=== PATIENT | male | born 1965 | race Caucasian/White ===

== ENCOUNTER 2020-04-27 16:42 | Emergency (ER) | payer OTHER, SELFPAY ==
[2020-04-27 16:58] VITALS: BP 124/76; PULSE 86; RESP 18; TEMP 36.2; O2SAT 94; BMI 22.9
--- NOTE | 2020-04-27 21:42 | ED.GENADULT ---
HPI - General Adult General Chief complaint: General Medical Stated complaint: Withdrawls Time Seen by Provider: 04/27/20 21:19 Source: patient Mode of arrival: ambulatory History of Present Illness HPI narrative: This is a 54-year-old male with history of multiple detox programs, the last of which he states was at [facility] and is now presenting stating that he is withdrawing from his use of heroin which he last used yesterday. Otherwise, patient denies shortness of breath, chest pain/palpitations, nausea, vomiting, urinary pain/burning/frequency. Patient states that he was set up for a Suboxone program after the [facility], but he was ?unable to make it due to transportation issues?. He denies alcohol use. Related Data Allergies Allergy/AdvReac Type Severity Reaction Status Date / Time codeine [CODEINE] Allergy Unknown NAUSEA Unverified 04/27/20 16:58 morphine [MORPHINE] Allergy Unknown RASH Verified 04/27/20 16:58 Review of Systems Review of Systems: Pertinent positives and negatives as stated in HPI and 10 point review systems is otherwise negative. [facility] Past Medical History Source: nursing notes reviewed Social History Social History Advance Directives: No Advance Directives Information Provided: No Physical Exam Vital Signs: Vital Signs: Last Vital Signs Temp 97.9 F 04/28/20 01:28 Pulse 68 04/28/20 01:28 Resp 18 04/28/20 01:28 BP 126/62 04/28/20 01:28 Pulse Ox 98 04/28/20 01:28 Body Mass Index 22.9 VITAL SIGNS: Reviewed. GENERAL: Well developed, well nourished, in no acute distress. HEAD: Normocephalic/atraumatic, EYES: PERRLA, EOMI NOSE: Nares patent bilateral OROPHARYNX: no oral lesions noted, posterior pharynx clear NECK: Supple, no adenopathy LUNGS: Normal breath sounds. No adventitious sounds or accessory muscle use. SpO2<97> CARDIOVASCULAR: Regular rate and rhythm without noted murmurs, no JVD or lower extremity edema. ABDOMEN: Soft, non-tender, non-distended with bowel sounds. SKIN: Inspection of the skin reveals no rashes NEUROLOGIC: Alert and oriented x 4. Strength and sensation to light touch were grossly intact x 4, no tremors. Course Course Course Narrative: This is a 54-year-old male with history and clinical presentation consistent with likely needing a warm place to sleep, but will do medical screen and no evidence of acute withdrawal at this time. Will ask the acetone recovery worker in the morning to see the patient. COW- 2 Review of all investigations without acute findings and the CARE team spoke with the patient and provided him with a list of outpatient resources for detox and patient endorse that he has some place to stay and understands that he will be discharged at 6:00 a.m. in the morning. Medical Decision Making Lab Data Result diagrams: 04/27/20 22:11 04/27/20 22:11 Labs: Lab Results 04/27/20 04/27/20 04/27/20 Range/Units 22:11 22:11 22:11 WBC 6.1 (4.8-10.8) X10*3/uL RBC 3.99 L (4.60-5.80) X10*6/uL Hgb 11.9 L (14.0-18.0) g/dl Hct 35.4 L (42-52) % MCV 88.7 (80-98) fL MCH 29.8 (27.0-33.0) pg MCHC 33.6 (31.0-36.0) g/dl RDW 13.6 (11.0-16.0) % Plt Count 154 L (160-400) X10*3/uL MPV 8.9 L (9.4-12.4) fL Immature Gran % (Auto) 0.3 (0.0-0.4) % Neut % (Auto) 47.6 (45-73) % Lymph % (Auto) 33.4 (20-40) % Darke % (Auto) 16.4 H (2-11) % Eos % (Auto) 2.0 (0-4) % Baso % (Auto) 0.3 (0-2) % Lymph # (Auto) 2.0 (1.2-4.9) X10*3/uL Darke # (Auto) 1.0 (0.1-1.2) X10*3/uL Eos # (Auto) 0.1 (0.0-0.4) X10*3/uL Baso # (Auto) 0.0 (0.0-0.2) X10*3/uL Abs Immat Gran (auto) 0.02 (0.00-0.03) X10*3/uL Absolute Neuts (auto) 2.9 (2.0-8.3) X10*3/uL Absolute Nucleated RBC 0.000 (0.0-0.012) X10*3/uL Nucleated RBC % (auto) 0.0 (0.0-0.2) /100WBC Sodium 138 (135-145) mmol/L Potassium 4.8 (3.3-5.1) mmol/L Chloride 103 (96-108) mmol/L Carbon Dioxide 29 (22-29) mmol/L Anion Gap 11 L (12-20) BUN 36 H (9-16) mg/dL Creatinine 1.23 (0.5-1.4) mg/dL Estim Creat Clear Calc 68.8 Estimated GFR > 60 Random Glucose 66 (60-115) mg/dL Calcium 8.4 (8.4-10.2) mg/dL Urine Color Urine Appearance Urine pH (5.0-8.0) Ur Specific [place] (1.005-1.025) Urine Protein (NEG-TRACE) MG/DL Urine Glucose (UA) (NEG) MG/DL Urine Ketones (NEG) MG/DL Urine Blood (NEG) Urine Nitrite (NEG) Ur Leukocyte Esterase (NEG) Urine Opiates Screen (Not Detect) Ur Barbiturates Screen (Not Detect) Ur Phencyclidine Scrn (Not Detect) Ur Amphetamines Screen (Not Detect) U Benzodiazepines Scrn (Not Detect) Urine Cocaine Screen (Not Detect) U Marijuana (THC) Screen (Not Detect) Ethyl Alcohol < 10 mg/dL 04/28/20 04/28/20 Range/Units 00:32 00:32 WBC (4.8-10.8) X10*3/uL RBC (4.60-5.80) X10*6/uL Hgb (14.0-18.0) g/dl Hct (42-52) % MCV (80-98) fL MCH (27.0-33.0) pg MCHC (31.0-36.0) g/dl RDW (11.0-16.0) % Plt Count (160-400) X10*3/uL MPV (9.4-12.4) fL Immature Gran % (Auto) (0.0-0.4) % Neut % (Auto) (45-73) % Lymph % (Auto) (20-40) % Darke % (Auto) (2-11) % Eos % (Auto) (0-4) % Baso % (Auto) (0-2) % Lymph # (Auto) (1.2-4.9) X10*3/uL Darke # (Auto) (0.1-1.2) X10*3/uL Eos # (Auto) (0.0-0.4) X10*3/uL Baso # (Auto) (0.0-0.2) X10*3/uL Abs Immat Gran (auto) (0.00-0.03) X10*3/uL Absolute Neuts (auto) (2.0-8.3) X10*3/uL Absolute Nucleated RBC (0.0-0.012) X10*3/uL Nucleated RBC % (auto) (0.0-0.2) /100WBC Sodium (135-145) mmol/L Potassium (3.3-5.1) mmol/L Chloride (96-108) mmol/L Carbon Dioxide (22-29) mmol/L Anion Gap (12-20) BUN (9-16) mg/dL Creatinine (0.5-1.4) mg/dL Estim Creat Clear Calc Estimated GFR Random Glucose (60-115) mg/dL Calcium (8.4-10.2) mg/dL Urine Color YELLOW Urine Appearance CLEAR Urine pH 5.5 (5.0-8.0) Ur Specific [place] 1.025 (1.005-1.025) Urine Protein NEG (NEG-TRACE) MG/DL Urine Glucose (UA) NEG (NEG) MG/DL Urine Ketones NEG (NEG) MG/DL Urine Blood NEG (NEG) Urine Nitrite NEG (NEG) Ur Leukocyte Esterase NEG (NEG) Urine Opiates Screen POSITIVE H (Not Detect) Ur Barbiturates Screen Not Detected (Not Detect) Ur Phencyclidine Scrn Not Detected (Not Detect) Ur Amphetamines Screen Not Detected (Not Detect) U Benzodiazepines Scrn Not Detected (Not Detect) Urine Cocaine Screen POSITIVE H (Not Detect) U Marijuana (THC) Screen Not Detected (Not Detect) Ethyl Alcohol mg/dL Discharge Plan Discharge Clinical Impression: Substance abuse Patient Disposition: Home, Self-Care Instructions: Polysubstance Abuse (ED) Additional Instructions: 1. You have been provided with a list of resources for detox as an outpatient. 2. Please do not hesitate to come back to the emergency department should you have any acute onset of chest pain, shortness of breath, fevers or chills that are not relieved by Tylenol or ibuprofen. Referrals: Cecilia Schmidt MD [Primary Care Provider] - 2 days (Re-evaluation for polysubstance abuse)
[2020-04-27 22:16] LABS: MANUAL DIFF FLAG NO
[2020-04-27 22:23] LABS: Basophils Percent Auto 0.3 % (0-2); Eosinophils Absolute Auto 0.1 X10*3/uL (0.0-0.4); Hematocrit 35.4 % (42-52); Hemoglobin 11.9 g/dl (14.0-18.0); Imm Gran Abs Auto 0.02 X10*3/uL (0.00-0.03); Imm Gran Pct Auto 0.3 % (0.0-0.4); Lymphocytes Percent Auto 33.4 % (20-40); Mean Corpuscular HGB Conc 33.6 g/dl (31.0-36.0); Mean Corpuscular Hemoglobin 29.8 pg (27.0-33.0); Mean Corpuscular Volume 88.7 fL (80-98); Mean Platelet Volume 8.9 fL (9.4-12.4); Monocytes Percent Auto 16.4 % (2-11); Neutrophils Absolute Auto 2.9 X10*3/uL (2.0-8.3); Neutrophils Percent Auto 47.6 % (45-73); Platelet Count 154 X10*3/uL (160-400); Red Blood Count 3.99 X10*6/uL (4.60-5.80); Red Cell Distribution Width 13.6 % (11.0-16.0); White Blood Count 6.1 X10*3/uL (4.8-10.8)
[2020-04-27 22:41] VITALS: BP 119/77; PULSE 60; RESP 18; TEMP 36.6; O2SAT 97
[2020-04-27 22:46] LABS: Ethanol < 10 mg/dL
[2020-04-27 22:47] LABS: Anion Gap 11 (12-20); Blood Urea Nitrogen 36 mg/dL (9-16); Calcium 8.4 mg/dL (8.4-10.2); Carbon Dioxide 29 mmol/L (22-29); Chloride 103 mmol/L (96-108); Creatinine Clr Calc Pharmacy 68.8; Estimated Glomerular Filt Rate > 60; Glucose Random 66 mg/dL (60-115); Potassium 4.8 mmol/L (3.3-5.1); Sodium 138 mmol/L (135-145)
[2020-04-28 00:53] LABS: Glucose Urine UA NEG (NEG); Leukocyte Esterase Urine NEG (NEG); Nitrite Urine NEG (NEG); PH 5.5 (5.0-8.0); Specific Gravity - Urine 1.025 (1.005-1.025); Urine Blood NEG (NEG); Urine Ketones NEG (NEG); Urine Protein NEG (NEG-TRACE)
[2020-04-28 00:54] LABS: Color Urine YELLOW
[2020-04-28 00:55] LABS: Appearance Urine CLEAR
[2020-04-28 01:13] LABS: Amphetamine Screen Urine Not Detected (Not Detect); Barbiturates, Urine Not Detected (Not Detect); Benzodiazepines Screen Urine Not Detected (Not Detect); Cannabinoid Screen Urine Not Detected (Not Detect); Cocaine Screen Urine POSITIVE (Not Detect); Opiate Screen Urine POSITIVE (Not Detect); Phencyclidine Screen Urine Not Detected (Not Detect)
[2020-04-28 01:28] VITALS: BP 126/62; PULSE 68; RESP 18; TEMP 36.6; O2SAT 98
[2020-04-28 01:31] VITALS: PULSE 65
--- NOTE | 2020-04-28 02:45 | MHC.CARE ---
CARE Team meets with pt in order to discuss ATS referral. Pt is vague about his current desire to be referred to detox. He states that he came to the ED in order for support in detoxing on his own and to receive comfort measures. He states that he is having stomach pain, nausea and stomach pain and feels like ants are crawling on him. Dr. Barr informed of these reported sx and pt's request for medication. CARE Team offers LYFT back to his motel, but LYFT unavailable. CARE Team provides list of ATS facilities and education about [facility]. CARE Team available to meet with pt in the morning if he is still in the ED.
--- NOTE | 2020-04-28 04:27 | PC.NURSE ---
Pt asleep on stretcher on in NAD, breathing with ease on RA. Pt appears comfortable, RR even and unlabored with equal chest rise and fall bilaterally. No sweat noted on patient.
[2020-04-28 06:07] VITALS: BP 142/77; PULSE 80; RESP 16; O2SAT 98
== END 2020-04-28 06:15 | disposition home or self-care (01) ==
PROVIDERS: Emergency Provider Student in an Organized Health Care Education/Training Program; PCP Internal Medicine
DX: F11.13 Opioid abuse with withdrawal (principal); Z71.51 Drug abuse counseling and surveillance of drug abuser
CPT/HCPCS: 36415; 80048; 80307; 80320; 81003; 85025; 99284

== ENCOUNTER 2022-11-11 08:30 | Outpatient (REF) | payer OTHER, SELFPAY ==
--- NOTE | ~2022-11-11 | XR_ITS ---
EXAMINATION: XR KNEE, RIGHT CLINICAL INFORMATION: Pain. COMPARISON: None available. TECHNIQUE: AP, lateral and sunrise views of the right knee are submitted. FINDINGS: There is bony demineralization. The lateral, medial and patellofemoral joint space compartments are well-maintained. No fracture, dislocation or joint effusion is seen. There is a small enthesophyte arising from the upper pole of the patella. No foreign body is seen. XR/XR knee RT 3V IMPRESSION: Normal right knee.
== END 2022-11-11 08:31 | disposition home or self-care (01) ==
LOC: HO.HOSX 08:30
PROVIDERS: Visit Provider Orthopaedic Surgery
DX: M25.561 Pain in right knee (principal)
CPT/HCPCS: 73562; 99202

== ENCOUNTER 2022-11-11 10:39 | Outpatient (AMB) | payer OTHER, SELFPAY ==
--- NOTE | 2022-11-11 10:41 | A.OFFVIS_ITS ---
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 He describes his pain as achy in nature. He denies any locking or giving way. He does not take any medicines for his discomfort. The patient states that he has had cortisone shots given into other parts of his body in the past. He has not had an injection into either of his knees. Allergies codeine [CODEINE] Allergy (Unknown, Unverified 04/27/20 16:58) NAUSEA morphine [MORPHINE] Allergy (Unknown, Verified 04/27/20 16:58) RASH Medication List - Last Reconciled 11/11/22 by Benson Vincent MD albuterol sulfate 90 mcg/actuation (Ventolin HFA) 2 puffs inhalation QID PRN amlodipine 5 mg PO DAILY fluticasone propionate 110 mcg/actuation (Flovent HFA) 2 puffs inhalation BID hydroxyzine HCl 25 mg PO BID PRN ibuprofen 600 mg PO Q6H methadone 90 mg PO Q6H sertraline mg PO trazodone 150 mg PO BEDTIME PFSH Surgical History (Updated 11/11/22 @ 10:54 by Karly Alston CMA) H/O elbow surgery (~2000) H/O neck surgery (~1998) History of ankle surgery (~2003) Social History (Updated 11/11/22 @ 10:55 by Karly Alston CMA) Patient Tobacco Use Status: Current everyday Tobacco user Cigarette Packs Per Day: 10 Current occupational status: disabled Physical Exam Vital Signs: BMI result Body Mass Index 38.7 Const Other: Well-nourished well-developed very friendly male awake alert and oriented x3 in no acute distress Extrem Other: Bilateral lower extremity examination shows good capillary refill, no skin lesions noted, normal sensation light touch Right knee examination shows a minimal effusion, mild crepitus with range of motion, negative Angel's test, no instability Results Reviewed Results Reviewed: X-rays of the patient's right knee taken today show mild diffuse joint space narrowing, no acute bony Assessment & Plan Assessment & Plan (1) Right knee pain: Code(s): M25.561 - Pain in right knee Plan Mr. Younger presents with intermittent right knee discomfort due to early degenerative joint disease. I had a lengthy discussion with the patient regarding the treatment options. At this point his symptoms are tolerable to him. He wishes to hold off on a cortisone injection. He will follow up with me on an as-needed basis should his symptoms worsen in any way. The patient also reports bilateral lower extremity intermittent swelling. I do not believe that the diffuse swelling is related to his early knee arthritis. His diffuse swelling is most likely due to a systemic problem such as cardiovascular disease. I did recommend that he contact your office for a follow-up appointment. 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 Feel free to call me at any time should questions regarding his orthopedic management arise. Thank you very much for asking me to see this very friendly gentleman. Orders: Orders XR knee RT 3V Today M25.561 - Pain in right knee Coding Level of Care Code New Pt Level 2 (39307) Diagnoses Right knee pain M25.561
[2022-11-11 10:51] VITALS: BMI 38.7
== END 2022-11-11 11:04 | disposition home or self-care (01) ==
PROVIDERS: PCP Internal Medicine; Visit Provider Orthopaedic Surgery
DX: M25.561 Pain in right knee (principal)
CPT/HCPCS: 99202

== ENCOUNTER 2022-11-11 11:16 | Outpatient (REF) | payer OTHER, SELFPAY ==
[2022-11-11 13:09] LABS: MANUAL DIFF FLAG NO
[2022-11-11 13:11] LABS: Basophils Percent Auto 0.3 % (0-2); Eosinophils Absolute Auto 0.2 X10*3/uL (0.0-0.4); Hematocrit 34.5 % (42.0-52.0); Hemoglobin 11.2 g/dl (14.0-18.0); Imm Gran Abs Auto 0.04 X10*3/uL (0.00-0.03); Imm Gran Pct Auto 0.5 % (0.0-0.4); Lymphocytes Absolute Auto 1.3 X10*3/uL (1.2-4.9); Lymphocytes Percent Auto 16.8 % (20-40); Mean Corpuscular HGB Conc 32.5 g/dl (31.0-36.0); Mean Corpuscular Hemoglobin 28.4 pg (27.0-33.0); Mean Corpuscular Volume 87.6 fL (80.0-98.0); Monocytes Absolute Auto 0.8 X10*3/uL (0.1-1.2); Monocytes Percent Auto 10.1 % (2-11); Neutrophils Absolute Auto 5.6 x10*3/uL (2.0-8.3); Neutrophils Percent Auto 70.3 % (45-73); Platelet Count 241 X10*3/uL (160-400); Red Blood Count 3.94 X10*6/uL (4.60-5.80)
[2022-11-11 13:41] LABS: Alanine Aminotransferase 13 U/L (0-40); Albumin Level 3.8 g/dL (3.5-5.0); Alkaline Phosphatase 88 U/L (39-117); Anion Gap 13 (12-20); Aspartate Amino Transferase 16 U/L (5-37); Bilirubin Total 0.2 mg/dL (0.0-1.0); Blood Urea Nitrogen 25 mg/dL (9-16); Carbon Dioxide 28 mmol/L (22-29); Chloride 100 mmol/L (96-108); Cholesterol 190 mg/dL; Estimated Glomerular Filt Rate 43; Glucose Random 101 mg/dL (60-115); HDL Cholesterol 57 mg/dL; LDL Cholesterol Calculated 111 mg/dl; Potassium 4.7 mmol/L (3.3-5.1); Sodium 136 mmol/L (135-145); Total Protein 8.3 g/dL (6.5-8.0); Triglycerides 110 mg/dL
[2022-11-11 13:53] LABS: Prostate Specific Antigen Scr < 0.10 ng/mL (<0.05-4.0)
== END 2022-11-11 11:17 | disposition home or self-care (01) ==
LOC: HO.10HDL 11:16
PROVIDERS: Visit Provider Internal Medicine
DX: Z12.5 Encounter for screening for malignant neoplasm of prostate (principal); D89.0 Polyclonal hypergammaglobulinemia; F32.9 Major depressive disorder, single episode, unspecified; I12.9 Hypertensive chronic kidney disease with stage 1 through stage 4 chronic kidney disease, or unspecified chronic kidney disease; N18.9 Chronic kidney disease, unspecified; Z72.0 Tobacco use
CPT/HCPCS: 36415; 80053; 80061; 84153; 84443; 85025

== ENCOUNTER 2022-12-17 12:05 | Outpatient (REF) | payer OTHER, SELFPAY ==
[2022-12-17 13:16] LABS: MANUAL DIFF FLAG NO
[2022-12-17 13:24] LABS: Basophils Percent Auto 0.4 % (0-2); Eosinophils Absolute Auto 0.3 X10*3/uL (0.0-0.4); Eosinophils Percent Auto 3.3 % (0-4); Hematocrit 34.8 % (42.0-52.0); Hemoglobin 11.5 g/dl (14.0-18.0); Imm Gran Abs Auto 0.09 X10*3/uL (0.00-0.03); Imm Gran Pct Auto 1.1 % (0.0-0.4); Lymphocytes Absolute Auto 1.4 X10*3/uL (1.2-4.9); Lymphocytes Percent Auto 16.9 % (20-40); Mean Corpuscular Hemoglobin 28.5 pg (27.0-33.0); Mean Corpuscular Volume 86.4 fL (80.0-98.0); Mean Platelet Volume 8.8 fL (9.4-12.4); Monocytes Absolute Auto 0.9 X10*3/uL (0.1-1.2); Monocytes Percent Auto 10.3 % (2-11); Neutrophils Absolute Auto 5.6 x10*3/uL (2.0-8.3); Platelet Count 223 X10*3/uL (160-400); Red Blood Count 4.03 X10*6/uL (4.60-5.80); Red Cell Distribution Width 14.9 % (11.0-16.0); White Blood Count 8.3 X10*3/uL (4.8-10.8)
== END 2022-12-17 12:06 | disposition home or self-care (01) ==
LOC: HO.10HDL 12:05
PROVIDERS: Visit Provider Internal Medicine
DX: Z00.01 Encounter for general adult medical examination with abnormal findings (principal); I12.9 Hypertensive chronic kidney disease with stage 1 through stage 4 chronic kidney disease, or unspecified chronic kidney disease; N18.9 Chronic kidney disease, unspecified; D63.1 Anemia in chronic kidney disease; F32.4 Major depressive disorder, single episode, in partial remission; Z72.0 Tobacco use
CPT/HCPCS: 36415; 80053; 82728; 85025

== ENCOUNTER 2023-10-30 14:43 | Emergency (ER) | payer OTHER, SELFPAY ==
[2023-10-30 14:58] VITALS: BP 138/67; PULSE 79; O2SAT 94
[2023-10-30 15:00] VITALS: BP 109/58; PULSE 77; RESP 20; TEMP 36.2; O2SAT 92; BMI 38.7
--- NOTE | 2023-10-30 15:16 | ED_ITS ---
HPI - Skin/Abscess/Foreign Bdy General Stated complaint: R ANKLE WOUND Time Seen by Provider: 10/30/23 15:16 Source: patient Mode of arrival: ambulatory Limitations: no limitations History of Present Illness HPI narrative: Patient is a 58-year-old with past medical history of hypertension, asthma, depression, anxiety, substance use disorder presenting to emergency department for evaluation of a right ankle wound, chronic in nature follows with [facility] wound clinic. States he last saw them 2 days ago. Not currently on any antibiotics. He states that he noticed bleeding from the dressing suddenly, does not recall hitting it or striking it into anything that would have prompted the bleeding. He denies any pain. Related Data Home Medications ?Medication ?Instructions ?Recorded ?Confirmed albuterol sulfate 90 mcg/actuation 2 puff inhalation QID PRN asthma 11/11/22 11/11/22 aerosol inhaler (Ventolin HFA) amlodipine 5 mg tablet 5 mg PO DAILY 11/11/22 11/11/22 fluticasone propionate 110 2 puff inhalation BID 11/11/22 11/11/22 mcg/actuation HFA aerosol inhaler (Flovent HFA) hydroxyzine HCl 25 mg tablet 25 mg PO BID PRN 11/11/22 11/11/22 ibuprofen 600 mg tablet 600 mg PO Q6H 11/11/22 11/11/22 methadone 5 mg/5 mL oral solution 90 mg PO Q6H 11/11/22 11/11/22 sertraline 100 mg tablet mg PO 11/11/22 11/11/22 trazodone 150 mg tablet 150 mg PO BEDTIME 11/11/22 11/11/22 Allergies Allergy/AdvReac Type Severity Reaction Status Date / Time codeine [CODEINE] Allergy Unknown NAUSEA Verified 10/30/23 15:38 morphine [MORPHINE] Allergy Unknown RASH Verified 10/30/23 15:38 Review of Systems Review of Systems: Yes all other systems are reviewed and are negative PMFSH Past Medical History Attestation statement: The following information was validated with the patient. Source: old records reviewed Surgical History H/O elbow surgery (~2000) History of ankle surgery (~2003) H/O neck surgery (~1998) Social History Social History (Updated 11/11/22 @ 10:55 by Karly Alston [facility]) Patient Tobacco Use Status: Current everyday Tobacco user Cigarette Packs Per Day: 10 Current occupational status: disabled Physical Exam Vital Signs: Appearance: Alert.?Oriented to person, place and time. No acute distress.?Normal affect. Eyes: Pupils equal, round and reactive to light.?EOMi ENT: Pharynx normal.?? Neck: Normal inspection.? Neck supple.?? CVS: Heart sounds normal. Normal heart rate and rhythm.? Pulses normal.?? Respiratory: No respiratory distress.? Lung sounds clear to auscultation bilaterally?? Abdomen: Soft and non-tender. Normoactive bowel sounds..?? Skin: Skin warm and dry.? Normal skin color.? Chronic wound to the right posterior medial ankle. Surrounding tissue is pink with some maceration, significant amount of barrier cream is intact. Wound bed with pink/yellow granular tissue, few areas of redness corresponding with previous bleeding though no active bleeding. Extremities: No lower extremity edema.? No calf tenderness upon palpation Neuro: Moves all extremities spontaneously. Sensation intact bilaterally. Ambulates with normal steady gait. Medical Decision Making Medical Decision Making MDM Narrative: Patient is a 58-year-old with past medical history of hypertension, asthma, depression, anxiety, substance use disorder presenting to emergency department for evaluation of a right ankle wound. Nursing staff contacted did wound clinic, calcium alginate is to be applied to the wound bed with barrier cream to surrounding area and with nonabsorbable dressing. There are a few areas within the bed that appear to have been previously bleeding, currently without active bleeding. Does not appear to be cellulitic or with acute infection. At this time feel that he is stable for discharge home. Differential Diagnosis Differential Diagnoses: The differential diagnosis associated with the presentation includes (See narrative above) Independent Historian Clinical information obtained from an independent historian. History obtained from or confirmed by: EMS External Record Review External record reviewed: Outpatient record Prescription Management I considered prescription management with: Antibiotic (Does not appear with acute infection would defer antibiotics) Discharge Plan Discharge Clinical Impression: Open wound of right ankle Patient Disposition: Home, Self-Care Additional Instructions: Continue your dressings as instructed by wound clinic and outpatient follow-up. Return to the emergency department with any new or worsening symptoms or concerns Prescriptions: No Action amlodipine 5 mg tablet 5 mg PO DAILY sertraline 100 mg tablet PO fluticasone propionate [Flovent HFA] 110 mcg/actuation HFA aerosol inhaler 2 puff inhalation BID albuterol sulfate [Ventolin HFA] 90 mcg/actuation HFA aerosol inhaler 2 puff inhalation QID PRN (Reason: asthma) trazodone 150 mg tablet 150 mg PO BEDTIME hydroxyzine HCl 25 mg tablet 25 mg PO BID PRN ibuprofen 600 mg tablet 600 mg PO Q6H methadone 5 mg/5 mL solution 90 mg PO Q6H Referrals: ED Physician,Generic [Physician] - Print Language: Japanese
[2023-10-30 17:39] VITALS: BP 124/70; PULSE 69; RESP 18; TEMP 36.8; O2SAT 93
== END 2023-10-30 17:55 | disposition home or self-care (01) ==
PROVIDERS: Emergency Provider Student in an Organized Health Care Education/Training Program; PCP Internal Medicine
DX: S91.001D Unspecified open wound, right ankle, subsequent encounter (principal); X58.XXXD Exposure to other specified factors, subsequent encounter; I10 Essential (primary) hypertension; J45.909 Unspecified asthma, uncomplicated; F17.210 Nicotine dependence, cigarettes, uncomplicated; Z79.899 Other long term (current) drug therapy
CPT/HCPCS: 99283

== ENCOUNTER 2024-01-06 11:29 | Outpatient (REF) | payer OTHER, SELFPAY ==
[2024-01-06 13:17] LABS: MANUAL DIFF FLAG NO
[2024-01-06 13:55] LABS: Basophils Percent Auto 0.4 % (0-2); Eosinophils Absolute Auto 0.4 X10*3/uL (0.0-0.4); Eosinophils Percent Auto 5.6 % (0-4); Hematocrit 29.3 % (42.0-52.0); Hemoglobin 9.4 g/dl (14.0-18.0); Imm Gran Abs Auto 0.07 X10*3/uL (0.00-0.03); Imm Gran Pct Auto 0.9 % (0.0-0.4); Mean Corpuscular HGB Conc 32.1 g/dl (31.0-36.0); Mean Corpuscular Hemoglobin 27.4 pg (27.0-33.0); Mean Corpuscular Volume 85.4 fL (80.0-98.0); Mean Platelet Volume 8.6 fL (9.4-12.4); Monocytes Absolute Auto 0.8 X10*3/uL (0.1-1.2); Monocytes Percent Auto 10.1 % (2-11); Neutrophils Absolute Auto 5.4 x10*3/uL (2.0-8.3); Platelet Count 255 X10*3/uL (160-400); Red Blood Count 3.43 X10*6/uL (4.60-5.80); Red Cell Distribution Width 16.2 % (11.0-16.0); White Blood Count 7.7 X10*3/uL (4.8-10.8)
[2024-01-06 14:16] LABS: Alanine Aminotransferase 9 U/L (0-40); Albumin Level 3.6 g/dL (3.5-5.0); Alkaline Phosphatase 94 U/L (39-117); Anion Gap 12 (12-20); Aspartate Amino Transferase 12 U/L (5-37); Bilirubin Total 0.2 mg/dL (0.0-1.0); Blood Urea Nitrogen 26 mg/dL (9-16); Calcium 8.8 mg/dL (8.4-10.2); Carbon Dioxide 24 mmol/L (22-29); Chloride 107 mmol/L (96-108); Cholesterol 161 mg/dL (<200); Estimated Glomerular Filt Rate 47; Glucose Random 110 mg/dL (60-115); HDL Cholesterol 43 mg/dL (>40); LDL Cholesterol Calculated 90 mg/dL (<100); Potassium 4.3 mmol/L (3.3-5.1); Sodium 139 mmol/L (135-145); Total Protein 8.3 g/dL (6.5-8.0); Triglycerides 140 mg/dL (<150)
[2024-01-06 14:25] LABS: Prostate Specific Antigen Scr < 0.10 ng/mL (<0.05-4.0)
[2024-01-06 14:31] LABS: Thyroid Stimulating Hormone 3.87 uIU/mL (0.32-4.0)
== END 2024-01-06 11:30 | disposition home or self-care (01) ==
LOC: HO.10HDL 11:29
PROVIDERS: Visit Provider Internal Medicine
DX: D64.89 Other specified anemias (principal); I12.9 Hypertensive chronic kidney disease with stage 1 through stage 4 chronic kidney disease, or unspecified chronic kidney disease; L97.919 Non-pressure chronic ulcer of unspecified part of right lower leg with unspecified severity; N40.0 Benign prostatic hyperplasia without lower urinary tract symptoms
CPT/HCPCS: 36415; 80053; 80061; 84153; 84443; 85025

== ENCOUNTER 2024-03-21 15:37 | Inpatient (IN) | payer OTHER, SELFPAY ==
--- NOTE | ~2024-03-21 | XR_ITS ---
EXAMINATION: XR FOOT, RIGHT CLINICAL INFORMATION: Heel wound. osteomyelitits? COMPARISON: 08/12/2023 TECHNIQUE: AP, lateral, and oblique views of the right foot. FINDINGS: Soft tissue defect posterior to the calcaneus with cortical erosion of the posterior superior tuberosity compatible with osteomyelitis. There are more chronic appearing changes in the mid aspect of the posterior tuberosity, likely a remote, healed fracture. XR/XR foot RT 2V IMPRESSION: Soft tissue defect posterior to the calcaneus with cortical erosion of the posterior superior tuberosity compatible with osteomyelitis. Electronically signed by: Ignacio Fairchild MD 03/21/2024 07:10 PM [facility]
--- NOTE | ~2024-03-21 | US_ITS ---
EXAMINATION: Noninvasive assessment of the bilateral lower extremities with ARTERIAL DUPLEX and ANKLE BRACHIAL INDICES (ABIs). CLINICAL INFORMATION: Peripheral vascular disease, nonhealing ulcer TECHNIQUE: Duplex Doppler techniques with waveform analysis and measurement of velocities in the bilateral common femoral, profunda femoris, superficial femoral, popliteal and tibial arteries were performed. Additionally, ankle pulse volume recordings, ankle pressure measurements and ankle brachial indices were obtained of the lower extremity arterial system bilaterally. The study was performed only at rest. COMPARISON: None FINDINGS: DIRECT DUPLEX DOPPLER FINDINGS: RIGHT LEG: Common femoral artery: 134 cm/s, phasicity: Triphasic Profunda femoris artery: 81.6 cm/s, phasicity: Biphasic Superficial femoral artery (proximal): 87.3 cm/s, phasicity: Biphasic Superficial femoral artery (mid): 100.4 cm/s, phasicity: Triphasic Superficial femoral artery (distal): 125 cm/s, phasicity: Biphasic Popliteal artery: 79.6 cm/s, phasicity: Triphasic Posterior tibial artery: 74 cm/s, phasicity: Biphasic Peroneal artery: Not visualized Anterior tibial artery: 54.0 cm/s, phasicity: Monophasic Dorsalis pedis artery: 90.1 cm/s, phasicity:Biphasic LEFT LEG: Common femoral artery: 186 cm/s, phasicity: Triphasic Profunda femoris artery: 81 cm/s, phasicity: Biphasic Superficial femoral artery (proximal): 107 cm/s, phasicity: Triphasic Superficial femoral artery (mid): 96.2 cm/s, phasicity: Triphasic Superficial femoral artery (distal): 92.4 cm/s, phasicity: Triphasic Popliteal artery: 114 cm/s, phasicity: Triphasic Posterior tibial artery: 70.7 cm/s, phasicity: Triphasic Peroneal artery: Not visualized Anterior tibial artery: Not visualized Dorsalis pedis artery: 116 cm/s, phasicity: Triphasic ANKLE-BRACHIAL INDEX: Right: 1.06 Left: 1.17 ANKLE PRESSURES: Right: PT 132, DP 122 Left: PT 148, DP 120 ANKLE PVR WAVEFORMS: Right: Normal Left: Normal US/US arterial duplex BI w/ SIA IMPRESSION: RIGHT LEG: Normal ankle brachial index. Patent arterial flow throughout the right lower extremity. No significant stenosis or occlusion. LEFT LEG: Normal ankle brachial index. Patent arterial flow throughout the left lower extremity. No significant stenosis or occlusion. Electronically signed by: Michael Duran MD 03/22/2024 03:36 PM EST
--- NOTE | ~2024-03-21 | XR_ITS ---
EXAMINATION: XR CHEST CLINICAL INFORMATION: hypoxia COMPARISON: None available. TECHNIQUE: Frontal view of the chest was obtained. FINDINGS: Mild diffuse interstitial prominence, nonspecific. Difference diagnosis includes, but is not limited to, pulmonary edema. No focal infiltrate, effusion, or pneumothorax is appreciated. The cardiac silhouette is suboptimally evaluated. The mediastinum, diaphragm, and soft tissues appear unremarkable. Partially imaged lower cervical anterior fixation plate and screws. XR/XR chest 1V IMPRESSION: Findings as above. Electronically signed by: Jorge Mauro MD 03/23/2024 08:49 AM [facility]
[2024-03-21 16:15] VITALS: BP 159/54; PULSE 91; RESP 18; TEMP 36.8; O2SAT 97; BMI 37.6
--- NOTE | 2024-03-21 16:24 | ED.GENADULT ---
HPI - General Adult General Chief complaint: Extremity Problem Stated complaint: R foot infection Time Seen by Provider: 03/21/24 20:28 Source: patient, RN notes reviewed and old records reviewed Mode of arrival: ambulatory Limitations: no limitations History of Present Illness ED Provider: Carole PEREZ narrative: 58-year-old male with past medical history significant for hypertension, smoker, chronic kidney disease presents for evaluation of a wound to his right heel. He reports the wound has been there for about 10 months. He has been following with Wound Care. He recently finished a 10 day course of doxycycline He reports a remote injury about 25 years ago. About 10 months ago he bumped the area and had a small wound that has been slowly getting worse. He denies any known history of diabetes pain Denies any fevers. He has 10/10 pain to the area He reports foul-smelling drainage for several months Related Data Home Medications ?Medication ?Instructions ?Recorded ?Confirmed albuterol sulfate 90 mcg/actuation 2 puff inhalation QID PRN asthma 11/11/22 03/21/24 aerosol inhaler (Ventolin HFA) amlodipine 5 mg tablet 5 mg PO DAILY 11/11/22 03/21/24 hydroxyzine HCl 25 mg tablet 25 mg PO BID PRN Anxiety 11/11/22 03/21/24 methadone 5 mg/5 mL oral solution 80 mg PO DAILY 11/11/22 03/22/24 sertraline 100 mg tablet 150 mg PO DAILY 11/11/22 03/21/24 ibuprofen 400 mg tablet 400 mg PO TID 03/21/24 03/21/24 losartan 50 mg-hydrochlorothiazide 1 tab PO DAILY 03/21/24 03/21/24 12.5 mg tablet nicotine 21 mg/24 hr daily 1 patch topical DAILY 03/21/24 03/21/24 transdermal patch Allergies Allergy/AdvReac Type Severity Reaction Status Date / Time codeine [CODEINE] Allergy Unknown NAUSEA Verified 03/21/24 16:19 morphine [MORPHINE] Allergy Unknown RASH Verified 03/21/24 16:19 Review of Systems Constitutional: Constitutional: Denies body ache(s), Denies chills, Denies fever(s) and Denies frequent falls Eyes: Eyes: Denies blurry vision ENT: Denies sore throat Cardiovascular: Cardiovascular: Denies chest pain Respiratory: Respiratory: Denies cough Gastrointestinal: Gastrointestinal: Denies vomiting Integumentary/Breasts: Skin/Breast: Reports non-healing lesions, Reports erythema, Reports sores and Reports wounds Neurologic: Denies frequent falls PMFSH Past Medical History Medical History (Updated 03/22/24 @ 08:48 by Boo Sheets MD) Smoker History of substance use disorder Depression HTN (hypertension) Surgical History H/O elbow surgery (~2000) History of ankle surgery (~2003) H/O neck surgery (~1998) Social History Social History (Updated 11/11/22 @ 10:55 by Karly Alston CMA) Housing: Apartment Do you presently have visiting nurse or other home services: Yes (once a week check up) Patient Tobacco Use Status: Current everyday Tobacco user Tobacco use type: Cigarette Cigarette Packs Per Day: 10 Cigarettes Per Day: 10 Smoked in Last 30 Days: Yes Patient Interested in Nicotine Replacement: Yes Use of substances other than those prescribed or required for medical reasons: No Advance Directives: No Advance Directives Information Provided: No Do you have a plan to hurt others: No Plan Recently lost weight without trying: Unsure Nutrition Risks: No Nutritional Risk Current occupational status: disabled Physical Exam ED Vital Signs: Vital Signs - 24 hr 03/21/24 16:15 03/21/24 19:56 03/21/24 20:53 Temperature 98.3 F 98.3 F Pulse Rate 91 82 Respiratory Rate 18 17 17 Blood Pressure 159/54 H 100/46 L Pulse Oximetry 97 93 Oxygen Delivery Method Room Air Room Air BMI result Body Mass Index 37.6 Const General: healthy appearing, comfortable, no acute distress, alert and awake Nutritional Appearance: well nourished Orientation/consciousness: patient oriented x3 HENMT Head: Yes normocephalic and Yes atraumatic Eyes Eyelids: Yes eyelids normal Conjunctivae: conjunctivae normal Sclerae: sclerae normal Corneas: corneas normal Pupils: Equal, round and reactive pupils present EOM: EOMs intact bilaterally Neck Neck: Yes full ROM Resp Effort & Inspection: normal respiratory effort, able to speak in complete sentences and not labored Skin General skin exam: elasticity normal Neuro General: patient oriented x3 Cranial nerves: Yes Equal, round and reactive pupils present and Yes Bilaterally intact EOM present Cognition (Neuro): normal cognition Extrem Other: Patient has significant erythema with soft tissue defect to the right calcaneus. There is a significant amount of purulent drainage. There is burrowing of the wound Course Course Course Narrative: RME: 58-year-old male presents to ED for right foot wound nonhealing. Patient is sent from Wound Clinic. Labs x-ray ordered. Medications Administered Generic Name Dose Route Start Last Admin Trade Name Freq PRN Reason Stop Dose Admin Amlodipine Besylate 5 mg 03/22/24 09:00 03/22/24 09:00 Amlodipine Besylate 5 Mg Tablet PO 5 mg DAILY VANESSA Administration Protocol Ceftriaxone Sodium 2 gm 03/21/24 21:30 03/21/24 21:36 Ceftriaxone Sodium 2 Gm Vial IVPUSH 2 gm Q24H VANESSA Administration Enoxaparin Sodium 40 mg 03/21/24 21:15 03/21/24 21:29 Enoxaparin Sodium 40 Mg/0.4 Ml Syringe SUBCUT 40 mg Q24H VANESSA Administration Hydrochlorothiazide 12.5 mg 03/22/24 09:00 03/22/24 10:08 Hydrochlorothiazide 12.5 Mg Tablet PO 12.5 mg DAILY VANESSA Administration Vancomycin HCl 750 mg/ Sodium 265 mls @ 265 mls/hr 03/22/24 10:00 03/22/24 11:20 Chloride IV Infused Q12H VANESSA Infusion Lactated Ringer's 1,000 mls @ 100 mls/hr 03/21/24 22:45 03/22/24 08:17 Lr IVCONT 100 mls/hr .Q10H VANESSA Administration Losartan Potassium 50 mg 03/22/24 09:00 03/22/24 10:08 Losartan Potassium 50 Mg Tablet PO 50 mg DAILY VANESSA Administration Morphine Sulfate 2 mg 03/21/24 21:06 03/22/24 08:16 Morphine Sulfate 4 Mg/Ml Cartridge IVPUSH 2 mg Q4H PRN Administration Pain, Severe (Pain Scale 7-10) Protocol Nicotine 21 mg 03/22/24 09:00 03/22/24 09:01 Nicotine 21 Mg Patch.Td24 TRANSDERMA 21 mg DAILY VANESSA Administration Sertraline HCl 150 mg 03/22/24 09:00 03/22/24 10:08 Sertraline Hcl 50 Mg Tablet PO 150 mg DAILY VANESSA Administration Sodium Chloride 3 ml 03/22/24 00:00 03/22/24 08:17 0.9 % Sodium Chloride Flush 3 Ml Syringe IVFLUSH Not Given QSHIFT VANESSA Discontinued Medications Generic Name Dose Route Start Last Admin Trade Name Junaid PRN Reason Stop Dose Admin Hydromorphone HCl 1 mg 03/21/24 20:42 03/21/24 20:53 Hydromorphone Hcl 1 Mg/Ml Syringe IVPUSH 03/21/24 20:43 1 mg ONCE ONE Administration Protocol Sodium Chloride 1,000 mls @ 999 mls/hr 03/21/24 20:45 03/21/24 22:43 Ns IV 03/21/24 21:45 Infused .Q1H1M VANESSA Infusion Vancomycin HCl 2,000 mg in 500 mls @ 250 mls/hr 03/21/24 20:38 03/22/24 00:25 Vancomycin/Ns IV 03/21/24 22:37 Infused ONCE ONE Infusion Piperacillin Sod/Tazobactam 50 mls @ 100 mls/hr 03/21/24 20:38 03/21/24 21:39 Sod 3.375 gm/ Sodium Chloride IV 03/21/24 21:07 Infused ONCE ONE Infusion Ondansetron HCl 4 mg 03/21/24 20:42 03/21/24 20:53 Ondansetron Hcl 4 Mg/2 Ml Vial IVPUSH 03/21/24 20:43 4 mg ONCE ONE Administration Medical Decision Making Medical Decision Making [facility] Narrative: 58-year-old male presents for evaluation of a wound to his left heel. He has a chronic wound for the last 10 months, he appears to have a fairly advanced infection, x-ray confirms osteomyelitis. He has elevated inflammatory markers, he is not septic, no leukocytosis, he was not febrile. He has been on outpatient antibiotics without any improvement. Will discuss with the hospitalist for admission. I ordered vancomycin and Zosyn Differential Diagnosis Differential Diagnoses: The differential diagnosis associated with the presentation includes Osteomyelitis Cellulitis Sepsis Bacteremia Nonhealing wound Admission/Observation Consideration of admission/observation: Escalation of care including admission/observation considered Patient will require admission for IV antibiotics and possible amputation consultation Lab Data [facility] Lab Attestation statement: I reviewed the patient's lab results. No leukocytosis. The patient has in anemia which she reports is chronic, denies any active bleeding. Normal platelet count. No significant electrolyte abnormalities. The patient has chronic kidney disease, his BUN of 21 incontinent of 1.35 is slightly improved from his baseline 03/22/24 05:38 03/22/24 05:38 Labs: Lab Results 03/21/24 03/21/24 Range/Units 18:46 19:53 WBC 7.4 (4.8-10.8) X10*3/uL RBC 3.42 L (4.60-5.80) X10*6/uL Hgb 9.0 L (14.0-18.0) g/dl Hct 27.8 L (42.0-52.0) % MCV 81.3 (80.0-98.0) fL MCH 26.3 L (27.0-33.0) pg MCHC 32.4 (31.0-36.0) g/dl RDW 16.5 H (11.0-16.0) % Plt Count 201 (160-400) X10*3/uL MPV 8.3 L (9.4-12.4) fL Immature Gran % (Auto) 0.4 (0.0-0.4) % Neut % (Auto) 68.5 (45-73) % Lymph % (Auto) 17.5 L (20-40) % [place] % (Auto) 10.9 (2-11) % Eos % (Auto) 2.4 (0-4) % Baso % (Auto) 0.3 (0-2) % Lymph # (Auto) 1.3 (1.2-4.9) X10*3/uL [place] # (Auto) 0.8 (0.1-1.2) X10*3/uL Eos # (Auto) 0.2 (0.0-0.4) X10*3/uL Baso # (Auto) 0.0 (0.0-0.2) X10*3/uL Abs Immat Gran (auto) 0.03 (0.00-0.03) X10*3/uL Absolute Neuts (auto) 5.1 (2.0-8.3) x10*3/uL Absolute Nucleated RBC 0.000 (0.0-0.012) X10*3/uL Nucleated RBC % (auto) 0.0 (0.0-0.2) /100WBC ESR 92 H (0-15) MM/HR Sodium 138 (135-145) mmol/L Potassium 3.9 (3.3-5.1) mmol/L Chloride 106 (96-108) mmol/L Carbon Dioxide 24 (22-29) mmol/L Anion Gap 12 (12-20) BUN 21 H (9-16) mg/dL Creatinine 1.35 (0.5-1.4) mg/dL Estim Creat Clear Calc 75.1 Estimated GFR 54 Random Glucose 93 (60-115) mg/dL Lactic Acid 1.4 (0.5-2.0) mmol/L Calcium 9.0 (8.4-10.2) mg/dL Total Bilirubin 0.2 (0.0-1.0) mg/dL AST 22 (5-37) U/L ALT 12 (0-40) U/L Alkaline Phosphatase 96 (39-117) U/L C-Reactive Protein 4.30 H (< or = 0.50) mg/dL Total Protein 8.8 H (6.5-8.0) g/dL Albumin 3.3 L (3.5-5.0) g/dL Discharge Plan Discharge Clinical Impression: Acute osteomyelitis of right calcaneus Patient Disposition: Admitted As Inpatient Interventions: Admission Worksheet (ED) Last Done: 03/22/24 08:49 Discharge Date/Time: 03/22/24 09:44
[2024-03-21 18:52] LABS: MANUAL DIFF FLAG NO
[2024-03-21 18:53] LABS: Basophils Percent Auto 0.3 % (0-2); Eosinophils Absolute Auto 0.2 X10*3/uL (0.0-0.4); Eosinophils Percent Auto 2.4 % (0-4); Hematocrit 27.8 % (42.0-52.0); Imm Gran Abs Auto 0.03 X10*3/uL (0.00-0.03); Imm Gran Pct Auto 0.4 % (0.0-0.4); Lymphocytes Absolute Auto 1.3 X10*3/uL (1.2-4.9); Lymphocytes Percent Auto 17.5 % (20-40); Mean Corpuscular HGB Conc 32.4 g/dl (31.0-36.0); Mean Corpuscular Hemoglobin 26.3 pg (27.0-33.0); Mean Corpuscular Volume 81.3 fL (80.0-98.0); Mean Platelet Volume 8.3 fL (9.4-12.4); Monocytes Absolute Auto 0.8 X10*3/uL (0.1-1.2); Monocytes Percent Auto 10.9 % (2-11); Neutrophils Absolute Auto 5.1 x10*3/uL (2.0-8.3); Neutrophils Percent Auto 68.5 % (45-73); Platelet Count 201 X10*3/uL (160-400); Red Blood Count 3.42 X10*6/uL (4.60-5.80); Red Cell Distribution Width 16.5 % (11.0-16.0); White Blood Count 7.4 X10*3/uL (4.8-10.8)
[2024-03-21 19:08] LABS: Alanine Aminotransferase 12 U/L (0-40); Albumin Level 3.3 g/dL (3.5-5.0); Alkaline Phosphatase 96 U/L (39-117); Anion Gap 12 (12-20); Aspartate Amino Transferase 22 U/L (5-37); Bilirubin Total 0.2 mg/dL (0.0-1.0); Blood Urea Nitrogen 21 mg/dL (9-16); Carbon Dioxide 24 mmol/L (22-29); Chloride 106 mmol/L (96-108); Creatinine Clr Calc Pharmacy 75.1; Estimated Glomerular Filt Rate 54; Glucose Random 93 mg/dL (60-115); Potassium 3.9 mmol/L (3.3-5.1); Sodium 138 mmol/L (135-145); Total Protein 8.8 g/dL (6.5-8.0)
[2024-03-21 19:41] LABS: Erythrocyte Sedimentation Rate 92 MM/HR (0-15)
[2024-03-21 19:56] VITALS: BP 100/46; PULSE 82; RESP 17; TEMP 36.8; O2SAT 93
--- NOTE | 2024-03-21 20:01 | PC.NURSE ---
pt ambulatory from waiting room, a&ox4, respirations even and unlabored. pt reporting x3 months of right foot infection, pt reports he has been following with wound clinic but reports his wound has not improved. pt reports today the pain has increased today and it has been hard to walk. pt noted to have wound wrapped by wound clinic, yellow drainage noted on bandage at this time, pt foot noted to have foul odor. 22G placed in right hand.
[2024-03-21 20:14] LABS: Lactic Acid 1.4 mmol/L (0.5-2.0)
--- NOTE | 2024-03-21 20:35 | PC.NURSE ---
pt wound unwrapped at this time, large wound noted with yellow drainage. wound assessed by William TURNER, wound re wrapped with dry clean guaze.
[2024-03-21 20:53] VITALS: RESP 17
[2024-03-21] MEDS: 0.9 % Sodium Chloride 1,000 ML 999 ML IV (20:53)
[2024-03-21] MEDS: ondansetron HCL 4 MG/2 ML VIAL IVPUSH (20:53)
[2024-03-21] MEDS: HYDROmorphone HCl 1 MG/ML SYRINGE IVPUSH (20:53)
[2024-03-21] MEDS: Piperacillin Sodium/Tazobactam 3.375 GM in 0.9 % Sodium Chloride 50 ML IV (20:54)
--- NOTE | 2024-03-21 20:55 | PM.IMHP ---
History of Present Illness Date of Service: 03/21/24 Chief Complaint: Right heel wound and M A 58-year-old male with a history of hypertension, depression, chronic kidney disease (CKD), and past substance use (clean for years) presents with a progressively expanding right heel wound. The wound initially began as a scab months ago and has been managed at the wound clinic at [facility]. A bone biopsy on 02/24/24 grew Group B Streptococcus and MSSA, for which he was prescribed oral doxycycline.During follow-up at the wound clinic today, there was concern for deep infection, prompting referral to the ED for further evaluation. The patient reports significant pain in the area. X-ray findings reveal a soft tissue defect posterior to the calcaneus with cortical erosion of the posterior superior tuberosity, consistent with osteomyelitis . Labs show an elevated ESR of 92, normal WBC, and normal lactic acid. He is ordered for Vanco and Zosyn Review of Systems Review of Systems: Gen: no fever Resp: no sob, no cough CV: no chest, no STOLL, no leg edema GI: No n/v, no abd pain Neuro: No confusion MSK: pain in the right heel Yes all other systems are reviewed and are negative [facility] Medical History (Updated 03/21/24 @ 20:56 by Elvis Mauro MD) History of substance use disorder Depression HTN (hypertension) Surgical History H/O elbow surgery (~2000) History of ankle surgery (~2003) H/O neck surgery (~1998) Social History (Updated 11/11/22 @ 10:55 by Karly Alston CMA) Patient Tobacco Use Status: Current everyday Tobacco user Cigarette Packs Per Day: 10 Smoked in Last 30 Days: No Use of substances other than those prescribed or required for medical reasons: No Advance Directives: No Advance Directives Information Provided: No Do you have a plan to hurt others: No Plan Nutrition Risks: No Nutritional Risk Current occupational status: disabled Meds Allergies Allergy/AdvReac Type Severity Reaction Status Date / Time codeine [CODEINE] Allergy Unknown NAUSEA Verified 03/21/24 16:19 morphine [MORPHINE] Allergy Unknown RASH Verified 03/21/24 16:19 Active Medications: Current Medications Sodium Chloride (Ns) 1,000 mls @ 999 mls/hr IV .Q1H1M VANESSA Stop: 03/21/24 21:45 Last Admin: 03/21/24 20:53 Dose: 999 mls/hr Vancomycin HCl (Vancomycin/Ns) 2,000 mg in 500 mls @ 250 mls/hr IV ONCE ONE Stop: 03/21/24 22:37 Piperacillin Sod/Tazobactam (Sod 3.375 gm/ Sodium Chloride) 50 mls @ 100 mls/hr IV ONCE ONE Stop: 03/21/24 21:07 Last Admin: 03/21/24 20:54 Dose: 100 mls/hr Home Medications ?Medication ?Instructions ?Recorded ?Confirmed ?Last Taken ?Type albuterol sulfate 90 mcg/actuation 2 puff inhalation QID PRN asthma 11/11/22 03/21/24 03/21/24 History aerosol inhaler (Ventolin HFA) amlodipine 5 mg tablet 5 mg PO DAILY 11/11/22 03/21/24 03/21/24 History hydroxyzine HCl 25 mg tablet 25 mg PO BID PRN Anxiety 11/11/22 03/21/24 03/21/24 History methadone 5 mg/5 mL oral solution 90 mg PO Q6H 11/11/22 11/11/22 Unknown History sertraline 100 mg tablet 150 mg PO DAILY 11/11/22 03/21/24 03/21/24 History ibuprofen 400 mg tablet 400 mg PO TID 03/21/24 03/21/24 03/21/24 History losartan 50 mg-hydrochlorothiazide 1 tab PO DAILY 03/21/24 03/21/24 03/21/24 History 12.5 mg tablet nicotine 21 mg/24 hr daily 1 patch topical DAILY 03/21/24 03/21/24 03/21/24 History transdermal patch Physical Exam Vital Signs and Narrative: Vital Signs: Last Vital Signs Temp 98.3 F 03/21/24 19:56 Pulse 82 03/21/24 19:56 Resp 17 03/21/24 20:53 BP 100/46 L 03/21/24 19:56 Pulse Ox 93 03/21/24 19:56 O2 Del Method Room Air 03/21/24 19:56 BMI result Body Mass Index 37.6 Const: Other: General: AO X 3, no acute distress Resp: CTA bilateral CVS: S1,S2,RRR GI: +BS, NT, no distention Skin: right heel wound with necrotic tissues, bone is easily reached Neuro: motor grossly intact Psych: appropriate affect Results Labs 03/21/24 18:46 03/21/24 18:46 Labs: Laboratory Results - last 24 hr 03/21/24 03/21/24 18:46 19:53 MCV 81.3 MCH 26.3 L MCHC 32.4 RDW 16.5 H Plt Count 201 MPV 8.3 L Immature Gran % (Auto) 0.4 Neut % (Auto) 68.5 Lymph % (Auto) 17.5 L [place] % (Auto) 10.9 Eos % (Auto) 2.4 Baso % (Auto) 0.3 Lymph # (Auto) 1.3 [place] # (Auto) 0.8 Eos # (Auto) 0.2 Baso # (Auto) 0.0 Abs Immat Gran (auto) 0.03 Absolute Neuts (auto) 5.1 Absolute Nucleated RBC 0.000 Nucleated RBC % (auto) 0.0 ESR 92 H Anion Gap 12 Estim Creat Clear Calc 75.1 Estimated GFR 54 Random Glucose 93 Lactic Acid 1.4 Calcium 9.0 Total Bilirubin 0.2 AST 22 ALT 12 Alkaline Phosphatase 96 C-Reactive Protein 4.30 H Total Protein 8.8 H Albumin 3.3 L Imaging Radiologist's Impressions: Impressions Foot X-Ray 03/21/24 16:45 IMPRESSION: Soft tissue defect posterior to the calcaneus with cortical erosion of the posterior superior tuberosity compatible with osteomyelitis. Electronically signed by: Ignacio Fairchild MD 03/21/2024 07:10 PM [facility] Assessment and Plan (1) Acute osteomyelitis of right calcaneus: Status: Acute Plan 58-year-old male with HTN, CKD, depression, here with right heel infected ulcer and osteomyelitis (OM) d/t MSSA and Group B strep that has failed oral antibiotics Right heel ulcer and OM, bone biopsy in January was positive for MSSA and GBS Give Vanco and Ceftriaxone Cultures pending. Surgery consult for debridement. ID consult for antibiotics selection Morphine, oxycodone for pain HTN Resume Norvasc. CKD 3A Stable. Depression--stable, no SI continue Sertraline, trazodone. Opioid dependence Methadone once verified. Anemia of chronic disease H/H stable. Monitor. DVT prophylaxis lovenox Admission for at least 2 midnights for management of OM with IV Abx Quality Stroke Does the patient have a stroke diagnosis?: No VTE Prior VTE?: No VTE Risk Level:: Medical - moderate - high VTE Device Contraindication: Treatment Not Indicated VTE Drug Contraindication: N/A - Med Ordered
[2024-03-21] MEDS: Enoxaparin Sodium 40 MG/0.4 ML SYRINGE SUBCUT (21:29)
[2024-03-21] MEDS: vancomycin/NS 2,000 MG/500 ML PLAST..BAG 250 MG IV (21:29)
--- NOTE | 2024-03-21 21:32 | PHA.MEDREC ---
Addendum entered by Lee Clifton RPh 03/21/24 22:15: Reviewed by [facility]. Original Note: Pharmacy Consult ? Medication Reconciliation Pharmacy has completed the medication reconciliation. Spoke to patient to confirm med list. Patient states he is no longer taking Doxycycline Walker 100 mg BID, Furosemide 20 mg. Patient states he get Methadone 80 mg Daily from [facility] in [place], last dose was today.
[2024-03-21] MEDS: cefTRIAXone sodium 2 GM VIAL IVPUSH (21:36)
--- NOTE | 2024-03-21 21:43 | PHA.PROG ---
Admission Date/Time: March 21, 2024 21:07 Indication: BONE AND JOINT INFECTION Weight in k.9 kg Adjusted body weight in Kg: [place] body weight in Kg: Obesity Dosing Indication % IBW: Serum Creatinine - Last 168 Hours 03/21/24 18:46 Creatinine 1.35 Estimated CrCl and GFR - Last 168 Hours 03/21/24 18:46 Estim Creat Clear Calc 75.1 Estimated GFR 54 Vancomycin Loading Dose: 2000 MG Current Vancomycin Dosing Regimen: 750 MG Q12H Vancomycin Monitoring using AUC goal of 400 - 600 range with trough as surrogate marker: MIU=703 TROUGH=16.9 Date and Time for next Vancomycin Level to be drawn: 03/23/24 @0800 Pharmacist Comments on Vancomycin Plan: Vancomycin dosing will take advantage of [employer] as a clinical decision support tool that uses Bayesian modeling to calculate individual patient's pharmacokinetic parameters and forecast the patient's drug concentration time course with the target goal AUC 24 range of 400 - 600 mg/L/hr.
[2024-03-21 22:15] VITALS: BP 91/41; PULSE 81; RESP 13; TEMP 36.4; O2SAT 93
--- NOTE | 2024-03-21 22:16 | PC.NURSE ---
pt noted to be hypotensive and 76-82% on room air, pt placed on 4L nasal cannula, sating 92-93% . aware at this time
--- NOTE | 2024-03-21 22:38 | PC.NURSE ---
provider at bedside, pt placed into room and placed on monitor. pt continuing to de sat to 88% on room air, pt on 2L nasal cannula 89-96%. no new orders at this time. pt not in any signs of distress at this time. pt normal sinus on tele 75-77bpm.
[2024-03-21 22:39] VITALS: BP 108/41; PULSE 75; RESP 20; O2SAT 95
[2024-03-21] MEDS: Lactated Ringers 1,000 ML 100 ML IVCONT (22:50)
--- NOTE | 2024-03-22 00:53 | PC.NURSE ---
This RN assumed pt care @ 0045 Pt a&ox4, no signs of distress. Plan of care ongoing.
[2024-03-22 05:47] LABS: Hematocrit 26.2 % (42.0-52.0); Hemoglobin 8.3 g/dl (14.0-18.0); Mean Corpuscular HGB Conc 31.7 g/dl (31.0-36.0); Mean Corpuscular Hemoglobin 26.3 pg (27.0-33.0); Mean Corpuscular Volume 82.9 fL (80.0-98.0); Mean Platelet Volume 8.4 fL (9.4-12.4); Platelet Count 176 X10*3/uL (160-400); Red Blood Count 3.16 X10*6/uL (4.60-5.80); Red Cell Distribution Width 16.2 % (11.0-16.0); White Blood Count 6.6 X10*3/uL (4.8-10.8)
[2024-03-22 06:05] VITALS: BP 124/59; PULSE 75; RESP 18; TEMP 36.4; O2SAT 95
[2024-03-22 06:12] LABS: Anion Gap 12 (12-20); Blood Urea Nitrogen 19 mg/dL (9-16); Calcium 8.2 mg/dL (8.4-10.2); Carbon Dioxide 23 mmol/L (22-29); Chloride 107 mmol/L (96-108); Creatinine Clr Calc Pharmacy 76.9; Estimated Glomerular Filt Rate 55; Glucose Random 83 mg/dL (60-115); Potassium 4.5 mmol/L (3.3-5.1); Sodium 137 mmol/L (135-145)
[2024-03-22] MEDS: Morphine Sulfate 4 MG/ML CARTRIDGE 2 MG IVPUSH ×2 (08:16→19:37)
[2024-03-22] MEDS: Lactated Ringers 1,000 ML 100 ML IVCONT ×2 (08:17→19:38)
--- NOTE | 2024-03-22 08:23 | PC.NURSE ---
Patients ROBERTA sent to [facility] to get methadone dose. Called and left message with Charge nurse awaiting call back.
--- NOTE | 2024-03-22 08:45 | P.CONGS_ITS ---
History of Present Illness Consult details Consult date: 03/22/24 Narrative: 58-year-old male with history of chronic kidney disease, peripheral vascular disease, depression, substance abuse, heavy smoker, sent to the ER yesterday I had the Wound Clinic because of an open wound on the right posterior heel. He says that he has had this for about a year now. He thinks that this started after he had hit this area and had an open wound then. He says that he had been following the Wound Clinic for this but says that he missed an appointment last week. He said he had fallen last week as well and hit this area on a heavy surface. He had a follow up yesterday in the Wound Clinic. He was sent to the ER because of concerns of an ongoing infection. He had a bone biopsy in the area last 02/24/2024 and this group B Streptococcus and MSSA. He says that these area of the bone biopsy has been painful and has not healed He admits to being an active smoker. He says he had undergone stenting with [facility] about 2 months ago. He denies any fever or chills. Review of Systems 2 Constitutional: Constitutional: Denies chills Cardiovascular: Cardiovascular: Denies chest pain, Denies dyspnea and Denies dyspnea on exertion Respiratory: Respiratory: Denies cough, Denies dyspnea and Denies dyspnea on exertion Gastrointestinal: Gastrointestinal: Denies hematochezia and Denies change in bowel habits Genitourinary: Genitourinary: Denies hematuria and Denies difficulty urinating Musculoskeletal: Musculoskeletal: Denies back pain and Denies limited range of motion Neurologic: Denies focal weakness and Denies convulsions Psychiatric: Psychiatric: Denies depression and Denies mood swings PMF Past Medical History Medical History Smoker History of substance use disorder Depression HTN (hypertension) Surgical History Surgical History H/O elbow surgery (~2000) History of ankle surgery (~2003) H/O neck surgery (~1998) Social History Social History Housing: Apartment Do you presently have visiting nurse or other home services: Yes (once a week check up) Patient Tobacco Use Status: Current everyday Tobacco user Tobacco use type: Cigarette Cigarette Packs Per Day: 10 Cigarettes Per Day: 10 service: No Current occupational status: disabled Meds Allergies Allergy/AdvReac Type Severity Reaction Status Date / Time codeine [CODEINE] Allergy Unknown NAUSEA Verified 03/21/24 16:19 Active Medications: Current Medications Acetaminophen (Acetaminophen 325 Mg Tablet) 650 mg PO Q6H PRN PRN Reason: Pain, Mild 1-3,fever,headache Albuterol Sulfate (Albuterol Sulfate 90 Mcg 8 Gm Inhaler) 2 puff INHALE QID PRN PRN Reason: asthma Amlodipine Besylate (Amlodipine Besylate 5 Mg Tablet) 5 mg PO DAILY [facility]; Protocol Calcium Carbonate (Calcium Carbonate 750 Mg Tab.Chew) 750 mg PO Q4H PRN PRN Reason: Heartburn Ceftriaxone Sodium (Ceftriaxone Sodium 2 Gm Vial) 2 gm IVPUSH Q24H [facility] Last Admin: 03/21/24 21:36 Dose: 2 gm Enoxaparin Sodium (Enoxaparin Sodium 40 Mg/0.4 Ml Syringe) 40 mg SUBCUT Q24H [facility] Last Admin: 03/21/24 21:29 Dose: 40 mg Hydrochlorothiazide (Hydrochlorothiazide 12.5 Mg Tablet) 12.5 mg PO DAILY [facility] Hydroxyzine HCl (Hydroxyzine Hcl 25 Mg Tablet) 25 mg PO BID PRN PRN Reason: Anxiety Vancomycin HCl 750 mg/ Sodium (Chloride) 265 mls @ 265 mls/hr IV Q12H [facility] Lactated Ringer's (Lr) 1,000 mls @ 100 mls/hr IVCONT .Q10H [facility] Last Admin: 03/22/24 08:17 Dose: 100 mls/hr Losartan Potassium (Losartan Potassium 50 Mg Tablet) 50 mg PO DAILY [facility] Magnesium Hydroxide (Milk Of Magnesia 30 Ml Oral.Susp) 30 ml PO DAILY PRN PRN Reason: Constipation Melatonin (Melatonin 3 Mg Tablet) 6 mg PO BEDTIME PRN PRN Reason: Insomnia Morphine Sulfate (Morphine Sulfate 4 Mg/Ml Cartridge) 2 mg IVPUSH Q4H PRN; Protocol PRN Reason: Pain, Severe (Pain Scale 7-10) Last Admin: 03/22/24 08:16 Dose: 2 mg Nicotine (Nicotine 21 Mg Patch.Td24) 21 mg TRANSDERMA DAILY [facility] Ondansetron HCl (Ondansetron Hcl 4 Mg/2 Ml Vial) 4 mg IVPUSH Q8H PRN PRN Reason: Nausea and Vomiting Oxycodone HCl (Oxycodone Hcl Immed Release 5 Mg Tablet) 5 mg PO Q6H PRN PRN Reason: Pain, Moderate(Pain Scale 4-6) Pharmacy Consult (Consult Rx Vancomycin Dosing) 1 each MISCELLANE DAILY PRN PRN Reason: Consult order Polyethylene Glycol (Polyethylene Glycol 3350 17 Gm Powd.Pack) 17 gm PO DAILY PRN PRN Reason: Constipation Sertraline HCl (Sertraline Hcl 50 Mg Tablet) 150 mg PO DAILY [facility] Sodium Chloride (0.9 % Sodium Chloride Flush 3 Ml Syringe) 3 ml IVFLUSH QSHIFT [facility] Last Admin: 03/22/24 08:17 Dose: Not Given Home Medications ?Medication ?Instructions ?Recorded ?Confirmed ?Last Taken ?Type albuterol sulfate 90 mcg/actuation 2 puff inhalation QID PRN asthma 11/11/22 03/21/24 03/21/24 History aerosol inhaler (Ventolin HFA) amlodipine 5 mg tablet 5 mg PO DAILY 11/11/22 03/21/24 03/21/24 History hydroxyzine HCl 25 mg tablet 25 mg PO BID PRN Anxiety 11/11/22 03/21/24 03/21/24 History methadone 5 mg/5 mL oral solution 80 mg PO DAILY 11/11/22 03/22/24 03/21/24 History sertraline 100 mg tablet 150 mg PO DAILY 11/11/22 03/21/24 03/21/24 History ibuprofen 400 mg tablet 400 mg PO TID 03/21/24 03/21/24 03/21/24 History losartan 50 mg-hydrochlorothiazide 1 tab PO DAILY 03/21/24 03/21/24 03/21/24 History 12.5 mg tablet nicotine 21 mg/24 hr daily 1 patch topical DAILY 03/21/24 03/21/24 03/21/24 History transdermal patch Physical Exam 2 Vital Signs: Vital Signs: Last Vital Signs Temp 97.6 F 03/22/24 06:05 Pulse 75 03/22/24 06:05 Resp 18 03/22/24 06:05 BP 124/59 L 03/22/24 06:05 Pulse Ox 95 03/22/24 06:05 O2 Del Method Nasal Cannula 03/22/24 06:05 O2 Flow Rate 2 03/22/24 06:05 BMI result Body Mass Index 37.6 Const: General: comfortable and no acute distress O rientation/consciousness: patient oriented x3 Neck: Neck: Yes no lymphadenopathy Resp: Auscultation: clear to auscultation bilaterally Cardio: Rhythm: regular rhythm GI: Palpation (GI): Soft to palpation, nontender and no guarding Neuro: General: patient oriented x3 Extrem: Other: Chronic trophic changes on both lower legs On the posterior of the right foot is note of an open ulcerating wound, about 7.5 cm in widest dimension, with 1 area that seems to be tunneling into the posterior calcaneus, fibrinous exudates noted, hypergranulation tissue noted Results Labs 03/24/24 05:55 03/24/24 05:55 Labs: Abnormal lab results 03/21/24 03/22/24 Range/Units 18:46 05:38 RBC 3.42 L 3.16 L (4.60-5.80) X10*6/uL Hgb 9.0 L 8.3 L (14.0-18.0) g/dl Hct 27.8 L 26.2 L (42.0-52.0) % MCH 26.3 L 26.3 L (27.0-33.0) pg RDW 16.5 H 16.2 H (11.0-16.0) % MPV 8.3 L 8.4 L (9.4-12.4) fL Lymph % (Auto) 17.5 L (20-40) % ESR 92 H (0-15) MM/HR BUN 21 H 19 H (9-16) mg/dL Calcium 8.2 L D (8.4-10.2) mg/dL C-Reactive Protein 4.30 H (< or = 0.50) mg/dL Total Protein 8.8 H (6.5-8.0) g/dL Albumin 3.3 L (3.5-5.0) g/dL Short CBC 03/21/24 03/22/24 Range/Units 18:46 05:38 WBC 7.4 6.6 (4.8-10.8) X10*3/uL Hgb 9.0 L 8.3 L (14.0-18.0) g/dl Hct 27.8 L 26.2 L (42.0-52.0) % Plt Count 201 176 (160-400) X10*3/uL BMP 03/21/24 03/22/24 18:46 05:38 Sodium 138 137 Potassium 3.9 4.5 Chloride 106 107 Carbon Dioxide 24 23 BUN 21 H 19 H Creatinine 1.35 1.32 Calcium 9.0 8.2 L D Liver Function 03/21/24 Range/Units 18:46 Total Bilirubin 0.2 (0.0-1.0) mg/dL AST 22 (5-37) U/L ALT 12 (0-40) U/L Alkaline Phosphatase 96 (39-117) U/L Albumin 3.3 L (3.5-5.0) g/dL All other labs normal. Laboratory Results WBC 6.6 X10*3/uL (4.8-10.8) 03/22/24 05:38 RBC 3.16 X10*6/uL (4.60-5.80) L 03/22/24 05:38 Hgb 8.3 g/dl (14.0-18.0) L 03/22/24 05:38 Hct 26.2 % (42.0-52.0) L 03/22/24 05:38 MCV 82.9 fL (80.0-98.0) 03/22/24 05:38 MCH 26.3 pg (27.0-33.0) L 03/22/24 05:38 MCHC 31.7 g/dl (31.0-36.0) 03/22/24 05:38 RDW 16.2 % (11.0-16.0) H 03/22/24 05:38 Plt Count 176 X10*3/uL (160-400) 03/22/24 05:38 MPV 8.4 fL (9.4-12.4) L 03/22/24 05:38 Immature Gran % (Auto) 0.4 % (0.0-0.4) 03/21/24 18:46 Neut % (Auto) 68.5 % (45-73) 03/21/24 18:46 Lymph % (Auto) 17.5 % (20-40) L 03/21/24 18:46 [place] % (Auto) 10.9 % (2-11) 03/21/24 18:46 Eos % (Auto) 2.4 % (0-4) 03/21/24 18:46 Baso % (Auto) 0.3 % (0-2) 03/21/24 18:46 Lymph # (Auto) 1.3 X10*3/uL (1.2-4.9) 03/21/24 18:46 [place] # (Auto) 0.8 X10*3/uL (0.1-1.2) 03/21/24 18:46 Eos # (Auto) 0.2 X10*3/uL (0.0-0.4) 03/21/24 18:46 Baso # (Auto) 0.0 X10*3/uL (0.0-0.2) 03/21/24 18:46 Abs Immat Gran (auto) 0.03 X10*3/uL (0.00-0.03) 03/21/24 18:46 Absolute Neuts (auto) 5.1 x10*3/uL (2.0-8.3) 03/21/24 18:46 Absolute Nucleated RBC 0.000 X10*3/uL (0.0-0.012) 03/22/24 05:38 Nucleated RBC % (auto) 0.0 /100WBC (0.0-0.2) 03/22/24 05:38 ESR 92 MM/HR (0-15) H 03/21/24 18:46 Sodium 137 mmol/L (135-145) 03/22/24 05:38 Potassium 4.5 mmol/L (3.3-5.1) 03/22/24 05:38 Chloride 107 mmol/L (96-108) 03/22/24 05:38 Carbon Dioxide 23 mmol/L (22-29) 03/22/24 05:38 Anion Gap 12 (12-20) 03/22/24 05:38 BUN 19 mg/dL (9-16) H 03/22/24 05:38 Creatinine 1.32 mg/dL (0.5-1.4) 03/22/24 05:38 Estim Creat Clear Calc 76.9 03/22/24 05:38 Estimated GFR 55 03/22/24 05:38 Random Glucose 83 mg/dL (60-115) 03/22/24 05:38 Lactic Acid 1.4 mmol/L (0.5-2.0) 03/21/24 19:53 Calcium 8.2 mg/dL (8.4-10.2) L D 03/22/24 05:38 Total Bilirubin 0.2 mg/dL (0.0-1.0) 03/21/24 18:46 AST 22 U/L (5-37) 03/21/24 18:46 ALT 12 U/L (0-40) 03/21/24 18:46 Alkaline Phosphatase 96 U/L (39-117) 03/21/24 18:46 C-Reactive Protein 4.30 mg/dL (< or = 0.50) H 03/21/24 18:46 Total Protein 8.8 g/dL (6.5-8.0) H 03/21/24 18:46 Albumin 3.3 g/dL (3.5-5.0) L 03/21/24 18:46 Impressions Foot X-Ray 03/21/24 16:45 IMPRESSION: Soft tissue defect posterior to the calcaneus with cortical erosion of the posterior superior tuberosity compatible with osteomyelitis. Electronically signed by: Ignacio Fairchild MD 03/21/2024 07:10 PM [facility] Assessment and Plan (1) Acute osteomyelitis of right calcaneus: Status: Acute He has an open ulcerating wound on the posterior as described above. There was note of a lot of hypergranulation tissue, fibrinous exudates. I bluntly debrided this with moist gauze. I applied wet-to-dry dressings. There was note of tunneling into the posterior calcaneus which is the likely tract of the bone biopsy. His imaging study does show cortical erosion on this area as well and this is probably scheduling representative of the biopsy site although osteomyelitis may be concurrent. He will need good wound care for now. We will continue with antibiotic treatment but I did explain to him that with non improvement or worsening, he may require BKA He will need re-evaluation by vascular surgery down the line as well. He looks well overall He has a low hemoglobin but this is likely from chronic disease. Procedures Date of Service Date of Service: 03/24/24
[2024-03-22 09:00] VITALS: BP 124/59
[2024-03-22] MEDS: amLODIPine Besylate 5 MG TABLET PO (09:00)
[2024-03-22] MEDS: Nicotine 21 MG PATCH.TD24 TRANSDERMA (09:01)
[2024-03-22 09:13] LABS: Estimated Average Glucose 128 mg/dL; Hemoglobin A1C 92.6236 umol/L; Hemoglobin A1c % 6.1 % (<6.0)
--- NOTE | 2024-03-22 09:36 | PC.NURSE ---
Just faxed Methadone dose verification form to Pharmacy.
[2024-03-22 10:05] VITALS: BP 122/66; PULSE 68; RESP 16; TEMP 36.5; O2SAT 91
[2024-03-22] MEDS: Losartan Potassium 50 MG TABLET PO (10:08)
[2024-03-22] MEDS: Sertraline HCL 50 MG TABLET 150 MG PO (10:08)
[2024-03-22] MEDS: hydroCHLOROthiazide 12.5 MG TABLET PO (10:08)
[2024-03-22] MEDS: vancomycin HCL 750 MG in 0.9 % Sodium Chloride 250 ML 265 MG IV (10:09)
--- NOTE | 2024-03-22 10:18 | HO.PM.IMPN ---
Subjective Subjective Date of Service: 03/22/24 Interval History: painful R heel, no fever/chills Review of Systems Review of Systems: Yes all other systems are reviewed and are negative Physical Exam Vital Signs: Vital Signs: Last Vital Signs Temp 97.7 F 03/22/24 10:05 Pulse 68 03/22/24 10:05 Resp 16 03/22/24 10:05 BP 122/66 03/22/24 10:05 Pulse Ox 91 L 03/22/24 10:05 O2 Del Method Nasal Cannula 03/22/24 10:05 O2 Flow Rate 2.0 03/22/24 10:05 BMI result Body Mass Index 37.6 Gen: in no acute distress HEENT: sclera anicteric, moist mucus membranes Neck: supple Lungs: clear to auscultation bilaterally Heart: regular rate and rhythm, no murmurs Abd: soft, non-tender, non-distended Ext: no edema Skin: warm/well-perfused, large 8cm R heel wound Neuro: alert and oriented x3, no focal findings Psych: appropriate affect Objective Data Active Medications Acetaminophen (Acetaminophen 325 Mg Tablet) 650 mg PO Q6H PRN PRN Reason: Pain, Mild 1-3,fever,headache Albuterol Sulfate (Albuterol Sulfate 90 Mcg 8 Gm Inhaler) 2 puff INHALE QID PRN PRN Reason: asthma Amlodipine Besylate (Amlodipine Besylate 5 Mg Tablet) 5 mg PO DAILY [facility]; Protocol Last Admin: 03/22/24 09:00 Dose: 5 mg Documented By: JORGE L Calcium Carbonate (Calcium Carbonate 750 Mg Tab.Chew) 750 mg PO Q4H PRN PRN Reason: Heartburn Ceftriaxone Sodium (Ceftriaxone Sodium 2 Gm Vial) 2 gm IVPUSH Q24H [facility] Last Admin: 03/21/24 21:36 Dose: 2 gm Documented By: JUS Enoxaparin Sodium (Enoxaparin Sodium 40 Mg/0.4 Ml Syringe) 40 mg SUBCUT Q24H [facility] Last Admin: 03/21/24 21:29 Dose: 40 mg Documented By: JUS Hydrochlorothiazide (Hydrochlorothiazide 12.5 Mg Tablet) 12.5 mg PO DAILY [facility] Last Admin: 03/22/24 10:08 Dose: 12.5 mg Documented By: KERRI Hydroxyzine HCl (Hydroxyzine Hcl 25 Mg Tablet) 25 mg PO BID PRN PRN Reason: Anxiety Vancomycin HCl 750 mg/ Sodium (Chloride) 265 mls @ 265 mls/hr IV Q12H [facility] Last Admin: 03/22/24 10:09 Dose: 265 mls/hr Documented By: KERRI Lactated Ringer's (Lr) 1,000 mls @ 100 mls/hr IVCONT .Q10H [facility] Last Admin: 03/22/24 08:17 Dose: 100 mls/hr Documented By: JORGE L Losartan Potassium (Losartan Potassium 50 Mg Tablet) 50 mg PO DAILY [facility] Last Admin: 03/22/24 10:08 Dose: 50 mg Documented By: KERRI Magnesium Hydroxide (Milk Of Magnesia 30 Ml Oral.Susp) 30 ml PO DAILY PRN PRN Reason: Constipation Melatonin (Melatonin 3 Mg Tablet) 6 mg PO BEDTIME PRN PRN Reason: Insomnia Morphine Sulfate (Morphine Sulfate 4 Mg/Ml Cartridge) 2 mg IVPUSH Q4H [facility]; Protocol PRN Reason: Pain, Severe (Pain Scale 7-10) Last Admin: 03/22/24 08:16 Dose: 2 mg Documented By: JORGE L Nicotine (Nicotine 21 Mg Patch.Td24) 21 mg TRANSDERMA DAILY [facility] Last Admin: 03/22/24 09:01 Dose: 21 mg Documented By: JORGE L Ondansetron HCl (Ondansetron Hcl 4 Mg/2 Ml Vial) 4 mg IVPUSH Q8H PRN PRN Reason: Nausea and Vomiting Oxycodone HCl (Oxycodone Hcl Immed Release 5 Mg Tablet) 5 mg PO Q6H PRN PRN Reason: Pain, Moderate(Pain Scale 4-6) Pharmacy Consult (Consult Rx Vancomycin Dosing) 1 each MISCELLANE DAILY PRN PRN Reason: Consult order Polyethylene Glycol (Polyethylene Glycol 3350 17 Gm Powd.Pack) 17 gm PO DAILY PRN PRN Reason: Constipation Sertraline HCl (Sertraline Hcl 50 Mg Tablet) 150 mg PO DAILY [facility] Last Admin: 03/22/24 10:08 Dose: 150 mg Documented By: KERRI Sodium Chloride (0.9 % Sodium Chloride Flush 3 Ml Syringe) 3 ml IVFLUSH QSHIFT [facility] Last Admin: 03/22/24 08:17 Dose: Not Given Documented By: JORGE L Non-Admin Reason: IV Running Labs 03/22/24 05:38 03/22/24 05:38 Labs: Laboratory Results - last 24 hr 03/21/24 03/21/24 03/22/24 18:46 19:53 05:38 MCV 81.3 82.9 MCH 26.3 L 26.3 L MCHC 32.4 31.7 RDW 16.5 H 16.2 H Plt Count 201 176 MPV 8.3 L 8.4 L Immature Gran % (Auto) 0.4 Neut % (Auto) 68.5 Lymph % (Auto) 17.5 L [place] % (Auto) 10.9 Eos % (Auto) 2.4 Baso % (Auto) 0.3 Lymph # (Auto) 1.3 [place] # (Auto) 0.8 Eos # (Auto) 0.2 Baso # (Auto) 0.0 Abs Immat Gran (auto) 0.03 Absolute Neuts (auto) 5.1 Absolute Nucleated RBC 0.000 0.000 Nucleated RBC % (auto) 0.0 0.0 ESR 92 H Anion Gap 12 12 Estim Creat Clear Calc 75.1 76.9 Estimated GFR 54 55 Random Glucose 93 83 Estimat Average Glucose 128 Hemoglobin A1c % 6.1 H Lactic Acid 1.4 Calcium 9.0 8.2 L D Total Bilirubin 0.2 AST 22 ALT 12 Alkaline Phosphatase 96 C-Reactive Protein 4.30 H Total Protein 8.8 H Albumin 3.3 L Assessment and Plan (1) Acute osteomyelitis of right calcaneus: Status: Acute Plan d2 for 58yo M with HTN, depression, CKD, OUD, PVD presenting with expanding R heel wound, followed by [facility]; bone biopsy 02/24/24 grew MSSA + GBS. Wound progressed despite PO doxycycline and was sent in by Wound Clinic for concern of deep space infection. Found to have osteomyelitis acute osteomyelitis - Gen Surg consulted, blunty debrided wound with moist gauze; applied wet-to-dry dressings - ID consult pending, continue vancomycin + ceftriaxone for now - arterial dopplers then Vasc Surg consultation HCTZ - continue losartan, HCTZ, amlodipine CKD2-3 - SCr stable prediabetes - diet/exercise anemia of chronic disease - H+H stable mood disorder - continue sertraline, hydroxyzine OUD - verify methadone dose; clean for 4yr tobacco abuse - NRT VTE ppx - enoxaparin dispo - eventual home with [facility] for home infusion services Total time managing care of this patient today: 45 minutes. Quality Stroke Does the patient have a stroke diagnosis?: No VTE Prior VTE?: No VTE Risk Level:: Medical - moderate - high VTE Device Contraindication: Treatment Not Indicated VTE Drug Contraindication: N/A - Med Ordered
--- NOTE | 2024-03-22 11:22 | HE.PHANOTE ---
Re MEthadone Received verification from nursing and verified 80mg Daily. Patient was given 13 take home bottles on 03/14/24.
[2024-03-22] MEDS: oxyCODONE HCl Immed Release 5 MG TABLET PO ×2 (11:58→22:14)
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
--- NOTE | 2024-03-22 13:36 | PM.EVENT ---
Event Note Date of Service: 03/22/24 Time Spent With Patient Time: Total time managing care of this patient today ____ minutes.
[2024-03-22] MEDS: Meropenem 1 GM VIAL IVPUSH ×2 (15:06→22:15)
[2024-03-22 15:08] VITALS: BP 130/53; PULSE 72; RESP 16; TEMP 36.6; O2SAT 90
[2024-03-22 19:09] VITALS: BP 111/58; PULSE 68; RESP 16; TEMP 35.9; O2SAT 90
[2024-03-22] MEDS: Enoxaparin Sodium 40 MG/0.4 ML SYRINGE SUBCUT (19:37)
[2024-03-23 03:31] VITALS: BP 114/56; PULSE 73; RESP 18; TEMP 36.3; O2SAT 94
[2024-03-23] MEDS: Morphine Sulfate 4 MG/ML CARTRIDGE 2 MG IVPUSH ×4 (03:50→19:51)
[2024-03-23] MEDS: oxyCODONE HCl Immed Release 5 MG TABLET PO (05:41)
[2024-03-23] MEDS: Lactated Ringers 1,000 ML 100 ML IVCONT (05:41)
[2024-03-23] MEDS: Meropenem 1 GM VIAL IVPUSH ×3 (05:41→22:31)
[2024-03-23 06:43] LABS: Hematocrit 23.8 % (42.0-52.0); Hemoglobin 7.6 g/dl (14.0-18.0); Mean Corpuscular HGB Conc 31.9 g/dl (31.0-36.0); Mean Corpuscular Hemoglobin 26.2 pg (27.0-33.0); Mean Corpuscular Volume 82.1 fL (80.0-98.0); Mean Platelet Volume 8.7 fL (9.4-12.4); Platelet Count 183 X10*3/uL (160-400); Red Cell Distribution Width 16.1 % (11.0-16.0); White Blood Count 6.5 X10*3/uL (4.8-10.8)
[2024-03-23 07:01] LABS: Anion Gap 14 (12-20); Blood Urea Nitrogen 15 mg/dL (9-16); Calcium 7.9 mg/dL (8.4-10.2); Carbon Dioxide 20 mmol/L (22-29); Chloride 104 mmol/L (96-108); Creatinine Clr Calc Pharmacy 99.5; Estimated Glomerular Filt Rate > 60; Glucose Random 86 mg/dL (60-115); Potassium 4.4 mmol/L (3.3-5.1); Sodium 134 mmol/L (135-145)
[2024-03-23 07:50] LABS: Immature Retic Fraction 13.4 % (2.3-13.4); Retic HGB Equivalent 28.4 pg (30.0-35.0); Reticulocyte Percent 1.2 % (0.5-1.8); Reticulocytes Absolute 0.036 X10*6/uL (0.026-0.095)
[2024-03-23 07:51] LABS: Iron 31 mcg/dL (45-160); Lactate Dehydrogenase 181 U/L (118-273); Percent Iron Saturation 13 % (15-50); Total Iron Binding Capacity 236 mcg/dL (228-428); Unsaturated Iron Binding 205 ug/dL
[2024-03-23 08:00] VITALS: BP 157/69; PULSE 94; RESP 18; TEMP 36.5; O2SAT 95
--- NOTE | 2024-03-23 08:08 | PC.NURSE ---
Morphine listed as allergy. Patient denies any adverse or allergic reactions to this medication. Requesting medication to be removed from allergy list. Has been utilizing for pain management without issue or events. Dr. Patricia Johnson notified.
[2024-03-23 08:11] LABS: Ferritin 26 ng/mL (20-250)
[2024-03-23] MEDS: hydroCHLOROthiazide 12.5 MG TABLET PO (08:45)
[2024-03-23] MEDS: Sertraline HCL 50 MG TABLET 150 MG PO (08:45)
[2024-03-23] MEDS: Losartan Potassium 50 MG TABLET PO (08:45)
[2024-03-23] MEDS: Nicotine 21 MG PATCH.TD24 TRANSDERMA (08:46)
[2024-03-23] MEDS: amLODIPine Besylate 5 MG TABLET PO (08:46)
[2024-03-23 09:28] VITALS: BP 132/72
[2024-03-23] MEDS: Furosemide 20 MG/2 ML VIAL IVPUSH (09:28)
--- NOTE | 2024-03-23 09:57 | P.PNIM_ITS ---
Subjective Subjective Date of Service: 03/23/24 Interval History: heel pain improving no fever became a little short of breath overnight and hypoxic; placed on oxygen; mild cough Review of Systems Review of Systems: Yes all other systems are reviewed and are negative Physical Exam 2 Vital Signs: Vital Signs: Last Vital Signs Temp 97.7 F 03/23/24 08:00 Pulse 94 03/23/24 08:00 Resp 18 03/23/24 08:00 BP 132/72 03/23/24 09:28 Pulse Ox 95 03/23/24 08:00 O2 Del Method Nasal Cannula 03/23/24 08:00 O2 Flow Rate 2.0 03/23/24 08:00 BMI result Body Mass Index 37.6 Gen: in no acute distress HEENT: sclera anicteric, moist mucus membranes Neck: supple Lungs: a few inspiratory crackles Heart: regular rate and rhythm, no murmurs Abd: soft, non-tender, non-distended Ext: no edema Skin: warm/well-perfused, large 8cm R heel wound with tunneling to bone but no overt purulence Neuro: alert and oriented x3, no focal findings Psych: appropriate affect Objective Data Active Medications Acetaminophen (Acetaminophen 325 Mg Tablet) 650 mg PO Q6H PRN PRN Reason: Pain, Mild 1-3,fever,headache Albuterol Sulfate (Albuterol Sulfate 90 Mcg 8 Gm Inhaler) 2 puff INHALE QID PRN PRN Reason: asthma Amlodipine Besylate (Amlodipine Besylate 5 Mg Tablet) 5 mg PO DAILY [facility]; Protocol Last Admin: 03/23/24 08:46 Dose: 5 mg Documented By: JACQUES Calcium Carbonate (Calcium Carbonate 750 Mg Tab.Chew) 750 mg PO Q4H PRN PRN Reason: Heartburn Enoxaparin Sodium (Enoxaparin Sodium 40 Mg/0.4 Ml Syringe) 40 mg SUBCUT Q24H [facility] Last Admin: 03/22/24 19:37 Dose: 40 mg Documented By: THEO Hydrochlorothiazide (Hydrochlorothiazide 12.5 Mg Tablet) 12.5 mg PO DAILY [facility] Last Admin: 03/23/24 08:45 Dose: 12.5 mg Documented By: JACQUES Hydroxyzine HCl (Hydroxyzine Hcl 25 Mg Tablet) 25 mg PO BID PRN PRN Reason: Anxiety Losartan Potassium (Losartan Potassium 50 Mg Tablet) 50 mg PO DAILY [facility] Last Admin: 03/23/24 08:45 Dose: 50 mg Documented By: JACQUES Magnesium Hydroxide (Milk Of Magnesia 30 Ml Oral.Susp) 30 ml PO DAILY PRN PRN Reason: Constipation Melatonin (Melatonin 3 Mg Tablet) 6 mg PO BEDTIME PRN PRN Reason: Insomnia Meropenem (Meropenem 1 Gm Vial) 1 gm IVPUSH Q8H [facility] Last Admin: 03/23/24 05:41 Dose: 1 gm Documented By: THEO Methadone HCl (Methadone Hcl 20 Mg/2 Ml Oral.Conc) 80 mg PO DAILY@0800 [facility] Morphine Sulfate (Morphine Sulfate 4 Mg/Ml Cartridge) 2 mg IVPUSH Q4H PRN; Protocol PRN Reason: Pain, Severe (Pain Scale 7-10) Last Admin: 03/23/24 08:47 Dose: 2 mg Documented By: JACQUES Nicotine (Nicotine 21 Mg Patch.Td24) 21 mg TRANSDERMA DAILY [facility] Last Admin: 03/23/24 08:46 Dose: 21 mg Documented By: JACQUES Ondansetron HCl (Ondansetron Hcl 4 Mg/2 Ml Vial) 4 mg IVPUSH Q8H PRN PRN Reason: Nausea and Vomiting Oxycodone HCl (Oxycodone Hcl Immed Release 5 Mg Tablet) 5 mg PO Q6H PRN PRN Reason: Pain, Moderate(Pain Scale 4-6) Last Admin: 03/23/24 05:41 Dose: 5 mg Documented By: THEO Polyethylene Glycol (Polyethylene Glycol 3350 17 Gm Powd.Pack) 17 gm PO DAILY PRN PRN Reason: Constipation Sertraline HCl (Sertraline Hcl 50 Mg Tablet) 150 mg PO DAILY [facility] Last Admin: 03/23/24 08:45 Dose: 150 mg Documented By: JACQUES Sodium Chloride (0.9 % Sodium Chloride Flush 3 Ml Syringe) 3 ml IVFLUSH QSHIFT [facility] Last Admin: 03/23/24 08:46 Dose: Not Given Documented By: JACQUES Non-Admin Reason: IV Running Labs 03/23/24 06:26 03/23/24 06:26 Labs: Laboratory Results - last 24 hr 03/23/24 03/23/24 03/23/24 06:26 06:26 06:26 MCV 82.1 MCH 26.2 L MCHC 31.9 RDW 16.1 H Plt Count 183 MPV 8.7 L Absolute Nucleated RBC 0.000 Nucleated RBC % (auto) 0.0 Absolute Retic 0.036 Cancelled Percent Retic 1.2 Cancelled Immature Retic Fraction 13.4 Retic Hgb Equivalent Anion Gap Estim Creat Clear Calc Estimated GFR Random Glucose Calcium Iron TIBC % Saturation Unsat Iron Binding Ferritin Lactate Dehydrogenase 03/23/24 03/23/24 06:26 06:26 MCV MCH MCHC RDW Plt Count MPV Absolute Nucleated RBC Nucleated RBC % (auto) Absolute Retic Percent Retic Immature Retic Fraction Cancelled Retic Hgb Equivalent 28.4 L Cancelled Anion Gap 14 Estim Creat Clear Calc 99.5 Estimated GFR > 60 Random Glucose 86 Calcium 7.9 L Iron 31 L TIBC 236 % Saturation 13 L Unsat Iron Binding 205 Ferritin 26 Lactate Dehydrogenase 181 Impressions Arterial/Peripheral Duplex 03/22/24 14:00 IMPRESSION: RIGHT LEG: Normal ankle brachial index. Patent arterial flow throughout the right lower extremity. No significant stenosis or occlusion. LEFT LEG: Normal ankle brachial index. Patent arterial flow throughout the left lower extremity. No significant stenosis or occlusion. Electronically signed by: Michael Duran MD 03/22/2024 03:36 PM EST RP Chest X-Ray 03/23/24 07:55 IMPRESSION: Findings as above. Electronically signed by: Jorge Mauro MD 03/23/2024 08:49 AM EST RP Microbiology Microbiology Results: Microbiology 03/21/24 20:09 Blood Culture - Preliminary Blood - Venous No growth after 24 hours. 03/21/24 19:53 Blood Culture - Preliminary Blood - Venous No growth after 24 hours. Assessment and Plan (1) Acute osteomyelitis of right calcaneus: Status: Acute Plan d3 for 58yo M with HTN, depression, CKD, OUD, PVD presenting with expanding R heel wound, followed by [facility]; bone biopsy 02/24/24 grew MSSA + GBS. Wound progressed despite PO doxycycline and was sent in by Wound Clinic for concern of deep space infection. Found to have osteomyelitis of the calcaneus. acute osteomyelitis - Gen Surg consulted, blunty debrided wound with moist gauze; applied wet-to-dry dressings; continue; will need outpt Wound Clinic f/u - ID consulted, changed from vancomycin + ceftriaxone to meropenem 03/22 with plan for 6 wk IV ertapenem as outpt; will order PICC for tomorrow as long as BCx clear - arterial dopplers normal acute hypoxic resp failure due to fluid overload - suspect CHF [mild pulm edema on CXR]; will d/c IV fluids and give IV furosemide 20 mg x1 dose; check TTE in AM; wean O2 as tolerated normocytic anemia - iron deficiency; replete Fe once bacterial infection under better control; check FOBT; T+S and transfuse if Hb tomorrow is =<7 HCTZ - continue losartan, HCTZ, amlodipine CKD2-3 - SCr stable prediabetes - diet/exercise mood disorder - continue sertraline, hydroxyzine OUD - verified methadone dose; clean for 4yr tobacco abuse - NRT VTE ppx - enoxaparin dispo - eventual home with [facility] for home infusion services Total time managing care of this patient today: 45 minutes. Quality Stroke Does the patient have a stroke diagnosis?: No VTE Prior VTE?: No VTE Risk Level:: Medical - moderate - high VTE Device Contraindication: Treatment Not Indicated VTE Drug Contraindication: N/A - Med Ordered
[2024-03-23] MEDS: methADONE HCl 20 MG/2 ML ORAL.CONC 80 MG PO (10:07)
--- NOTE | 2024-03-23 10:18 | MHC.CM.PN ---
CM MET WITH PT AT BEDSIDE. PT LIVES ALONE, USES [facility] FOR MOBILITY AND ATTENDS [facility] . PT DECLINES TO COMPLETE A HCP AT THIS TIME. PCP DR. LOPEZ DP: HOME WITH NEW [facility] IS THE GOAL. REFERRAL SENT TO [facility] AND [facility]. PT WILL NEED IV TEACH BEFORE DC. PT HAS OWN RIDE HOME. CM WILL CONTINUE TO FOLLOW FOR ANY CHANGE TO DC PLAN/NEEDS.
[2024-03-23 10:50] LABS: Influenza A PCR NEGATIVE (Negative); Influenza B PCR NEGATIVE (Negative); Resp Syncy Virus RNA Qual PCR NEGATIVE (Negative); SARS COV2 PCR INHOUSE NEGATIVE (Negative)
[2024-03-23 12:08] LABS: OBS Int Ctl Valid YES; OBS1 NEGATIVE (NEGATIVE)
[2024-03-23 15:15] VITALS: BP 133/71; PULSE 89; RESP 15; TEMP 36.9; O2SAT 91
[2024-03-23 19:04] VITALS: BP 135/69; PULSE 82; RESP 16; TEMP 36.8; O2SAT 93
[2024-03-23] MEDS: 0.9 % Sodium Chloride Flush 3 ML SYRINGE IVFLUSH (19:50)
[2024-03-23] MEDS: Enoxaparin Sodium 40 MG/0.4 ML SYRINGE SUBCUT (22:36)
[2024-03-24] MEDS: Morphine Sulfate 4 MG/ML CARTRIDGE 2 MG IVPUSH ×2 (00:59→16:08)
[2024-03-24 03:05] VITALS: BP 137/65; PULSE 80; RESP 18; TEMP 36.8; O2SAT 93
--- NOTE | 2024-03-24 05:58 | PC.NURSE ---
pt high fall risk d/t R heel wound. Pt refused bed/chair alaram. Pt educated on the importance of the high fall risk policy but still refused interventions. Will continue to monitor pt and educate pt to call for assistance when OOB.
[2024-03-24] MEDS: Meropenem 1 GM VIAL IVPUSH ×3 (06:12→21:40)
[2024-03-24 06:16] LABS: Hematocrit 27.8 % (42.0-52.0); Mean Corpuscular HGB Conc 32.4 g/dl (31.0-36.0); Mean Corpuscular Hemoglobin 26.3 pg (27.0-33.0); Mean Corpuscular Volume 81.3 fL (80.0-98.0); Mean Platelet Volume 8.5 fL (9.4-12.4); Platelet Count 205 X10*3/uL (160-400); Red Blood Count 3.42 X10*6/uL (4.60-5.80); White Blood Count 7.3 X10*3/uL (4.8-10.8)
[2024-03-24 06:41] LABS: Anion Gap 13 (12-20); Blood Urea Nitrogen 16 mg/dL (9-16); Calcium 8.6 mg/dL (8.4-10.2); Carbon Dioxide 25 mmol/L (22-29); Chloride 101 mmol/L (96-108); Creatinine Clr Calc Pharmacy 79.9; Estimated Glomerular Filt Rate 58; Glucose Random 100 mg/dL (60-115); Magnesium 2.1 mg/dL (1.6-2.6); Potassium 4.1 mmol/L (3.3-5.1); Sodium 135 mmol/L (135-145)
[2024-03-24 07:09] LABS: Folate 3.8 ng/mL (> or = 4.0); Vitamin B12 255 pg/mL (200-900)
[2024-03-24 07:29] VITALS: BP 129/76; PULSE 72; RESP 12; TEMP 36.5; O2SAT 93
[2024-03-24] MEDS: amLODIPine Besylate 5 MG TABLET PO (07:45)
[2024-03-24] MEDS: Nicotine 21 MG PATCH.TD24 TRANSDERMA (07:45)
[2024-03-24] MEDS: Losartan Potassium 50 MG TABLET PO (07:45)
[2024-03-24] MEDS: hydroCHLOROthiazide 12.5 MG TABLET PO (07:45)
[2024-03-24] MEDS: Sertraline HCL 50 MG TABLET 150 MG PO (07:45)
[2024-03-24] MEDS: methADONE HCl 20 MG/2 ML ORAL.CONC 80 MG PO (07:46)
[2024-03-24] MEDS: 0.9 % Sodium Chloride Flush 3 ML SYRINGE IVFLUSH ×2 (07:46→13:10)
--- NOTE | 2024-03-24 08:10 | PM.PNGS ---
Subjective Subjective Date of Service: 03/29/24 Interval history: Has a occasional pain on the right foot No other complaints Says he did have a bad cough yesterday with some shortness of breath Physical Exam Vital Signs: Vital Signs: Last Vital Signs Temp 97.7 F 03/24/24 07:29 Pulse 72 03/24/24 07:29 Resp 12 03/24/24 07:29 BP 129/76 03/24/24 07:29 Pulse Ox 93 03/24/24 07:29 O2 Del Method Nasal Cannula 03/24/24 07:29 O2 Flow Rate 2 03/24/24 07:29 BMI result Body Mass Index 37.6 Const: General: comfortable and no acute distress Resp: Effort & Inspection: normal respiratory effort Cardio: Rate: regular rate GI: Palpation (GI): Soft to palpation Extrem: Other: Right posterior heel with open ulcerating wound, now much telephone cleaner, hypergranulation noted throughout the wound, tunneling towards the calcaneus Objective Data Active Medications Acetaminophen (Acetaminophen 325 Mg Tablet) 650 mg PO Q6H PRN PRN Reason: Pain, Mild 1-3,fever,headache Albuterol Sulfate (Albuterol Sulfate 90 Mcg 8 Gm Inhaler) 2 puff INHALE QID PRN PRN Reason: asthma Amlodipine Besylate (Amlodipine Besylate 5 Mg Tablet) 5 mg PO DAILY [facility]; Protocol Last Admin: 03/24/24 07:45 Dose: 5 mg Documented By: NAM Calcium Carbonate (Calcium Carbonate 750 Mg Tab.Chew) 750 mg PO Q4H PRN PRN Reason: Heartburn Enoxaparin Sodium (Enoxaparin Sodium 40 Mg/0.4 Ml Syringe) 40 mg SUBCUT Q24H [facility] Last Admin: 03/23/24 22:36 Dose: 40 mg Documented By: IRMA Hydrochlorothiazide (Hydrochlorothiazide 12.5 Mg Tablet) 12.5 mg PO DAILY [facility] Last Admin: 03/24/24 07:45 Dose: 12.5 mg Documented By: NAM Hydroxyzine HCl (Hydroxyzine Hcl 25 Mg Tablet) 25 mg PO BID PRN PRN Reason: Anxiety Losartan Potassium (Losartan Potassium 50 Mg Tablet) 50 mg PO DAILY [facility] Last Admin: 03/24/24 07:45 Dose: 50 mg Documented By: NAM Magnesium Hydroxide (Milk Of Magnesia 30 Ml Oral.Susp) 30 ml PO DAILY PRN PRN Reason: Constipation Melatonin (Melatonin 3 Mg Tablet) 6 mg PO BEDTIME PRN PRN Reason: Insomnia Meropenem (Meropenem 1 Gm Vial) 1 gm IVPUSH Q8H [facility] Last Admin: 03/24/24 06:12 Dose: 1 gm Documented By: IRMA Methadone HCl (Methadone Hcl 20 Mg/2 Ml Oral.Conc) 80 mg PO DAILY@0800 [facility] Last Admin: 03/24/24 07:46 Dose: 80 mg Documented By: NAM Co-signed By: JENNIFER Morphine Sulfate (Morphine Sulfate 4 Mg/Ml Cartridge) 2 mg IVPUSH Q4H PRN; Protocol PRN Reason: Pain, Severe (Pain Scale 7-10) Last Admin: 03/24/24 00:59 Dose: 2 mg Documented By: IRMA Nicotine (Nicotine 21 Mg Patch.Td24) 21 mg TRANSDERMA DAILY [facility] Last Admin: 03/24/24 07:45 Dose: 21 mg Documented By: NAM Ondansetron HCl (Ondansetron Hcl 4 Mg/2 Ml Vial) 4 mg IVPUSH Q8H PRN PRN Reason: Nausea and Vomiting Oxycodone HCl (Oxycodone Hcl Immed Release 5 Mg Tablet) 5 mg PO Q6H PRN PRN Reason: Pain, Moderate(Pain Scale 4-6) Last Admin: 03/23/24 05:41 Dose: 5 mg Documented By: THEO Polyethylene Glycol (Polyethylene Glycol 3350 17 Gm Powd.Pack) 17 gm PO DAILY PRN PRN Reason: Constipation Sertraline HCl (Sertraline Hcl 50 Mg Tablet) 150 mg PO DAILY [facility] Last Admin: 03/24/24 07:45 Dose: 150 mg Documented By: NAM Sodium Chloride (0.9 % Sodium Chloride Flush 3 Ml Syringe) 3 ml IVFLUSH QSHIFT [facility] Last Admin: 03/24/24 07:46 Dose: 3 ml Documented By: NAM Labs 03/24/24 05:55 03/24/24 05:55 Labs: Laboratory Results - last 24 hr 03/23/24 03/23/24 03/23/24 06:26 08:55 11:47 MCV MCH MCHC RDW Plt Count MPV Absolute Nucleated RBC Nucleated RBC % (auto) Anion Gap Estim Creat Clear Calc Estimated GFR Random Glucose Calcium Magnesium Ferritin 26 Vitamin B12 Folate Stool Occult Blood NEGATIVE Influenza Type A (PCR) NEGATIVE Influenza Type B (PCR) NEGATIVE RSV RNA Qual (PCR) NEGATIVE SARS-CoV-2 RNA (RT-PCR) NEGATIVE Blood Type Antibody Screen 03/24/24 05:55 MCV 81.3 MCH 26.3 L MCHC 32.4 RDW 16.0 Plt Count 205 MPV 8.5 L Absolute Nucleated RBC 0.000 Nucleated RBC % (auto) 0.0 Anion Gap 13 Estim Creat Clear Calc 79.9 Estimated GFR 58 Random Glucose 100 Calcium 8.6 D Magnesium 2.1 Ferritin Vitamin B12 255 Folate 3.8 L Stool Occult Blood Influenza Type A (PCR) Influenza Type B (PCR) RSV RNA Qual (PCR) SARS-CoV-2 RNA (RT-PCR) Blood Type O Negative Antibody Screen NEGATIVE Microbiology Microbiology Results: Microbiology 03/21/24 20:09 Blood Culture - Preliminary Blood - Venous No growth after 48 hours. 03/21/24 19:53 Blood Culture - Preliminary Blood - Venous No growth after 48 hours. Procedures Date of Service Date of Service: 03/29/24 Progress Note: A&P Assessment and plan (1) Acute osteomyelitis of right calcaneus: Status: Acute Assessment and Plan: With open wound I changed his dressings and applied wet-to-dry Continue antibiotics for osteomyelitis We will need good wound care Re-evaluation with vascular surgery - Dr. Collins is away until next week Time Spent With Patient Time: Total time managing care of this patient today ____ minutes. Quality Stroke Does the patient have a stroke diagnosis?: No VTE Prior VTE?: No VTE Risk Level:: Medical - moderate - high VTE Device Contraindication: Treatment Not Indicated VTE Drug Contraindication: N/A - Med Ordered
--- NOTE | 2024-03-24 09:01 | PM.EVENT ---
Event Note Date of Service: 03/24/24 Event Note: Chart reviewed No absolute contraindication for a PICC line Full consult to follow Thanks Time Spent With Patient Time: Total time managing care of this patient today ____ minutes.
--- NOTE | 2024-03-24 11:45 | HO.PICC ---
PICC Line Insertion NPICC Diagnosis: osteomyelitis Indication: [facility]cfp antibiotics Pertinent Labs: reviewed Technique: Following informed consent including risks, benefits and alternatives and using sterile technique including cap and mask, sterile gown, glove and drape, the right arm was prepped and draped in the usual sterile fashion of full barrier technique with CHG. Following completion of [place] Protocol the skin and soft tissues were anesthetized with 1% Lidocaine plain. Using ultrasound guidance, the right brachial vein access was obtained in a second attempt by this RN. Over an 0.018 wire through peel-away sheath, a 4 Chinese single lumen PASV PICC line was positioned. Catheter length is 46 cm internal length, the external length is at the 0 external deysi, for a total trimmed length of 46 cm. The procedure was performed in 272. Tip verification was performed by Homero Churchill with Sherlock 3CG. Tip located in SVC. Ultrasound was used to document vein patency and for needle entry. A formal ultrasound picture and cardiac rhythm strip was recorded. [employer] Installer has released the line for use and it is currently dressed with a StatLock, Tegaderm, and CHG disc. Verification has been performed for blood return and line patency. Arm Circumference: 36.5 cm Equipment: [employer] SOLO Catheter with Sherlock 3CG Tip Catheter Type: 4 Chinese single lumen PASV PICC Lot #: [id number]
[2024-03-24] MEDS: oxyCODONE HCl Immed Release 5 MG TABLET PO (12:26)
--- NOTE | 2024-03-24 13:04 | P.CONNP_ITS ---
History of Present Illness Reason for Consult Consult date: 03/24/24 Reason for consult: REAGAN Chief Complaint Chief complaint: infected ulcer, OM of right heel History of Present Illness Narrative: A 58-year-old male with a history of hypertension, depression, chronic kidney disease (CKD), and past substance use (clean for years) presents with a progressively expanding right heel wound. The wound initially began as a scab months ago and has been managed at [place] [facility] [place] A bone biopsy on 02/24/24 grew Group B Streptococcus and MSSA, - now needing a PICC line Review of Systems Constitutional: Denies fever(s) and Denies weight loss Cardiovascular: Denies chest pain Respiratory: Denies cough and Denies hemoptysis Gastrointestinal: Denies abdominal pain, Denies diarrhea and Denies nausea Musculoskeletal: Denies back pain Denies focal weakness PMFSH Past Medical History Medical History Smoker History of substance use disorder Depression HTN (hypertension) Family History Family history: reviewed and not pertinent Surgical History Surgical History H/O elbow surgery (~2000) History of ankle surgery (~2003) H/O neck surgery (~1998) Social History Social History Housing: Apartment Do you presently have visiting nurse or other home services: Yes (once a week check up) Patient Tobacco Use Status: Current everyday Tobacco user Tobacco use type: Cigarette Cigarette Packs Per Day: 10 Cigarettes Per Day: 10 service: No Current occupational status: disabled Meds Allergies Allergy/AdvReac Type Severity Reaction Status Date / Time codeine [CODEINE] Allergy Unknown NAUSEA Verified 03/21/24 16:19 Active Medications: Current Medications Acetaminophen (Acetaminophen 325 Mg Tablet) 650 mg PO Q6H PRN PRN Reason: Pain, Mild 1-3,fever,headache Albuterol Sulfate (Albuterol Sulfate 90 Mcg 8 Gm Inhaler) 2 puff INHALE QID PRN PRN Reason: asthma Amlodipine Besylate (Amlodipine Besylate 5 Mg Tablet) 5 mg PO DAILY [facility]; Protocol Last Admin: 03/24/24 07:45 Dose: 5 mg Calcium Carbonate (Calcium Carbonate 750 Mg Tab.Chew) 750 mg PO Q4H PRN PRN Reason: Heartburn Enoxaparin Sodium (Enoxaparin Sodium 40 Mg/0.4 Ml Syringe) 40 mg SUBCUT Q24H [facility] Last Admin: 03/23/24 22:36 Dose: 40 mg Hydrochlorothiazide (Hydrochlorothiazide 12.5 Mg Tablet) 12.5 mg PO DAILY [facility] Last Admin: 03/24/24 07:45 Dose: 12.5 mg Hydroxyzine HCl (Hydroxyzine Hcl 25 Mg Tablet) 25 mg PO BID PRN PRN Reason: Anxiety Losartan Potassium (Losartan Potassium 50 Mg Tablet) 50 mg PO DAILY [facility] Last Admin: 03/24/24 07:45 Dose: 50 mg Magnesium Hydroxide (Milk Of Magnesia 30 Ml Oral.Susp) 30 ml PO DAILY PRN PRN Reason: Constipation Melatonin (Melatonin 3 Mg Tablet) 6 mg PO BEDTIME PRN PRN Reason: Insomnia Meropenem (Meropenem 1 Gm Vial) 1 gm IVPUSH Q8H [facility] Last Admin: 03/24/24 06:12 Dose: 1 gm Methadone HCl (Methadone Hcl 20 Mg/2 Ml Oral.Conc) 80 mg PO DAILY@0800 [facility] Last Admin: 03/24/24 07:46 Dose: 80 mg Morphine Sulfate (Morphine Sulfate 4 Mg/Ml Cartridge) 2 mg IVPUSH Q4H PRN; Protocol PRN Reason: Pain, Severe (Pain Scale 7-10) Last Admin: 03/24/24 00:59 Dose: 2 mg Nicotine (Nicotine 21 Mg Patch.Td24) 21 mg TRANSDERMA DAILY [facility] Last Admin: 03/24/24 07:45 Dose: 21 mg Ondansetron HCl (Ondansetron Hcl 4 Mg/2 Ml Vial) 4 mg IVPUSH Q8H PRN PRN Reason: Nausea and Vomiting Oxycodone HCl (Oxycodone Hcl Immed Release 5 Mg Tablet) 5 mg PO Q6H PRN PRN Reason: Pain, Moderate(Pain Scale 4-6) Last Admin: 03/24/24 12:26 Dose: 5 mg Polyethylene Glycol (Polyethylene Glycol 3350 17 Gm Powd.Pack) 17 gm PO DAILY PRN PRN Reason: Constipation Sertraline HCl (Sertraline Hcl 50 Mg Tablet) 150 mg PO DAILY [facility] Last Admin: 03/24/24 07:45 Dose: 150 mg Sodium Chloride (0.9 % Sodium Chloride Flush 3 Ml Syringe) 3 ml IVFLUSH QSHIFT [facility] Last Admin: 03/24/24 07:46 Dose: 3 ml Home Medications ?Medication ?Instructions ?Recorded ?Confirmed ?Last Taken ?Type albuterol sulfate 90 mcg/actuation 2 puff inhalation QID PRN asthma 11/11/22 03/21/24 03/21/24 History aerosol inhaler (Ventolin HFA) amlodipine 5 mg tablet 5 mg PO DAILY 11/11/22 03/21/24 03/21/24 History hydroxyzine HCl 25 mg tablet 25 mg PO BID PRN Anxiety 11/11/22 03/21/24 03/21/24 History methadone 5 mg/5 mL oral solution 80 mg PO DAILY 11/11/22 03/22/24 03/21/24 History sertraline 100 mg tablet 150 mg PO DAILY 11/11/22 03/21/24 03/21/24 History ibuprofen 400 mg tablet 400 mg PO TID 03/21/24 03/21/24 03/21/24 History losartan 50 mg-hydrochlorothiazide 1 tab PO DAILY 03/21/24 03/21/24 03/21/24 History 12.5 mg tablet nicotine 21 mg/24 hr daily 1 patch topical DAILY 03/21/24 03/21/24 03/21/24 History transdermal patch Physical Exam Vital Signs: Last Vital Signs Temp 97.7 F 03/24/24 07:29 Pulse 72 03/24/24 07:29 Resp 12 03/24/24 07:29 BP 129/76 03/24/24 07:29 Pulse Ox 93 03/24/24 07:29 O2 Del Method Nasal Cannula 03/24/24 07:29 O2 Flow Rate 2 03/24/24 07:29 BMI result Body Mass Index 37.6 Awake. Comfortable. Neck is supple. Mucosa moist. Lungs bilateral scattered rhonchi. Heart S1-S2 heard no gallop. Abdomen soft. Extremities no edema. No involuntary movements. No myoclonus. Results Lab Results 03/24/24 05:55 03/24/24 05:55 Lab results: Chemistry 03/21/24 03/22/24 03/23/24 18:46 05:38 06:26 Sodium 138 137 134 L Potassium 3.9 4.5 4.4 Carbon Dioxide 24 23 20 L BUN 21 H 19 H 15 Creatinine 1.35 1.32 1.02 Calcium 9.0 8.2 L D 7.9 L 03/24/24 05:55 Sodium 135 Potassium 4.1 Carbon Dioxide 25 BUN 16 Creatinine 1.27 Calcium 8.6 D Hematology 03/21/24 03/22/24 03/23/24 18:46 05:38 06:26 WBC 7.4 6.6 6.5 Hgb 9.0 L 8.3 L 7.6 L Plt Count 201 176 183 03/24/24 05:55 WBC 7.3 Hgb 9.0 L Plt Count 205 Assessment and Plan (1) REAGAN (acute kidney injury): Status: Acute Plan REAGAN superimposed on CKD. REAGAN due to hypoperfusion. Renal function is improving Creatinine is down to 1.02 and back up to 1.27. Check CPK and urine protein creatinine ratio.. At this point there is no absolute contraindication for a PICC line insertion. Shall follow as needed. Keep intake more than output and continue to avoid nephrotoxic agents. Procedures Date of Service Date of Service: 03/24/24
--- NOTE | 2024-03-24 13:34 | MHC.CM.PN ---
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
--- NOTE | 2024-03-24 14:14 | P.PNIM_ITS ---
Subjective Subjective Date of Service: 03/24/24 Interval History: No acute issues overnight. PICC line placed this a.m. without issue Review of Systems Denies chest pain Denies shortness of breath Denies nausea vomiting diarrhea Denies fever chills Physical Exam 2 Vital Signs: Vital Signs: Last Vital Signs Temp 97.7 F 03/24/24 07:29 Pulse 72 03/24/24 07:29 Resp 12 03/24/24 07:29 BP 129/76 03/24/24 07:29 Pulse Ox 93 03/24/24 07:29 O2 Del Method Nasal Cannula 03/24/24 07:29 O2 Flow Rate 2 03/24/24 07:29 BMI result Body Mass Index 37.6 Const: Other: Awake alert no acute distress Resp: Other: Clear to auscultation bilaterally no rales rhonchi or wheezes Cardio: Other: No S4; positive S1-S2; no S3 murmurs rubs or gallops GI: Other: Soft nontender nondistended normoactive bowel sounds Extrem: Other: No edema bilaterally. Foot dressing done by surgery Objective Data Active Medications Acetaminophen (Acetaminophen 325 Mg Tablet) 650 mg PO Q6H PRN PRN Reason: Pain, Mild 1-3,fever,headache Albuterol Sulfate (Albuterol Sulfate 90 Mcg 8 Gm Inhaler) 2 puff INHALE QID PRN PRN Reason: asthma Amlodipine Besylate (Amlodipine Besylate 5 Mg Tablet) 5 mg PO DAILY [facility]; Protocol Last Admin: 03/24/24 07:45 Dose: 5 mg Documented By: NAM Calcium Carbonate (Calcium Carbonate 750 Mg Tab.Chew) 750 mg PO Q4H PRN PRN Reason: Heartburn Enoxaparin Sodium (Enoxaparin Sodium 40 Mg/0.4 Ml Syringe) 40 mg SUBCUT Q24H [facility] Last Admin: 03/23/24 22:36 Dose: 40 mg Documented By: IRMA Hydrochlorothiazide (Hydrochlorothiazide 12.5 Mg Tablet) 12.5 mg PO DAILY [facility] Last Admin: 03/24/24 07:45 Dose: 12.5 mg Documented By: NAM Hydroxyzine HCl (Hydroxyzine Hcl 25 Mg Tablet) 25 mg PO BID PRN PRN Reason: Anxiety Losartan Potassium (Losartan Potassium 50 Mg Tablet) 50 mg PO DAILY [facility] Last Admin: 03/24/24 07:45 Dose: 50 mg Documented By: NAM Magnesium Hydroxide (Milk Of Magnesia 30 Ml Oral.Susp) 30 ml PO DAILY PRN PRN Reason: Constipation Melatonin (Melatonin 3 Mg Tablet) 6 mg PO BEDTIME PRN PRN Reason: Insomnia Meropenem (Meropenem 1 Gm Vial) 1 gm IVPUSH Q8H [facility] Last Admin: 03/24/24 13:09 Dose: 1 gm Documented By: NAM Methadone HCl (Methadone Hcl 20 Mg/2 Ml Oral.Conc) 80 mg PO DAILY@0800 [facility] Last Admin: 03/24/24 07:46 Dose: 80 mg Documented By: NAM Co-signed By: JENNIFER Morphine Sulfate (Morphine Sulfate 4 Mg/Ml Cartridge) 2 mg IVPUSH Q4H PRN; Protocol PRN Reason: Pain, Severe (Pain Scale 7-10) Last Admin: 03/24/24 00:59 Dose: 2 mg Documented By: IRMA Nicotine (Nicotine 21 Mg Patch.Td24) 21 mg TRANSDERMA DAILY [facility] Last Admin: 03/24/24 07:45 Dose: 21 mg Documented By: NAM Ondansetron HCl (Ondansetron Hcl 4 Mg/2 Ml Vial) 4 mg IVPUSH Q8H PRN PRN Reason: Nausea and Vomiting Oxycodone HCl (Oxycodone Hcl Immed Release 5 Mg Tablet) 5 mg PO Q6H PRN PRN Reason: Pain, Moderate(Pain Scale 4-6) Last Admin: 03/24/24 12:26 Dose: 5 mg Documented By: KIEL Polyethylene Glycol (Polyethylene Glycol 3350 17 Gm Powd.Pack) 17 gm PO DAILY PRN PRN Reason: Constipation Sertraline HCl (Sertraline Hcl 50 Mg Tablet) 150 mg PO DAILY [facility] Last Admin: 03/24/24 07:45 Dose: 150 mg Documented By: NAM Sodium Chloride (0.9 % Sodium Chloride Flush 3 Ml Syringe) 3 ml IVFLUSH QSHIFT [facility] Last Admin: 03/24/24 13:10 Dose: 3 ml Documented By: NAM Sodium Chloride (0.9 % Sodium Chloride Flush 10 Ml Syringe) 5 ml IVFLUSH TID [facility] Labs 03/24/24 05:55 03/24/24 05:55 Labs: Laboratory Results - last 24 hr 03/24/24 05:55 MCV 81.3 MCH 26.3 L MCHC 32.4 RDW 16.0 Plt Count 205 MPV 8.5 L Absolute Nucleated RBC 0.000 Nucleated RBC % (auto) 0.0 Anion Gap 13 Estim Creat Clear Calc 79.9 Estimated GFR 58 Random Glucose 100 Calcium 8.6 D Magnesium 2.1 Total Creatine Kinase 48 Vitamin B12 255 Folate 3.8 L Blood Type O Negative Antibody Screen NEGATIVE Microbiology Microbiology Results: Microbiology 03/21/24 20:09 Blood Culture - Preliminary Blood - Venous No growth after 48 hours. 03/21/24 19:53 Blood Culture - Preliminary Blood - Venous No growth after 48 hours. Assessment and Plan (1) Acute osteomyelitis of right calcaneus: Status: Acute (2) REAGAN (acute kidney injury): Status: Acute Plan 58yo M with HTN, depression, CKD, OUD, PVD presenting with expanding R heel wound, [place] [facility]; bone biopsy 02/24/24 grew MSSA + GBS. Wound progressed despite PO doxycycline and was sent in by Wound Clinic for concern of deep space infection. Found to have osteomyelitis of the calcaneus; 1.Acute osteomyelitis -PICC placed today -Meropenem x 6 weeks() -bedside teaching by infusion [employer]; likely discharge in a.m. 2.Acute hypoxic resp failure due to fluid overload -resolved with IV Lasix and cessation of fluids -check echo; treat as indicated -wean O2 as tolerated 3.Normocytic anemia -hemoglobin stable -outpatient follow up 4.HTN -acceptable control on current therapies -adjust as indicated 5.CKD2-3 -stable and well compensated Full code Lovenox Requires ongoing hospitalization for IV meropenem; will discharge when appropriate with VNA Quality Stroke Does the patient have a stroke diagnosis?: No VTE Prior VTE?: No VTE Risk Level:: Medical - moderate - high VTE Device Contraindication: Treatment Not Indicated VTE Drug Contraindication: N/A - Med Ordered
--- NOTE | 2024-03-24 14:30 | CA_ITS ---
Transthoracic Echocardiogram Patient (Last, First, Middle): Carlos Younger, Gender: Male Date of : 1965 Age: 58 Procedure Date: 03/24/2024 Procedure Type: Transthoracic Echocardiogram Location: S3W Height: 177.8 cm Weight: 118.84 kg BSA: 2.34 m2 Heart Rate: bpm BP: 129 / 76 mmHg Fire Protection Engineer: TO Referring MD: Yohan Qureshi DO Symptoms: sob Study Quality: Technically Difficult/Contrast Conclusions: - Normal left ventricular size, thickness, systolic function, and wall motion. The visually estimated ejection fraction is between 60-65%. - Mildly increased right ventricular cavity size. There is normal right ventricular systolic function. - There is a flattened septum in systole consistent with right ventricular pressure overload. Findings Procedure Information Contrast agent, definity, is being given per protocol without apparent complications. Left Ventricle Normal left ventricular size, thickness, systolic function, and wall motion. The visually estimated ejection fraction is between 60-65%. There is a flattened septum in systole consistent with right ventricular pressure overload. Diastolic function is normal for age. Right Ventricle Mildly increased right ventricular cavity size. There is normal right ventricular systolic function. Atria The left atrium was not well visualized. The right atrium is normal in size. Aortic Valve There is a normal trileaflet aortic valve. There is mild calcification of the aortic valve. There is no aortic valve stenosis. There is no aortic valve regurgitation. Mitral Valve The mitral valve appears normal. There is no mitral valve regurgitation. There is no mitral valve stenosis. Pulmonic Valve The pulmonic valve is likely normal. Tricuspid Valve Normal tricuspid valve structure. There is no tricuspid valve regurgitation. Tricuspid regurgitation envelope is inadequate for calculation of right ventricular systolic pressure. Normal right atrial pressure. Great Vessels All visible segments of the aorta are normal in size. The visualized portions of the pulmonary artery and branches are normal. Venous The inferior vena cava is normal in size and collapses greater than 50% with inspiration. Pericardium/Pleural There is no evidence of pericardial effusion. Prior Study Comparison No prior study available for comparison. Measurements 2D Linear Measurements IVSd: 0.97 0.6-0.9/0.6-1.0 cm LVIDd: 5.01 3.9-5.3/4.2-5.9 cm LVIDd Index: 2.14 2.4-3.2/2.2-3.1 cm/m2 LVIDs: 3.12 2.0-3.6 cm LVPWd: 0.97 0.7-1.1 cm LA Diam: 3.40 2.7-3.8/3.0-4.0 cm LAIDs Index: 1.45 1.5-2.3 cm/m2 LV Mass: 218.65 67-162/88-224 g LV Mass Index: 93.44 43-95/49-115 g/m2 LVOT Diam: 2.20 3.0+(-)1.3 cm 2D Systolic Function EF 4C: 64.80 >55% Mitral Valve MV Pk E: 0.56 MV PK A: 0.63 MV Decel Time: 187.00 E/A: 0.90 E'Lateral: 8.81 E'Medial: 7.40 E/E' Med: 7.50 E/E' Lat: 6.30 PHT: 55.00 MVA PHT: 4.00 Decel R[place]y: 2.97 Aortic Valve AoV Pk David: 1.78 AoV Mn David: 1.24 AoV VTI: 0.32 AoV Pk Grad: 13.00 Aov Mn Grad: 7.00 LEEROY Cont.VTI: 2.51 LVOT LVOT Pk David: 1.13 LVOT Mn David: 0.79 LVOT VTI: 0.21 LVOT Pk Grad: 5.00 LVOT Mn Grad: 3.00 LVOT Diam: 2.20 LVOT Area: 3.80 Diastolic Function MV Pk E: 0.56 MV Pk A: 0.63 E/A: 0.90 E'Medial: 7.40 E/E' Med: 7.50 E' Laterial: 8.81 E/E' Lat: 6.30 Right Ventricle TAPSE (mm): 27.70 TVS' David: 13.20 Tricuspid Valve RA Press: 3.00 Great Vessels Aorta Sinus of Valsalva: 3.55 2.0-3.5 cm Ao Asc: 3.30 2.1-3.4 cm Updated in Other Vendor System with Status of Final Miguel Angel Meza MD electronically signed on 03/25/2024 9:12:23 PM with status of Final
[2024-03-24 16:00] VITALS: BP 127/74; PULSE 91; RESP 20; TEMP 36.6; O2SAT 89
[2024-03-24] MEDS: 0.9 % Sodium Chloride Flush 10 ML SYRINGE 5 ML IVFLUSH ×2 (16:10→19:53)
[2024-03-24 18:40] VITALS: O2SAT 86
[2024-03-24 18:49] LABS: Appearance Urine Clear; Color Urine Yellow; Glucose Urine UA Negative (Negative); Leukocyte Esterase Urine Negative (Negative); Nitrite Urine Negative (Negative); Urine Blood Negative (Negative); Urine Ketones Trace mg/dL (Negative); Urine Protein Trace mg/dL (Neg-Trace)
[2024-03-24 19:03] LABS: Total Protein Urine Random 18 mg/dL (<12)
[2024-03-24 19:27] VITALS: BP 110/52; PULSE 84; RESP 18; TEMP 36; O2SAT 93
[2024-03-24 20:45] LABS: B Type Natriuretic Peptide 91 pg/mL (<100)
[2024-03-24] MEDS: Enoxaparin Sodium 40 MG/0.4 ML SYRINGE SUBCUT (21:45)
[2024-03-25] MEDS: Morphine Sulfate 4 MG/ML CARTRIDGE 2 MG IVPUSH (03:54)
[2024-03-25 04:00] VITALS: BP 120/64; PULSE 74; RESP 18; TEMP 36.5; O2SAT 91
[2024-03-25] MEDS: Meropenem 1 GM VIAL IVPUSH (06:06)
[2024-03-25 07:31] VITALS: BP 133/68; PULSE 78; RESP 18; TEMP 36.2; O2SAT 93
[2024-03-25] MEDS: hydroCHLOROthiazide 12.5 MG TABLET PO (07:56)
[2024-03-25] MEDS: Losartan Potassium 50 MG TABLET PO (07:56)
[2024-03-25] MEDS: methADONE HCl 20 MG/2 ML ORAL.CONC 80 MG PO (07:56)
[2024-03-25] MEDS: amLODIPine Besylate 5 MG TABLET PO (07:56)
[2024-03-25] MEDS: Sertraline HCL 50 MG TABLET 150 MG PO (07:56)
[2024-03-25] MEDS: Nicotine 21 MG PATCH.TD24 TRANSDERMA (07:56)
--- NOTE | 2024-03-25 12:01 | P.DS_ITS ---
DS: Providers Provider Date of Service: 03/25/24 Date of admission: 03/21/24 21:07 Date of discharge: 03/25/24 Primary care physician: Cecilia Schmidt MD Consults: 03/21/24 21:06 Consult to General Surgery Routine Consulting Provider: [facility] General Surgeons Reason for consultation: Wound that needs debriment Has provider been notified: No Consult to Infectious Diseases Routine Consulting Provider: [facility] Infect[facility] Disease [facility] Reason for consultation: OM of right heel Has provider been notified: No 03/22/24 09:29 Consult to Wound Care Routine Reason for consultation: R heel wound DS: Diagnosis Discharge Diagnosis (1) Acute osteomyelitis of right calcaneus: Status: Acute (2) REAGAN (acute kidney injury): Status: Acute DS: Summary Hospital Course Hospital Course: 58-year-old male with a history of hypertension, depression, chronic kidney disease (CKD), and past substance use (clean for years) presents with a progressively expanding right heel wound. The wound initially began as a scab months ago and has been managed at the wound clinic at [facility]. A bone biopsy on 02/24/24 grew Group B Streptococcus and MSSA, for which he was prescribed oral doxycycline.During follow-up at the wound clinic today, there was concern for deep infection, prompting referral to the ED for further evaluation. The patient reports significant pain in the area. X-ray findings reveal a soft tissue defect posterior to the calcaneus with cortical erosion of the posterior superior tuberosity, consistent with osteomyelitis . Labs show an elevated ESR of 92, normal WBC, and normal lactic acid. He is [facility] Hospital Course Patient was admitted to general medical floor. Seen by surgery where bedside debridement was done with good results. Consult was placed ID who recommended meropenem with switch to ertapenem on DC. PICC line was placed during this admission without issue. At this point in time patient is medically acceptable be discharged to complete a 42 day course of ertapenem. We will follow up with wound care and vascular surgery as outpatient. VNA to assist Time Attestation Discharge Coordination Time (in mins): 35 Quality: Safe Use of Opioids Does Pt have an Active Cancer Diagnosis on the Problem List?: No Quality: Stroke Does the patient have a stroke diagnosis?: No Physical Exam Vital Signs: Vital Signs: Last Vital Signs Temp 97.2 F 03/25/24 07:31 Pulse 78 03/25/24 07:31 Resp 18 03/25/24 07:31 BP 133/68 03/25/24 07:31 Pulse Ox 93 03/25/24 07:31 O2 Del Method Nasal Cannula 03/25/24 07:31 O2 Flow Rate 2 03/25/24 07:31 BMI result Body Mass Index 37.6 Const: Other: Awake alert no acute distress Resp: Other: Clear to auscultation bilaterally no rales rhonchi or wheezes Cardio: Other: No S4; positive S1-S2; no S3 murmurs rubs or gallops GI: Other: Soft nontender nondistended normoactive bowel sounds Extrem: Other: No edema bilaterally. Foot dressing done by surgery DS: Data Data Completed and Pending Labs on day of discharge: Laboratory Results - last 24 hr 03/24/24 03/24/24 03/24/24 05:55 17:39 17:39 Total Creatine Kinase 48 B-Natriuretic Peptide 91 Urine Color Yellow Urine Appearance Clear Urine pH 7.0 Ur Specific [place] 1.020 Urine Protein Trace Urine Glucose (UA) Negative Urine Ketones Trace Urine Blood Negative Urine Nitrite Negative Ur Leukocyte Esterase Negative U Random Total Protein 18 H Urine Creatinine Cancelled 127.50 Preliminary micro results at discharge 03/21/24 20:09 Blood Culture - Preliminary Blood - Venous No growth after 48 hours. 03/21/24 19:53 Blood Culture - Preliminary Blood - Venous No growth after 48 hours. Discharge Plan Discharge Anticipated Discharge Date/Time: 03/25/24 11:50 Patient Disposition: Home Health Service Discharge Diagnosis: Right calcaneus osteomyelitis Referrals: Cecilia Schmidt MD [Primary Care Provider] - 1 Week Discharge Medications: New oxycodone 5 mg Tablet 5 mg PO Q6H PRN (Reason: Pain, Moderate(Pain Scale 4-6)) Qty: 20 0RF Rx Instructions: Partial Fill upon patient request. ertapenem 1 gram recon soln 1 g IV DAILY Continued ibuprofen 400 mg tablet 400 mg PO TID nicotine 21 mg/24 hr patch 24 hour 1 patch topical DAILY losartan-hydrochlorothiazide 50-12.5 mg tablet 1 tab PO DAILY amlodipine 5 mg tablet 5 mg PO DAILY sertraline 100 mg tablet 150 mg PO DAILY albuterol sulfate [Ventolin HFA] 90 mcg/actuation HFA aerosol inhaler 2 puff inhalation QID PRN (Reason: asthma) hydroxyzine HCl 25 mg tablet 25 mg PO BID PRN (Reason: Anxiety) methadone 5 mg/5 mL solution 80 mg PO DAILY Discharge Orders: Discharge Order (Routine); Ordered 03/25/24 Ordered By: Yohan Qureshi Diet: Advance to usual diet Activity on Discharge: As tolerated Stand Alone Forms: Patient Portal Discharge page Print Language: Niuean Care Plan Goals: Continue all medicines as taken prior to the hospital Health Concerns: You receive ertapenem 1 g IV daily for 38 days total. Oxycodone 5 mg q.6 hours as needed for pain Plan of Treatment: VNA will supervise her care at home Assessment: See discharge summary
[2024-03-25 12:04] VITALS: PULSE 77; PULSE 78; PULSE 88; PULSE 97; O2SAT 84; O2SAT 87; O2SAT 89; O2SAT 92
[2024-03-25] MEDS: Ertapenem Sodium 1 GM VIAL IVPUSH (13:43)
[2024-03-25] MEDS: 0.9 % Sodium Chloride Flush 10 ML SYRINGE 5 ML IVFLUSH (13:44)
[2024-03-25] MEDS: oxyCODONE HCl Immed Release 5 MG TABLET PO (14:30)
--- NOTE | 2024-03-25 16:28 | W.MHC.F2F ---
Service Date Service Date: 03/25/24 Encounter Date of encounter: 03/25/24 Encounter: Acute hospitalization Reasons for Services Signs and symptoms assessed: Osteomyelitis in need of long-term antibiotics Reason for penitentiary: medication management, medication treatment and teach disease management Homebound: Leaving the home is medically contraindicated at this time without the asist of a device and/or another person due th the listed conditions above and below. Reason homebound: unsteady gait / fall risk and unable to drive Certification: Based on the above findings, I certify that this patient is confined to the home and needs intermittent penitentiary care, physical therapy and/or speech therapy, or continues to need occupational therapy. The patient is under my care, and I have initiated the establishment of the plan of care. The patient will be followed by a physician who will periodically review the plan of care. Time Spent With Patient Time: Total time managing care of this patient today ____ minutes.
--- NOTE | 2024-03-25 18:05 | P.CDIM_ITS ---
PROVIDER RESPONSE TEXT: To clarify, the appropriate diagnosis supported by the clinical indicators: CKD, stage 3 QUERY TEXT: PHYSICIAN'S DOCUMENTATION REQUEST Date of Query: 03/25/2024 09:45 AM EST Patient Name: BONITA BUTLER Admit Date: 03/22/2024 Dear Yohan Qureshi DO, A review of the medical record indicates additional documentation may be needed. Please review below and update the documentation accordingly. Clinical Indicators: Per Hospitalist Progress Note 03/24/24 CKD 2-3 BUN on 03/21/24: 21, Creatinine 1.35, Est GFR 54 BUN on 03/24/24: 16, Creatinine 1.27, Est GFR 58 Please clarify which of the following accurately represents the patient's renal status: CKD, stage 2 CKD, stage 3 Other (explain) Clinically unable to determine (explain) Thank you, Mary Lopez RN Use of terms such as suspected, likely, concern for, or probable (associated with a specific diagnosi s that is being evaluated, monitored, or treated as if it exists) are acceptable and can be coded in the inpatient se tting, when documented at the time of discharge. Please use your independent medical judgment in providing your response. THIS QUERY IS PART OF THE PERMANENT MEDICAL RECORD
== END 2024-03-25 15:59 | disposition home health service (06) | DRG 344 ==
LOC: HO.ED 20:50 → HO.EDOVER 21:16 → HO.S3 03-22 08:41
PROVIDERS: Family Medicine; Internal Medicine Hypertension Specialist; Physician Assistant; Admitting Provider Internal Medicine; Emergency Provider Emergency Medicine; PCP Internal Medicine; Visit Provider Hospitalist
DX: M86.171 Other acute osteomyelitis, right ankle and foot (principal); J96.01 Acute respiratory failure with hypoxia; N17.9 Acute kidney failure, unspecified; D63.1 Anemia in chronic kidney disease; I12.9 Hypertensive chronic kidney disease with stage 1 through stage 4 chronic kidney disease, or unspecified chronic kidney disease; N18.31 Chronic kidney disease, stage 3a; M87.9 Osteonecrosis, unspecified; B95.61 Methicillin susceptible Staphylococcus aureus infection as the cause of diseases classified elsewhere; B95.1 Streptococcus, group B, as the cause of diseases classified elsewhere; R73.03 Prediabetes; F11.20 Opioid dependence, uncomplicated; E87.70 Fluid overload, unspecified; F17.210 Nicotine dependence, cigarettes, uncomplicated; Z71.6 Tobacco abuse counseling; Z20.822 Contact with and (suspected) exposure to COVID-19; Z79.899 Other long term (current) drug therapy
CPT/HCPCS: 0241U; 36415; 36573; 71045; 73620; 80048; 80053; 81003; 82272; 82550; 82570; 82607; 82728; 82746; 83036; 83540; 83605; 83615; 83735; 83880; 84156; 85025; 85027; 85045; 85652; 86140; 86850; 86900; 86901; 87040; 93306; 93922; 93925; 99285; C1751; J0696; J1171; J1335; J1650; J1940; J2185; J2270; J2405; J2543; J3370; J7120; Q9957

== ENCOUNTER 2024-03-21 21:07 | Outpatient (BNV) | payer OTHER, SELFPAY | END 2024-03-24 14:30 | PROVIDERS: Admitting Provider Internal Medicine; Emergency Provider Emergency Medicine; PCP Internal Medicine; Visit Provider Internal Medicine Cardiovascular Disease | DX: I50.810 Right heart failure, unspecified (principal); I35.8 Other nonrheumatic aortic valve disorders | CPT/HCPCS: 93306 ==

== ENCOUNTER → 2024-03-21 21:07 | Outpatient (BNV) | payer OTHER, SELFPAY | PROVIDERS: Admitting Provider Internal Medicine; Emergency Provider Emergency Medicine; PCP Internal Medicine; Visit Provider Family Medicine | DX: M86.171 Other acute osteomyelitis, right ankle and foot (principal); N17.9 Acute kidney failure, unspecified | CPT/HCPCS: 99232; 99239; G0180 ==

== ENCOUNTER → 2024-03-21 21:07 | Outpatient (BNV) | payer OTHER, SELFPAY | PROVIDERS: Admitting Provider Internal Medicine; Emergency Provider Emergency Medicine; PCP Internal Medicine; Visit Provider Internal Medicine Hypertension Specialist | DX: N17.9 Acute kidney failure, unspecified (principal); N18.9 Chronic kidney disease, unspecified | CPT/HCPCS: 99222; 99499 ==

== ENCOUNTER → 2024-03-21 21:07 | Outpatient (BNV) | payer OTHER, SELFPAY | PROVIDERS: Admitting Provider Internal Medicine; Emergency Provider Emergency Medicine; PCP Internal Medicine; Visit Provider Surgery | DX: M86.171 Other acute osteomyelitis, right ankle and foot (principal) | CPT/HCPCS: 97602; 99222; 99232 ==

== ENCOUNTER → 2024-03-21 21:07 | Outpatient (BNV) | payer OTHER, SELFPAY | PROVIDERS: Admitting Provider Internal Medicine; Emergency Provider Emergency Medicine; PCP Internal Medicine; Visit Provider Internal Medicine | DX: M86.171 Other acute osteomyelitis, right ankle and foot (principal) | CPT/HCPCS: 99222 ==

== ENCOUNTER 2024-03-31 16:47 | Outpatient (REF) | payer OTHER, SELFPAY ==
[2024-03-31 16:51] LABS: MANUAL DIFF FLAG NO
[2024-03-31 16:53] LABS: Basophils Percent Auto 0.3 % (0-2); Eosinophils Absolute Auto 0.5 X10*3/uL (0.0-0.4); Eosinophils Percent Auto 5.2 % (0-4); Hematocrit 28.9 % (42.0-52.0); Hemoglobin 9.1 g/dl (14.0-18.0); Imm Gran Abs Auto 0.06 X10*3/uL (0.00-0.03); Imm Gran Pct Auto 0.7 % (0.0-0.4); Lymphocytes Absolute Auto 1.2 X10*3/uL (1.2-4.9); Lymphocytes Percent Auto 12.7 % (20-40); Mean Corpuscular HGB Conc 31.5 g/dl (31.0-36.0); Mean Corpuscular Hemoglobin 26.1 pg (27.0-33.0); Mean Platelet Volume 8.6 fL (9.4-12.4); Monocytes Absolute Auto 0.8 X10*3/uL (0.1-1.2); Monocytes Percent Auto 8.9 % (2-11); Neutrophils Absolute Auto 6.6 x10*3/uL (2.0-8.3); Neutrophils Percent Auto 72.2 % (45-73); Platelet Count 301 X10*3/uL (160-400); Red Blood Count 3.48 X10*6/uL (4.60-5.80); Red Cell Distribution Width 16.3 % (11.0-16.0); White Blood Count 9.1 X10*3/uL (4.8-10.8)
[2024-03-31 17:53] LABS: Estimated Glomerular Filt Rate 42
== END 2024-03-31 16:48 | disposition home or self-care (01) ==
LOC: HO.HVNA 16:47
PROVIDERS: Visit Provider Internal Medicine
DX: M86.9 Osteomyelitis, unspecified (principal)
CPT/HCPCS: 36415; 82565; 85025

== ENCOUNTER 2024-04-06 12:04 | Outpatient (REF) | payer OTHER, SELFPAY ==
[2024-04-06 12:53] LABS: MANUAL DIFF FLAG NO
[2024-04-06 12:57] LABS: Basophils Percent Auto 0.4 % (0-2); Eosinophils Absolute Auto 0.4 X10*3/uL (0.0-0.4); Eosinophils Percent Auto 4.8 % (0-4); Hematocrit 28.7 % (42.0-52.0); Hemoglobin 9.2 g/dl (14.0-18.0); Imm Gran Abs Auto 0.05 X10*3/uL (0.00-0.03); Imm Gran Pct Auto 0.6 % (0.0-0.4); Lymphocytes Absolute Auto 1.2 X10*3/uL (1.2-4.9); Lymphocytes Percent Auto 15.8 % (20-40); Mean Corpuscular HGB Conc 32.1 g/dl (31.0-36.0); Mean Corpuscular Hemoglobin 25.9 pg (27.0-33.0); Mean Corpuscular Volume 80.8 fL (80.0-98.0); Mean Platelet Volume 8.1 fL (9.4-12.4); Monocytes Absolute Auto 0.8 X10*3/uL (0.1-1.2); Monocytes Percent Auto 10.3 % (2-11); Neutrophils Absolute Auto 5.4 x10*3/uL (2.0-8.3); Neutrophils Percent Auto 68.1 % (45-73); Platelet Count 265 X10*3/uL (160-400); Red Blood Count 3.55 X10*6/uL (4.60-5.80); Red Cell Distribution Width 15.9 % (11.0-16.0); White Blood Count 7.9 X10*3/uL (4.8-10.8)
[2024-04-06 13:15] LABS: Alanine Aminotransferase 14 U/L (0-40); Albumin Level 3.3 g/dL (3.5-5.0); Alkaline Phosphatase 107 U/L (39-117); Anion Gap 17 (12-20); Aspartate Amino Transferase 28 U/L (5-37); Bilirubin Total 0.2 mg/dL (0.0-1.0); Blood Urea Nitrogen 21 mg/dL (9-16); Carbon Dioxide 25 mmol/L (22-29); Chloride 101 mmol/L (96-108); Estimated Glomerular Filt Rate 54; Glucose Random 75 mg/dL (60-115); Potassium 4.9 mmol/L (3.3-5.1); Sodium 138 mmol/L (135-145); Total Protein 8.7 g/dL (6.5-8.0)
[2024-04-06 13:25] LABS: Ferritin 35 ng/mL (20-250)
[2024-04-06 13:38] LABS: Folate 3.9 ng/mL (> or = 4.0); Vitamin B12 282 pg/mL (200-900)
== END 2024-04-06 12:05 | disposition home or self-care (01) ==
LOC: HO.10HDL 12:04
PROVIDERS: Visit Provider Internal Medicine
DX: D64.9 Anemia, unspecified (principal); I12.9 Hypertensive chronic kidney disease with stage 1 through stage 4 chronic kidney disease, or unspecified chronic kidney disease; N18.9 Chronic kidney disease, unspecified; I87.2 Venous insufficiency (chronic) (peripheral); M86.672 Other chronic osteomyelitis, left ankle and foot; R09.02 Hypoxemia; Z72.0 Tobacco use
CPT/HCPCS: 36415; 80053; 82607; 82728; 82746; 85025

== ENCOUNTER 2024-04-07 16:23 | Outpatient (REF) | payer OTHER, SELFPAY ==
[2024-04-07 16:29] LABS: MANUAL DIFF FLAG NO
[2024-04-07 16:48] LABS: Basophils Percent Auto 0.5 % (0-2); Eosinophils Absolute Auto 0.5 X10*3/uL (0.0-0.4); Eosinophils Percent Auto 5.1 % (0-4); Hematocrit 27.1 % (42.0-52.0); Imm Gran Abs Auto 0.08 X10*3/uL (0.00-0.03); Imm Gran Pct Auto 0.9 % (0.0-0.4); Lymphocytes Absolute Auto 1.1 X10*3/uL (1.2-4.9); Lymphocytes Percent Auto 12.8 % (20-40); Mean Corpuscular HGB Conc 33.2 g/dl (31.0-36.0); Mean Corpuscular Volume 78.3 fL (80.0-98.0); Mean Platelet Volume 8.8 fL (9.4-12.4); Monocytes Percent Auto 10.8 % (2-11); Neutrophils Absolute Auto 6.2 x10*3/uL (2.0-8.3); Neutrophils Percent Auto 69.9 % (45-73); Platelet Count 292 X10*3/uL (160-400); Red Blood Count 3.46 X10*6/uL (4.60-5.80); Red Cell Distribution Width 16.1 % (11.0-16.0); White Blood Count 8.8 X10*3/uL (4.8-10.8)
[2024-04-07 17:21] LABS: Estimated Glomerular Filt Rate 53
== END 2024-04-07 16:24 | disposition home or self-care (01) ==
LOC: HO.HVNA 16:23
PROVIDERS: Visit Provider Internal Medicine
DX: Z79.899 Other long term (current) drug therapy (principal)
CPT/HCPCS: 36415; 82565; 85025

== ENCOUNTER 2024-04-13 16:11 | Outpatient (AMB) | payer OTHER, SELFPAY ==
--- NOTE | 2024-04-19 13:48 | A.OFFVIS_ITS ---
Intake Visit Reasons: antibiotic follow up Allergies codeine [CODEINE] Allergy (Unknown, Verified 03/21/24 16:19) NAUSEA HPI HPI antibiotic follow up: Details: He has no issues. [facility] Medical History Smoker History of substance use disorder Depression HTN (hypertension) Surgical History H/O elbow surgery (~2000) History of ankle surgery (~2003) H/O neck surgery (~1998) Social History Housing: Apartment Do you presently have visiting nurse or other home services: Yes (once a week check up) Patient Tobacco Use Status: Current everyday Tobacco user Tobacco use type: Cigarette Cigarette Packs Per Day: 10 Cigarettes Per Day: 10 service: No Current occupational status: disabled Review of Systems Const All systems reviewed & are unremarkable except as noted in HPI and below Physical Exam Const General: cooperative Orientation/consciousness: patient oriented x3 HEENT Head: Yes normal to inspection Mouth: Normal oral and palatal mucosa present Eyes General: appearance normal, both eyes and all related structures Pupils: Equal, round and reactive pupils present Resp Effort & Inspection: normal respiratory effort Cardio Rate: regular rate Rhythm: regular rhythm GI Palpation (GI): Soft to palpation and nontender General: Yes no CVA tenderness Back/Spine/Pelvis Back: no CVA tenderness Skin General skin exam: no rashes or lesions noted Neuro General: patient oriented x3 Cranial nerves: Yes CN's II-XII intact bilaterally and Yes Equal, round and reactive pupils present Extrem General: Yes normal to inspection Psych Appearance: grossly normal Assessment & Plan Assessment & Plan (1) Acute osteomyelitis of right calcaneus: Code(s): M86.171 - Other acute osteomyelitis, right ankle and foot Category: Medical Plan: No additional antibiotics at this time. Coding Level of Care Code Est Pt Level 3 (63439) Diagnoses Acute osteomyelitis of right calcaneus M86.171
== END 2024-04-13 16:11 | disposition home or self-care (01) ==
LOC: HO.HID 16:11
PROVIDERS: PCP Internal Medicine; Visit Provider Internal Medicine
DX: M86.171 Other acute osteomyelitis, right ankle and foot (principal)
CPT/HCPCS: 99213

== ENCOUNTER → 2024-04-13 16:11 | Outpatient (BNVA) | payer OTHER, SELFPAY | PROVIDERS: PCP Internal Medicine; Visit Provider Internal Medicine | DX: M86.171 Other acute osteomyelitis, right ankle and foot (principal) | CPT/HCPCS: 99212 ==

== ENCOUNTER 2024-04-14 15:07 | Outpatient (REF) | payer OTHER, SELFPAY ==
[2024-04-14 15:11] LABS: MANUAL DIFF FLAG NO
[2024-04-14 15:14] LABS: Basophils Percent Auto 0.4 % (0-2); Eosinophils Absolute Auto 0.5 X10*3/uL (0.0-0.4); Eosinophils Percent Auto 6.7 % (0-4); Hematocrit 27.8 % (42.0-52.0); Hemoglobin 8.6 g/dl (14.0-18.0); Imm Gran Abs Auto 0.04 X10*3/uL (0.00-0.03); Imm Gran Pct Auto 0.5 % (0.0-0.4); Lymphocytes Absolute Auto 1.2 X10*3/uL (1.2-4.9); Lymphocytes Percent Auto 15.5 % (20-40); Mean Corpuscular HGB Conc 30.9 g/dl (31.0-36.0); Mean Corpuscular Hemoglobin 25.9 pg (27.0-33.0); Mean Corpuscular Volume 83.7 fL (80.0-98.0); Mean Platelet Volume 8.8 fL (9.4-12.4); Monocytes Absolute Auto 1.2 X10*3/uL (0.1-1.2); Monocytes Percent Auto 16.6 % (2-11); Neutrophils Absolute Auto 4.5 x10*3/uL (2.0-8.3); Neutrophils Percent Auto 60.3 % (45-73); Platelet Count 269 X10*3/uL (160-400); Red Blood Count 3.32 X10*6/uL (4.60-5.80); Red Cell Distribution Width 16.8 % (11.0-16.0); White Blood Count 7.4 X10*3/uL (4.8-10.8)
[2024-04-14 16:02] LABS: Estimated Glomerular Filt Rate 42
== END 2024-04-14 15:08 | disposition home or self-care (01) ==
LOC: HO.HVNA 15:07
PROVIDERS: Visit Provider Internal Medicine
DX: M86.9 Osteomyelitis, unspecified (principal)
CPT/HCPCS: 36415; 82565; 85025

== ENCOUNTER 2024-04-21 14:01 | Outpatient (REF) | payer OTHER, SELFPAY ==
[2024-04-21 14:06] LABS: Basophils Percent Auto 0.2 % (0-2); Eosinophils Absolute Auto 0.3 X10*3/uL (0.0-0.4); Eosinophils Percent Auto 3.8 % (0-4); Hematocrit 25.9 % (42.0-52.0); Hemoglobin 8.3 g/dl (14.0-18.0); Imm Gran Abs Auto 0.07 X10*3/uL (0.00-0.03); Imm Gran Pct Auto 0.8 % (0.0-0.4); Lymphocytes Percent Auto 11.7 % (20-40); MANUAL DIFF FLAG SCAN; Mean Corpuscular Hemoglobin 25.9 pg (27.0-33.0); Mean Corpuscular Volume 80.9 fL (80.0-98.0); Monocytes Absolute Auto 1.6 X10*3/uL (0.1-1.2); Monocytes Percent Auto 17.7 % (2-11); Neutrophils Absolute Auto 5.8 x10*3/uL (2.0-8.3); Neutrophils Percent Auto 65.8 % (45-73); Platelet Count 258 X10*3/uL (160-400); Red Cell Distribution Width 17.2 % (11.0-16.0); SCAN SMEAR FLAG 1; White Blood Count 8.9 X10*3/uL (4.8-10.8)
[2024-04-21 14:35] LABS: SLIDE REVIEW VERIFIED
[2024-04-21 14:49] LABS: Estimated Glomerular Filt Rate 33
== END 2024-04-21 14:02 | disposition home or self-care (01) ==
LOC: HO.HVNA 14:01
PROVIDERS: Visit Provider Internal Medicine
DX: M86.171 Other acute osteomyelitis, right ankle and foot (principal)
CPT/HCPCS: 36415; 82565; 85025

== ENCOUNTER 2024-04-28 14:55 | Outpatient (REF) | payer OTHER, SELFPAY ==
[2024-04-28 14:59] LABS: MANUAL DIFF FLAG NO
[2024-04-28 15:06] LABS: Basophils Percent Auto 0.2 % (0-2); Eosinophils Absolute Auto 0.5 X10*3/uL (0.0-0.4); Hematocrit 28.9 % (42.0-52.0); Hemoglobin 9.3 g/dl (14.0-18.0); Imm Gran Abs Auto 0.07 X10*3/uL (0.00-0.03); Imm Gran Pct Auto 0.9 % (0.0-0.4); Lymphocytes Absolute Auto 1.4 X10*3/uL (1.2-4.9); Lymphocytes Percent Auto 17.2 % (20-40); Mean Corpuscular HGB Conc 32.2 g/dl (31.0-36.0); Mean Corpuscular Hemoglobin 25.7 pg (27.0-33.0); Mean Corpuscular Volume 79.8 fL (80.0-98.0); Mean Platelet Volume 8.6 fL (9.4-12.4); Monocytes Percent Auto 11.8 % (2-11); Neutrophils Absolute Auto 5.2 x10*3/uL (2.0-8.3); Neutrophils Percent Auto 63.9 % (45-73); Platelet Count 306 X10*3/uL (160-400); Red Blood Count 3.62 X10*6/uL (4.60-5.80); Red Cell Distribution Width 16.9 % (11.0-16.0); White Blood Count 8.2 X10*3/uL (4.8-10.8)
[2024-04-28 15:24] LABS: Estimated Glomerular Filt Rate 43
--- OUTSIDE RECORDS SUMMARY | 2024-04-28 18:52 | XMS_ITS | Clinical Summary ---
Author Organization [facility] Address [address] [facility] [address] [place] [address] Phone Care Team Providers Care Entry Operator Name Role Phone Cecilia Schmidt MD Primary Care Provider Allergies Active Allergy Reactions Criticality Noted Date Comments Codeine Other (see comments) 04/30/2021 Morphine Other (see comments) 04/30/2021 Medications traZODone (DESYREL) 150 MG tablet Take 1 tablet by mouth at bed time Active sertraline (ZOLOFT) 100 MG tablet Take 1.5 tablets by mouth 1 (one) time each day Active Nicotine 21-14-7 MG/24HR kit Active fluticasone HFA (Flovent HFA) 110 MCG/ACT inhaler Active Ferrous Fumarate 324 (106 Fe) MG tablet Take 1 tablet by mouth 1 (one) time each day Active Buprenorphine HCl-Naloxone HCl (SUBOXONE) 8-2 MG [address] SL film Place 1 Film under the tongue 1 (one) time each day Active amLODIPine (NORVASC) 5 MG tablet Take 1 tablet by mouth 1 (one) time each day Active albuterol HFA (PROVENTIL HFA;VENTOLIN HFA) 108 (90 Base) MCG/ACT inhaler Inhale 2 puffs every 4 (four) hours Active hydrOXYzine (ATARAX) 50 MG tablet 04/25/2021 Active methadone (DOLOPHINE) 10 MG tablet Take 6 mg by mouth 1 (one) time each day Active Active Problems Problem Noted Date Diagnosed Date Vesicoureteric reflux 04/30/2021 Nocturia 04/30/2021 Long-term drug therapy 04/30/2021 Essential hypertension 04/30/2021 Chronic kidney disease stage 3 04/30/2021 Anemia of chronic renal failure 04/30/2021 Family History Medical History Relation Comments Cancer Father stomach Gout Father Hypertension Father Stroke Mother cva/tia Relation Status Comments Father Mother Social History Tobacco Use Types Packs/Day Years Used Date Smoking Tobacco: Every Day Cigarettes Smokeless Tobacco: Never Alcohol Use Standard Drinks/Week Comments Not Currently 0 (1 standard drink = 0.6 oz pure alcohol) Alcoholic Drinks/day: Occasional social drink Sex and Gender Information Value Date Recorded Sex Assigned at Not on file Legal Sex Male 4:56 PM EST Gender Identity Not on file Sexual Orientation Not on file Last Filed Vital Signs Vital Sign Reading Time Taken Comments Blood Pressure 108/66 05/20/2021 1:23 PM EST Pulse 80 05/20/2021 1:23 PM EST Temperature - - Respiratory Rate - - Oxygen Saturation 98% 05/13/2019 12:00 PM EST Inhaled Oxygen Concentration - - Weight 93.9 kg (207 lb) 05/20/2021 1:23 PM EST Height 177.8 cm (5' 10 ) 05/13/2019 12:00 PM EST Body Mass Index 29.7 05/13/2019 12:00 PM EST Plan of Treatment Health Maintenance Due Date Last Done Comments Pneumococcal Vaccine: Pediat rics (0 to 5 Years) and At-Risk Patients (6 to 64 Years) (1 of 2 - PCV) 1969 Colorectal Cancer Screening: Annual FOBT 2012 Colorectal Cancer Screening: Colonoscopy 2012 Colorectal Cancer Screening: Sigmoidoscopy 2012 Influenza Vaccine (#1) 2023 Hepatitis B Vaccine Aged Out No longe r eligible based on patient's age to complete this topic Insurance [facility] MEDICAID [facility] MEDICAID Care Teams Entry Operator Relationship Specialty Start Date End Date Cecilia Schmidt MD [address] [place] [address] PCP - General 04/09/20
== END 2024-04-28 14:56 | disposition home or self-care (01) ==
LOC: HO.LNP 14:55
PROVIDERS: Visit Provider Internal Medicine
DX: M86.9 Osteomyelitis, unspecified (principal)
CPT/HCPCS: 82565; 85025

== ENCOUNTER 2024-05-02 15:17 | Outpatient (AMB) | payer OTHER, SELFPAY ==
--- NOTE | 2024-05-02 15:10 | A.OFFVIS_ITS ---
Vital Signs 3 05/02/24 15:15 Weight 266 lb Pulse 103 H Pulse Source Pulse Oximeter Temp 98.8 F Temp Source Oral Pulse Oximetry (%) 96 Oxygen Delivery Method Room Air Intake Visit Reasons: follow up OM of r heel/on ertapenem Allergies codeine [CODEINE] Allergy (Unknown, Verified 05/02/24 15:16) NAUSEA HPI HPI follow up OM of r heel/on ertapenem: Details: He has right heel wound. It is growing additional nodules behind heel. He has been taking Ertapenem. [facility] Medical History Smoker History of substance use disorder Depression HTN (hypertension) Surgical History H/O elbow surgery (~2000) History of ankle surgery (~2003) H/O neck surgery (~1998) Social History Housing: Apartment Do you presently have visiting nurse or other home services: Yes (once a week check up) Patient Tobacco Use Status: Current everyday Tobacco user Tobacco use type: Cigarette Cigarette Packs Per Day: 10 Cigarettes Per Day: 10 service: No Current occupational status: disabled Review of Systems Const All systems reviewed & are unremarkable except as noted in HPI and below Physical Exam Vital Signs: Last Vital Signs Temp 98.8 F 05/02/24 15:15 Pulse 103 H 05/02/24 15:15 Pulse Ox 96 05/02/24 15:15 Oxygen Delivery Method Room Air 05/02/24 15:15 Const Other: General: cooperative Orientation/consciousness: patient oriented x3 HEENT Head: Yes normal to inspection Mouth: Normal oral and palatal mucosa present Eyes General: appearance normal, both eyes and all related structures Pupils: Equal, round and reactive pupils present Resp Effort & Inspection: normal respiratory effort Cardio Rate: regular rate Rhythm: regular rhythm GI Palpation (GI): Soft to palpation and nontender General: Yes no CVA tenderness Back/Spine/Pelvis Back: no CVA tenderness Skin General skin exam: no rashes or lesions noted Neuro General: patient oriented x3 Cranial nerves: Yes CN's II-XII intact bilaterally and Yes Equal, round and reactive pupils present Extrem Other: heel exuberant granulation tissue Psych Appearance: grossly normal Assessment & Plan Assessment & Plan (1) Acute osteomyelitis of right calcaneus: Code(s): M86.171 - Other acute osteomyelitis, right ankle and foot Category: Medical Plan: Would stop IV Ertapenem on 05/09 next week. Po Doxycycline for a month. See us next month. Surgery to look at wound. Orders: Orders 2 IR cvc remove any age Today M86.171 - Other acute osteomyelitis, right ankle and foot Medications: New 2 doxycycline hyclate 100 mg PO BID 60 caps 0RF 30 days Coding Level of Care Code Est Pt Level 3 (00420) Diagnoses Acute osteomyelitis of right calcaneus M86.171
[2024-05-02 15:15] VITALS: PULSE 103; TEMP 37.1; O2SAT 96
--- OUTSIDE RECORDS SUMMARY | 2024-05-02 16:46 | XMS_ITS | Clinical Summary ---
Author Organization [facility] Address [address] [facility] [address] [place] [address] Phone Care Team Providers Care Travel Cota Name Role Phone Cecilia Schmidt MD Primary [...] patient's age to complete this topic Insurance [facility] MEDICAID [facility] MEDICAID Care Teams Travel Cota Relationship Specialty Start Date End Date Cecilia Schmidt MD [address] [place] [address] PCP - General 04/09/20
== END 2024-05-02 15:17 | disposition home or self-care (01) ==
LOC: HO.HID 15:17
PROVIDERS: PCP Internal Medicine; Visit Provider Internal Medicine
DX: M86.171 Other acute osteomyelitis, right ankle and foot (principal)
CPT/HCPCS: 99213

== ENCOUNTER → 2024-05-02 15:17 | Outpatient (BNVA) | payer OTHER, SELFPAY | PROVIDERS: PCP Internal Medicine; Visit Provider Internal Medicine | DX: M86.171 Other acute osteomyelitis, right ankle and foot (principal) | CPT/HCPCS: 99212 ==

== ENCOUNTER 2024-05-30 13:59 | Outpatient (AMB) | payer OTHER, SELFPAY ==
[2024-05-30 14:17] VITALS: BP 138/78; PULSE 78; O2SAT 97
--- NOTE | 2024-05-30 14:17 | MHC.OFFVIS ---
Vital Signs 05/30/24 14:17 Weight 274 lb BP 138/78 Pulse 78 Pulse Oximetry (%) 97 Intake Visit Reasons: follow up heel osteo 1 month Allergies codeine [CODEINE] Allergy (Unknown, Verified 05/30/24 14:17) NAUSEA HPI HPI follow up heel osteo 1 month: Details: He reports not picking up Doxycycline for unknown reasons. He says heel looks about same. He is done with Ertapenem six weeks for OM. [facility] Medical History Smoker History of substance use disorder Depression HTN (hypertension) Surgical History H/O elbow surgery (~2000) History of ankle surgery (~2003) H/O neck surgery (~1998) Social History Housing: Apartment Do you presently have visiting nurse or other home services: Yes (once a week check up) Patient Tobacco Use Status: Current everyday Tobacco user Tobacco use type: Cigarette Cigarette Packs Per Day: 10 Cigarettes Per Day: 10 service: No Current occupational status: disabled Review of Systems Const All systems reviewed & are unremarkable except as noted in HPI and below Physical Exam Vital Signs: Last Vital Signs Pulse 78 05/30/24 14:17 BP 138/78 05/30/24 14:17 Pulse Ox 97 05/30/24 14:17 Const Other: General: cooperative Orientation/consciousness: patient oriented x3 HEENT Head: Yes normal to inspection Mouth: Normal oral and palatal mucosa present Eyes General: appearance normal, both eyes and all related structures Pupils: Equal, round and reactive pupils present Resp Effort & Inspection: normal respiratory effort Cardio Rate: regular rate Rhythm: regular rhythm GI Palpation (GI): Soft to palpation and nontender General: Yes no CVA tenderness Back/Spine/Pelvis Back: no CVA tenderness Skin General skin exam: no rashes or lesions noted Neuro General: patient oriented x3 Cranial nerves: Yes CN's II-XII intact bilaterally and Yes Equal, round and reactive pupils present Extrem Other: heel per picture Psych Appearance: grossly normal Assessment & Plan Assessment & Plan (1) Acute osteomyelitis of right calcaneus: Comment: area about same Code(s): M86.171 - Other acute osteomyelitis, right ankle and foot Category: Medical Plan: Needs Wound Care Finish one month po Doxycycline. No return at this time. Coding Level of Care Code Est Pt Level 3 (66775) Diagnoses Acute osteomyelitis of right calcaneus M86.171
--- OUTSIDE RECORDS SUMMARY | 2024-05-30 16:33 | XMS_ITS | Clinical Summary ---
Author Organization [facility] Address [address] [facility] [address] [place] [address] Phone Care Team Providers Care Proposal Specialist Name Role Phone Cecilia Schmidt MD Primary Care Provider [phone] Allergies Active Allergy Reactions Criticality Noted Date [...] patient's age to complete this topic Insurance [facility] MEDICAID [facility] MEDICAID Care Teams Proposal Specialist Relationship Specialty Start Date End Date Cecilia Schmidt MD [address] [place] [address] PCP - General 04/09/20
== END 2024-05-30 14:47 | disposition home or self-care (01) ==
LOC: HO.HID 13:59
PROVIDERS: PCP Internal Medicine; Visit Provider Internal Medicine
DX: M86.171 Other acute osteomyelitis, right ankle and foot (principal)
CPT/HCPCS: 99213

== ENCOUNTER → 2024-05-30 13:59 | Outpatient (BNVA) | payer OTHER, SELFPAY | PROVIDERS: PCP Internal Medicine; Visit Provider Internal Medicine | DX: M86.171 Other acute osteomyelitis, right ankle and foot (principal) | CPT/HCPCS: 99212 ==

== ENCOUNTER 2024-11-27 17:28 | Inpatient (IN) | payer OTHER, SELFPAY ==
--- NOTE | ~2024-11-27 | US_ITS ---
CLINICAL HISTORY: Swelling; cellulitis; wound; question abscess Bilateral lower extremity venous duplex ultrasound. Comparison: None Findings: Exam was performed using grayscale ultrasound with assistance of color and spectral Doppler. Bilateral common femoral, femoral, popliteal, and deep femoral veins are patent and free of thrombus. The veins are normally compressible and have normal phasic flow and augmentation response. Bilateral posterior tibial veins are patent. Peroneal veins are not seen. Greater saphenous veins are unremarkable. No Barboza's cyst is visualized. Left calf subcutaneous interstitial edema and echogenic soft tissue, more conspicuous edema of the left popliteal fossa. Enlarged right inguinal lymph node 4.0 x 1.0 x 2.5 cm, enlarged left inguinal lymph nodes up to 4.5 x 1.5 x 2.1 cm, reniform shaped, no cortical thickening, preserved large fatty hilum, no abnormal vascular flow. Impression: 1. No deep vein thrombosis in bilateral lower extremities. 2. Bilateral inguinal lymphadenopathy, worse on the left, most likely reactive in the setting of cellulitis, recommend follow-up to ensure resolution. 3. Left calf to popliteal fossa echogenic soft tissue and edema, likely corresponding to known cellulitis. This document has been electronically signed by: Josefina Huff MD on 11/29/2024 14:05:10
--- NOTE | ~2024-11-27 | XR_ITS ---
CLINICAL HISTORY: shortness of breath 2 view chest x-ray Comparison: CR/SR - XR CHEST 1 VIEW - 03/23/24 07:50 EST Findings: Mild bibasilar atelectasis. No consolidation, pleural effusion or pneumothorax. Normal size heart. No acute fracture. IMPRESSION: Mild bibasilar atelectasis. No other acute findings. This document has been electronically signed by: Kaylyn Gee MD on 11/27/2024 18:57:30
--- NOTE | ~2024-11-27 | CT_ITS ---
CLINICAL HISTORY: nec fasc + osteo rule out --- Additional Notes or Special Instructions: mid tib fib to foot CT right lower extremity with intravenous contrast. Comparison: None provided Findings: Images were obtained from the knee through the midfoot. Subcutaneous edema throughout the visualized right lower extremity. No soft tissue gas. Chronic appearing erosive changes in the posterior calcaneus may be chronic osteomyelitis versus posttraumatic change. No abscess or evidence of acute osteomyelitis. IMPRESSION: 1. No evidence of acute osteomyelitis, abscess, or soft tissue gas in the right lower extremity. 2. Subcutaneous edema of the right lower extremity. 3. Chronic appearing erosive changes in the posterior calcaneus. This document has been electronically signed by: Kaylyn Gee MD on 11/27/2024 22:09:49
--- NOTE | ~2024-11-27 | CT_ITS ---
CLINICAL HISTORY: nec fasc + osteo rule out --- Additional Notes or Special Instructions: mid tib fib to foot CT left lower extremity with intravenous contrast Comparison: None provided Findings: Images were obtained from the knee through the midfoot. Subcutaneous edema throughout the visualized left lower extremity. No soft tissue gas or rim enhancing abscess. Soft tissue indentations along the medial calf and foot may be ulcers. No evidence of osteomyelitis. IMPRESSION: 1. No evidence of soft tissue gas, abscess or osteomyelitis. 2. Subcutaneous edema throughout the visualized left lower extremity. This document has been electronically signed by: Kaylyn Gee MD on 11/27/2024 22:06:31
[2024-11-27 17:37] VITALS: BP 160/90; PULSE 96; O2SAT 96
[2024-11-27 17:39] VITALS: BP 121/40; PULSE 94; RESP 22; TEMP 37.1; O2SAT 92; BMI 37.3
--- OUTSIDE RECORDS SUMMARY | 2024-11-27 18:13 | XMS_ITS | Clinical Summary ---
Author Organization [facility] Address [address] [place] [address] [place] [address] Phone Care Team Providers Care Roll Changer Name Role Phone Cecilia Schmidt MD Primary Care Provider [phone] Allergies Active Allergy Reactions Criticality Noted Date [...] Due Date Last Done Comments Pneumococcal Vaccine: 50+ Ye ars (1 of 2 - PCV) 1982 Colorectal Cancer Screening: Annual FOBT 2012 Colorectal Cancer Screening: Colonoscopy 2012 Colorectal Cancer Screening: Sigmoidoscopy 2012 Influenza Vaccine (#1) 2024 Hepatitis B Vaccine Aged Out No longe r eligible based on patient's age to complete this topic Insurance [facility] Medicaid [facility] Medicaid Care Teams Roll Changer Relationship Specialty Start Date End Date Cecilia Schmidt MD [address] [place] [address] PCP - General 04/09/20
--- OUTSIDE RECORDS SUMMARY | 2024-11-27 18:13 | XMS_ITS | Clinical Summary ---
Author Organization [facility] Address [address] [facility] [address] [place] [id number] Phone Care Team Providers Care Keyliner Name Role Phone Cecilia Schmidt MD Primary Care Provider Social History Tobacco Use Types Packs/Day Years Used Date Smoking Tobacco: Never Assessed Education Answer Date Recorded Are you interested in more education? Not on qiana e 07/25/2022 Are you concerned about learning? Not on file 07/25/2022 No 07/25/2022 No 07/25/2022 Digital Access Answer Date Recorded No 08/26/2022 No 08/26/2022 Reliable internet access at home? Not on file 08/26/2022 Device with a working camera? Not on file Sex and Gender Information Value Date Recorded Sex Assigned at Not on file Legal Sex Male 2:41 PM EDT Gender Identity Not on file Sexual Orientation Not on file Plan of Treatment Health Maintenance Due Date Last Done Comments Adult Td,Tdap Booster 1963 LIPID PANEL 1963 DEPRESSION SCREENING 1975 SMOKING Hx and SMOKELESS TOBACCO SCREENING 1976 HEPATITIS C SCREENING 1981 HIV ONE-TIME SCREENING (18-6 5 YEARS) 1981 COLOGUARD 2008 COLONOSCOPY 2008 COLORECTAL CANCER SCREENING 2008 FIT TEST 2008 FOBT 2008 SIGMOIDOSCOPY 2008 VIRTUAL COLONOSCOPY 2008 PNEUMOCOCCAL VACCINES (50+ years) (1 of 1 - PCV) 2013 ZOSTER VACCINES (1 of 2) 2013 COVID-19 VACCINE (3 - 2023-2 5 season) 2023 09/15/2020, 08/25/2020 RSV VACCINE (1 - 1-dose 75+ series) 2038 HEPATITIS A VACCINES Aged Out No long er eligible based on patient's age to complete this topic HIB VACCINES Aged Out No longer eligi ble based on patient's age to complete this topic MENINGOCOCCAL VACCINES (ACWY) Aged Out No longer eligible based on patient's age to complete this topic MENINGOCOCCAL VACCINES (B) Aged Out N o longer eligible based on patient's age to complete this topic Medical Devices Not on file Insurance [employer] [facility] [address] [place] [address] [address] [place], [place] [address]Direct HitHEALTH [facility] [place] [facility]AC[facility] Care Teams Keyliner Relationship Specialty Start Date End Date Cecilia Schmidt MD [address] [place] [address] [place] [address] PCP - General 11/29/19 Additional Source Comments The information contained in this document represents components of the legal health record. It is not the complete legal health record.[facility]
[2024-11-27 18:22] LABS: MANUAL DIFF FLAG NO
[2024-11-27 18:29] LABS: Hematocrit 25.7 % (42.0-52.0); Hemoglobin 8.2 g/dl (14.0-18.0); Imm Gran Abs Auto 0.15 X10*3/uL (0.00-0.03); Imm Gran Pct Auto 1.5 % (0.0-0.4); Lymphocytes Absolute Auto 0.6 X10*3/uL (1.2-4.9); Mean Corpuscular HGB Conc 31.9 g/dl (31.0-36.0); Mean Corpuscular Hemoglobin 26.8 pg (27.0-33.0); Mean Corpuscular Volume 84.0 fL (80.0-98.0); NRBC Abs Auto 0.000 X10*3/uL (0.0-0.012); NRBC Pct Auto 0.0 /100WBC (0.0-0.2); Platelet Count 198 X10*3/uL (160-400); Red Blood Count 3.06 X10*6/uL (4.60-5.80); White Blood Count 10.3 X10*3/uL (4.8-10.8)
[2024-11-27 19:11] LABS: Anion Gap 12 (12-20); Blood Urea Nitrogen 32 mg/dL (9-16); Calcium 7.9 mg/dL (8.4-10.2); Carbon Dioxide 27 mmol/L (22-29); Chloride 101 mmol/L (96-108); Creatinine Clr Calc Pharmacy 64.3; Estimated Glomerular Filt Rate 46; Magnesium 2.4 mg/dL (1.6-2.6); Potassium 4.5 mmol/L (3.3-5.1); Sodium 135 mmol/L (135-145)
[2024-11-27 19:18] LABS: Troponin-I High Sensitivity 8.9 ng/L (<3.5-35.0)
[2024-11-27 19:25] VITALS: BP 115/53; PULSE 85; RESP 19; TEMP 36.9; O2SAT 97
--- NOTE | 2024-11-27 19:33 | ED_ITS ---
[facility] - General Adult General Chief complaint: Wound/Laceration Stated complaint: Leg wounds/sores, hx: PVD, COPD & Sepsis Time Seen by Provider: 11/27/24 19:05 Source: patient Mode of arrival: ambulatory Limitations: no limitations History of Present Illness ED Provider: Dr. Sierra [facility] narrative: This is a 59-year-old male presented hospital today for increased pain in his left lower extremity and increased redness over the left foot. Patient has been complaining of fever and chills as well. Patient has been followed in the wound clinic with bilateral lower extremity swelling. Patient has a history of tobacco use disorder. Denies any shortness of breath. He is complaining of left foot pain. Denies any abdominal pain. Related Data Home Medications ?Medication ?Instructions ?Recorded ?Confirmed albuterol sulfate 90 mcg/actuation 2 puff inhalation Q ID PRN asthma 11/11/22 03/21/24 aerosol inhaler (Ventolin HFA) amlodipine 5 mg tablet 5 mg PO DAILY 11/11/2203/21 hydroxyzine HCl 25 mg tablet 25 mg PO BID PRN Anxiety 11/11/22 03/21/24 methadone 5 mg/5 mL oral solution 80 mg PO DAILY 11/1103/22/24 sertraline 100 mg tablet 150 mg PO DAILY 11/11/22 ibuprofen 400 mg tablet 400 mg PO TID 03/21/2403/21 losartan 50 mg-hydrochlorothiazide 1 tab PO DAILY 02/2803/21/24 12.5 mg tablet nicotine 21 mg/24 hr daily 1 patch topical DAILY 03/2103/21/24 transdermal patch Previous Rx's ?Medication ?Instructions ?Recorded oxycodone 5 mg tablet 5 mg PO Q6H PRN Pain, Moderate(Pain Scale 4-6) #20 tabs doxycycline hyclate 100 mg capsule 100 mg PO BID 30 da ys #60 caps 05/02/24 Allergies Allergy/AdvReac Type Severity Reaction Status Date / Time codeine (CODEINE) Allergy Unknown NAUSEA Verified 11/27/24 17:51 Review of Systems 2 Review of Systems: Pertinent review of systems as mentioned in HPI. All other system otherwise negative. [facility] Past Medical History [facility] Narrative: Medical history as mentioned in [facility] Medical History Smoker History of substance use disorder Depression HTN (hypertension) Surgical History H/O elbow surgery (~2000) History of ankle surgery (~2003) H/O neck surgery (~1998) Social History Social History Housing: Apartment Do you presently have visiting nurse or other home services: Yes (once a week check up) Alcohol intake: former Patient Tobacco Use Status: Current everyday Tobacco user Tobacco use type: Cigarette Cigarette Packs Per Day: 10 Cigarettes Per Day: 10 Smoked in Last 30 Days: Yes Use of substances other than those prescribed or required for medical reasons: No Advance Directives: No Advance Directives Information Provided: No Do you have a plan to hurt others: No Plan service: No Current occupational status: disabled Physical Exam ED Exam Exam: General: Pleasant, no distress, interacting appropriately Head: Normacephalic, atraumatic ENT: oral mucosa moist, neck supple, no tracheal deviation Cardiovascular: regular rate, regular rhythm, no murmurs, rubbing, gallops Respiratory: Diminished lung sounds bilaterally Gastrointestinal: Soft, non distended, non tender, non guarding Extremities: erythema over patient's left foot, no subcutaneous emphysema appreciated on exam, patient does have chronic wound over the left foot and right foot. There is some green drainage from the right foot. However I suspect the acute infection and is on his left foot is some induration up his calf on the left side Skin: Warm and dry Psychiatric: Appropriate mood and thoughts Vital Signs: Vital Signs - 24 hr 11/27/24 17:39 11/27/24 19:25 11/27/24 20:09 Temperature 98.8 F 98.5 F Pulse Rate 94 85 79 Respiratory Rate 22 H 19 19 Blood Pressure 121/40 L 115/53 L Pulse Oximetry 92 97 Oxygen Delivery Method Nasal Cannula Room Air Oxygen Flow Rate 11/27/24 22:55 11/28/24 00:10 11/28/24 00:41 Temperature 98.0 F 98.0 F Pulse Rate 73 69 66 Respiratory Rate 18 21 H 20 Blood Pressure 98/44 L 120/62 120/63 Pulse Oximetry 95 94 95 Oxygen Delivery Method Nasal Cannula Nasal Cannula Nasal Cannula Oxygen Flow Rate 2 2 2 BMI result Body Mass Index 37.3 Medications Administered Generic Name Dose Route Start Last Admin Trade Name Freq PRN Reason Stop Dose Admin Enoxaparin Sodium 40 mg 11/28/24 01:00 11/28/24 01:58 Enoxaparin Sodium 40 Mg/0.4 Ml Syringe SUBCUT 40 mg Q24H VANESSA Administration Hydromorphone HCl 0.5 mg 11/28/24 00:56 11/28/24 02:33 Hydromorphone Hcl 1 Mg/Ml Syringe IVPUSH 0.5 mg Q4H PRN Administration Pain, Severe (Pain Scale 7-10) Protocol Lactated Ringer's 1,000 mls @ 100 mls/hr 11/28/24 01:00 11/28/24 01:59 Lr IVCONT 100 mls/hr .Q10H VANESSA Administration Discontinued Medications Generic Name Dose Route Start Last Admin Trade Name Freq PRN Reason Stop Dose Admin Acetaminophen 975 mg 11/27/24 19:49 11/27/24 20:30 Acetaminophen 325 Mg Tablet PO 11/27/24 19:50 975 mg ONCE ONE Administration Albuterol Sulfate 2.5 mg/ 0 mg 11/27/24 20:02 11/27/24 20:08 Albuterol/Ipratropium 3 ml INHALE 11/27/24 20:03 1 dose ONCE ONE Administration Piperacillin Sod/Tazobactam 100 mls @ 200 mls/hr 11/27/24 19:47 11/27/24 21:40 Sod 4.5 gm/ Sodium Chloride IV 11/27/24 20:16 Infused ONCE ONE Infusion Vancomycin HCl 2,000 mg in 500 mls @ 250 mls/hr 11/27/24 19:47 11/28/24 00:10 Vancomycin/Ns IV 11/27/24 21:46 Infused ONCE ONE Infusion Sodium Chloride 500 mls @ 500 mls/hr 11/27/24 20:00 11/27/24 23:22 Ns IV 11/27/24 20:59 Not Given .Q1H VANESSA Sodium Chloride 1,000 mls @ 999 mls/hr 11/27/24 23:30 11/28/24 00:41 Ns IV 11/28/24 00:30 Infused .Q1H1M VANESSA Infusion Iohexol 100 ml 11/27/24 21:09 11/27/24 21:10 Iohexol 350 Mg/Ml 100 Ml Infus..Btl IV 11/27/24 21:10 100 ml ONCE ONE Administration Morphine Sulfate 4 mg 11/27/24 19:48 11/27/24 20:28 Morphine Sulfate 4 Mg/Ml Cartridge IVPUSH 11/27/24 19:49 4 mg ONCE ONE Administration Protocol Medical Decision Making Medical Decision Making [facility] Narrative: This is a 59-year-old male history of tobacco use and osteomyelitis presented hospital today for evaluation of infection of his left foot. Patient does have erythema of the left foot. We will plan to obtain CT imaging to assess for osteomyelitis of neck fascia. Patient's right foot does appear to have chronic we will treat drainage. Does not appear to be acutely infected. Patient does appear to be diaphoretic on exam. We will plan to give patient a dose of Tylenol here. Sepsis lab work will be obtained including CBC chemistry lactic acid and blood culture. We will plan to empirically cover patient with IV antibiotics with vancomycin and Zosyn. CTA of the bilateral lower extremities will be obtained to rule out osteomyelitis versus nec fascitis. No sign of leukocytosis no elevated lactic acid. Patient's CT imaging did not show any signs of necrotizing fasciitis or abscess or any osteomyelitis. I suspect patient likely has extensive cellulitis of the left lower extremities. The patient did noted to be hypotensive systolic blood pressure in the upper 80s. I did give patient a bolus IV fluid to be mindful not to fluid overload patient. At baseline patient does have history of COPD on 2 L nasal cannula O2. Breathing treatment was also given to the patient as well. On reassessment patient's blood pressure has improved after IV fluid. He is no longer hypotensive. We will plan to admit patient to the hospital. Differential Diagnosis Differential Diagnoses: The differential diagnosis associated with the presentation includes Necrotizing fasciitis, cellulitis, abscess, lymphangitis Lab Data [facility] Lab Attestation statement: I reviewed the patient's lab results. 11/27/24 18:16 11/27/24 18:47 Labs: Lab Results 11/27/24 11/27/24 Range/Units 18:16 18:47 WBC 10.3 (4.8-10.8) X10*3/uL RBC 3.06 L (4.60-5.80) X10*6/uL Hgb 8.2 L (14.0-18.0) g/dl Hct 25.7 L (42.0-52.0) % MCV 84.0 (80.0-98.0) fL MCH 26.8 L (27.0-33.0) pg MCHC 31.9 (31.0-36.0) g/dl RDW 18.3 H (11.0-16.0) % Plt Count 198 D (160-400) X10*3/uL MPV 8.7 L (9.4-12.4) fL Immature Gran % (Auto) 1.5 H (0.0-0.4) % Neut % (Auto) 79.5 H (45-73) % Lymph % (Auto) 5.6 L (20-40) % [place] % (Auto) 12.4 H (2-11) % Eos % (Auto) 0.9 (0-4) % Baso % (Auto) 0.1 (0-2) % Lymph # (Auto) 0.6 L (1.2-4.9) X10*3/uL [place] # (Auto) 1.3 H (0.1-1.2) X10*3/uL Eos # (Auto) 0.1 (0.0-0.4) X10*3/uL Baso # (Auto) 0.0 (0.0-0.2) X10*3/uL Abs Immat Gran (auto) 0.15 H (0.00-0.03) X10*3/uL Absolute Neuts (auto) 8.2 (2.0-8.3) x10*3/uL Absolute Nucleated RBC 0.000 (0.0-0.012) X10*3/uL Nucleated RBC % (auto) 0.0 (0.0-0.2) /100WBC Sodium 135 (135-145) mmol/L Potassium 4.5 (3.3-5.1) mmol/L Chloride 101 (96-108) mmol/L Carbon Dioxide 27 (22-29) mmol/L Anion Gap 12 (12-20) BUN 32 H (9-16) mg/dL Creatinine 1.55 H (0.5-1.4) mg/dL Estim Creat Clear Calc 64.3 Estimated GFR 46 Random Glucose 127 H (60-115) mg/dL Lactic Acid 1.4 (0.5-2.0) mmol/L Calcium 7.9 L D (8.4-10.2) mg/dL Magnesium 2.4 (1.6-2.6) mg/dL Troponin I High Sens 8.9 (<3.5-35.0) ng/L Independent Interpretation I performed an independent interpretation of an: Plain X-Ray and CT Scan Critical Care Time Critical Care Time Critical Care Time: Yes Total Critical Care Time: 38 Attestation: Time is exclusive of separately billable procedures. Time includes: direct patient care, patient reassessment, coordination of patient care, interpretation of data (laboratory data, pulse oximetry, arterial blood gases and chest xrays), review of patient's medical records, medical consultation and documentation of patient care. Procedures excluded from critical care time: central intravenous line placement and electrocardiography. Discharge Plan Discharge Clinical Impression: Cellulitis, Hypotension Patient Disposition: Admitted As Inpatient Interventions: Admission Worksheet (ED) Last Done: 11/27/24 21:42
[2024-11-27] MEDS: Albuterol Sulfate 2.5 MG, Albuterol/Iprat 2.5/0.5MG 3 ML 3 ML INHALE (20:08)
[2024-11-27 20:09] VITALS: PULSE 79; RESP 19; O2SAT 95
[2024-11-27] MEDS: iohexoL 350 MG/ML 100 ML INFUS..BTL IV (21:10)
[2024-11-27] MEDS: vancomycin/NS 2,000 MG/500 ML PLAST..BAG 250 MG IV (21:41)
[2024-11-27 22:55] VITALS: BP 98/44; PULSE 73; RESP 18; O2SAT 95
[2024-11-28] VITALS (8 sets, daily range): BP systolic 103–145; BP diastolic 52–78; PULSE 66–90; RESP 14–21; TEMP 36.2–37.1; O2SAT 88–95
[2024-11-28] MEDS: Lactated Ringers 1,000 ML 100 ML IVCONT ×3 (01:59→21:43)
[2024-11-28] MEDS: Albuterol/Iprat 2.5/0.5MG 3 ML AMPUL.NEB INHALE (04:43)
--- NOTE | 2024-11-28 04:48 | PC.NURSE ---
Resumed care of patient at 300, he was resting comfortably in the recliner chair. This RN assessed his O2 remained at 3L, Lr running per MAY. Pt aloud to sleep. This RN awoke pt at 0430 for vitals, pt reporting pain down to 5/10 post morphine admin. Pt noted to have exp wheezing and abdominal breathing while sleeping, PRN neb running at this time. MD at bedside to assess pt for rounding, wanting pictures of the patients legs, will assess if ED MD has pictures, or will obtain new pictures. Call jack within reach, awaiting bed assignment at this time.
[2024-11-28 05:30] LABS: MANUAL DIFF FLAG NO
[2024-11-28 05:32] LABS: Hematocrit 26.1 % (42.0-52.0); Hemoglobin 8.0 g/dl (14.0-18.0); Imm Gran Abs Auto 0.10 X10*3/uL (0.00-0.03); Imm Gran Pct Auto 1.1 % (0.0-0.4); Lymphocytes Absolute Auto 0.8 X10*3/uL (1.2-4.9); Mean Corpuscular HGB Conc 30.7 g/dl (31.0-36.0); Mean Corpuscular Hemoglobin 26.2 pg (27.0-33.0); Mean Corpuscular Volume 85.6 fL (80.0-98.0); NRBC Abs Auto 0.000 X10*3/uL (0.0-0.012); NRBC Pct Auto 0.0 /100WBC (0.0-0.2); Platelet Count 196 X10*3/uL (160-400); Red Blood Count 3.05 X10*6/uL (4.60-5.80); White Blood Count 8.7 X10*3/uL (4.8-10.8)
[2024-11-28 05:48] LABS: Anion Gap 13 (12-20); Blood Urea Nitrogen 31 mg/dL (9-16); Calcium 8.1 mg/dL (8.4-10.2); Carbon Dioxide 22 mmol/L (22-29); Chloride 104 mmol/L (96-108); Creatinine Clr Calc Pharmacy 69.8; Estimated Glomerular Filt Rate 50; Potassium 4.4 mmol/L (3.3-5.1); Sodium 135 mmol/L (135-145)
--- NOTE | 2024-11-28 06:15 | PM.IMHP ---
History of Present Illness Date of Service: 11/28/24 Chief Complaint: Leg pain redness and swelling 59-year-old male with a past medical history of HTN, HLD, COPD on 2 L of home oxygen, tobacco dependence; chronic bilateral leg wound; presented to the hospital with a chief complaint of pain redness and swelling for the past day. Denies any fevers. Denies any chest pain or palpitations. Denies any shortness of breath or dyspnea on exertion. Denies any GI or symptoms. Review of all other systems is negative except mentioned above ER course: Per ER team, patient noted erythema of the left foot no subcutaneous emphysema; noted chronic wound on the left foot and right foot. Some green discharge noted on the right foot. Surrounding erythema noted. CT scan showed no evidence of abscess, osteomyelitis, necrotizing fasciitis. Given antibiotics. [facility] Medical History Smoker History of substance use disorder Depression HTN (hypertension) Surgical History H/O elbow surgery (~2000) History of ankle surgery (~2003) H/O neck surgery (~1998) Social History Housing: Apartment Do you presently have visiting nurse or other home services: Yes (once a week check up) Alcohol intake: former Patient Tobacco Use Status: Former Tobacco user Tobacco use type: Cigarette Cigarette Packs Per Day: 10 Cigarettes Per Day: 10 Smoked in Last 30 Days: Yes Use of substances other than those prescribed or required for medical reasons: No Advance Directives: No Advance Directives Information Provided: No Do you have a plan to hurt others: No Plan Nutrition Risks: No Nutritional Risk service: No Current occupational status: disabled Meds Allergies Allergy/AdvReac Type Severity Reaction Status Date / Time codeine (CODEINE) Allergy Unknown NAUSEA Verified 11/27/24 17:51 Active Medications: Current Medications Acetaminophen (Acetaminophen 325 Mg Tablet) 650 mg PO Q6H PRN PRN Reason: Pain, Mild 1-3,fever,headache Albuterol/Ipratropium (Albuterol/Iprat 2.5/0.5mg 3 Ml Ampul.Neb) 3 ml INHALE RQ4H WHILE AWAKE PRN PRN Reason: Shortness of Breath Last Admin: 11/28/24 04:43 Dose: 3 ml Calcium Carbonate (Calcium Carbonate 750 Mg Tab.Chew) 750 mg PO Q4H PRN PRN Reason: Heartburn Enoxaparin Sodium (Enoxaparin Sodium 40 Mg/0.4 Ml Syringe) 40 mg SUBCUT Q24H [facility] Last Admin: 11/28/24 01:58 Dose: 40 mg Hydromorphone HCl (Hydromorphone Hcl 1 Mg/Ml Syringe) 0.5 mg IVPUSH Q4H PRN; Protocol PRN Reason: Pain, Severe (Pain Scale 7-10) Last Admin: 11/28/24 02:33 Dose: 0.5 mg Lactated Ringer's (Lr) 1,000 mls @ 100 mls/hr IVCONT .Q10H [facility] Last Admin: 11/28/24 01:59 Dose: 100 mls/hr Piperacillin Sod/Tazobactam (Sod 2.25 gm/ Sodium Chloride) 50 mls @ 100 mls/hr IV Q6H [facility] Last Admin: 11/28/24 05:43 Dose: 100 mls/hr Magnesium Hydroxide (Milk Of Magnesia 30 Ml Oral.Susp) 30 ml PO DAILY PRN PRN Reason: Constipation Melatonin (Melatonin 3 Mg Tablet) 6 mg PO BEDTIME PRN PRN Reason: Insomnia Pharmacy Consult (Consult Rx Vancomycin Dosing) 1 each MISCELLANE DAILY PRN PRN Reason: Consult order Sodium Chloride (0.9 % Sodium Chloride Flush 3 Ml Syringe) 3 ml IVFLUSH QSHIFT [facility] Home Medications ?Medication ?Instructions ?Recorded ?Confirmed ?Last Taken ?Type albuterol sulfate 90 mcg/actuation 2 puff inhalation QID PRN asthma 11/11/22 03/21/24 03/21/24 History aerosol inhaler (Ventolin HFA) amlodipine 5 mg tablet 5 mg PO DAILY 11/11/22 03/21/24 03/21/24 History hydroxyzine HCl 25 mg tablet 25 mg PO BID PRN Anxiety 11/11/22 03/21/24 03/21/24 History methadone 5 mg/5 mL oral solution 80 mg PO DAILY 11/11/22 03/22/24 03/21/24 History sertraline 100 mg tablet 150 mg PO DAILY 11/11/22 03/21/24 03/21/24 History ibuprofen 400 mg tablet 400 mg PO TID 03/21/24 03/21/24 03/21/24 History losartan 50 mg-hydrochlorothiazide 1 tab PO DAILY 03/21/24 03/21/24 03/21/24 History 12.5 mg tablet nicotine 21 mg/24 hr daily 1 patch topical DAILY 03/21/24 03/21/24 03/21/24 History transdermal patch Physical Exam Vital Signs and Narrative: Vital Signs: Last Vital Signs Temp 98.4 F 11/28/24 04:37 Pulse 72 11/28/24 04:37 Resp 18 11/28/24 04:37 BP 127/58 L 11/28/24 04:37 Pulse Ox 93 11/28/24 04:37 O2 Del Method Nasal Cannula, Bi PAP 11/28/24 04:37 O2 Flow Rate 2 11/28/24 00:41 BMI result Body Mass Index 37.3 Gen: Appears be in no acute distress HEENT: NCAT, Moist mucosa. Pulmonary: Vesicular breath sounds, fair air entry CVS: Normal S1-S2 Abdomen: BS+, Soft, Nontender Extremities: Warm well perfused; bilateral legs has dressings in place. Patient denied opening the dressing. Showed picture with a wound on his leg. Surrounding erythema noted. Neuro: Alert and awake. Results Labs 11/28/24 04:57 11/28/24 04:57 Labs: Laboratory Results - last 24 hr 11/27/24 11/27/24 11/28/24 18:16 18:47 04:57 MCV 84.0 85.6 MCH 26.8 L 26.2 L MCHC 31.9 30.7 L RDW 18.3 H 18.5 H Plt Count 198 D 196 MPV 8.7 L 8.8 L Immature Gran % (Auto) 1.5 H 1.1 H Neut % (Auto) 79.5 H 76.3 H Lymph % (Auto) 5.6 L 9.6 L [place] % (Auto) 12.4 H 11.4 H Eos % (Auto) 0.9 1.4 Baso % (Auto) 0.1 0.2 Lymph # (Auto) 0.6 L 0.8 L [place] # (Auto) 1.3 H 1.0 Eos # (Auto) 0.1 0.1 Baso # (Auto) 0.0 0.0 Abs Immat Gran (auto) 0.15 H 0.10 H Absolute Neuts (auto) 8.2 6.6 Absolute Nucleated RBC 0.000 0.000 Nucleated RBC % (auto) 0.0 0.0 Anion Gap 12 13 Estim Creat Clear Calc 64.3 69.8 Estimated GFR 46 50 Random Glucose 127 H 97 Lactic Acid 1.4 Calcium 7.9 L D 8.1 L Magnesium 2.4 Assessment and Plan (1) Cellulitis: Qualifiers: Laterality: left Site of cellulitis: extremity Site of cellulitis of extremity: lower extremity Qualified Code(s): L03.116 - Cellulitis of left lower limb Status: Acute Plan 59-year-old male with a past medical history of HTN, HLD, COPD on 2 L of home oxygen, tobacco dependence; chronic bilateral leg wound; presented to the hospital with a chief complaint of pain redness and swelling ;; noted of bilateral leg wounds with surrounding cellulitis. Bilateral leg wounds/cellulitis: Patient has chronic wounds currently not increased redness and swelling around the wounds with discharge. Dressing in place. Wound consult ID consult Continue vanc and Zosyn PT/OT when ready for discharge COPD: Stable. Patient on supplemental oxygen. DuoNebs p.r.n.. Hypertension: Blood pressure on the normal side. Hold home antihypertensives for now Opiate dependence: Patient on methadone maintenance program. Addiction medicine consult. Tobacco dependence: Offer nicotine supplements DVT prophylaxis: Lovenox Code status: Full code Quality Stroke Does the patient have a stroke diagnosis?: No VTE Prior VTE?: No VTE Risk Level:: Medical - moderate - high VTE Device Contraindication: Treatment Not Indicated VTE Drug Contraindication: N/A - Med Ordered
--- NOTE | 2024-11-28 07:18 | PHA.PROG ---
Admission Date/Time: November 28, 2024 00:57 Indication: SSTI Weight in k.934 kg Adjusted body weight in K.9 [place] body weight in K kg Obesity Dosing Indication % IBW: Serum Creatinine - Last 168 Hours 11/27/24 11/28/24 18:47 04:57 Creatinine 1.55 H 1.43 H Estimated CrCl and GFR - Last 168 Hours 11/27/24 11/28/24 18:47 04:57 Estim Creat Clear Calc 64.3 69.8 Estimated GFR 46 50 Vancomycin Loading Dose: 2000 mg Current Vancomycin Dosing Regimen: 1000 mg q 12h Vancomycin Monitoring using AUC goal of 400 - 600 range with trough as surrogate marker: predicted AUC 553 Date and Time for next Vancomycin Level to be drawn: before 3rd dose 11/28/24 @1999 Pharmacist Comments on Vancomycin Plan: Vancomycin dosing will take advantage of [employer] (QEEP)RX as a clinical decision support tool that uses Bayesian modeling to calculate individual patient's pharmacokinetic parameters and forecast the patient's drug concentration time course with the target goal AUC 24 range of 400 - 600 mg/L/hr.
--- NOTE | 2024-11-28 07:43 | P.PNIM_ITS ---
Subjective Subjective Date of Service: 11/28/24 Interval History: Patient reports interval improvement of his pain Methadone confirmed at 80 mg daily Nicotine patch is ordered for smoking cessation Patient reports taking 2 L at baseline with 2.5-3 L with ambulation Continues to smoke half ppd-counseled him on smoking cessation Review of Systems Review of Systems: Yes all other systems are reviewed and are negative Physical Exam 2 Exam: Exam: General: AOx3, no acute distress Resp: CTA bilaterally CVS: S1, S2, RRR GI: +BS, NT, no distention Neuro: Cranial nerves II-XII grossly intact bilaterally. Motor grossly intact bilaterally Extremities: LLE cellulitis, bilateral lower extremity chronic venous stasis changes Psych: Appeared to be anxious affect Vital Signs: Vital Signs: Last Vital Signs Temp 98.4 F 11/28/24 04:37 Pulse 72 11/28/24 04:37 Resp 18 11/28/24 04:37 BP 127/58 L 11/28/24 04:37 Pulse Ox 93 11/28/24 04:37 O2 Del Method Nasal Cannula, Bi PAP 11/28/24 04:37 O2 Flow Rate 2 11/28/24 00:41 BMI result Body Mass Index 37.3 Objective Data Active Medications Acetaminophen (Acetaminophen 325 Mg Tablet) 650 mg PO Q6H PRN PRN Reason: Pain, Mild 1-3,fever,headache Albuterol/Ipratropium (Albuterol/Iprat 2.5/0.5mg 3 Ml Ampul.Neb) 3 ml INHALE RQ4H WHILE AWAKE PRN PRN Reason: Shortness of Breath Last Admin: 11/28/24 04:43 Dose: 3 ml Documented By: JAVY Calcium Carbonate (Calcium Carbonate 750 Mg Tab.Chew) 750 mg PO Q4H PRN PRN Reason: Heartburn Enoxaparin Sodium (Enoxaparin Sodium 40 Mg/0.4 Ml Syringe) 40 mg SUBCUT Q24H [facility] Last Admin: 11/28/24 01:58 Dose: 40 mg Documented By: KALEB Hydromorphone HCl (Hydromorphone Hcl 1 Mg/Ml Syringe) 0.5 mg IVPUSH Q4H PRN; Protocol PRN Reason: Pain, Severe (Pain Scale 7-10) Last Admin: 11/28/24 02:33 Dose: 0.5 mg Documented By: KALEB Lactated Ringer's (Lr) 1,000 mls @ 100 mls/hr IVCONT .Q10H [facility] Last Admin: 11/28/24 01:59 Dose: 100 mls/hr Documented By: KALEB Piperacillin Sod/Tazobactam (Sod 2.25 gm/ Sodium Chloride) 50 mls @ 100 mls/hr IV Q6H [facility] Last Infusion: 11/28/24 06:25 Dose: Infused Documented By: JAVY Vancomycin HCl 1,000 mg/ (Sodium Chloride) 270 mls @ 270 mls/hr IV Q12H [facility] Magnesium Hydroxide (Milk Of Magnesia 30 Ml Oral.Susp) 30 ml PO DAILY PRN PRN Reason: Constipation Melatonin (Melatonin 3 Mg Tablet) 6 mg PO BEDTIME PRN PRN Reason: Insomnia Pharmacy Consult (Consult Rx Vancomycin Dosing) 1 each MISCELLANE DAILY PRN PRN Reason: Consult order Sodium Chloride (0.9 % Sodium Chloride Flush 3 Ml Syringe) 3 ml IVFLUSH QSHIFT [facility] Labs 11/28/24 04:57 11/28/24 04:57 Labs: Laboratory Results - last 24 hr 11/27/24 11/27/24 11/28/24 18:16 18:47 04:57 MCV 84.0 85.6 MCH 26.8 L 26.2 L MCHC 31.9 30.7 L RDW 18.3 H 18.5 H Plt Count 198 D 196 MPV 8.7 L 8.8 L Immature Gran % (Auto) 1.5 H 1.1 H Neut % (Auto) 79.5 H 76.3 H Lymph % (Auto) 5.6 L 9.6 L [place] % (Auto) 12.4 H 11.4 H Eos % (Auto) 0.9 1.4 Baso % (Auto) 0.1 0.2 Lymph # (Auto) 0.6 L 0.8 L [place] # (Auto) 1.3 H 1.0 Eos # (Auto) 0.1 0.1 Baso # (Auto) 0.0 0.0 Abs Immat Gran (auto) 0.15 H 0.10 H Absolute Neuts (auto) 8.2 6.6 Absolute Nucleated RBC 0.000 0.000 Nucleated RBC % (auto) 0.0 0.0 Anion Gap 12 13 Estim Creat Clear Calc 64.3 69.8 Estimated GFR 46 50 Random Glucose 127 H 97 Lactic Acid 1.4 Calcium 7.9 L D 8.1 L Magnesium 2.4 Assessment and Plan (1) Cellulitis: Status: Acute Plan 59-year-old male with a past medical history of HTN, HLD, COPD on 2 L of home oxygen, tobacco dependence (half ppd); chronic bilateral leg wound; presented to the hospital with a chief complaint of pain redness and swelling ;; noted of bilateral leg wounds with surrounding cellulitis. Bilateral leg wounds/cellulitis: Pain control with Tylenol, Oxy, morphine for mild moderate and severe pain We will order ultrasound to rule out DVT Patient has chronic wounds currently not increased redness and swelling around the wounds with discharge. Dressing in place. Wound consult ID consult Continue vanc and Zosyn deescalate based on sepsis workup PT/OT when ready for discharge COPD: Stable. Not in acute flare, Patient on his baseline supplemental oxygen. DuoNebs p.r.n.. Hypertension: Blood pressure on the normal side. Hold home antihypertensives for now Opiate dependence: Patient on methadone maintenance program, confirm methadone dose of 80 mg. Addiction medicine consult. Tobacco dependence: Counseled on smoking cessation, initiated nicotine supplements DVT prophylaxis: Lovenox Code status: Full code Quality Stroke Does the patient have a stroke diagnosis?: No VTE Prior VTE?: No VTE Risk Level:: Medical - moderate - high VTE Device Contraindication: Treatment Not Indicated VTE Drug Contraindication: N/A - Med Ordered
--- NOTE | 2024-11-28 07:43 | PC.NURSE ---
patient currently sleeping in recliner, vitals previously stable, rr equal/non labored, ble legs wrapped previously by wound, call jack within reach, plan of care ongoing.
--- NOTE | 2024-11-28 09:13 | MHC.CM.PN ---
PT REPORTS HE LIVES ALONE AND IS INDEPENDENT WITH PERSONAL CARE HE REPORTS A FRIEND DOES HIS SHOPPING FOR HIM PT REPORTS BEING ACTIVE WITH [facility] AND USING A CANE FOR DME PT STATES HE IS HAVING SOME TROUBLE WITH THINGS LIKE HOUSEWORK, HE IS AGREEABLE TO A [facility] REFERRAL HE DECLINES A HCP PCP: RAMONA LOPEZ PT STATES HE WANTS TO GO HOME AT [place] DCP: HOME RESUME [facility] FRIEND MAY BE ABLE TO TRANSPORT, PT AWARE [facility] IS AVAILABLE WELL
--- NOTE | 2024-11-28 11:09 | PHA.MEDREC ---
Pharmacy Consult ? Medication Reconciliation Pharmacy has completed the medication reconciliation. PT WAS ABLE TO CONFIRM MEDICATIONS. MOSTLY ABLE TO LIST THEM ON HIS OWN. STATES HE TAKES METHADONE FROM [facility].
--- NOTE | 2024-11-28 13:48 | HE.PHANOTE ---
RE: methadone Patient received 13 take home bottles of 80mg from [facility] [place] on 11/21/24, pt last reported dose 11/27 at home.
--- NOTE | 2024-11-28 13:49 | PC.NURSE ---
methadone pt expressed he needed his methadone, upon looking at the patients med list I noticed it wasnt verified. this nurse asked patient where he went for his dosage and contacted [facility], obtained verification faxed pharmacy and notified hospitalist.
[2024-11-28] MEDS: methADONE HCl 20 MG/2 ML ORAL.CONC 80 MG PO (14:21)
--- NOTE | 2024-11-28 14:29 | PC.NURSE ---
unscheduled med this nurse spoke with hospitalist about giving the patient his zoloft and methadone. methadone order was put in for today and hospitalist ok'd pt to take his zoloft- pharmacy stated it needed to be put in as unscheduled med since it is put in for tomm. pt was medicated.
--- NOTE | 2024-11-28 14:31 | PC.NURSE ---
report called to overflow
--- NOTE | 2024-11-28 18:26 | HO.SKINPHOTO ---
Addendum entered by Zoë Barr RN 11/28/24 18:27: left heel left foot Original Note: 351 right foot
--- NOTE | 2024-11-28 18:54 | PC.NURSE ---
Pt admitted to unit from ED. Denies pain at this time. Dressings removed to bilateral LE, photos on chart. Wet to dry dressings applied, to have wound consult in am. Tolerated well.
[2024-11-28] MEDS: 0.9 % Sodium Chloride Flush 3 ML SYRINGE IVFLUSH (23:31)
[2024-11-29] VITALS (7 sets, daily range): BP systolic 119–144; BP diastolic 59–71; PULSE 68–84; RESP 16–19; TEMP 36.1–36.7; O2SAT 88–95
--- NOTE | 2024-11-29 01:18 | P.CNID_ITS ---
History of Present Illness Data of Consult Service Date: 11/28/24 Requesting physician: Kaela Lynch Primary Care Provider: MD ANA Mackenzie Reason for consult: left leg redness He presents with redness LLE acutely last day. He has had chills but feels better now. He has calluses and some tinea pedis. Review of Systems 2 Review of Systems: Yes all other systems are reviewed and are negative PMFSH Past Medical History Medical History Smoker History of substance use disorder Depression HTN (hypertension) Family History Family history: reviewed and not pertinent Surgical History Surgical History H/O elbow surgery (~2000) History of ankle surgery (~2003) H/O neck surgery (~1998) Social History Social History Household Members: None Housing: Apartment Do you presently have visiting nurse or other [facility] Alcohol intake: former Patient Tobacco Use Status: Current everyday Tobacco user Tobacco use type: Cigarette Cigarette Packs Per Day: 10 Cigarettes Per Day: 10 Years Smoked: 45 Second Hand Smoke Exposure: No service: No Current occupational status: disabled Meds Allergies Allergy/AdvReac Type Severity Reaction Status Date / Time codeine (CODEINE) Allergy Unknown NAUSEA Verified 11/27/24 17:51 Active Medications: Current Medications Acetaminophen (Acetaminophen 325 Mg Tablet) 650 mg PO Q6H PRN PRN Reason: Pain, Mild 1-3,fever,headache Albuterol Sulfate (Albuterol Sulfate 90 Mcg 8 Gm Inhaler) 2 puff INHALE QID PRN PRN Reason: asthma Albuterol/Ipratropium (Albuterol/Iprat 2.5/0.5mg 3 Ml Ampul.Neb) 3 ml INHALE RQ4H WHILE AWAKE PRN PRN Reason: Shortness of Breath Last Admin: 11/28/24 04:43 Dose: 3 ml Calcium Carbonate (Calcium Carbonate 750 Mg Tab.Chew) 750 mg PO Q4H PRN PRN Reason: Heartburn Enoxaparin Sodium (Enoxaparin Sodium 40 Mg/0.4 Ml Syringe) 40 mg SUBCUT Q24H [facility] Last Admin: 11/29/24 00:06 Dose: 40 mg Hydromorphone HCl (Hydromorphone Hcl 1 Mg/Ml Syringe) 0.5 mg IVPUSH Q4H PRN; Protocol PRN Reason: Pain, Severe (Pain Scale 7-10) Last Admin: 11/28/24 23:30 Dose: 0.5 mg Hydroxyzine HCl (Hydroxyzine Hcl 25 Mg Tablet) 25 mg PO BID PRN PRN Reason: Anxiety Lactated Ringer's (Lr) 1,000 mls @ 100 mls/hr IVCONT .Q10H [facility] Last Admin: 11/28/24 21:43 Dose: 100 mls/hr Piperacillin Sod/Tazobactam (Sod 2.25 gm/ Sodium Chloride) 50 mls @ 100 mls/hr IV Q6H [facility] Last Infusion: 11/29/24 00:02 Dose: Infused Vancomycin HCl 1,250 mg/ (Sodium Chloride) 250 mls @ 166.667 mls/hr IV Q24H [facility] Magnesium Hydroxide (Milk Of Magnesia 30 Ml Oral.Susp) 30 ml PO DAILY PRN PRN Reason: Constipation Melatonin (Melatonin 3 Mg Tablet) 6 mg PO BEDTIME PRN PRN Reason: Insomnia Methadone HCl (Methadone Hcl 20 Mg/2 Ml Oral.Conc) 80 mg PO DAILY [facility] Last Admin: 11/28/24 14:21 Dose: 80 mg Nicotine (Nicotine 21 Mg Patch.Td24) 21 mg TRANSDERMA DAILY [facility] Nicotine Polacrilex (Nicotine Polacrilex Lozenge 2 Mg Lozenge) 2 mg BUCCAL Q2H PRN PRN Reason: Nicotine Cravings Nicotine Polacrilex (Nicotine Polacrilex 2 Mg Gum) 2 mg BUCCAL Q2H PRN PRN Reason: Nicotine Cravings Pharmacy Consult (Consult Rx Vancomycin Dosing) 1 each MISCELLANE DAILY PRN PRN Reason: Consult order Sertraline HCl (Sertraline Hcl 50 Mg Tablet) 150 mg PO DAILY [facility] Last Admin: 11/28/24 14:22 Dose: 150 mg Sodium Chloride (0.9 % Sodium Chloride Flush 3 Ml Syringe) 3 ml IVFLUSH QSHIFT [facility] Last Admin: 11/28/24 23:31 Dose: 3 ml Home Medications ?Medication ?Instructions ?Recorded ?Confirmed ?Last Taken ?Type albuterol sulfate 90 mcg/actuation 2 puff inhalation Q ID PRN asthma 11/11/22 11/28/24 03/21/24 History aerosol inhaler (Ventolin HFA) amlodipine 5 mg tablet 5 mg PO DAILY 11/11/2211/2811/27/24 History hydroxyzine HCl 25 mg tablet 25 mg PO BID PRN Anxiety 11/11/22 11/28/24 11/27/24 History methadone 5 mg/5 mL oral solution 80 mg PO DAILY 11/1111/28/24 11/27/24 History sertraline 100 mg tablet 150 mg PO DAILY 11/11/2204/2311/27/24 History losartan 50 mg-hydrochlorothiazide 1 tab PO DAILY 02/2811/28/24 11/27/24 History 12.5 mg tablet nicotine 21 mg/24 hr daily 1 patch topical DAILY 03/2111/28/24 03/21/24 History transdermal patch betamethasone dipropionate 0.05 % 1 appl topical DAILY 11/28/24 11/28/24 Unknown History topical cream furosemide 20 mg tablet 20 mg PO DAILY 11/28/24 09/04/2311/27/24 History Physical Exam 2 Vital Signs: Vital Signs: Last Vital Signs Temp 97.1 F 11/28/24 23:11 Pulse 89 11/28/24 23:11 Resp 16 11/28/24 23:11 BP 103/52 L 11/28/24 23:11 Pulse Ox 88 L 11/28/24 23:11 O2 Del Method Nasal Cannula 11/28/24 23:11 O2 Flow Rate 2 11/28/24 23:11 BMI result Body Mass Index 37.3 Const: General: cooperative HEENT: Head: Yes normal to inspection Face and sinus: Yes normal facial exam Mouth: Normal oral and palatal mucosa present Teeth and gingiva: d entition normal Eyes: General: appearance normal, both eyes and all related structures P upils: Equal, round and reactive pupils present Resp: Effort & Inspection: normal respiratory effort Cardio: Rate: regular rate Rhythm: regular rhythm GI: Palpation (GI): Soft to palpation and nontender : General: Yes no CVA tenderness Back/Spine/Pelvis: Back: no CVA tenderness Skin: General skin exam: no rashes or lesions noted Neuro: General: moves all extremities Cranial nerves: Yes Equal, round and reactive pupils present Extrem: Other: LLE and foot redness General: Yes normal to inspection Psych: Appearance: grossly normal Results Labs 11/28/24 04:57 11/28/24 04:57 Labs: Short CBC 11/28/24 Range/Units 04:57 WBC 8.7 (4.8-10.8) X10*3/uL Hgb 8.0 L (14.0-18.0) g/dl Hct 26.1 L (42.0-52.0) % Plt Count 196 (160-400) X10*3/uL BMP 11/28/24 04:57 Sodium 135 Potassium 4.4 Chloride 104 Carbon Dioxide 22 BUN 31 H Creatinine 1.43 H Calcium 8.1 L Microbiology Microbiology Results: Microbiology 11/27/24 18:16 Blood - Venous Blood Culture - Preliminary No growth after 24 hours. 11/27/24 18:16 Blood - Venous Blood Culture - Preliminary No growth after 24 hours. Assessment and Plan (1) Cellulitis: Qualifiers: Laterality: left Site of cellulitis: extremity Site of cellulitis of extremity: lower extremity Qualified Code(s): L03.116 - Cellulitis of left lower limb Status: Acute Plan There is probable staph and/or strep Would give IV Vancomycin until improvement and then possible Augmentin and Doxycyclne for a week. Can stop Zosyn
[2024-11-29 06:53] LABS: Hematocrit 26.2 % (42.0-52.0); Hemoglobin 8.5 g/dl (14.0-18.0); Mean Corpuscular HGB Conc 32.4 g/dl (31.0-36.0); Mean Corpuscular Hemoglobin 26.9 pg (27.0-33.0); Mean Corpuscular Volume 82.9 fL (80.0-98.0); NRBC Abs Auto 0.000 X10*3/uL (0.0-0.012); NRBC Pct Auto 0.0 /100WBC (0.0-0.2); Platelet Count 232 X10*3/uL (160-400); Red Blood Count 3.16 X10*6/uL (4.60-5.80); White Blood Count 9.2 X10*3/uL (4.8-10.8)
[2024-11-29 07:12] LABS: Alanine Aminotransferase 19 U/L (0-40); Albumin Level 3.0 g/dL (3.5-5.0); Alkaline Phosphatase 84 U/L (39-117); Anion Gap 10 (12-20); Aspartate Amino Transferase 31 U/L (5-37); Blood Urea Nitrogen 24 mg/dL (9-16); Calcium 8.3 mg/dL (8.4-10.2); Carbon Dioxide 25 mmol/L (22-29); Chloride 103 mmol/L (96-108); Creatinine Clr Calc Pharmacy 69.3; Estimated Glomerular Filt Rate 50; Potassium 4.8 mmol/L (3.3-5.1); Sodium 133 mmol/L (135-145); Total Protein 9.9 g/dL (6.5-8.0)
--- NOTE | 2024-11-29 07:42 | P.PNIM_ITS ---
Subjective Subjective Date of Service: 11/29/24 Interval History: Zosyn has been discontinued as this is likely a staph or strep cellulitis , we will continue on IV vancomycin Patient appears to be improving clinically with the above management Review of Systems Review of Systems: Yes all other systems are reviewed and are negative Physical Exam 2 Exam: Exam: General: AOx3, no acute distress Resp: CTA bilaterally CVS: S1, S2, RRR GI: +BS, NT, no distention Neuro: Cranial nerves II-XII grossly intact bilaterally. Motor grossly intact bilaterally Extremities: LLE cellulitis, bilateral lower extremity chronic venous stasis changes Psych: Appeared to be anxious affect Vital Signs: Vital Signs: Last Vital Signs Temp 97.8 F 11/29/24 03:00 Pulse 68 11/29/24 03:00 Resp 16 11/29/24 03:00 BP 124/59 L 11/29/24 03:00 Pulse Ox 88 L 11/29/24 03:00 O2 Del Method Nasal Cannula 11/29/24 03:00 O2 Flow Rate 1 11/29/24 03:00 BMI result Body Mass Index 37.3 Const: General: cooperative HEENT: Head: Yes normal to inspection Face and sinus: Yes normal facial exam Mouth: Normal oral and palatal mucosa present Teeth and gingiva: d entition normal Eyes: General: appearance normal, both eyes and all related structures P upils: Equal, round and reactive pupils present Resp: Effort & Inspection: normal respiratory effort Cardio: Rate: regular rate Rhythm: regular rhythm GI: Palpation (GI): Soft to palpation and nontender : General: Yes no CVA tenderness Back/Spine/Pelvis: Back: no CVA tenderness Skin: General skin exam: no rashes or lesions noted Neuro: General: moves all extremities Cranial nerves: Yes Equal, round and reactive pupils present Extrem: Other: LLE and foot redness General: Yes normal to inspection Psych: Appearance: grossly normal Objective Data Active Medications Acetaminophen (Acetaminophen 325 Mg Tablet) 650 mg PO Q6H PRN PRN Reason: Pain, Mild 1-3,fever,headache Albuterol Sulfate (Albuterol Sulfate 90 Mcg 8 Gm Inhaler) 2 puff INHALE QID PRN PRN Reason: asthma Albuterol/Ipratropium (Albuterol/Iprat 2.5/0.5mg 3 Ml Ampul.Neb) 3 ml INHALE RQ4H WHILE AWAKE PRN PRN Reason: Shortness of Breath Last Admin: 11/28/24 04:43 Dose: 3 ml Documented By: JAVY Calcium Carbonate (Calcium Carbonate 750 Mg Tab.Chew) 750 mg PO Q4H PRN PRN Reason: Heartburn Enoxaparin Sodium (Enoxaparin Sodium 40 Mg/0.4 Ml Syringe) 40 mg SUBCUT Q24H [facility] Last Admin: 11/29/24 00:06 Dose: 40 mg Documented By: JONNY Hydromorphone HCl (Hydromorphone Hcl 1 Mg/Ml Syringe) 0.5 mg IVPUSH Q4H PRN; Protocol PRN Reason: Pain, Severe (Pain Scale 7-10) Last Admin: 11/28/24 23:30 Dose: 0.5 mg Documented By: JONNY Hydroxyzine HCl (Hydroxyzine Hcl 25 Mg Tablet) 25 mg PO BID PRN PRN Reason: Anxiety Lactated Ringer's (Lr) 1,000 mls @ 100 mls/hr IVCONT .Q10H [facility] Last Admin: 11/28/24 21:43 Dose: 100 mls/hr Documented By: JONNY Vancomycin HCl 1,250 mg/ (Sodium Chloride) 250 mls @ 166.667 mls/hr IV Q24H [facility] Magnesium Hydroxide (Milk Of Magnesia 30 Ml Oral.Susp) 30 ml PO DAILY PRN PRN Reason: Constipation Melatonin (Melatonin 3 Mg Tablet) 6 mg PO BEDTIME PRN PRN Reason: Insomnia Methadone HCl (Methadone Hcl 20 Mg/2 Ml Oral.Conc) 80 mg PO DAILY [facility] Last Admin: 11/28/24 14:21 Dose: 80 mg Documented By: JOSÉ MIGUEL Co-signed By: BRENDA Nicotine (Nicotine 21 Mg Patch.Td24) 21 mg TRANSDERMA DAILY [facility] Nicotine Polacrilex (Nicotine Polacrilex Lozenge 2 Mg Lozenge) 2 mg BUCCAL Q2H PRN PRN Reason: Nicotine Cravings Nicotine Polacrilex (Nicotine Polacrilex 2 Mg Gum) 2 mg BUCCAL Q2H PRN PRN Reason: Nicotine Cravings Pharmacy Consult (Consult Rx Vancomycin Dosing) 1 each MISCELLANE DAILY PRN PRN Reason: Consult order Sertraline HCl (Sertraline Hcl 50 Mg Tablet) 150 mg PO DAILY [facility] Last Admin: 11/28/24 14:22 Dose: 150 mg Documented By: JOSÉ MIGUEL Sodium Chloride (0.9 % Sodium Chloride Flush 3 Ml Syringe) 3 ml IVFLUSH QSHIFT [facility] Last Admin: 11/28/24 23:31 Dose: 3 ml Documented By: JONNY Labs 11/29/24 05:46 11/29/24 05:46 Labs: Laboratory Results - last 24 hr 11/28/24 11/29/24 19:48 05:46 MCV 82.9 MCH 26.9 L MCHC 32.4 RDW 18.5 H Plt Count 232 MPV 8.5 L Absolute Nucleated RBC 0.000 Nucleated RBC % (auto) 0.0 Anion Gap 10 L Estim Creat Clear Calc 69.3 Estimated GFR 50 Random Glucose 87 Calcium 8.3 L Total Bilirubin 0.4 AST 31 ALT 19 Alkaline Phosphatase 84 Total Protein 9.9 H Albumin 3.0 L Random Vancomycin 22.8 H Microbiology Microbiology Results: Microbiology 11/27/24 18:16 Blood Culture - Preliminary Blood - Venous No growth after 24 hours. 11/27/24 18:16 Blood Culture - Preliminary Blood - Venous No growth after 24 hours. Assessment and Plan (1) Cellulitis: Status: Acute Plan 59-year-old male with a past medical history of HTN, HLD, COPD on 2 L of home oxygen, tobacco dependence (half ppd); chronic bilateral leg wound; presented to the hospital with a chief complaint of pain redness and swelling ;; noted of bilateral leg wounds with surrounding cellulitis. Bilateral leg wounds/cellulitis - likely staph or strep Pain control with Tylenol, Oxy, morphine for mild moderate and severe pain usg ordered for DVT- done, awaiting read We will continue IV vanc and likely switch him to Augmentin and doxycycline and likely discharge him tomorrow if he continues to clinically improve Wound care consulted ID consulted - appreciate recommendations PT when ready for discharge COPD: Stable. Not in acute flare, Patient on his baseline 2 L supplemental oxygen. Kathryn p.r.n.. Hypertension: Blood pressure on the normal side. Hold home antihypertensives for now Opiate dependence: Patient on methadone maintenance program, confirm methadone dose of 80 mg. Addiction medicine consult. Tobacco dependence: Counseled on smoking cessation, initiated nicotine supplements DVT prophylaxis: Lovenox Code status: Full code Quality Stroke Does the patient have a stroke diagnosis?: No VTE Prior VTE?: No VTE Risk Level:: Medical - moderate - high VTE Device Contraindication: Treatment Not Indicated VTE Drug Contraindication: N/A - Med Ordered
[2024-11-29] MEDS: methADONE HCl 20 MG/2 ML ORAL.CONC 80 MG PO (08:23)
--- NOTE | 2024-11-29 08:33 | PC.NURSE ---
Upper lobe wheeze auscultated, patient began coughing after pill administration, pt then c/o SOB, maintained spO2 >90%. Patient had home Ventolin inhaler at bedside and reported that he self administered it a couple times of night. Ventolin inhaler removed from bedside and patient educated regarding the purpose of inhaler and to ask nursing if patient feels he needs one. Respiratory therapy called and came to bedside to assess patient and educated him as well. Patient remains up in chair, talking in complete sentences, denies SOB at this time.
[2024-11-29] MEDS: 0.9 % Sodium Chloride Flush 3 ML SYRINGE IVFLUSH ×2 (08:39→14:12)
--- NOTE | 2024-11-29 09:13 | HE.PHANOTE ---
RE: VANCO DOSING Trough came back as 16.1 mg/L after one dose of 1000 mg (q12h) was held. Renal function is stable. Decrease dose to 1250 mg q24h, starting @1200. Next trough is scheduled for 11/30/24 @1000.
[2024-11-29] MEDS: Nicotine 21 MG PATCH.TD24 TRANSDERMA (14:12)
[2024-11-30] VITALS (7 sets, daily range): BP systolic 117–166; BP diastolic 62–68; PULSE 73–93; RESP 16–20; TEMP 36.2–36.6; O2SAT 90–93
[2024-11-30 06:41] LABS: Hematocrit 28.9 % (42.0-52.0); Hemoglobin 9.2 g/dl (14.0-18.0); Mean Corpuscular HGB Conc 31.8 g/dl (31.0-36.0); Mean Corpuscular Hemoglobin 27.0 pg (27.0-33.0); Mean Corpuscular Volume 84.8 fL (80.0-98.0); NRBC Abs Auto 0.000 X10*3/uL (0.0-0.012); NRBC Pct Auto 0.0 /100WBC (0.0-0.2); Platelet Count 248 X10*3/uL (160-400); Red Blood Count 3.41 X10*6/uL (4.60-5.80); White Blood Count 8.7 X10*3/uL (4.8-10.8)
[2024-11-30 06:47] LABS: Alanine Aminotransferase 21 U/L (0-40); Albumin Level 3.2 g/dL (3.5-5.0); Alkaline Phosphatase 89 U/L (39-117); Anion Gap 13 (12-20); Aspartate Amino Transferase 34 U/L (5-37); Blood Urea Nitrogen 25 mg/dL (9-16); Calcium 8.5 mg/dL (8.4-10.2); Carbon Dioxide 23 mmol/L (22-29); Chloride 101 mmol/L (96-108); Creatinine Clr Calc Pharmacy 66.9; Estimated Glomerular Filt Rate 48; Potassium 4.7 mmol/L (3.3-5.1); Sodium 132 mmol/L (135-145); Total Protein 10.5 g/dL (6.5-8.0)
--- NOTE | 2024-11-30 08:04 | HO.PM.IMPN ---
Subjective Subjective Date of Service: 11/30/24 Interval History: Pt is clinically better, reports that his wound is healing. he is being switched to PO abx and is clinically ready to be DC He is interested in leaving today, hence he would like to be DC tomorrow Review of Systems Review of Systems: Yes all other systems are reviewed and are negative Physical Exam Exam: Exam: General: AOx3, no acute distress Resp: CTA bilaterally CVS: S1, S2, RRR GI: +BS, NT, no distention Extremities: LLE cellulitis, bilateral lower extremity chronic venous stasis changes Vital Signs: Vital Signs: Last Vital Signs Temp 97.2 F 11/30/24 07:36 Pulse 82 11/30/24 07:36 Resp 16 11/30/24 07:36 BP 166/66 H 11/30/24 07:36 Pulse Ox 93 11/30/24 07:36 O2 Del Method Nasal Cannula 11/30/24 07:36 O2 Flow Rate 2 11/30/24 07:36 BMI result Body Mass Index 37.3 Objective Data Active Medications Acetaminophen (Acetaminophen 325 Mg Tablet) 650 mg PO Q6H PRN PRN Reason: Pain, Mild 1-3,fever,headache Last Admin: 11/29/24 16:20 Dose: 650 mg Documented By: ANUM Albuterol Sulfate (Albuterol Sulfate 90 Mcg 8 Gm Inhaler) 2 puff INHALE QID PRN PRN Reason: asthma Albuterol/Ipratropium (Albuterol/Iprat 2.5/0.5mg 3 Ml Ampul.Neb) 3 ml INHALE RQ4H WHILE AWAKE PRN PRN Reason: Shortness of Breath Last Admin: 11/28/24 04:43 Dose: 3 ml Documented By: JAVY Amlodipine Besylate (Amlodipine Besylate 5 Mg Tablet) 5 mg PO DAILY VANESSA; Protocol Calcium Carbonate (Calcium Carbonate 750 Mg Tab.Chew) 750 mg PO Q4H PRN PRN Reason: Heartburn Enoxaparin Sodium (Enoxaparin Sodium 40 Mg/0.4 Ml Syringe) 40 mg SUBCUT Q24H VANESSA Last Admin: 11/30/24 02:00 Dose: 40 mg Documented By: JONNY Furosemide (Furosemide 20 Mg Tablet) 20 mg PO DAILY VANESSA; Protocol Hydromorphone HCl (Hydromorphone Hcl 1 Mg/Ml Syringe) 0.5 mg IVPUSH Q4H PRN; Protocol PRN Reason: Pain, Severe (Pain Scale 7-10) Last Admin: 11/29/24 22:13 Dose: 0.5 mg Documented By: JONNY Hydroxyzine HCl (Hydroxyzine Hcl 25 Mg Tablet) 25 mg PO BID PRN PRN Reason: Anxiety Vancomycin HCl 1,250 mg/ (Sodium Chloride) 250 mls @ 166.667 mls/hr IV Q24H [facility] Last Infusion: 11/29/24 14:12 Dose: Infused Documented By: ANUM Magnesium Hydroxide (Milk Of Magnesia 30 Ml Oral.Susp) 30 ml PO DAILY PRN PRN Reason: Constipation Melatonin (Melatonin 3 Mg Tablet) 6 mg PO BEDTIME PRN PRN Reason: Insomnia Methadone HCl (Methadone Hcl 20 Mg/2 Ml Oral.Conc) 80 mg PO DAILY [facility] Last Admin: 11/29/24 08:23 Dose: 80 mg Documented By: ANUM Co-signed By: AUGUSTINA Nicotine (Nicotine 21 Mg Patch.Td24) 21 mg TRANSDERMA DAILY [facility] Last Admin: 11/29/24 14:12 Dose: 21 mg Documented By: ANUM Nicotine Polacrilex (Nicotine Polacrilex Lozenge 2 Mg Lozenge) 2 mg BUCCAL Q2H PRN PRN Reason: Nicotine Cravings Nicotine Polacrilex (Nicotine Polacrilex 2 Mg Gum) 2 mg BUCCAL Q2H PRN PRN Reason: Nicotine Cravings Pharmacy Consult (Consult Rx Vancomycin Dosing) 1 each MISCELLANE DAILY PRN PRN Reason: Consult order Sertraline HCl (Sertraline Hcl 50 Mg Tablet) 150 mg PO DAILY [facility] Last Admin: 11/29/24 08:22 Dose: 150 mg Documented By: ANUM Sodium Chloride (0.9 % Sodium Chloride Flush 3 Ml Syringe) 3 ml IVFLUSH QSHIFT [facility] Last Admin: 11/29/24 22:52 Dose: Not Given Documented By: JONNY Non-Admin Reason: Previously Administered Labs 11/30/24 05:57 11/30/24 05:57 Labs: Laboratory Results - last 24 hr 11/29/24 11/30/24 08:28 05:57 MCV 84.8 MCH 27.0 MCHC 31.8 RDW 18.5 H Plt Count 248 MPV 8.1 L Absolute Nucleated RBC 0.000 Nucleated RBC % (auto) 0.0 Anion Gap 13 Estim Creat Clear Calc 66.9 Estimated GFR 48 Random Glucose 82 Calcium 8.5 Total Bilirubin 0.3 AST 34 ALT 21 Alkaline Phosphatase 89 Total Protein 10.5 H Albumin 3.2 L Random Vancomycin 16.1 Microbiology Microbiology Results: Microbiology 11/27/24 18:16 Blood Culture - Preliminary Blood - Venous No growth after 48 hours. 11/27/24 18:16 Blood Culture - Preliminary Blood - Venous No growth after 48 hours. Assessment and Plan (1) Cellulitis: Status: Acute Plan 59-year-old male with a past medical history of HTN, HLD, COPD on 2 L of home oxygen, tobacco dependence (half ppd); chronic bilateral leg wound; presented to the hospital with a chief complaint of pain redness and swelling ;; noted of bilateral leg wounds with surrounding cellulitis. Bilateral leg wounds/cellulitis - likely staph or strep Pain control with Tylenol, Oxy, morphine for mild moderate and severe pain Switched him to po abx, pt wants to clear a few things and be DC tomorrow COPD: Stable. Not in acute flare, Patient on his baseline 2 L supplemental oxygen. XavieroNebs p.r.n.. Hypertension: Blood pressure on the normal side. Hold home antihypertensives for now Opiate dependence: Patient on methadone maintenance program, confirm methadone dose of 80 mg. Addiction medicine consult. Tobacco dependence: Counseled on smoking cessation, initiated nicotine supplements DVT prophylaxis: Lovenox Code status: Full code Quality Stroke Does the patient have a stroke diagnosis?: No VTE Prior VTE?: No VTE Risk Level:: Medical - moderate - high VTE Device Contraindication: Treatment Not Indicated VTE Drug Contraindication: N/A - Med Ordered
[2024-11-30] MEDS: methADONE HCl 20 MG/2 ML ORAL.CONC 80 MG PO (09:49)
[2024-11-30] MEDS: Nicotine 21 MG PATCH.TD24 TRANSDERMA (09:49)
[2024-11-30] MEDS: 0.9 % Sodium Chloride Flush 3 ML SYRINGE IVFLUSH ×3 (09:50→20:48)
--- NOTE | 2024-11-30 15:44 | HO.WOUND ---
Wound Consult: Initial 59yr old?male admitted [place] [facility] [place] - See progress notes and H&P for detailed history.? Wound consult placed for BLE.? Patient agreeable to assessment and photo documentation.? 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 Patient reports current treatment is Dakins and Hydrofera Blue every other day. He reports he has been advised to use compression therapy but reports noncompliance. He reports he has been prescribed Lymphedema pumps for home use but he reports he does not use them. He was educated on the benefits of the consistent use of pumps and his lower leg swelling and wound healing. Of note the patients feet were in the dependent position and was educated on lower leg elevation to aid in healing - he reports understanding but reports he often keeps his feet in the dependent position for comfort. Left Plantar Left 2nd Toe Left Medial Ankle Right Ankle Medial view Right Ankle posterior view Etiology: ?Venous wounds Measurements: see charting for detailed measurements Wound Bed: legs with marbled yellow slough adherent to wound bed with red pink islands throughout Left 2nd to dry stable scab Left plantar - moist red pink wound bed Drainage / Odor: green drainage to right wound Edges: ? irregular and rolled Keily wound: dry thick tissue ? No Induration, Fluctuance or Warmth noted Pain: pain reported when cleansed Goals of Treatment: ? Iodoflex for antimicrobial action, desloughing and treatment of biofilm Recommendations: 1. Turn and Reposition every 2 hours and as needed for patient comfort.? Use pillows or wedges to support off loading positions. 2. Off Load all bony prominences with use of pillows and heel boots if needed.? Apply Preventative foams where needed. ? 3. Monitor for incontinence and moisture control, use barrier creams when needed for prevention and treatment. 4. Provide adequate and supplemental nutrition.? 5. When applicable maintain blood glucose levels per Providers order. Bilateral Lower Leg, plantar for and left 2nd toe - Elevate bilateral legs on pillows be sure to float heels.? Cleanse with saline, pat dry. ?Apply Iodosorb / Iodoflex to wound bed cover with gauze and tape. ?Change every other day.?? Iodoflex left at bedside. Note the Iodoflex will be applied brown and over the course of time as the Iodine is absorbed into the wound bed the color will change to yellow / cream signifying time to replace.?? Iodoflex can be obtained from Wound Care Nurse / Office this is not stocked on the units. At time of discharge patient should switch to Durafiber to the wound bed and change every other day as well. Recommend continued out pt wound clinic follow up at time of d/c. Re-consult wound care Nurse for wound deterioration or wound changes.
--- NOTE | 2024-11-30 16:02 | MHC.CM.PN ---
Therapy is recommending Pulmonary Rehab. The 3 local SNF have declined the patient. Patient is prescribed Methadone. Referrals have been sent to the [facility]. [facility] via BLS pending a bed offer and insurance authorization.
[2024-12-01 03:23] VITALS: BP 126/66; PULSE 76; RESP 18; TEMP 36.6; O2SAT 92
[2024-12-01 06:46] LABS: Hematocrit 25.8 % (42.0-52.0); Hemoglobin 8.4 g/dl (14.0-18.0); Mean Corpuscular HGB Conc 32.6 g/dl (31.0-36.0); Mean Corpuscular Hemoglobin 27.0 pg (27.0-33.0); Mean Corpuscular Volume 83.0 fL (80.0-98.0); NRBC Abs Auto 0.000 X10*3/uL (0.0-0.012); NRBC Pct Auto 0.0 /100WBC (0.0-0.2); Platelet Count 241 X10*3/uL (160-400); Red Blood Count 3.11 X10*6/uL (4.60-5.80); White Blood Count 7.5 X10*3/uL (4.8-10.8)
[2024-12-01 06:47] VITALS: BP 141/65; PULSE 77; RESP 16; TEMP 36.6; O2SAT 92
[2024-12-01 07:00] LABS: Alanine Aminotransferase 17 U/L (0-40); Albumin Level 3.0 g/dL (3.5-5.0); Alkaline Phosphatase 83 U/L (39-117); Anion Gap 14 (12-20); Aspartate Amino Transferase 29 U/L (5-37); Blood Urea Nitrogen 31 mg/dL (9-16); Calcium 8.3 mg/dL (8.4-10.2); Carbon Dioxide 20 mmol/L (22-29); Chloride 102 mmol/L (96-108); Creatinine Clr Calc Pharmacy 58.0; Estimated Glomerular Filt Rate 41; Potassium 4.6 mmol/L (3.3-5.1); Sodium 131 mmol/L (135-145); Total Protein 9.9 g/dL (6.5-8.0)
[2024-12-01 08:22] VITALS: BP 135/73; PULSE 77; TEMP 36.6
[2024-12-01] MEDS: methADONE HCl 20 MG/2 ML ORAL.CONC 80 MG PO (08:25)
[2024-12-01] MEDS: Nicotine 21 MG PATCH.TD24 TRANSDERMA (08:25)
--- NOTE | 2024-12-01 08:27 | P.PNIM_ITS ---
Subjective Subjective Date of Service: 12/01/24 Physical Exam 2 Vital Signs: Vital Signs: Last Vital Signs Temp 98 F 12/01/24 08:22 Pulse 77 12/01/24 08:22 Resp 16 12/01/24 06:47 BP 135/73 12/01/24 08:22 Pulse Ox 92 12/01/24 06:47 O2 Del Method Nasal Cannula 12/01/24 06:47 O2 Flow Rate 2 12/01/24 06:47 BMI result Body Mass Index 37.3 Objective Data Active Medications Acetaminophen (Acetaminophen 325 Mg Tablet) 650 mg PO Q6H PRN PRN Reason: Pain, Mild 1-3,fever,headache Last Admin: 11/29/24 16:20 Dose: 650 mg Documented By: ANUM Albuterol Sulfate (Albuterol Sulfate 90 Mcg 8 Gm Inhaler) 2 puff INHALE QID PRN PRN Reason: asthma Albuterol/Ipratropium (Albuterol/Iprat 2.5/0.5mg 3 Ml Ampul.Neb) 3 ml INHALE RQ4H WHILE AWAKE PRN PRN Reason: Shortness of Breath Last Admin: 11/28/24 04:43 Dose: 3 ml Documented By: JAVY Amlodipine Besylate (Amlodipine Besylate 5 Mg Tablet) 5 mg PO DAILY VANESSA; Protocol Last Admin: 11/30/24 09:49 Dose: 5 mg Documented By: ANUM Amoxicillin/Clavulanate Potassium (Amoxicillin/Potassium Clav 875 Mg Tablet) 875 mg PO Q12H [facility]ANES[facility] Last Admin: 11/30/24 20:48 Dose: 875 mg Documented By: CAROLIN Calcium Carbonate (Calcium Carbonate 750 Mg Tab.Chew) 750 mg PO Q4H PRN PRN Reason: Heartburn Doxycycline Monohydrate (Doxycycline Monohydrate 100 Mg Capsule) 100 mg PO Q12H [facility]ANESSA Last Admin: 11/30/24 20:48 Dose: 100 mg Documented By: CAROLIN Enoxaparin Sodium (Enoxaparin Sodium 40 Mg/0.4 Ml Syringe) 40 mg SUBCUT Q24H [facility]ANESSA Last Admin: 12/01/24 00:01 Dose: 40 mg Documented By: CAROLIN Furosemide (Furosemide 20 Mg Tablet) 20 mg PO DAILY VANESSA; Protocol Last Admin: 11/30/24 09:49 Dose: 20 mg Documented By: ANUM Hydromorphone HCl (Hydromorphone Hcl 1 Mg/Ml Syringe) 0.5 mg IVPUSH Q4H PRN; Protocol PRN Reason: Pain, Severe (Pain Scale 7-10) Last Admin: 11/30/24 18:30 Dose: 0.5 mg Documented By: ANUM Hydroxyzine HCl (Hydroxyzine Hcl 25 Mg Tablet) 25 mg PO BID PRN PRN Reason: Anxiety Magnesium Hydroxide (Milk Of Magnesia 30 Ml Oral.Susp) 30 ml PO DAILY PRN PRN Reason: Constipation Melatonin (Melatonin 3 Mg Tablet) 6 mg PO BEDTIME PRN PRN Reason: Insomnia Methadone HCl (Methadone Hcl 20 Mg/2 Ml Oral.Conc) 80 mg PO DAILY [facility] Last Admin: 11/30/24 09:49 Dose: 80 mg Documented By: ANUM Co-signed By: SOFFATorin Nicotine (Nicotine 21 Mg Patch.Td24) 21 mg TRANSDERMA DAILY [facility] Last Admin: 11/30/24 09:49 Dose: 21 mg Documented By: ANUM Nicotine Polacrilex (Nicotine Polacrilex Lozenge 2 Mg Lozenge) 2 mg BUCCAL Q2H PRN PRN Reason: Nicotine Cravings Nicotine Polacrilex (Nicotine Polacrilex 2 Mg Gum) 2 mg BUCCAL Q2H PRN PRN Reason: Nicotine Cravings Sertraline HCl (Sertraline Hcl 50 Mg Tablet) 150 mg PO DAILY [facility] Last Admin: 11/30/24 09:49 Dose: 150 mg Documented By: ANUM Sodium Chloride (0.9 % Sodium Chloride Flush 3 Ml Syringe) 3 ml IVFLUSH QSHIFT [facility] Last Admin: 11/30/24 20:48 Dose: 3 ml Documented By: CAROLIN Labs 12/01/24 06:27 12/01/24 06:27 Labs: Laboratory Results - last 24 hr 12/01/24 06:27 MCV 83.0 MCH 27.0 MCHC 32.6 RDW 18.1 H Plt Count 241 MPV 8.4 L Absolute Nucleated RBC 0.000 Nucleated RBC % (auto) 0.0 Anion Gap 14 Estim Creat Clear Calc 58.0 Estimated GFR 41 Random Glucose 87 Calcium 8.3 L Total Bilirubin 0.3 AST 29 ALT 17 Alkaline Phosphatase 83 Total Protein 9.9 H Albumin 3.0 L Quality Stroke Does the patient have a stroke diagnosis?: No VTE Prior VTE?: No VTE Risk Level:: Medical - moderate - high VTE Device Contraindication: Treatment Not Indicated VTE Drug Contraindication: N/A - Med Ordered
[2024-12-01 11:03] VITALS: BP 155/75; PULSE 80; RESP 17; TEMP 36.6; O2SAT 92
[2024-12-01 11:19] VITALS: BP 155/75; PULSE 80; O2SAT 92
--- NOTE | 2024-12-01 13:55 | MHC.CM.PN ---
Addendum entered by Tara Long 12/01/24 16:27: Patient was able to arrange for a ride home. No Lyft ordered. Patient discharged to home with resumption of [facility]NA. He will perform wound care when he starts Pulmonary rehab. Original Note: Per MD rounds discharge is today. [facility] has been notified of the plan for out patient pulmonary rehab. Patient will be responsible for performing wound care while he is active with pulmonary rehab. Patient will need assist with a Lyft when discharge is in.
--- NOTE | 2024-12-01 14:58 | P.DS_ITS ---
DS: Providers Provider Date of Service: 12/01/24 Date of admission: 11/28/24 00:57 Date of discharge: 12/01/24 Primary care physician: Cecilia Schmidt MD Consults: 11/28/24 00:56 Consult to Infectious Diseases Routine Consulting Provider: [facility] Reason for consultation: cellulitis/wound 11/28/24 17:34 Consult to Wound Care Routine Reason for consultation: lower extremity cellulits, goes to wound clinic 11/29/24 01:08 Consult to Wound Care Routine Reason for consultation: BLE cellulitis 11/30/24 02:59 Consult to Wound Care Routine Reason for consultation: BLE cellulitis DS: Diagnosis Discharge Diagnosis (1) Cellulitis: Status: Acute DS: Summary Hospital Course Hospital Course: Bilateral leg wounds/cellulitis - resolving 59-year-old male with a past medical history of HTN, HLD, COPD on 2 L of home oxygen, tobacco dependence (half ppd); chronic bilateral leg wound; presented to the hospital with a chief complaint of pain redness and swelling noted of bilateral leg wounds with surrounding cellulitis. He was initially treated with broad-spectrum antibiotics which was switched to oral Augmentin at the time of discharge Switched him to po abx, pt wants to clear a few things and be DC tomorrow COPD: Smoking cessation advised. Stable. Not in acute flare, Patient on his b aseline 2 L supplemental oxygen. Helenbs p.r.n.. Hypertension: Blood pressure on the normal side. Hold home antihypertensives for now Opiate dependence: Patient on methadone maintenance program, confirm methadone dose of 80 mg. Addiction medicine consult. Tobacco dependence: Counseled on smoking cessation, initiated nicotine supplements DVT prophylaxis: Lovenox Time spent discussing smoking cessation with patient: more than 10 minutes Status at Discharge Functional status at discharge: uses cane/walker Overall status at discharge: patient is progressing back to baseline Time Attestation Discharge Coordination Time (in mins): 35 Quality: Safe Use of Opioids Does Pt have an Active Cancer Diagnosis on the Problem List?: No Quality: Stroke Does the patient have a stroke diagnosis?: No Physical Exam Vital Signs: Vital Signs: Last Vital Signs Temp 97.9 F 12/01/24 11:03 Pulse 80 12/01/24 11:19 Resp 17 12/01/24 11:03 BP 155/75 H 12/01/24 11:19 Pulse Ox 92 12/01/24 11:19 O2 Del Method Nasal Cannula 12/01/24 11:03 O2 Flow Rate 2 12/01/24 11:03 BMI result Body Mass Index 37.3 DS: Data Data Completed and Pending Completed studies during hospitalization [Text1]: Procedures Extraction of Right Foot Skin, External Approach (03/21/24) Insertion of Infusion Device into Superior Vena Cava, Percutaneous Approach (03/21/24) Ultrasonography of Superior Vena Cava, Guidance (03/21/24) Labs on day of discharge: Laboratory Results - last 24 hr 12/01/24 06:27 WBC 7.5 RBC 3.11 L Hgb 8.4 L Hct 25.8 L MCV 83.0 MCH 27.0 MCHC 32.6 RDW 18.1 H Plt Count 241 MPV 8.4 L Absolute Nucleated RBC 0.000 Nucleated RBC % (auto) 0.0 Sodium 131 L Potassium 4.6 Chloride 102 Carbon Dioxide 20 L Anion Gap 14 BUN 31 H Creatinine 1.72 H Estim Creat Clear Calc 58.0 Estimated GFR 41 Random Glucose 87 Calcium 8.3 L Total Bilirubin 0.3 AST 29 ALT 17 Alkaline Phosphatase 83 Total Protein 9.9 H Albumin 3.0 L Preliminary micro results at discharge 11/27/24 18:16 Blood Culture - Preliminary Blood - Venous No growth after 48 hours. 11/27/24 18:16 Blood Culture - Preliminary Blood - Venous No growth after 48 hours. Discharge Plan Discharge Anticipated Discharge Date/Time: 12/01/24 14:53 Patient Disposition: Home Health Service Discharge Diagnosis: Sepsis secondary to LLE cellulitis Referrals: [facility] [Outside] - 1 Week Cecilia Schmidt MD [Primary Care Provider, Internal Medicine] - 1 Week Discharge Medications: New amoxicillin-pot clavulanate 875-125 mg Tablet 875 tab PO Q12H 6 Days Qty: 12 0RF Continued nicotine 21 mg/24 hr patch 24 hour 1 patch topical DAILY losartan-hydrochlorothiazide 50-12.5 mg tablet 1 tab PO DAILY betamethasone dipropionate 0.05 % cream 1 appl topical DAILY Protocol: Apply to: Apply to: FOOT furosemide 20 mg tablet 20 mg PO DAILY amlodipine 5 mg tablet 5 mg PO DAILY sertraline 100 mg tablet 150 mg PO DAILY albuterol sulfate [Ventolin HFA] 90 mcg/actuation HFA aerosol inhaler 2 puff inhalation QID PRN (Reason: asthma) hydroxyzine HCl 25 mg tablet 25 mg PO BID PRN (Reason: Anxiety) methadone 5 mg/5 mL solution 80 mg PO DAILY Discharge Orders: Discharge Order (Routine); Ordered 12/01/24 Ordered By: Kaela Lynch Diet: Low salt diet Activity on Discharge: As tolerated Stand Alone Forms: Patient Portal Discharge page Print Language: Citizen Of [place] Care Plan Goals: Wound care Health Concerns: Wound care Plan of Treatment: See above Assessment: Wound care
== END 2024-12-01 16:05 | disposition home health service (06) | DRG 720 ==
LOC: HO.ED 21:42 → HO.EDOVER 11-28 01:08 → HO.S3 11-28 15:34
PROVIDERS: Admitting Provider Hospitalist; Emergency Provider Student in an Organized Health Care Education/Training Program; PCP Internal Medicine; Visit Provider Student in an Organized Health Care Education/Training Program
DX: A41.9 Sepsis, unspecified organism (principal); Z99.81 Dependence on supplemental oxygen; L03.115 Cellulitis of right lower limb; L03.116 Cellulitis of left lower limb; J44.9 Chronic obstructive pulmonary disease, unspecified; I10 Essential (primary) hypertension; F11.20 Opioid dependence, uncomplicated; F17.210 Nicotine dependence, cigarettes, uncomplicated; Z71.6 Tobacco abuse counseling; Z79.899 Other long term (current) drug therapy
CPT/HCPCS: 36415; 71046; 73701; 80048; 80053; 80202; 83605; 83735; 84484; 85025; 85027; 87040; 93970; 94640; 97116; 97161; 99285; J1171; J1650; J2270; J2543; J3373; J3374; J7120; Q9967

== ENCOUNTER → 2024-11-27 17:36 | Outpatient (BNV) | payer OTHER, SELFPAY | PROVIDERS: PCP Internal Medicine; Visit Provider Radiology Diagnostic Radiology | DX: R60.0 Localized edema (principal); R06.02 Shortness of breath | CPT/HCPCS: 71046; 73701 ==

== ENCOUNTER 2024-11-28 00:57 | Outpatient (BNV) | payer OTHER, SELFPAY | END 2024-11-29 10:31 | PROVIDERS: Admitting Provider Hospitalist; Emergency Provider Student in an Organized Health Care Education/Training Program; PCP Internal Medicine; Visit Provider Radiology Diagnostic Radiology | DX: R22.43 Localized swelling, mass and lump, lower limb, bilateral (principal); L03.115 Cellulitis of right lower limb; L03.116 Cellulitis of left lower limb | CPT/HCPCS: 93970 ==

== ENCOUNTER → 2024-11-28 00:57 | Outpatient (BNV) | payer OTHER, SELFPAY | PROVIDERS: Admitting Provider Hospitalist; Emergency Provider Student in an Organized Health Care Education/Training Program; PCP Internal Medicine; Visit Provider Hospitalist | DX: L03.116 Cellulitis of left lower limb (principal) | CPT/HCPCS: 99223; 99499 ==

== ENCOUNTER → 2024-11-28 00:57 | Outpatient (BNV) | payer OTHER, SELFPAY | PROVIDERS: Admitting Provider Hospitalist; Emergency Provider Student in an Organized Health Care Education/Training Program; PCP Internal Medicine; Visit Provider Internal Medicine | DX: L03.116 Cellulitis of left lower limb (principal) | CPT/HCPCS: 99222 ==

== ENCOUNTER 2025-01-10 13:31 | Inpatient (IN) | payer OTHER, SELFPAY ==
[2025-01-10] VITALS (9 sets, daily range): BP systolic 92–125; BP diastolic 50–69; PULSE 71–90; RESP 15–20; TEMP 36.6–36.9; O2SAT 92–96; BMI 42.7
--- NOTE | ~2025-01-10 | XR_ITS ---
EXAMINATION: XR CHEST CLINICAL INFORMATION: SOB, wheezing/rhonchi COMPARISON: Chest 11/27/2024 TECHNIQUE: Frontal view of the chest was obtained. FINDINGS: Lungs are hypoexpanded plate atelectasis right midlung. Rest lungs are clear. The heart size and pulmonary vascularity is normal. No gross bony abnormality seen. XR/XR chest 1V IMPRESSION: Platelike atelectasis right midlung. Electronically signed by: Osman Dickens MD 01/10/2025 02:32 PM EDT
--- NOTE | ~2025-01-10 | CT_ITS ---
CLINICAL HISTORY: Pneumonia? Coughing. [facility] CT chest without contrast Comparison: CR/ID/SR - XR CHEST 1 VIEW - 01/10/25 14:13 EDT Findings: The heart is normal size. The visualized thyroid and mediastinum are unremarkable. No pleural effusion. Severe centrilobular and paraseptal emphysema. Mild opacity of the bilateral lung base. Multiple pulmonary nodules: 3 mm in the left lower lobe series 3, image 83; 4.8 mm in the right upper lobe image 43; 3 mm para fissural nodule of the left upper lobe image 54; 2 mm nodule of the right upper lobe image 57. The visualized upper abdomen is unremarkable. No acute fractures. IMPRESSION: Mild opacity of the lung base could represent atelectatic change or infection. Multiple pulmonary nodules measuring up to 4.[address] chest follow-up in 1 year as indicated. Fleischner Society 2017 Guidelines for incidentally detected indeterminate nodules in persons 35 years of age or older. Single Solid Nodules: 5 mm or smaller nodules need no follow-up in low risk, and [address] follow-up is optional in high risk patients. 6-8 mm nodules have optional [address] follow-up in low risk, and 6-[address] follow-up followed by 18-[address] follow-up if no change in high risk patients. 9 mm or larger nodules should consider CT, PET/CT, or biopsy at 3 months regardless of patient risk. Multiple Solid Nodules: 5 mm or smaller nodules need no follow-up in low risk, and [address] follow-up is optional in high risk patients. 6-8 mm nodules need 3-[address] follow-up followed by an optional 18-[address] follow-up regardless of patient risk. 9 mm or larger nodules should consider 3-[address] follow-up. For low risk 18-24 month follow-up is optional, whereas for high risk it is needed. Single Ground Glass Nodules: 5 mm or smaller nodules need no followup 6 mm and larger nodules need CT at 6-12 months to confirm persistence, then CT every 2 years until 5 years Single Subsolid Nodules: 5 mm or smaller nodules need no followup 6 mm and larger nodules need CT at 3-6 months to confirm persistence. If no change and solid component /T/lt;6 mm, then CT every year until 5 years Multiple Ground Glass or Subsolid Nodules: 5 mm or smaller nodules need CT at 3-6 months. If stable, optional CT at 2 and 4 years. 6 mm or larger nodules need CT at 3-6 months. Subsequent management based on most suspicious nodule This document has been electronically signed by: Rip Ramesh MD on 01/10/2025 19:46:11
--- NOTE | ~2025-01-10 | XR_ITS ---
EXAMINATION: XR FOOT 3 OR MORE VIEWS RIGHT HISTORY: rule out OM, infection COMPARISON: Comparison is made with the prior examination dated 03/21/2024. FINDINGS: Three views of the right foot are submitted. There is deformity of the posterior calcaneus with heterotopic bone formation extending superiorly. There is greater on bone formation than on the prior study. Chronic osteomyelitis in this region is not excluded. There is no fracture or dislocation. The joint spaces are preserved. There is posterior soft tissue swelling. XR/XR foot RT min 3V IMPRESSION: Deformity of the calcaneus with heterotopic bone formation extending superiorly, greater than on the prior study. Chronic osteomyelitis is this region is not excluded. This could be further evaluated with bone scan or MRI if desired. Electronically signed by: Alexsander Martin MD 01/11/2025 07:21 AM EDT
--- NOTE | ~2025-01-10 | XR_ITS ---
EXAMINATION: XR FOOT 3 OR MORE VIEWS LEFT HISTORY: rule out infection COMPARISON: There are no prior studies available for comparison. FINDINGS: Three views of the left foot are submitted. Osseous mineralization is normal. No lytic lesions are identified. There is no fracture or dislocation. The joint spaces are preserved. The soft tissues are unremarkable. XR/XR foot LT min 3V IMPRESSION: No plain film evidence of osteomyelitis. If this remains a clinical concern, three-phase bone scan or MRI could be performed. Electronically signed by: Alexsander Martin MD 01/11/2025 07:17 AM EDT
--- NOTE | 2025-01-10 13:45 | ECG_ITS ---
Test Reason : SOB Blood Pressure : */* mmHG Vent. Rate : 75 BPM Atrial Rate : 75 BPM P-R Int : 164 ms QRS Dur : 132 ms QT Int : 418 ms P-R-T Axes : 8 -38 8 degrees QTcB Int : 466 ms Normal sinus rhythm Left axis deviation Right bundle branch block Abnormal ECG No previous ECGs available Referred By: Generic ED Physician Electronically Signed By: Miguel Angel Meza
[2025-01-10 14:14] LABS: MANUAL DIFF FLAG NO
[2025-01-10 14:20] LABS: Hematocrit 25.6 % (42.0-52.0); Hemoglobin 7.8 g/dl (14.0-18.0); Imm Gran Abs Auto 0.05 X10*3/uL (0.00-0.03); Imm Gran Pct Auto 0.7 % (0.0-0.4); Lymphocytes Absolute Auto 0.8 X10*3/uL (1.2-4.9); Mean Corpuscular HGB Conc 30.5 g/dl (31.0-36.0); Mean Corpuscular Hemoglobin 26.2 pg (27.0-33.0); Mean Corpuscular Volume 85.9 fL (80.0-98.0); NRBC Abs Auto 0.000 X10*3/uL (0.0-0.012); NRBC Pct Auto 0.0 /100WBC (0.0-0.2); Platelet Count 215 X10*3/uL (160-400); Red Blood Count 2.98 X10*6/uL (4.60-5.80); White Blood Count 7.1 X10*3/uL (4.8-10.8)
[2025-01-10 14:28] LABS: Anion Gap 11 (12-20); Blood Urea Nitrogen 44 mg/dL (9-16); COVID-19 Test Negative (Negative); Calcium 8.2 mg/dL (8.4-10.2); Carbon Dioxide 27 mmol/L (22-29); Chloride 105 mmol/L (96-108); Creatinine Clr Calc Pharmacy 65.4; Estimated Glomerular Filt Rate 43; IDNOW Serial# 6674DD1D; Potassium 4.8 mmol/L (3.3-5.1); Sodium 138 mmol/L (135-145)
[2025-01-10 14:31] LABS: INTERNATIONAL NORM RATIO 1.1 (0.9-1.1); Prothrombin Time 12.5 SEC (10.9-12.4)
[2025-01-10 14:36] LABS: Troponin-I High Sensitivity 4.0 ng/L (<3.5-35.0)
[2025-01-10 14:41] LABS: IDNOW Serial# 55D5AD1C; Influenza B2 Negative (Negative)
--- NOTE | 2025-01-10 16:16 | PC.NURSE ---
JOHNNY Dodge to bedside speaking with patient & evaluating him.
[2025-01-10 16:36] LABS: Venous Blood Gas Refer to POC result
[2025-01-10 16:37] LABS: VBG HCO3 30 mmol/L (22-26); VBG O2 % Saturation 79.0 %
--- OUTSIDE RECORDS SUMMARY | 2025-01-10 17:07 | XMS_ITS | Clinical Summary ---
Author Organization [facility] Address [address] [place] [id number] Phone Care Team Providers Care Help Desk Assistant Name Role Phone Cecilia Schmidt MD Primary [...] 1963 LIPID PANEL 1963 DEPRESSION SCREENING 1975 HEPATITIS C SCREENING 1981 HIV ONE-TIME SCREENING (18-6 5 YEARS) 1981 PNEUMOCOCCAL VACCINES (50+ years) (1 of 1 - PCV) 2013 ZOSTER VACCINES (1 of 2) 2013 INFLUENZA VACCINE (#1) 2024 COVID-19 VACCINE (3 - 2024-2 6 season) 2024 09/15/2020, 08/25/2020 RSV VACCINE (1 - 1-dose 75+ series) 2038 COLORECTAL CANCER SCREENING Completed HEPATITIS A VACCINES Aged Out No long [...] topic Medical Devices Not on file Insurance [employer] [facility] [place] [facility] [place] [facility] [place] [employer] [address] [place], [place] [address] Care Teams Help Desk Assistant Relationship Specialty Start Date End Date Cecilia Schmidt MD [address] [place] [address] [place] [id number] PCP - General 11/29/19 Additional Source Comments The information contained in this document represents components of the legal health record. It is not the complete legal health record.[facility]
--- OUTSIDE RECORDS SUMMARY | 2025-01-10 17:07 | XMS_ITS | Clinical Summary ---
Author Organization [facility] Address [address] [place] [address] [place] [phone] Phone Care Team Providers Care Launchman Name Role Phone Cecilia Schmidt MD Primary Care Provider [phone] Allergies Active Allergy Reactions Criticality Noted Date [...] patient's age to complete this topic Insurance [facility] Medicaid [facility] Medicaid Care Teams Launchman Relationship Specialty Start Date End Date Cecilia Schmidt MD [address] [place] [address] PCP - General 04/09/20
--- NOTE | 2025-01-10 17:08 | ED_ITS ---
HPI - General Adult General Chief complaint: Dyspnea Stated complaint: SOB Time Seen by Provider: 01/10/25 16:08 Source: patient Mode of arrival: ambulatory Limitations: no limitations History of Present Illness ED Provider: Jaden Dodge HPI narrative: 59 yold male with pmh of COPD, IVDA, acute osteomyelittis presents to the ED for shortness of breath presents to the ED for Shortness of breath, coughing up yellow/green phelghm for one month. patient states no chest pain, or increase leg swelling. Related Data Home Medications ?Medication ?Instructions ?Recorded ?Confirmed albuterol sulfate 90 mcg/actuation 2 puff inhalation Q ID PRN asthma 11/11/22 01/10/25 aerosol inhaler (Ventolin HFA) amlodipine 5 mg tablet 5 mg PO DAILY 11/11/2201/10 hydroxyzine HCl 25 mg tablet 25 mg PO BID PRN Anxiety 11/11/22 01/10/25 methadone 5 mg/5 mL oral solution 80 mg PO DAILY 11/1101/11/25 sertraline 100 mg tablet 150 mg PO DAILY 11/11/22 losartan 50 mg-hydrochlorothiazide 1 tab PO DAILY 02/2801/10/25 12.5 mg tablet nicotine 21 mg/24 hr daily 1 patch topical DAILY 03/2101/10/25 transdermal patch betamethasone dipropionate 0.05 % 1 appl topical DAILY 11/28/24 01/10/25 topical cream furosemide 20 mg tablet 20 mg PO DAILY 11/28/2412/28 ferrous sulfate 325 mg (65 mg 325 mg PO DAILY 01/10/25 01/10/25 iron) tablet Allergies Allergy/AdvReac Type Severity Reaction Status Date / Time codeine (CODEINE) Allergy Unknown NAUSEA Verified 01/10/25 14:03 Review of Systems 2 Review of Systems: shortness of breath, coughing up yellow/green phelghm Yes all other systems are reviewed and are negative [facility] Past Medical History Medical History (Updated 01/11/25 @ 13:22 by JOHNNY Allen) Multiple pulmonary nodules HLD (hyperlipidemia) Substance use disorder Wound of right foot Wound of left foot Acute osteomyelitis of right calcaneus PVD (peripheral vascular disease) Hypotension Smoker History of substance use disorder Depression HTN (hypertension) Surgical History H/O elbow surgery (~2000) History of ankle surgery (~2003) H/O neck surgery (~1998) Social History Social History Household Members: None Housing: Apartment Do you presently have visiting nurse or other home services: Yes (asiya [employer]) Alcohol intake: current Alcohol intake frequency: a few times a week Alcohol type: beer and hard liquor Patient Tobacco Use Status: Current everyday Tobacco user Tobacco use type: Cigarette Cigarette Packs Per Day: 10 Cigarettes Per Day: 10 Years Smoked: 45 Smoked in Last 30 Days: Yes Second Hand Smoke Exposure: No Use of substances other than those prescribed or required for medical reasons: No Advance Directives: No Advance Directives Information Provided: Yes service: No Current occupational status: disabled Physical Exam ED Vital Signs: Vital Signs - 24 hr 01/10/25 13:45 01/10/25 13:51 01/10/25 17:14 Temperature 98.4 F 98.4 F Pulse Rate 78 76 71 Respiratory Rate 20 15 20 Blood Pressure 98/51 L 98/51 L Pulse Oximetry 96 96 Oxygen Delivery Method Nasal Cannula Nasal Cannula Oxygen Flow Rate 4 01/10/25 19:10 01/10/25 21:21 Temperature 97.8 F 98.4 F Pulse Rate 84 78 Respiratory Rate 20 15 Blood Pressure 116/54 L 110/51 L Pulse Oximetry 93 93 Oxygen Delivery Method Nasal Cannula Nasal Cannula Oxygen Flow Rate 4 4 BMI result Body Mass Index 42.7 Const General: cooperative, healthy appearing, comfortable, no acute distress, well developed, alert and awake [facility] [place] Head: Yes normal to inspection and Yes No palpable skull fracture present Eyes General: appearance normal, both eyes and all related structures Neck Neck: Yes normal visual inspection, Yes full ROM, Yes no lymphadenopathy, Yes no meningeal signs, Yes trachea midline, Yes supple, No anterior neck swelling and No tender Chest Chest palpation & inspection: normal inspection of the chest and normal palpation of entire chest wall Resp Other: tripoding some rhonch, mild wheezng Auscultation: wheezes and diminished lung sounds Cardio Jugular venous distension: no JVD Heart sounds: S1 normal heart sound present and S2 normal heart sound present GI Inspection: Yes normal to inspection Palpation (GI): Soft to palpation, not firm, nontender, no guarding and not rigid General: Yes no CVA tenderness Back/Spine/Pelvis Back: no CVA tenderness and No back tenderness Skin General skin exam: no rashes or lesions noted, elasticity normal and turgor normal Neuro General: gait normal, tone normal, moves all extremities, Normal light touch and pain sensation, no meningeal signs, no focal motor deficits, CN's II-XI intact bilaterally and normal sensation to monofilament Extrem Other: Chronic lower extremity swelling Psych Appearance: grossly normal, well kempt and not disheveled Medications Administered Generic Name Dose Route Start Last Admin Trade Name Freq PRN Reason Stop Dose Admin Budesonide 0.5 mg 01/10/25 22:15 01/11/25 08:40 Budesonide 0.5 Mg/2 Ml Ampul.Neb INHALE 0.5 mg RBID VANESSA Administration Enoxaparin Sodium 40 mg 01/10/25 23:00 01/10/25 22:58 Enoxaparin Sodium 40 Mg/0.4 Ml Syringe SUBCUT 40 mg On Hold: 01/11/25 03:01 Q24H VANESSA Administration Doxycycline Hyclate 100 mg/ 250 mls @ 166.67 mls/hr 01/11/25 08:00 01/11/25 09:19 Sodium Chloride IV Infused Q12H VANESSA Infusion Nicotine 14 mg 01/11/25 09:00 01/11/25 07:49 Nicotine 14 Mg Patch.Td24 TRANSDERMA 14 mg DAILY VANESSA Administration Sodium Chloride 3 ml 01/11/25 00:00 01/11/25 07:50 0.9 % Sodium Chloride Flush 3 Ml Syringe IVFLUSH 3 ml QSHIFT VANESSA Administration Discontinued Medications Generic Name Dose Route Start Last Admin Trade Name Freq PRN Reason Stop Dose Admin Ceftriaxone Sodium 1 gm 01/10/25 19:58 01/10/25 20:18 Ceftriaxone Sodium 1 Gm Vial IVPUSH 01/10/25 19:59 1 gm ONCE ONE Administration Albuterol Sulfate 2.5 mg/ 0 mg 01/10/25 17:06 01/10/25 17:14 Albuterol/Ipratropium 3 ml INHALE 01/10/25 17:07 1 dose ONCE ONE Administration Furosemide 20 mg 01/10/25 22:16 01/10/25 22:58 Furosemide 20 Mg/2 Ml Vial IVPUSH 01/10/25 22:17 20 mg ONCE ONE Administration Protocol Magnesium Sulfate 2 gm in 50 mls @ 150 mls/hr 01/10/25 17:03 01/10/25 18:13 Magnesium Sulfate/H2o IV 01/10/25 17:22 Infused ONCE ONE Infusion Sodium Chloride 500 mls @ 500 mls/hr 01/10/25 18:24 01/10/25 19:55 Ns IV 01/10/25 19:23 Infused .Q1H STA Infusion Azithromycin 500 mg/ Sodium 250 mls @ 125 mls/hr 01/10/25 19:58 01/10/25 22:25 Chloride IV 01/10/25 21:57 Infused ONCE ONE Infusion Methylprednisolone Sodium Succinate 125 mg 01/10/25 17:03 01/10/25 17:53 Methylprednisolone Sod Succ 125 Mg/2 Ml Vial IVPUSH 01/10/25 17:04 125 mg ONCE ONE Administration Methylprednisolone Sodium Succinate 60 mg 01/11/25 08:00 01/11/25 07:49 Methylprednisolone Sod Succ 125 Mg/2 Ml Vial IVPUSH 60 mg Q12H VANESSA Administration Methylprednisolone Sodium Succinate 40 mg 01/11/25 09:00 01/11/25 11:57 Methylprednisolone Sod Succ 125 Mg/2 Ml Vial IVPUSH Not Given Q12H VANESSA Medical Decision Making Medical Decision Making MDM Narrative: 59-year-old male history of COPD, osteomyelitis presents to the ED for shortness of breath, worsening with coughing up yellow-green phlegm no relief with abdomen nebulizer. Patient is sitting up mild tripoding with some wheezing and decreased breath sounds. 4 L 92%. Extremity chronic swelling no acute brain edema or redness. Chest x-ray shows right adolescence. Magnesium Solu-Medrol. Patient has pmh of anemia and has decrease in H&H. patient was informed necessity for rectal exam to rule out GI bleed, but patient refused. 8:00pm- Patient admitted for COPD exacerbation. BNP only 596.2, but xray negative for fluid overload. Antibiotics ordered and given. patient accpeted by Dr. Magana Differential Diagnosis Differential Diagnoses: The differential diagnosis associated with the presentation includes (CHF, OK, COPD, Pneumonia) Admission/Observation Consideration of admission/observation: Escalation of care including admission/observation considered Lab Data [facility] Lab Attestation statement: I reviewed the patient's lab results. 01/11/25 04:10 01/11/25 04:10 Labs: Lab Results 01/10/25 01/10/25 01/10/25 Range/Units 14:05 16:24 16:25 WBC 7.1 (4.8-10.8) X10*3/uL RBC 2.98 L (4.60-5.80) X10*6/uL Hgb 7.8 L (14.0-18.0) g/dl Hct 25.6 L (42.0-52.0) % MCV 85.9 (80.0-98.0) fL MCH 26.2 L (27.0-33.0) pg MCHC 30.5 L (31.0-36.0) g/dl RDW 18.0 H (11.0-16.0) % Plt Count 215 (160-400) X10*3/uL MPV 8.3 L (9.4-12.4) fL Immature Gran % (Auto) 0.7 H (0.0-0.4) % Neut % (Auto) 69.8 (45-73) % Lymph % (Auto) 11.9 L (20-40) % Lares % (Auto) 13.9 H (2-11) % Eos % (Auto) 3.4 (0-4) % Baso % (Auto) 0.3 (0-2) % Lymph # (Auto) 0.8 L (1.2-4.9) X10*3/uL Lares # (Auto) 1.0 (0.1-1.2) X10*3/uL Eos # (Auto) 0.2 (0.0-0.4) X10*3/uL Baso # (Auto) 0.0 (0.0-0.2) X10*3/uL Abs Immat Gran (auto) 0.05 H (0.00-0.03) X10*3/uL Absolute Neuts (auto) 4.9 (2.0-8.3) x10*3/uL Absolute Nucleated RBC 0.000 (0.0-0.012) X10*3/uL Nucleated RBC % (auto) 0.0 (0.0-0.2) /100WBC Hold Purple Top SEE NOTE PT 12.5 H (10.9-12.4) SEC INR 1.1 (0.9-1.1) VBG pH (7.32-7.43) VBG pCO2 mmHg VBG pO2 mmHg VBG HCO3 (22-26) mmol/L VBG O2 Saturation % VBG Base Excess mmol/L Sodium 138 (135-145) mmol/L Potassium 4.8 (3.3-5.1) mmol/L Chloride 105 (96-108) mmol/L Carbon Dioxide 27 (22-29) mmol/L Anion Gap 11 L (12-20) BUN 44 H (9-16) mg/dL Creatinine 1.64 H (0.5-1.4) mg/dL Estim Creat Clear Calc 65.4 Estimated GFR 43 Random Glucose 85 (60-115) mg/dL Lactic Acid (0.5-2.0) mmol/L Calcium 8.2 L (8.4-10.2) mg/dL Magnesium 2.5 (1.6-2.6) mg/dL Iron 37 L (45-160) mcg/dL TIBC 287 (228-428) mcg/dL % Saturation 13 L (15-50) % Unsat Iron Binding 250 ug/dL Troponin I High Sens 4.0 D 2.8 (<3.5-35.0) ng/L NT-Pro-B Natriuret Pep 596.2 H (<300) pg/mL COVID-19 (SHIRLEY) Negative (Negative) COVID-19 Clin Com See Note Influenza Type A (VIGNESH) Negative (Negative) Influenza Type B (VIGNESH) Negative (Negative) Influenza A & B Note See Note Blood Type Antibody Screen 01/10/25 01/10/25 01/10/25 Range/Units 16:33 16:43 17:59 WBC (4.8-10.8) X10*3/uL RBC (4.60-5.80) X10*6/uL Hgb (14.0-18.0) g/dl Hct (42.0-52.0) % MCV (80.0-98.0) fL MCH (27.0-33.0) pg MCHC (31.0-36.0) g/dl RDW (11.0-16.0) % Plt Count (160-400) X10*3/uL MPV (9.4-12.4) fL Immature Gran % (Auto) (0.0-0.4) % Neut % (Auto) (45-73) % Lymph % (Auto) (20-40) % Lares % (Auto) (2-11) % Eos % (Auto) (0-4) % Baso % (Auto) (0-2) % Lymph # (Auto) (1.2-4.9) X10*3/uL Lares # (Auto) (0.1-1.2) X10*3/uL Eos # (Auto) (0.0-0.4) X10*3/uL Baso # (Auto) (0.0-0.2) X10*3/uL Abs Immat Gran (auto) (0.00-0.03) X10*3/uL Absolute Neuts (auto) (2.0-8.3) x10*3/uL Absolute Nucleated RBC (0.0-0.012) X10*3/uL Nucleated RBC % (auto) (0.0-0.2) /100WBC Hold Purple Top PT (10.9-12.4) SEC INR (0.9-1.1) VBG pH 7.35 (7.32-7.43) VBG pCO2 53 mmHg VBG pO2 58 mmHg VBG HCO3 30 H (22-26) mmol/L VBG O2 Saturation 79.0 % VBG Base Excess 3.8 mmol/L Sodium (135-145) mmol/L Potassium (3.3-5.1) mmol/L Chloride (96-108) mmol/L Carbon Dioxide (22-29) mmol/L Anion Gap (12-20) BUN (9-16) mg/dL Creatinine (0.5-1.4) mg/dL Estim Creat Clear Calc Estimated GFR Random Glucose (60-115) mg/dL Lactic Acid 0.9 (0.5-2.0) mmol/L Calcium (8.4-10.2) mg/dL Magnesium (1.6-2.6) mg/dL Iron (45-160) mcg/dL TIBC (228-428) mcg/dL % Saturation (15-50) % Unsat Iron Binding ug/dL Troponin I High Sens (<3.5-35.0) ng/L NT-Pro-B Natriuret Pep (<300) pg/mL COVID-19 (SHIRLEY) (Negative) COVID-19 Clin Com Influenza Type A (VIGNESH) (Negative) Influenza Type B (VIGNESH) (Negative) Influenza A & B Note Blood Type O Negative Antibody Screen NEGATIVE Independent Interpretation I performed an independent interpretation of an: EKG (non-diagnostic) Radiology Impression Discussion of test interpretation with radiology: I have reviewed the radiologist's reading. Independent Historian Clinical information obtained from an independent historian. History obtained from or confirmed by: Other (patient) Critical Care Time Critical Care Time Critical Care Time: Yes Total Critical Care Time: 60 Attestation: IV steroid, antibiotics, magnesium, albuterol bronchodilator ordered for COPD and patient admitted hospitatlist. Discharge Plan Discharge Clinical Impression: COPD exacerbation Patient Disposition: Admitted As Inpatient
[2025-01-10 17:11] LABS: NT Pro B Type Natriuretic Pept 596.2 pg/mL (<300); Troponin-I High Sensitivity 2.8 ng/L (<3.5-35.0)
[2025-01-10] MEDS: Albuterol Sulfate 2.5 MG, Albuterol/Iprat 2.5/0.5MG 3 ML 3 ML INHALE (17:14)
[2025-01-10] MEDS: Magnesium Sulfate/H2O 2 GM/50 ML PIGGYBACK IV (17:53)
--- NOTE | 2025-01-10 18:18 | PC.NURSE ---
18g IV access in L bicep that was previously established by JOHNNY Allen with ultrasound guidance, infiltrated. Provider aware. Jake Amin RN at bedside attempting to establish new IV access with ultrasound.
--- NOTE | 2025-01-10 22:06 | PM.IMHP ---
History of Present Illness Date of Service: 01/10/25 Attending physician on admission: Jessica Somers Chief Complaint: Dyspnea Pt is a 59-year-old male with past medical history hypertension, COPD on 2 L of oxygen during the day and 3 L at night, hyperlipidemia, CKD, tobacco dependence now smoking 3-4 cigarettes per day, chronic bilateral foot wounds being managed by the VNA and wound care clinic, presents to the ED BIBA for profound dyspnea worsening over the last month. Patient has not been able to attend wound care clinic and other doctors appointments due to his issues with breathing. Patient does not currently follow with a metalizing supervisor. Patient was admitted from November 28 through December 01 and declined pulmonary rehab but now is willing to go. Patient does have a productive cough with clear to yellow sputum. Patient's oxygen requirements per EMS was 3 L and patient was maintaining a sat of 96%. Patient currently denies any chest pain or shortness of breath at rest. Patient is feeling somewhat improved since arrival. Patient is not having any constipation or diarrhea. Patient denies any abdominal pain. Workup in the ED included chest x-ray which showed platelike atelectasis right mid lung and then CT of the chest was also completed which identified multiple pulmonary nodules and mild opacity of the lung base which could either represent atelectasis or infection. Patient was started on ceftriaxone and doxycycline empirically. Patient does not have a leukocytosis. Hemodynamics stable without any tachypnea or tachycardia. Lactic acid 0.9. Patient has chronic wounds on both feet that are currently being managed by the VNA. They are coming in every other day during the week to do dressing changes. Patient is homebound. Patient has not been able to attend the wound care clinic since last discharge because of his breathing issues. Wounds appear to be stable with 2 wounds on the left foot and 1 large wound on the back of the right foot. Patient states he is able to ambulate. Patient denies any fever, chills, night sweats. Drainage from the right wound is somewhat foul. Patient was seen by infectious disease last admission and patient's wounds were considered likely staph or strep and patient was started on IV vancomycin and then transitioned to Augmentin and doxy for 1 week. Patient states he did complete those antibiotics. Review of Systems Review of Systems: Patient currently denies any chest pain, shortness of breath at rest, abdominal pain, nausea or vomiting. Patient denies any constipation or diarrhea. Patient denies chills, fever, night sweats. Patient denies any recent falls or trauma. Patient states he is able to ambulate noting the current wounds on both feet. Patient denies being a diabetic. Yes all other systems are reviewed and are negative [facility] Medical History (Updated 01/10/25 @ 22:56 by SHAWN [place]) Multiple pulmonary nodules HLD (hyperlipidemia) Substance use disorder Wound of right foot Wound of left foot Acute osteomyelitis of right calcaneus PVD (peripheral vascular disease) Hypotension Smoker History of substance use disorder Depression HTN (hypertension) Cognitive capacity: Alert and orientated x3 Functional capacity: uses cane/walker Surgical History H/O elbow surgery (~2000) History of ankle surgery (~2003) H/O neck surgery (~1998) Social History Household Members: None Housing: Apartment Do you presently have visiting nurse or other home services: Yes ([employer]) Alcohol intake: current Alcohol intake frequency: a few times a week Alcohol type: beer and hard liquor Patient Tobacco Use Status: Current everyday Tobacco user Tobacco use type: Cigarette Cigarette Packs Per Day: 10 Cigarettes Per Day: 10 Years Smoked: 45 Smoked in Last 30 Days: Yes Second Hand Smoke Exposure: No Use of substances other than those prescribed or required for medical reasons: No Advance Directives: No Advance Directives Information Provided: Yes service: No Current occupational status: disabled Ebola Risk: Travel/Contact With Anyone From Affected Area/s: No Has Patient Experienced Ebola Symptoms: No Meds Allergies Allergy/AdvReac Type Severity Reaction Status Date / Time codeine (CODEINE) Allergy Unknown NAUSEA Verified 01/10/25 14:03 Home Medications ?Medication ?Instructions ?Recorded ?Confirmed ?Last Taken ?Type albuterol sulfate 90 mcg/actuation 2 puff inhalation QID PRN asthma 11/11/22 01/10/25 03/21/24 History aerosol inhaler (Ventolin HFA) amlodipine 5 mg tablet 5 mg PO DAILY 11/11/22 01/10/25 01/10/25 History hydroxyzine HCl 25 mg tablet 25 mg PO BID PRN Anxiety 11/11/22 01/10/25 11/27/24 History methadone 5 mg/5 mL oral solution 80 mg PO DAILY 11/11/22 11/28/24 11/27/24 History sertraline 100 mg tablet 150 mg PO DAILY 11/11/22 01/10/25 01/10/25 History losartan 50 mg-hydrochlorothiazide 1 tab PO DAILY 03/21/24 01/10/25 01/10/25 History 12.5 mg tablet nicotine 21 mg/24 hr daily 1 patch topical DAILY 03/21/24 01/10/25 01/10/25 History transdermal patch betamethasone dipropionate 0.05 % 1 appl topical DAILY 11/28/24 01/10/25 01/10/25 History topical cream furosemide 20 mg tablet 20 mg PO DAILY 11/28/24 01/10/25 01/10/25 History ferrous sulfate 325 mg (65 mg 325 mg PO DAILY 01/10/25 01/10/25 01/10/25 History iron) tablet Physical Exam Vital Signs and Narrative: Vital Signs: Last Vital Signs Temp 98.4 F 01/10/25 21:21 Pulse 78 01/10/25 21:21 Resp 15 01/10/25 21:21 BP 110/51 L 01/10/25 21:21 Pulse Ox 93 01/10/25 21:21 O2 Del Method Nasal Cannula 01/10/25 21:21 O2 Flow Rate 4 01/10/25 21:21 Oxygen Flow Rate 3 01/10/25 13:45 BMI result Body Mass Index 42.7 Alert and orientated X3, able to give good history. Lying on left side eating snacks. Neuro: CN II-X11 intact, no deficits, visual acuity intact EYES: PERRLA, EOM intact, sclerae nonicteric, conjunctiva pink ENT: hearing intact, no issues with swallowing, uvula midline, lips moist, nares patent no epistaxis Cardiac: S1 S2 RRR, no murmur, no JVD, moderate edema in Lower ext Pulmonary: lungs diminished bilaterally, rhonchi noted Abdominal: BS active in all 4 quadrants, no guarding, tenderness, rebounding, obese MSK: strength 4/5 upper and lower extremities : no CVA tenderness no bladder distension Extremities: Moderate edema in lower extremities, PT and DP pulses palpable +2 wounds in bilateral feet: Chronic in nature, granulation tissue noted Psych: mood stable, judgement and insight good Skin: Noted bilateral foot wounds Results Labs 01/10/25 14:05 01/10/25 14:05 Labs: Laboratory Results - last 24 hr 01/10/25 01/10/25 01/10/25 14:05 16:24 16:25 MCV 85.9 MCH 26.2 L MCHC 30.5 L RDW 18.0 H Plt Count 215 MPV 8.3 L Immature Gran % (Auto) 0.7 H Neut % (Auto) 69.8 Lymph % (Auto) 11.9 L Milam % (Auto) 13.9 H Eos % (Auto) 3.4 Baso % (Auto) 0.3 Lymph # (Auto) 0.8 L Milam # (Auto) 1.0 Eos # (Auto) 0.2 Baso # (Auto) 0.0 Abs Immat Gran (auto) 0.05 H Absolute Neuts (auto) 4.9 Absolute Nucleated RBC 0.000 Nucleated RBC % (auto) 0.0 Hold Purple Top SEE NOTE PT 12.5 H INR 1.1 VBG pH VBG pCO2 VBG pO2 VBG HCO3 VBG O2 Saturation VBG Base Excess Anion Gap 11 L Estim Creat Clear Calc 65.4 Estimated GFR 43 Random Glucose 85 Lactic Acid Calcium 8.2 L Troponin I High Sens 4.0 D 2.8 NT-Pro-B Natriuret Pep 596.2 H COVID-19 (SHIRLEY) Negative COVID-19 Clin Com See Note Influenza Type A (VIGNESH) Negative Influenza Type B (VIGNESH) Negative Influenza A & B Note See Note Blood Type Antibody Screen 01/10/25 01/10/25 01/10/25 16:33 16:43 17:59 MCV MCH MCHC RDW Plt Count MPV Immature Gran % (Auto) Neut % (Auto) Lymph % (Auto) Milam % (Auto) Eos % (Auto) Baso % (Auto) Lymph # (Auto) Milam # (Auto) Eos # (Auto) Baso # (Auto) Abs Immat Gran (auto) Absolute Neuts (auto) Absolute Nucleated RBC Nucleated RBC % (auto) Hold Purple Top PT INR VBG pH 7.35 VBG pCO2 53 VBG pO2 58 VBG HCO3 30 H VBG O2 Saturation 79.0 VBG Base Excess 3.8 Anion Gap Estim Creat Clear Calc Estimated GFR Random Glucose Lactic Acid 0.9 Calcium Troponin I High Sens NT-Pro-B Natriuret Pep COVID-19 (SHIRLEY) COVID-19 Clin Com Influenza Type A (VIGNESH) Influenza Type B (VIGNESH) Influenza A & B Note Blood Type O Negative Antibody Screen NEGATIVE ECG Attestation: I personally reviewed and interpreted this ECG as follows: (Normal sinus rhythm with left axis deviation and right bundle branch block which is not new QTC is 466) Prior ECG tracings: available for review Imaging Radiologist's Impressions: Impressions Chest X-Ray 01/10/25 14:13 IMPRESSION: Platelike atelectasis right midlung. Electronically signed by: Osman Dickens MD 01/10/2025 02:32 PM EDT RP CHest CT IMPRESSION: Mild opacity of the lung base could represent atelectatic change or infection. Multiple pulmonary nodules measuring up to 4.[address] chest follow-up in 1 year as indicated Assessment and Plan (1) COPD exacerbation: Status: Acute (2) Wound of right foot: Status: Acute (3) Wound of left foot: Status: Acute Plan Pt is a 59-year-old male with past medical history hypertension, COPD on 2 L of oxygen during the day and 3 L at night, hyperlipidemia, CKD, tobacco dependence now smoking 3-4 cigarettes per day, chronic bilateral foot wounds being managed by the VNA and wound care clinic, presents to the ED BIBA for profound dyspnea worsening over the last month. Patient has not been able to attend wound care clinic and other doctors appointments due to his issues with breathing. Patient does not currently follow with a metalizing supervisor. Patient being admitted for COPD exacerbation with possible underlying pneumonia/atelectasis. Also looking into bilateral chronic wounds. COPD exacerbation with possible underlying pneumonia Duo nebs p.r.n. Budesonide b.i.d Patient is started on ceftriaxone and doxycycline empirically for possible pneumonia in the ED Telemetry with continuous pulse ox No leukocytosis, lactic acid normal. Oxygen via nasal cannula Supportive care with guaifenesin Patient now willing to attend pulmonary rehab once discharged, patient had refused this last admission Pulmonary consult placed, patient is not currently following with a metalizing supervisor Atelectasis Incentive spirometer ordered Anemia, Chronic Hgb 7.8, with noted SOB Stool for occult ordered Iron panel and B12 ordered Erythropoeiting level and Retic ct ordered Hold DVT prophylaxis Elevated BNP 596 Echo ordered, last echo was February of 2024 Strict I's and o's Low-sodium diet Bilateral chronic foot wounds Wound care consult Interim wound care orders placed X-rays of both feet ordered ID consult if indicated Chronic kidney disease GFR and creatinine clearance are at baseline Monitor Intake and Output Q8H Avoid hypotension Avoid nephrotoxic medications UA pending Hypertension Continue amlodipine and losartan with HCTZ once med rec is completed Avoid hypotension Hyperlipidemia Cardiac diet Patient not currently on statin Tobacco dependence Patient counseled on the benefits of smoking cessation Patient now smoking 3-4 cigarettes a day which is a reduction Nicotine patch offered Substance use disorder Patient currently on methadone Confirmation of dose pending Patient did take his daily dose already today No indication for toxicology screen, patient denies any illicit drug use or alcohol use and is not using marijuana DVT prophylaxis: Lovenox Med rec pending Full code status Quality Stroke Does the patient have a stroke diagnosis?: No Reason for No Anti-thrombotic by Day Two: N/A - Med Ordered VTE Prior VTE?: No VTE Risk Level:: Medical - moderate - high VTE Device Contraindication: N/A - Device Ordered VTE Drug Contraindication: N/A - Med Ordered
[2025-01-10 22:35] LABS: Iron 37 mcg/dL (45-160); Magnesium 2.5 mg/dL (1.6-2.6); Percent Iron Saturation 13 % (15-50); Total Iron Binding Capacity 287 mcg/dL (228-428); Unsaturated Iron Binding 250 ug/dL
--- NOTE | 2025-01-10 22:45 | PHA.MEDREC ---
Pharmacy Consult ? Medication Reconciliation Pharmacy has completed the medication reconciliation. Spoke to patient to confirm med list. Last dose of medications was this morning 01/10/25.
[2025-01-10] MEDS: Furosemide 20 MG/2 ML VIAL IVPUSH (22:58)
[2025-01-10] MEDS: 0.9 % Sodium Chloride Flush 3 ML SYRINGE IVFLUSH (23:01)
[2025-01-10 23:11] LABS: Appearance Urine Clear; Glucose Urine UA Negative (Negative); PH 6.0 (5.0-9.0); Specific Gravity - Urine 1.015 (1.005-1.025)
[2025-01-11] VITALS (11 sets, daily range): BP systolic 102–154; BP diastolic 52–78; PULSE 73–89; RESP 14–18; TEMP 36.3–37.7; O2SAT 92–100; BMI 40.9
--- NOTE | 2025-01-11 05:15 | HO.NURTONUR ---
59 A&Ox4 male biba from home reporting increased sob [id number] and increasing O2, 2L baseline on 4L now. Lungs diminished in bases. Ct showed mild opacity lung base multple pulmonary nodules. BNP 596 Hgb 7.8. Patient difficult stick US to Right uppper arm. uses urinal at bedside. Bilateral foot wounds chronic but unclear when last wound visit was as patient has not been able to go out d/.t his breathing. wounds cleansed with NS dried and nonstick dressing applied. Meds given in ED Mg, solumedrol, azithromycin, rocephin, lasix PMHx hypertension, COPD on 2 L of oxygen during the day and 3 L at night, hyperlipidemia, CKD, tobacco dependence now smokin
[2025-01-11 05:28] LABS: Reticulocytes Absolute 0.039 X10*6/uL (0.026-0.095)
[2025-01-11 05:32] LABS: Hematocrit 24.7 % (42.0-52.0); Hemoglobin 7.6 g/dl (14.0-18.0); Imm Gran Abs Auto 0.08 X10*3/uL (0.00-0.03); Imm Gran Pct Auto 1.2 % (0.0-0.4); Lymphocytes Absolute Auto 0.3 X10*3/uL (1.2-4.9); MANUAL DIFF FLAG SCAN; Mean Corpuscular HGB Conc 30.8 g/dl (31.0-36.0); Mean Corpuscular Hemoglobin 26.0 pg (27.0-33.0); Mean Corpuscular Volume 84.6 fL (80.0-98.0); NRBC Abs Auto 0.000 X10*3/uL (0.0-0.012); NRBC Pct Auto 0.0 /100WBC (0.0-0.2); Platelet Count 201 X10*3/uL (160-400); Red Blood Count 2.92 X10*6/uL (4.60-5.80); SCAN SMEAR FLAG 1; White Blood Count 6.8 X10*3/uL (4.8-10.8)
[2025-01-11 05:45] LABS: Alanine Aminotransferase 15 U/L (0-40); Albumin Level 2.8 g/dL (3.5-5.0); Alkaline Phosphatase 91 U/L (39-117); Anion Gap 12 (12-20); Aspartate Amino Transferase 32 U/L (5-37); Blood Urea Nitrogen 39 mg/dL (9-16); Calcium 8.1 mg/dL (8.4-10.2); Carbon Dioxide 24 mmol/L (22-29); Chloride 105 mmol/L (96-108); Creatinine Clr Calc Pharmacy 64.2; Estimated Glomerular Filt Rate 42; Potassium 5.1 mmol/L (3.3-5.1); Sodium 136 mmol/L (135-145); Total Protein 9.5 g/dL (6.5-8.0)
[2025-01-11 06:11] LABS: Vitamin B12 551 pg/mL (200-900)
--- NOTE | 2025-01-11 07:00 | CA_ITS ---
Transthoracic Echocardiogram Patient (Last, First, Middle): Carlos Younger, Gender: Male Date of : 1965 Age: 59 Procedure Date: 01/11/2025 Procedure Type: Transthoracic Echocardiogram Location: ER Height: 177. cm Weight: 134.72 kg BSA: 2.46 m2 Heart Rate: bpm BP: 154 / 78 mmHg Band Tumbler: CALLUM Referring MD: Elizabeth Clifford MANNEQUIN WIG MAKER-LESLIE Symptoms: elevated BNP Study Quality: Fair ECG Rhythm: Sinus Conclusions: - Normal left ventricular size and systolic function. There is mildly increased left ventricular wall thickness. Abnormal diastolic function is noted. Spectral Doppler is indicative of an impaired relaxation filling pattern. Normal left ventricular filling pressures. - Mildly increased right ventricular cavity size. There is normal right ventricular systolic function. - The left atrium is moderately dilated. - Moderately elevated right atrial pressure. Findings Procedure Information Contrast agent, definity, is being given per protocol without apparent complications. Left Ventricle Normal left ventricular size and systolic function. There is mildly increased left ventricular wall thickness. Abnormal diastolic function is noted. Spectral Doppler is indicative of an impaired relaxation filling pattern. Normal left ventricular filling pressures. Right Ventricle Mildly increased right ventricular cavity size. There is normal right ventricular systolic function. Atria The left atrium is moderately dilated. The right atrium is mildly dilated. Aortic Valve There is a normal trileaflet aortic valve. There is mild calcification of the aortic valve. There is no aortic valve stenosis. There is no aortic valve regurgitation. Mitral Valve The mitral valve appears normal. There is no mitral valve regurgitation. There is no mitral valve stenosis. Pulmonic Valve The pulmonic valve is likely normal. Tricuspid Valve Normal tricuspid valve structure. There is no tricuspid valve regurgitation. Moderately elevated right atrial pressure. There is no evidence of pulmonary hypertension. Great Vessels All visible segments of the aorta are normal in size. The visualized portions of the pulmonary artery and branches are normal. Venous The inferior vena cava is dilated and collapses greater than 50% with inspiration. Pericardium/Pleural Prominent epicardial adipose tissue noted. There is no evidence of pericardial effusion. Prior Study Comparison Changes noted compared to prior study dated: 03/24/2024. No septal flattening is systole noted on this study (pressure overload has improved), septal bounce present. Measurements 2D Linear Measurements IVSd: 1.22 0.6-0.9/0.6-1.0 cm LVIDd: 4.82 3.9-5.3/4.2-5.9 cm LVIDd Index: 1.96 2.4-3.2/2.2-3.1 cm/m2 LVIDs: 2.93 2.0-3.6 cm LVPWd: 1.23 0.7-1.1 cm Ao Root: 3.40 2.1-3.5 cm LA Diam: 4.40 2.7-3.8/3.0-4.0 cm LAIDs Index: 1.79 1.5-2.3 cm/m2 LV Mass: 283.15 67-162/88-224 g LV Mass Index: 115.10 43-95/49-115 g/m2 LVOT Diam: 2.20 3.0+(-)1.3 cm 2D Systolic Function EF 4C: 64.80 >55% EF 2C: 57.80 >55% EF BiP: 60.70 >55% Mitral Valve MV Pk E: 0.65 MV PK A: 0.95 MV Decel Time: 151.00 E/A: 0.70 E'Lateral: 7.94 E'Medial: 7.83 E/E' Med: 8.30 E/E' Lat: 8.20 PHT: 44.00 MVA PHT: 5.00 Decel Republic: 4.33 Aortic Valve AoV Pk David: 1.81 AoV Mn David: 1.24 AoV VTI: 0.39 AoV Pk Grad: 13.00 Aov Mn Grad: 7.00 LEEROY Cont.VTI: 2.35 LVOT LVOT Pk David: 1.20 LVOT Mn David: 0.82 LVOT VTI: 0.24 LVOT Pk Grad: 6.00 LVOT Mn Grad: 4.00 LVOT Diam: 2.20 LVOT Area: 3.80 Diastolic Function MV Pk E: 0.65 MV Pk A: 0.95 E/A: 0.70 E'Medial: 7.83 E/E' Med: 8.30 E' Laterial: 7.94 E/E' Lat: 8.20 Right Ventricle TAPSE (mm): 32.00 TVS' David: 11.00 Tricuspid Valve TR Pk David: 1.94 TR Pk Grad: 15.00 RA Press: 3.00 RVSP: 18.00 Great Vessels Aorta Ao Root-2D: 3.40 2.0-3.7 cm Ao Asc: 3.20 2.1-3.4 cm Pulmonary Veins Pulm Vein S/D 0.90 Pulmonary Valve PV Pk David: 1.01 Peak PV Grad: 4.00 Updated in Other Vendor System with Status of Final Miguel Angel Meza MD electronically signed on 01/12/2025 3:51:59 PM with status of Final
[2025-01-11] MEDS: Nicotine 14 MG PATCH.TD24 TRANSDERMA (07:49)
[2025-01-11] MEDS: 0.9 % Sodium Chloride Flush 3 ML SYRINGE IVFLUSH ×3 (07:50→21:47)
--- NOTE | 2025-01-11 08:23 | PC.NURSE ---
Methadone verifiaton sheet faxed to pharmacy.
[2025-01-11 10:05] LABS: Folate 6.5 ng/mL (> or = 4.0)
--- NOTE | 2025-01-11 11:19 | MHC.CM.PN ---
Addendum entered by Lucita Feliz 01/11/25 11:21: EDUCATION PROVIDED ON HCP, PT DECLINES TO COMPLETE ONE AT THIS TIME. Original Note: THIS CM MET WITH PT, HE STATES HE LIVES ALONE AT HOME. PT ACTIVE WITH [facility]. DME: CANE, WALKER, HOME O2 VIA [facility]. DCP: RETURN HOME WITH RESUMPTION OF PREVIOUS [facility], WILL ARRANGE HIS OWN TRANSPORT HOME. PCP: DR. RAMONA LOPEZ
--- NOTE | 2025-01-11 12:38 | HE.PHANOTE ---
Re Methadone Pt receives 80mg from [facility], was last dosed on 01/02/25 and was given 13 take home bottles. States he last took a dose yesterday 01/10/25.
--- NOTE | 2025-01-11 13:01 | PM.CNPUL ---
History of Present Illness History of Present Illness Consult date: 01/11/25 Chief complaint: Hypoxic respiratory failure Narrative: 59-year-old gentleman, active 30+ pack-year smoker, with underlying COPD on 2 L of supplemental oxygen, CKD, chronic lower extremity edema with recent hospitalization for COPD exacerbation, now admitted on 01/10/2025 with dyspnea and treated for COPD exacerbation. His CT chest demonstrated multiple bilateral 5 mm and under pulmonary nodules. On exam patient endorses improvement in his dyspnea since admission. Review of Systems Constitutional: Constitutional: Denies daytime sleepiness, Denies excessive sweating, Denies fatigue, Denies fever(s), Denies lethargy, Denies malaise, Denies night sweats, Denies snoring and Denies weight loss Eyes: Eyes: Denies blurry vision and Denies itchy eyes ENT: Denies nasal congestion, Denies post nasal drip, Denies sinus pain, Denies sinus pressure and Denies other ( Thrush) Cardiovascular: Cardiovascular: Denies chest pain, Reports pedal edema, Denies dyspnea, Reports dyspnea on exertion, Denies orthopnea and Denies paroxysmal nocturnal dyspnea Respiratory: Respiratory: Denies cough, Denies hemoptysis, Denies excessive phlegm production, Denies dyspnea, Reports dyspnea on exertion, Denies snoring and Reports wheezing Gastrointestinal: Gastrointestinal: Denies abdominal pain and Denies heartburn Musculoskeletal: Musculoskeletal: Denies myalgias, Denies arthralgias and Denies joint swelling Integumentary/Breasts: Skin/Breast: Denies rash Neurologic: Denies memory loss and Denies seizure-like activity Psychiatric: Psychiatric: Denies abnormal sleep pattern, Denies anxiety and Denies memory loss Endocrine: Endocrine: Denies excessive sweating, Denies fatigue and Denies heat intolerance Hematologic/Lymphatic: Hematologic/Lymphatic: Denies easy bruising Allergic/Immunologic: Allergic/Immunologic: Denies itchy eyes, Denies seasonal rhinorrhea and Reports wheezing PMFSH Past Medical History Medical History (Updated 01/11/25 @ 13:07 by German Washington MD) Multiple pulmonary nodules HLD (hyperlipidemia) Substance use disorder Wound of right foot Wound of left foot Acute osteomyelitis of right calcaneus PVD (peripheral vascular disease) Hypotension Smoker History of substance use disorder Depression HTN (hypertension) Surgical History Surgical History H/O elbow surgery (~2000) History of ankle surgery (~2003) H/O neck surgery (~1998) Social History Social History Household Members: None Housing: Apartment Do you presently have visiting nurse or other home services: Yes (asiya LAW) Alcohol intake: current Alcohol intake frequency: a few times a week Alcohol type: beer and hard liquor Patient Tobacco Use Status: Current everyday Tobacco user Tobacco use type: Cigarette Cigarette Packs Per Day: 10 Cigarettes Per Day: 10 Years Smoked: 45 Smoked in Last 30 Days: Yes Second Hand Smoke Exposure: No Use of substances other than those prescribed or required for medical reasons: No Advance Directives: No Advance Directives Information Provided: Yes service: No Current occupational status: disabled Travel History Ebola Risk: Travel/Contact With Anyone From Affected Area/s: No Has Patient Experienced Ebola Symptoms: No Meds Allergies Allergy/AdvReac Type Severity Reaction Status Date / Time codeine (CODEINE) Allergy Unknown NAUSEA Verified 01/10/25 14:03 Active Medications: Current Medications Acetaminophen (Acetaminophen 325 Mg Tablet) 650 mg PO Q6H PRN PRN Reason: Pain, Mild 1-3,fever,headache Albuterol/Ipratropium (Albuterol/Iprat 2.5/0.5mg 3 Ml Ampul.Neb) 3 ml INHALE Q4H PRN PRN Reason: Shortness of Breath/Wheezing Budesonide (Budesonide 0.5 Mg/2 Ml Ampul.Neb) 0.5 mg INHALE [facility] Last Admin: 01/11/25 08:40 Dose: 0.5 mg Calcium Carbonate (Calcium Carbonate 750 Mg Tab.Chew) 750 mg PO Q4H PRN PRN Reason: Heartburn Ceftriaxone Sodium (Ceftriaxone Sodium 1 Gm Vial) 1 gm IVPUSH Q24H [facility] Enoxaparin Sodium (Enoxaparin Sodium 40 Mg/0.4 Ml Syringe) 40 mg SUBCUT Q24H [facility] On Hold: 01/11/25 03:01 Last Admin: 01/10/25 22:58 Dose: 40 mg Guaifenesin (Guaifenesin 200 Mg/10 Ml 10 Ml Liquid) 10 ml PO Q4H PRN PRN Reason: Cough Doxycycline Hyclate 100 mg/ (Sodium Chloride) 250 mls @ 166.67 mls/hr IV Q12H [facility] Last Infusion: 01/11/25 09:19 Dose: Infused Magnesium Hydroxide (Milk Of Magnesia 30 Ml Oral.Susp) 30 ml PO DAILY PRN PRN Reason: Constipation Melatonin (Melatonin 3 Mg Tablet) 6 mg PO BEDTIME PRN PRN Reason: Insomnia Methylprednisolone Sodium Succinate (Methylprednisolone Sod Succ 125 Mg/2 Ml Vial) 40 mg IVPUSH Q12H [facility] Nicotine (Nicotine 14 Mg Patch.Td24) 14 mg TRANSDERMA DAILY [facility] Last Admin: 01/11/25 07:49 Dose: 14 mg Ondansetron HCl (Ondansetron Hcl 4 Mg/2 Ml Vial) 4 mg IVPUSH Q8H PRN PRN Reason: Nausea and Vomiting Polyethylene Glycol (Polyethylene Glycol 3350 17 Gm Powd.Pack) 17 gm PO DAILY PRN PRN Reason: Constipation Senna (Sennosides 8.6 Mg Tablet) 17.2 mg PO BEDTIME [facility] Sodium Chloride (0.9 % Sodium Chloride Flush 3 Ml Syringe) 3 ml IVFLUSH QSHIFT [facility] Last Admin: 01/11/25 07:50 Dose: 3 ml Home Medications ?Medication ?Instructions ?Recorded ?Confirmed ?Last Taken ?Type albuterol sulfate 90 mcg/actuation 2 puff inhalation QID PRN asthma 11/11/22 01/10/25 03/21/24 History aerosol inhaler (Ventolin HFA) amlodipine 5 mg tablet 5 mg PO DAILY 11/11/22 01/10/25 01/10/25 History hydroxyzine HCl 25 mg tablet 25 mg PO BID PRN Anxiety 11/11/22 01/10/25 11/27/24 History methadone 5 mg/5 mL oral solution 80 mg PO DAILY 11/11/22 01/11/25 01/10/25 08:00 History sertraline 100 mg tablet 150 mg PO DAILY 11/11/22 01/10/25 01/10/25 History losartan 50 mg-hydrochlorothiazide 1 tab PO DAILY 03/21/24 01/10/25 01/10/25 History 12.5 mg tablet nicotine 21 mg/24 hr daily 1 patch topical DAILY 03/21/24 01/10/25 01/10/25 History transdermal patch betamethasone dipropionate 0.05 % 1 appl topical DAILY 11/28/24 01/10/25 01/10/25 History topical cream furosemide 20 mg tablet 20 mg PO DAILY 11/28/24 01/10/25 01/10/25 History ferrous sulfate 325 mg (65 mg 325 mg PO DAILY 01/10/25 01/10/25 01/10/25 History iron) tablet Physical Exam Vital Signs: Vital Signs: Last Vital Signs Temp 98.6 F 01/11/25 07:47 Pulse 86 01/11/25 08:42 Resp 16 01/11/25 08:42 BP 149/70 H 01/11/25 07:47 Pulse Ox 95 01/11/25 07:47 O2 Del Method Nasal Cannula 01/11/25 07:47 O2 Flow Rate 4 01/11/25 07:47 Oxygen Flow Rate 3 01/10/25 13:45 BMI result Body Mass Index 42.7 Const: General: no acute distress, alert and awake Eyes: Sclerae: sclerae normal EOM: EOMs intact bilaterally Neck: Neck: Yes no lymphadenopathy, Yes trachea midline and Yes supple Resp: Effort & Inspection: normal respiratory effort and no respiratory distress Auscultation: wheezes (Mild bilateral expiratory) Cardio: Rate: regular rate Rhythm: regular rhythm Heart sounds: no gallops, no murmurs and no rubs GI: Palpation (GI): Soft to palpation and Other GI palpation findings present ( Nontender) Auscultation: normal bowel sounds Extrem: General: Yes no pedal edema, No clubbing and No cyanosis Results Laboratory Findings 01/11/25 04:10 01/11/25 04:10 ABG, PT/INR, D-dimer: PT/INR, D-dimer PT 12.5 SEC (10.9-12.4) H 01/10/25 14:05 INR 1.1 (0.9-1.1) 01/10/25 14:05 Abnormal lab findings: Abnormal Labs 01/10/25 01/10/25 01/10/25 14:05 16:25 16:33 RBC 2.98 L Hgb 7.8 L Hct 25.6 L MCH 26.2 L MCHC 30.5 L RDW 18.0 H MPV 8.3 L Immature Gran % (Auto) 0.7 H Neut % (Auto) Lymph % (Auto) 11.9 L [place] % (Auto) 13.9 H Lymph # (Auto) 0.8 L Abs Immat Gran (auto) 0.05 H Retic Hgb Equivalent PT 12.5 H VBG HCO3 30 H Anion Gap 11 L BUN 44 H Creatinine 1.64 H Random Glucose Calcium 8.2 L Iron 37 L % Saturation 13 L NT-Pro-B Natriuret Pep 596.2 H Total Protein Albumin 01/11/25 04:10 RBC 2.92 L Hgb 7.6 L Hct 24.7 L MCH 26.0 L MCHC 30.8 L RDW 17.7 H MPV 8.4 L Immature Gran % (Auto) 1.2 H Neut % (Auto) 93.1 H Lymph % (Auto) 4.6 L [place] % (Auto) 1.0 L Lymph # (Auto) 0.3 L Abs Immat Gran (auto) 0.08 H Retic Hgb Equivalent 28.4 L PT VBG HCO3 Anion Gap BUN 39 H Creatinine 1.67 H Random Glucose 172 H Calcium 8.1 L Iron % Saturation NT-Pro-B Natriuret Pep Total Protein 9.5 H Albumin 2.8 L Assessment and Plan (1) COPD exacerbation: Status: Acute (2) Chronic hypoxic respiratory failure: Status: Acute Plan Impression: 59-year-old gentleman with underlying COPD on 2-3 L, obesity, likely KAROLYN/ohs admitted with dyspnea deemed to be secondary to COPD exacerbation, now improving. Recommendations: Agree with current therapeutic regimen including systemic glucocorticoids, nebulized bronchodilators, and empiric azithromycin. Suggest discontinue nebulized budesonide. Suggest rapid taper off systemic glucocorticoids. Suggest starting on Trelegy. Procedures Date of Service Date of Service: 01/11/25
--- NOTE | 2025-01-11 14:54 | HO.WOUND ---
Wound Consult: Initial 59 yr old male admitted to [facility] on 01/10/25 See progress notes and H&P for detailed history. Wound consult placed for lower extremity wounds. Patient agreeable to assessment and photo documentation. Patient known by wound care team from previous admissions. patient also follows outpatient with [facility] wound center. Patient also has visiting nurses for dressing changes every other day. most recently has been using hydrofera blue. Upon assessment today, wounds are overall improved, with moisture/maceration to hay wound. Recommend durafiber ag for increased drainage absorption. patient reports using lymphedema pumps at home. Left Medial ankle Left Plantar heel Right Medial ankle Right Posterior Right lateral - does not appear to be open wound, moist/macerated skin from wound drainage. Etiology: venous stasis ulcers Wound Bed: mixed/marbled red/pink/yellow Drainage / Odor: moderate serous/yellow no odor Edges: ? irregular, macerated Hay wound: ? No Induration, Fluctuance or Warmth noted Pain: none Goals of Treatment: ? drainage absorption with durafiber ag. Recommendations: 1. Turn and Reposition every 2 hours and as needed for patient comfort. Use pillows or wedges to support off loading positions. 2. Off Load all bony prominences with use of pillows and heel boots if needed. Apply Preventative foams where needed. 3. Monitor for incontinence and moisture control, use barrier creams when needed for prevention and treatment. 4. Provide adequate and supplemental nutrition. 5. Order or Continue low air loss mattress. 6. When applicable maintain blood glucose levels per Providers order. Left medial ankle, left plantar, right medial/posterior ankle: cleanse with saline, pat dry, apply triad paste hay wound, apply durafiber ag to wound bed, cover with ABD pad, wrap with rolled gauze/kerlix, change every other day and PRN Re-consult wound care Nurse for wound deterioration or wound changes.
[2025-01-11] MEDS: methADONE HCl 20 MG/2 ML ORAL.CONC 80 MG PO (14:58)
[2025-01-11] MEDS: Ferrous Sulfate 324 MG TABLET.DR PO (14:59)
--- NOTE | 2025-01-11 15:27 | PC.NURSE ---
Pharmacy contacted for Kenalog dose, awaiting arrival.
--- NOTE | 2025-01-11 17:15 | P.PNIM_ITS ---
Subjective Subjective Date of Service: 01/12/25 Interval History: copd leg ulcers Review of Systems Review of Systems: Yes all other systems are reviewed and are negative Physical Exam 2 Exam: Exam: Appearance: Alert.? Oriented X3.? Short of breath with exertion cvs: rrr, [id number] . res: air entry diminished, bilateral wheezing abd: no rebound or guarding ,nt, bs present. ext pulses present , no cyanosis. neuro: axo3 , nonfocal. Vital Signs: Vital Signs: Last Vital Signs Temp 100 F 01/11/25 13:24 Pulse 73 01/11/25 13:24 Resp 18 01/11/25 13:24 BP 120/54 L 01/11/25 15:00 Pulse Ox 100 01/11/25 13:24 O2 Del Method Nasal Cannula 01/11/25 13:24 O2 Flow Rate 2 01/11/25 13:24 Oxygen Flow Rate 3 01/10/25 13:45 BMI result Body Mass Index 42.7 Objective Data Active Medications Acetaminophen (Acetaminophen 325 Mg Tablet) 650 mg PO Q6H PRN PRN Reason: Pain, Mild 1-3,fever,headache Last Admin: 01/11/25 14:41 Dose: 650 mg Documented By: MERNA Albuterol/Ipratropium (Albuterol/Iprat 2.5/0.5mg 3 Ml Ampul.Neb) 3 ml INHALE Q4H PRN PRN Reason: Shortness of Breath/Wheezing Amlodipine Besylate (Amlodipine Besylate 5 Mg Tablet) 5 mg PO DAILY [facility]; Protocol Last Admin: 01/11/25 14:41 Dose: 5 mg Documented By: MERNA Budesonide (Budesonide 0.5 Mg/2 Ml Ampul.Neb) 0.5 mg INHALE RBID [facility] Last Admin: 01/11/25 08:40 Dose: 0.5 mg Documented By: SCOVIGEREMIAS Calcium Carbonate (Calcium Carbonate 750 Mg Tab.Chew) 750 mg PO Q4H PRN PRN Reason: Heartburn Ceftriaxone Sodium (Ceftriaxone Sodium 1 Gm Vial) 1 gm IVPUSH Q24H [facility] Enoxaparin Sodium (Enoxaparin Sodium 40 Mg/0.4 Ml Syringe) 40 mg SUBCUT Q24H [facility] On Hold: 01/11/25 03:01 Last Admin: 01/10/25 22:58 Dose: 40 mg Documented By: JORDEN Ferrous Sulfate (Ferrous Sulfate 324 Mg Tablet.Dr) 324 mg PO DAILY [facility] Last Admin: 01/11/25 14:59 Dose: 324 mg Documented By: MERNA Fluticasone/Umeclidinium/Vilanterol (Fluticasone/Umeclidinium/Vilanterol 200/62.5/25 Blst.W.Dev) 1 puff INHALE RDAILY [facility] Furosemide (Furosemide 20 Mg Tablet) 20 mg PO DAILY [facility]; Protocol Last Admin: 01/11/25 14:41 Dose: 20 mg Documented By: MERNA Guaifenesin (Guaifenesin 200 Mg/10 Ml 10 Ml Liquid) 10 ml PO Q4H PRN PRN Reason: Cough Hydrochlorothiazide (Hydrochlorothiazide 12.5 Mg Tablet) 12.5 mg PO DAILY [facility] Last Admin: 01/11/25 14:59 Dose: 12.5 mg Documented By: MERNA Hydroxyzine HCl (Hydroxyzine Hcl 25 Mg Tablet) 25 mg PO BID PRN PRN Reason: Anxiety Doxycycline Hyclate 100 mg/ (Sodium Chloride) 250 mls @ 166.67 mls/hr IV Q12H [facility] Last Infusion: 01/11/25 09:19 Dose: Infused Documented By: MERNA Losartan Potassium (Losartan Potassium 50 Mg Tablet) 50 mg PO DAILY [facility] Last Admin: 01/11/25 15:00 Dose: 50 mg Documented By: MERNA Magnesium Hydroxide (Milk Of Magnesia 30 Ml Oral.Susp) 30 ml PO DAILY PRN PRN Reason: Constipation Melatonin (Melatonin 3 Mg Tablet) 6 mg PO BEDTIME PRN PRN Reason: Insomnia Methadone HCl (Methadone Hcl 20 Mg/2 Ml Oral.Conc) 80 mg PO DAILY [facility] Last Admin: 01/11/25 14:58 Dose: 80 mg Documented By: MERNA Co-signed By: LA NENA Methylprednisolone Sodium Succinate (Methylprednisolone Sod Succ 125 Mg/2 Ml Vial) 40 mg IVPUSH Q12H [facility] Nicotine (Nicotine 14 Mg Patch.Td24) 14 mg TRANSDERMA DAILY [facility] Last Admin: 01/11/25 07:49 Dose: 14 mg Documented By: MERNA Ondansetron HCl (Ondansetron Hcl 4 Mg/2 Ml Vial) 4 mg IVPUSH Q8H PRN PRN Reason: Nausea and Vomiting Polyethylene Glycol (Polyethylene Glycol 3350 17 Gm Powd.Pack) 17 gm PO DAILY PRN PRN Reason: Constipation Senna (Sennosides 8.6 Mg Tablet) 17.2 mg PO BEDTIME [facility] Sertraline HCl (Sertraline Hcl 50 Mg Tablet) 150 mg PO DAILY [facility] Last Admin: 01/11/25 14:59 Dose: 150 mg Documented By: MERNA Sodium Chloride (0.9 % Sodium Chloride Flush 3 Ml Syringe) 3 ml IVFLUSH QSHIFT [facility] Last Admin: 01/11/25 07:50 Dose: 3 ml Documented By: MERNA Triamcinolone Acetonide (Triamcinolone Acet 0.5 % Cream 15 Gm Tube) 1 appl TOPICAL DAILY [facility] Labs 01/12/25 06:41 01/11/25 04:10 Labs: Laboratory Results - last 24 hr 01/10/25 01/10/25 01/10/25 14:05 16:43 17:59 MCV MCH MCHC RDW Plt Count MPV Immature Gran % (Auto) Neut % (Auto) Lymph % (Auto) [place] % (Auto) Eos % (Auto) Baso % (Auto) Lymph # (Auto) [place] # (Auto) Eos # (Auto) Baso # (Auto) Abs Immat Gran (auto) Absolute Neuts (auto) Absolute Nucleated RBC Nucleated RBC % (auto) Smear Tech's Comments Absolute Retic Percent Retic Immature Retic Fraction Retic Hgb Equivalent Anion Gap Estim Creat Clear Calc Estimated GFR Random Glucose Lactic Acid 0.9 Calcium Magnesium 2.5 Iron 37 L TIBC 287 % Saturation 13 L Unsat Iron Binding 250 Total Bilirubin AST ALT Alkaline Phosphatase Total Protein Albumin Vitamin B12 Folate Urine Color Urine Appearance Urine pH Ur Specific [place] Urine Protein Urine Glucose (UA) Urine Ketones Urine Blood Urine Nitrite Ur Leukocyte Esterase Blood Type O Negative Antibody Screen NEGATIVE 01/10/25 01/11/25 23:05 04:10 MCV 84.6 MCH 26.0 L MCHC 30.8 L RDW 17.7 H Plt Count 201 MPV 8.4 L Immature Gran % (Auto) 1.2 H Neut % (Auto) 93.1 H Lymph % (Auto) 4.6 L [place] % (Auto) 1.0 L Eos % (Auto) 0.1 Baso % (Auto) 0.0 Lymph # (Auto) 0.3 L [place] # (Auto) 0.1 Eos # (Auto) 0.0 Baso # (Auto) 0.0 Abs Immat Gran (auto) 0.08 H Absolute Neuts (auto) 6.3 Absolute Nucleated RBC 0.000 Nucleated RBC % (auto) 0.0 Smear Tech's Comments VERIFIED Absolute Retic 0.039 Percent Retic 1.4 Immature Retic Fraction 10.2 Retic Hgb Equivalent 28.4 L Anion Gap 12 Estim Creat Clear Calc 64.2 Estimated GFR 42 Random Glucose 172 H Lactic Acid Calcium 8.1 L Magnesium Iron TIBC % Saturation Unsat Iron Binding Total Bilirubin 0.1 AST 32 ALT 15 Alkaline Phosphatase 91 Total Protein 9.5 H Albumin 2.8 L Vitamin B12 551 Folate 6.5 Urine Color Yellow Urine Appearance Clear Urine pH 6.0 Ur Specific [place] 1.015 Urine Protein Negative Urine Glucose (UA) Negative Urine Ketones Negative Urine Blood Negative Urine Nitrite Negative Ur Leukocyte Esterase Negative Blood Type Antibody Screen Assessment and Plan (1) COPD exacerbation: Status: Acute Assessment and Plan: 59-year-old male with past medical history hypertension, COPD on 2 L of oxygen during the day and 3 L at night, hyperlipidemia, CKD, tobacco dependence now smoking 3-4 cigarettes per day, chronic bilateral foot wounds being managed by the [facility], presents to the ED BIBA for profound dyspnea worsening over the last month. Patient has not been able to attend wound care clinic and other doctors appointments due to his issues with breathing. Patient does not currently follow with a ring stamper. Patient being admitted for COPD exacerbation with possible underlying pneumonia/atelectasis. Also looking into bilateral chronic wounds. COPD exacerbation with possible underlying pneumonia continue Duo nebs ,trelegy,antibiotics , oxygen Telemetry with continuous pulse ox Supportive care with guaifenesin Patient now willing to attend pulmonary rehab once discharged, patient had refused this last admission Pulmonary consult placed, patient is not currently following with a ring stamper Atelectasis Incentive spirometer ordered Anemia, Chronic Hgb 7.8, with noted SOB Stool for occult ordered Iron panel and B12 ordered Erythropoeiting level pendingand Retic ct ordered Hold DVT prophylaxis Elevated BNP 596 Echo ordered, last echo was February of 2024 Strict I's and o's Low-sodium diet Bilateral chronic foot wounds Wound care consult Interim wound care orders placed X-rays of both feet ordered ID consult Chronic kidney disease GFR and creatinine clearance are at baseline Monitor Intake and Output Q8H Avoid hypotension Avoid nephrotoxic medications UA pending Hypertension Continue amlodipine and losartan with HCTZ once med rec is completed Avoid hypotension Hyperlipidemia Cardiac diet Patient not currently on statin Tobacco dependence Patient counseled on the benefits of smoking cessation Patient now smoking 3-4 cigarettes a day which is a reduction Nicotine patch offered Substance use disorder Patient currently on methadone Confirmation of dose pending Patient did take his daily dose already today No indication for toxicology screen, patient denies any illicit drug use or alcohol use and is not using marijuana DVT prophylaxis: [facility] devices Quality Stroke Does the patient have a stroke diagnosis?: No Reason for No Anti-thrombotic by Day Two: N/A - Med Ordered VTE Prior VTE?: No VTE Risk Level:: Medical - moderate - high VTE Device Contraindication: N/A - Device Ordered VTE Drug Contraindication: N/A - Med Ordered
--- NOTE | 2025-01-11 17:22 | HO.NURTONUR ---
Pt arrived c/o worsening SOB x1 month, was receiving tx for b/l LE wounds @ [facility]ound clinic but has not been able to follow up with them since worsening SOB. BNP 596 Hgb 7.8. Patient difficult stick, US to RUE. Hx: COPD (2L baseline), HTN, CKD, b/l leg wounds. Currently on 4L O2, uses urinal @ bedside, aaox4 Meds given in ED Mg, solumedrol, azithromycin, rocephin, lasix
[2025-01-12 03:17] VITALS: BP 116/57; PULSE 72; RESP 18; TEMP 36.1; O2SAT 93
[2025-01-12] MEDS: Albuterol/Iprat 2.5/0.5MG 3 ML AMPUL.NEB INHALE (05:25)
[2025-01-12 06:52] LABS: Hematocrit 25.0 % (42.0-52.0); Hemoglobin 7.9 g/dl (14.0-18.0); Mean Corpuscular HGB Conc 31.6 g/dl (31.0-36.0); Mean Corpuscular Hemoglobin 26.4 pg (27.0-33.0); Mean Corpuscular Volume 83.6 fL (80.0-98.0); NRBC Abs Auto 0.000 X10*3/uL (0.0-0.012); NRBC Pct Auto 0.0 /100WBC (0.0-0.2); Platelet Count 203 X10*3/uL (160-400); Red Blood Count 2.99 X10*6/uL (4.60-5.80); White Blood Count 8.0 X10*3/uL (4.8-10.8)
[2025-01-12 07:18] LABS: Iron 52 mcg/dL (45-160); Percent Iron Saturation 18 % (15-50); Total Iron Binding Capacity 292 mcg/dL (228-428); Unsaturated Iron Binding 240 ug/dL
[2025-01-12 07:33] LABS: Ferritin 62 ng/mL (20-250)
[2025-01-12 07:49] VITALS: BP 121/59; PULSE 76; RESP 18; TEMP 36.5; O2SAT 93
[2025-01-12] MEDS: Nicotine 14 MG PATCH.TD24 TRANSDERMA (09:10)
[2025-01-12] MEDS: 0.9 % Sodium Chloride Flush 3 ML SYRINGE IVFLUSH ×3 (09:11→20:30)
[2025-01-12] MEDS: methADONE HCl 20 MG/2 ML ORAL.CONC 80 MG PO (09:12)
[2025-01-12] MEDS: Ferrous Sulfate 324 MG TABLET.DR PO (09:15)
[2025-01-12 12:00] VITALS: BP 127/56; PULSE 74; RESP 18; TEMP 36.7; O2SAT 92
--- NOTE | 2025-01-12 12:39 | P.CONNP_ITS ---
History of Present Illness Reason for Consult Consult date: 01/12/25 Chief Complaint Chief complaint: Hypoxic respiratory failure History of Present Illness Narrative: 59-year-old gentleman with past medical history of COPD on home oxygen, hypertension, hyperlipidemia, chronic kidney disease has chronic bilateral foot wounds and been dealing with it for over a year now. He is admitted to the hospital due to COPD exacerbation leading to shortness of breath. He has some renal dysfunction for over an year but has not been able to see a chemical cell changer outpatient due to wound issues in the past year. His baseline creatinine has been between 1.5-1.7 in the past year, which is a step-up from 1.1-1.3 in 2023. Review of Systems Review of Systems Const : no body aches, no chills, no excessive sweating and+fatigue Eyes: no blurry vision and no change in vision ENT: no bleeding gums and no change in voice, no dizziness Card: no chest pain, ? no orthopnea, no PND Resp: + cough, ?no excessive phlegm production, +SOB GI: no abdominal pain and no nausea, no vomiting : no hematuria, no urinary frequency and no difficulty voiding Musc: no abnormal gait, no bone pain Neuro: no ?abnormal movements, no weakness, no dizziness, no abnormal gait and no behavioral changes Psych: no behavioral changes and no change in appetite Endo: no change in body appearance, no cold intolerance, no excessive sweating and no fatigue PMFSH Past Medical History Medical History (Updated 01/12/25 @ 12:48 by Amanuel Mayfield MD) Multiple pulmonary nodules HLD (hyperlipidemia) Substance use disorder Wound of right foot Wound of left foot Acute osteomyelitis of right calcaneus PVD (peripheral vascular disease) Hypotension Smoker History of substance use disorder Depression HTN (hypertension) Surgical History Surgical History H/O elbow surgery (~2000) History of ankle surgery (~2003) H/O neck surgery (~1998) Social History Social History Household Members: None Housing: Apartment Do you presently have visiting nurse or other home services: Yes Alcohol intake: current Alcohol intake frequency: a few times a week Alcohol type: beer and hard liquor Patient Tobacco Use Status: Current everyday Tobacco user Tobacco use type: Cigarette Cigarette Packs Per Day: 10 Cigarettes Per Day: 4 Years Smoked: 45 Second Hand Smoke Exposure: No service: No Current occupational status: disabled Travel History Ebola Risk: Travel/Contact With Anyone From Affected Area/s: No Has Patient Experienced Ebola Symptoms: No Meds Allergies Allergy/AdvReac Type Severity Reaction Status Date / Time codeine (CODEINE) Allergy Unknown NAUSEA Verified 01/10/25 14:03 Active Medications: Current Medications Acetaminophen (Acetaminophen 325 Mg Tablet) 650 mg PO Q6H PRN PRN Reason: Pain, Mild 1-3,fever,headache Last Admin: 01/12/25 04:45 Dose: 650 mg Albuterol/Ipratropium (Albuterol/Iprat 2.5/0.5mg 3 Ml Ampul.Neb) 3 ml INHALE Q4H PRN PRN Reason: Shortness of Breath/Wheezing Last Admin: 01/12/25 05:25 Dose: 3 ml Amlodipine Besylate (Amlodipine Besylate 5 Mg Tablet) 5 mg PO DAILY [facility]; Protocol Last Admin: 01/12/25 09:15 Dose: 5 mg Calcium Carbonate (Calcium Carbonate 750 Mg Tab.Chew) 750 mg PO Q4H PRN PRN Reason: Heartburn Ceftriaxone Sodium (Ceftriaxone Sodium 1 Gm Vial) 1 gm IVPUSH Q24H [facility] Last Admin: 01/11/25 21:46 Dose: 1 gm Enoxaparin Sodium (Enoxaparin Sodium 40 Mg/0.4 Ml Syringe) 40 mg SUBCUT Q24H [facility] On Hold: 01/11/25 03:01 Last Admin: 01/10/25 22:58 Dose: 40 mg Ferrous Sulfate (Ferrous Sulfate 324 Mg Tablet.Dr) 324 mg PO DAILY [facility] Last Admin: 01/12/25 09:15 Dose: 324 mg Fluticasone/Umeclidinium/Vilanterol (Fluticasone/Umeclidinium/Vilanterol 200/62.5/25 Blst.W.Dev) 1 puff INHALE RDAILY [facility] Last Admin: 01/12/25 08:21 Dose: Not Given Furosemide (Furosemide 20 Mg Tablet) 20 mg PO DAILY [facility]; Protocol Last Admin: 01/12/25 09:16 Dose: 20 mg Guaifenesin (Guaifenesin 200 Mg/10 Ml 10 Ml Liquid) 10 ml PO Q4H PRN PRN Reason: Cough Hydrochlorothiazide (Hydrochlorothiazide 12.5 Mg Tablet) 12.5 mg PO DAILY [facility] Last Admin: 01/12/25 09:14 Dose: 12.5 mg Hydroxyzine HCl (Hydroxyzine Hcl 25 Mg Tablet) 25 mg PO BID PRN PRN Reason: Anxiety Doxycycline Hyclate 100 mg/ (Sodium Chloride) 250 mls @ 166.67 mls/hr IV Q12H [facility] Last Infusion: 01/12/25 12:00 Dose: Infused Losartan Potassium (Losartan Potassium 50 Mg Tablet) 50 mg PO DAILY [facility] Last Admin: 01/12/25 09:15 Dose: 50 mg Magnesium Hydroxide (Milk Of Magnesia 30 Ml Oral.Susp) 30 ml PO DAILY PRN PRN Reason: Constipation Melatonin (Melatonin 3 Mg Tablet) 6 mg PO BEDTIME PRN PRN Reason: Insomnia Methadone HCl (Methadone Hcl 20 Mg/2 Ml Oral.Conc) 80 mg PO DAILY [facility] Last Admin: 01/12/25 09:12 Dose: 80 mg Methylprednisolone Sodium Succinate (Methylprednisolone Sod Succ 125 Mg/2 Ml Vial) 40 mg IVPUSH Q12H [facility] Last Admin: 01/12/25 09:13 Dose: 40 mg Nicotine (Nicotine 14 Mg Patch.Td24) 14 mg TRANSDERMA DAILY [facility] Last Admin: 01/12/25 09:10 Dose: 14 mg Omeprazole (Omeprazole 20 Mg Capsule.Dr) 20 mg PO DAILY@0630 [facility] Last Admin: 01/12/25 05:45 Dose: 20 mg Ondansetron HCl (Ondansetron Hcl 4 Mg/2 Ml Vial) 4 mg IVPUSH Q8H PRN PRN Reason: Nausea and Vomiting Polyethylene Glycol (Polyethylene Glycol 3350 17 Gm Powd.Pack) 17 gm PO DAILY PRN PRN Reason: Constipation Senna (Sennosides 8.6 Mg Tablet) 17.2 mg PO BEDTIME [facility] Last Admin: 01/11/25 21:46 Dose: 17.2 mg Sertraline HCl (Sertraline Hcl 50 Mg Tablet) 150 mg PO DAILY [facility] Last Admin: 01/12/25 09:14 Dose: 150 mg Sodium Chloride (0.9 % Sodium Chloride Flush 3 Ml Syringe) 3 ml IVFLUSH QSHIFT [facility] Last Admin: 01/12/25 09:11 Dose: 3 ml Triamcinolone Acetonide (Triamcinolone Acet 0.5 % Cream 15 Gm Tube) 1 appl TOPICAL DAILY [facility] Last Admin: 01/12/25 12:19 Dose: Not Given Home Medications ?Medication ?Instructions ?Recorded ?Confirmed ?Last Taken ?Type albuterol sulfate 90 mcg/actuation 2 puff inhalation Q ID PRN asthma 11/11/22 01/10/25 03/21/24 History aerosol inhaler (Ventolin HFA) amlodipine 5 mg tablet 5 mg PO DAILY 11/11/2201/1001/10/25 History hydroxyzine HCl 25 mg tablet 25 mg PO BID PRN Anxiety 11/11/22 01/10/25 11/27/24 History methadone 5 mg/5 mL oral solution 80 mg PO DAILY 11/1101/11/25 01/10/25 08:00 History sertraline 100 mg tablet 150 mg PO DAILY 11/11/2201/10/25 History losartan 50 mg-hydrochlorothiazide 1 tab PO DAILY 02/2801/10/25 01/10/25 History 12.5 mg tablet nicotine 21 mg/24 hr daily 1 patch topical DAILY 03/2101/10/25 01/10/25 History transdermal patch betamethasone dipropionate 0.05 % 1 appl topical DAILY 11/28/24 01/10/25 01/10/25 History topical cream furosemide 20 mg tablet 20 mg PO DAILY 11/28/2412/2801/10/25 History ferrous sulfate 325 mg (65 mg 325 mg PO DAILY 01/10/25 01/10/25 01/10/25 History iron) tablet Physical Exam Vital Signs: Last Vital Signs Temp 98.0 F 01/12/25 12:00 Pulse 74 01/12/25 12:00 Resp 18 01/12/25 12:00 BP 127/56 L 01/12/25 12:00 Pulse Ox 92 01/12/25 12:00 O2 Del Method Nasal Cannula 01/12/25 12:00 O2 Flow Rate 3 01/12/25 12:00 Oxygen Flow Rate 3 01/10/25 13:45 BMI result Body Mass Index 40.9 General: male in mild acute distress sitting in her recliner Nutritional Appearance: well nourished and overweight Eyes: appearance normal, both eyes and all related structures; Alignment and Position: alignment normal and position normal Neck: No lymphadenopathy, no thyromegaly Resp: bilateral air entry equal, bilateral wheezes Cardio: Regular rate, regular rhythm; Heart sounds: S1 normal heart sound present and S2 normal heart sound present GI: soft, nontender, no guarding, no hepatosplenomegaly : bladder normal to inspection, bladder normal to palpation, no renal angle tenderness Skin: no rashes or lesions noted and elasticity normal Neuro: oriented to person, oriented to place, oriented to time and moves all extremities Results Lab Results 01/12/25 06:41 01/11/25 04:10 Lab results: Chemistry 01/10/25 01/11/25 14:05 04:10 Sodium 138 136 Potassium 4.8 5.1 Carbon Dioxide 27 24 BUN 44 H 39 H Creatinine 1.64 H 1.67 H Calcium 8.2 L 8.1 L Hematology 01/10/25 01/11/25 01/12/25 14:05 04:10 06:41 WBC 7.1 6.8 8.0 Hgb 7.8 L 7.6 L 7.9 L Plt Count 215 201 203 Urinalysis 01/10/25 23:05 Urine Color Yellow Urine Appearance Clear Urine pH 6.0 Ur Specific [place] 1.015 Urine Protein Negative Urine Glucose (UA) Negative Urine Ketones Negative Urine Blood Negative Urine Nitrite Negative Ur Leukocyte Esterase Negative Assessment and Plan (1) Chronic kidney disease: Status: Acute (2) Anemia: Status: Acute Plan Chronic kidney disease stage IIIB: - possibly secondary to longstanding infection and wound in the leg leading to kidney injury - baseline creatinine has been between 1.5-1.7 since 2024, it was around 1.1-1.3 in 2023. - urine clean, no protein, no RBCs - we will follow him up in the clinic, we will sign off for now. Patient requests to be seen in the clinic next year once his leg condition is situated. Anemia: - Hb 7.9, unsure etiology but this is not secondary to renal dysfunction as he still has enough kidney function left to produce erythropoietin - ferritin low, transferrin saturation low; but we will hold off on iron supplementation given active infection. Procedures Date of Service Date of Service: 01/12/25
--- NOTE | 2025-01-12 13:09 | P.CDIM_ITS ---
PROVIDER RESPONSE TEXT: To clarify, the appropriate diagnosis supported by the clinical indicators: CKD, stage 3 QUERY TEXT: PHYSICIAN'S DOCUMENTATION REQUEST Date of Query: 01/12/2025 12:54 PM EDT Patient Name: BONITA BUTLER Admit Date: 01/11/2025 Dear Alex Cardenas MD, A review of the medical record indicates additional documentation may be needed. Please review below and update the documentation accordingly. Clinical Indicators: CKD BUN 44, Creatinine 1.64, eGFR 43 I&O q8h avoid nephrotoxic medications Please clarify which of the following accurately represents the patient's renal status: CKD, stage 1 CKD, stage 2 CKD, stage 3 CKD, stage 4 CKD, stage 5 Other (explain) Clinically unable to determine (explain) Thank you, Mary Lopez RN Use of terms such as suspected, likely, concern for, or probable (associated with a specific diagnosis that is being evaluated, monitored, or treated as if it exists) are acceptable and can be coded in the inpatient setting, when documented at the time of discharge. Please use your independent medical judgment in providing your response. THIS QUERY IS PART OF THE PERMANENT MEDICAL RECORD
--- NOTE | 2025-01-12 14:54 | P.PNIM_ITS ---
Subjective Subjective Date of Service: 01/12/25 Interval History: copd leg ulcers Review of Systems sob with minimal excersion Generalized weak Review of Systems: Yes all other systems are reviewed and are negative Physical Exam 2 Exam: Exam: Appearance: Alert.? Oriented X3.? Short of breath with exertion cvs: rrr, [id number] . res: air entry diminished, bilateral wheezing abd: no rebound or guarding ,nt, bs present. ext pulses present , no cyanosis. neuro: axo3 , nonfocal. Vital Signs: Vital Signs: Last Vital Signs Temp 98.0 F 01/12/25 12:00 Pulse 74 01/12/25 12:00 Resp 18 01/12/25 12:00 BP 127/56 L 01/12/25 12:00 Pulse Ox 92 01/12/25 12:00 O2 Del Method Nasal Cannula 01/12/25 12:00 O2 Flow Rate 3 01/12/25 12:00 Oxygen Flow Rate 3 01/10/25 13:45 BMI result Body Mass Index 40.9 Objective Data Active Medications Acetaminophen (Acetaminophen 325 Mg Tablet) 650 mg PO Q6H PRN PRN Reason: Pain, Mild 1-3,fever,headache Last Admin: 01/12/25 04:45 Dose: 650 mg Documented By: SHANELLE Albuterol/Ipratropium (Albuterol/Iprat 2.5/0.5mg 3 Ml Ampul.Neb) 3 ml INHALE Q4H PRN PRN Reason: Shortness of Breath/Wheezing Last Admin: 01/12/25 05:25 Dose: 3 ml Documented By: SHANELLE Amlodipine Besylate (Amlodipine Besylate 5 Mg Tablet) 5 mg PO DAILY [facility]; Protocol Last Admin: 01/12/25 09:15 Dose: 5 mg Documented By: DEVORA Calcium Carbonate (Calcium Carbonate 750 Mg Tab.Chew) 750 mg PO Q4H PRN PRN Reason: Heartburn Ceftriaxone Sodium (Ceftriaxone Sodium 1 Gm Vial) 1 gm IVPUSH Q24H [facility] Last Admin: 01/11/25 21:46 Dose: 1 gm Documented By: SHANELLE Enoxaparin Sodium (Enoxaparin Sodium 40 Mg/0.4 Ml Syringe) 40 mg SUBCUT Q24H [facility] On Hold: 01/11/25 03:01 Last Admin: 01/10/25 22:58 Dose: 40 mg Documented By: JORDEN Ferrous Sulfate (Ferrous Sulfate 324 Mg Tablet.Dr) 324 mg PO DAILY [facility] Last Admin: 01/12/25 09:15 Dose: 324 mg Documented By: DEVORA Fluticasone/Umeclidinium/Vilanterol (Fluticasone/Umeclidinium/Vilanterol 200/62.5/25 Blst.W.Dev) 1 puff INHALE RDAILY [facility] Last Admin: 01/12/25 08:21 Dose: Not Given Documented By: ENMA Non-Admin Reason: Med Not Available Furosemide (Furosemide 20 Mg Tablet) 20 mg PO DAILY [facility]; Protocol Last Admin: 01/12/25 09:16 Dose: 20 mg Documented By: DEVORA Guaifenesin (Guaifenesin 200 Mg/10 Ml 10 Ml Liquid) 10 ml PO Q4H PRN PRN Reason: Cough Hydrochlorothiazide (Hydrochlorothiazide 12.5 Mg Tablet) 12.5 mg PO DAILY [facility] Last Admin: 01/12/25 09:14 Dose: 12.5 mg Documented By: DEVORA Hydroxyzine HCl (Hydroxyzine Hcl 25 Mg Tablet) 25 mg PO BID PRN PRN Reason: Anxiety Doxycycline Hyclate 100 mg/ (Sodium Chloride) 250 mls @ 166.67 mls/hr IV Q12H [facility] Last Infusion: 01/12/25 12:00 Dose: Infused Documented By: DEVORA Losartan Potassium (Losartan Potassium 50 Mg Tablet) 50 mg PO DAILY [facility] Last Admin: 01/12/25 09:15 Dose: 50 mg Documented By: DEVORA Magnesium Hydroxide (Milk Of Magnesia 30 Ml Oral.Susp) 30 ml PO DAILY PRN PRN Reason: Constipation Melatonin (Melatonin 3 Mg Tablet) 6 mg PO BEDTIME PRN PRN Reason: Insomnia Methadone HCl (Methadone Hcl 20 Mg/2 Ml Oral.Conc) 80 mg PO DAILY [facility] Last Admin: 01/12/25 09:12 Dose: 80 mg Documented By: DEVORA Co-signed By: WENDIE Methylprednisolone Sodium Succinate (Methylprednisolone Sod Succ 125 Mg/2 Ml Vial) 40 mg IVPUSH Q12H [facility] Last Admin: 01/12/25 09:13 Dose: 40 mg Documented By: DEVORA Nicotine (Nicotine 14 Mg Patch.Td24) 14 mg TRANSDERMA DAILY [facility] Last Admin: 01/12/25 09:10 Dose: 14 mg Documented By: DEVORA Omeprazole (Omeprazole 20 Mg Capsule.Dr) 20 mg PO DAILY@0630 [facility] Last Admin: 01/12/25 05:45 Dose: 20 mg Documented By: SHANELLE Ondansetron HCl (Ondansetron Hcl 4 Mg/2 Ml Vial) 4 mg IVPUSH Q8H PRN PRN Reason: Nausea and Vomiting Polyethylene Glycol (Polyethylene Glycol 3350 17 Gm Powd.Pack) 17 gm PO DAILY PRN PRN Reason: Constipation Senna (Sennosides 8.6 Mg Tablet) 17.2 mg PO BEDTIME [facility] Last Admin: 01/11/25 21:46 Dose: 17.2 mg Documented By: SHANELLE Sertraline HCl (Sertraline Hcl 50 Mg Tablet) 150 mg PO DAILY [facility] Last Admin: 01/12/25 09:14 Dose: 150 mg Documented By: DEVORA Sodium Chloride (0.9 % Sodium Chloride Flush 3 Ml Syringe) 3 ml IVFLUSH QSHIFT [facility] Last Admin: 01/12/25 09:11 Dose: 3 ml Documented By: DEVORA Triamcinolone Acetonide (Triamcinolone Acet 0.5 % Cream 15 Gm Tube) 1 appl TOPICAL DAILY [facility] Last Admin: 01/12/25 12:19 Dose: Not Given Documented By: DEVORA Non-Admin Reason: dressing is in place Labs 01/12/25 06:41 01/11/25 04:10 Labs: Laboratory Results - last 24 hr 01/12/25 06:41 MCV 83.6 MCH 26.4 L MCHC 31.6 RDW 17.8 H Plt Count 203 MPV 8.1 L Absolute Nucleated RBC 0.000 Nucleated RBC % (auto) 0.0 Iron 52 TIBC 292 % Saturation 18 Unsat Iron Binding 240 Ferritin 62 Microbiology Microbiology Results: Microbiology 01/10/25 18:41 Blood Culture - Preliminary Blood - Venous No growth after 24 hours. 01/10/25 17:59 Blood Culture - Preliminary Blood - Venous No growth after 24 hours. Assessment and Plan (1) COPD exacerbation: Status: Acute Assessment and Plan: 59-year-old male with past medical history hypertension, COPD on 2 L of oxygen during the day and 3 L at night, hyperlipidemia, CKD, tobacco dependence now smoking 3-4 cigarettes per day, chronic bilateral foot wounds being managed by the VNA and wound care clinic, presents to the ED BIBA for profound dyspnea worsening over the last month. Patient has not been able to attend wound care clinic and other doctors appointments due to his issues with breathing. Patient does not currently follow with a handicraft or hobby shop manager. Patient being admitted for COPD exacerbation with possible underlying pneumonia/atelectasis. Also looking into bilateral chronic wounds. COPD exacerbation with possible underlying pneumonia continue Duo nebs ,trelegy,antibiotics , oxygen Telemetry with continuous pulse ox Supportive care with guaifenesin pulm eval noted -continue above. Atelectasis Incentive spirometer ordered Anemia, Chronic h/h stable around 7.9-8/25 range Stool for occult ordered Iron panel and B12 seems fine Erythropoeiting level pending pendingand Retic ct bodelrine d/w nephrology -likely anemia ch dis . Elevated BNP 596 Echo pending , last echo was February of 2024 Strict I's and o's Low-sodium diet Bilateral chronic foot wounds Interim wound care orders placed X-rays of both feet -? right foot ch osteo blood cultures neg@24hrs added esr,crp wound care consult :Turn and Reposition every 2 hours and as needed for patient comfort. Use pillows or wedges to support off loading positions. 2. Off Load all bony prominences with use of pillows and heel boots if needed. Apply Preventative foams where needed. 3. Monitor for incontinence and moisture control, use barrier creams when needed for prevention and treatment. 4. Provide adequate and supplemental nutrition. 5. Order or Continue low air loss mattress. 6. When applicable maintain blood glucose levels per Providers order. Left medial ankle, left plantar, right medial/posterior ankle: cleanse with saline, pat dry, apply triad paste hay wound, apply durafiber ag to wound bed, cover with ABD pad, wrap with rolled gauze/kerlix, change every other day and PRN ID consult Chronic kidney disease GFR and creatinine clearance are at baseline Monitor Intake and Output Q8H Avoid hypotension Avoid nephrotoxic medications UA negative Hypertension Continue amlodipine and losartan with HCTZ once med rec is completed Avoid hypotension Hyperlipidemia Cardiac diet Patient not currently on statin Tobacco dependence Patient counseled on the benefits of smoking cessation Patient now smoking 3-4 cigarettes a day which is a reduction Nicotine patch offered. Substance use disorder Patient currently on methadone. Morbid obesity: Encouraged to lose weight and cutdown calories. PT evaluation: Recommended rehab DVT prophylaxis: mech devices ongoing need : copd excerebation ,foot ulcers and ? oseto -need steriods ,nebs ,also repiratory ststus is not optimal yet,echo and id eval and workup for foot osteo. Quality Stroke Does the patient have a stroke diagnosis?: No Reason for No Anti-thrombotic by Day Two: N/A - Med Ordered VTE Prior VTE?: No VTE Risk Level:: Medical - moderate - high VTE Device Contraindication: N/A - Device Ordered VTE Drug Contraindication: N/A - Med Ordered
--- NOTE | 2025-01-12 14:56 | P.CDIM_ITS ---
PROVIDER RESPONSE TEXT: To clarify, the appropriate diagnosis supported by the clinical indicators: Obesity Due to excess calories QUERY TEXT: PHYSICIAN'S DOCUMENTATION REQUEST Date of Query: 01/12/2025 12:58 PM EDT Patient Name: BONITA BUTLER Admit Date: 01/11/2025 Dear Alex Cardenas MD, A review of the medical record indicates additional documentation may be needed. Please review below and update the documentation accordingly. Clinical Indicators: Height: ( ) 5'10 Weight: ( ) 129.4 kg BMI: ( ) 42.7 Other Clinical Notes Supporting Significance of the BMI: If possible, please provide an associated diagnosis related to the abnormal BMI, such as: Overweight Obesity Due to excess calories Obesity Drug induced Obesity Due to other cause Specify the other cause Severe or Morbid Obesity With alveolar hypoventilation Severe or Morbid Obesity Without alveolar hypoventilation BMI is not significant Other (explain) Clinically unable to determine (explain) Thank you, Mary Lopez RN Use of terms such as suspected, likely, concern for, or probable (associated with a specific diagnosis that is being evaluated, monitored, or treated as if it exists) are acceptable and can be coded in the inpatient setting, when documented at the time of discharge. Please use your independent medical judgment in providing your response. THIS QUERY IS PART OF THE PERMANENT MEDICAL RECORD
[2025-01-12 15:28] VITALS: BP 109/59; PULSE 72; RESP 20; TEMP 36.8; O2SAT 94
[2025-01-12 19:13] VITALS: BP 113/55; PULSE 80; RESP 18; TEMP 36.4; O2SAT 95
[2025-01-12 23:18] VITALS: BP 127/60; PULSE 63; RESP 18; TEMP 36.4
[2025-01-13] VITALS (7 sets, daily range): BP systolic 98–136; BP diastolic 52–67; PULSE 62–91; RESP 16–20; TEMP 36–37.1; O2SAT 92–98
[2025-01-13] MEDS: Fluticasone/Umeclidinium/Vilanterol 200/62.5/25 BLST.W.DEV 1 PUFF INHALE ×2 (08:18→09:05)
--- NOTE | 2025-01-13 08:53 | P.PNIM_ITS ---
Subjective Subjective Date of Service: 01/13/25 Interval History: copd ,leg ulcers Physical Exam 2 Exam: Exam: Appearance: Alert.? Oriented X3.? Short of breath with exertion cvs: rrr, [id number] . res: air entry diminished, bilateral wheezing abd: no rebound or guarding ,nt, bs present. ext pulses present , no cyanosis. neuro: axo3 , nonfocal. Vital Signs: Vital Signs: Last Vital Signs Temp 97.1 F 01/13/25 07:24 Pulse 91 01/13/25 08:19 Resp 16 01/13/25 08:19 BP 133/67 01/13/25 07:24 Pulse Ox 95 01/13/25 07:24 O2 Del Method Nasal Cannula 01/13/25 07:24 O2 Flow Rate 2 01/13/25 07:24 Oxygen Flow Rate 3 01/10/25 13:45 BMI result Body Mass Index 40.9 Objective Data Active Medications Acetaminophen (Acetaminophen 325 Mg Tablet) 650 mg PO Q6H PRN PRN Reason: Pain, Mild 1-3,fever,headache Last Admin: 01/12/25 04:45 Dose: 650 mg Documented By: SHANELLE Albuterol/Ipratropium (Albuterol/Iprat 2.5/0.5mg 3 Ml Ampul.Neb) 3 ml INHALE Q4H PRN PRN Reason: Shortness of Breath/Wheezing Last Admin: 01/12/25 05:25 Dose: 3 ml Documented By: SHANELLE Amlodipine Besylate (Amlodipine Besylate 5 Mg Tablet) 5 mg PO DAILY [facility]; Protocol Last Admin: 01/12/25 09:15 Dose: 5 mg Documented By: DEVORA Calcium Carbonate (Calcium Carbonate 750 Mg Tab.Chew) 750 mg PO Q4H PRN PRN Reason: Heartburn Ceftriaxone Sodium (Ceftriaxone Sodium 1 Gm Vial) 1 gm IVPUSH Q24H [facility] Last Admin: 01/12/25 20:28 Dose: 1 gm Documented By: ALTAGRACIA Enoxaparin Sodium (Enoxaparin Sodium 40 Mg/0.4 Ml Syringe) 40 mg SUBCUT Q24H [facility] On Hold: 01/11/25 03:01 Last Admin: 01/10/25 22:58 Dose: 40 mg Documented By: JORDEN Ferrous Sulfate (Ferrous Sulfate 324 Mg Tablet.) 324 mg PO DAILY [facility] Last Admin: 01/12/25 09:15 Dose: 324 mg Documented By: DEVORA Fluticasone/Umeclidinium/Vilanterol (Fluticasone/Umeclidinium/Vilanterol 200/62.5 Blst.W.Dev) 1 puff INHALE RDAILY [facility] Last Admin: 01/13/25 08:18 Dose: 1 puff Documented By: CHOCO Furosemide (Furosemide 20 Mg Tablet) 20 mg PO DAILY [facility]; Protocol Last Admin: 01/12/25 09:16 Dose: 20 mg Documented By: DEVORA Guaifenesin (Guaifenesin 200 Mg/10 Ml 10 Ml Liquid) 10 ml PO Q4H PRN PRN Reason: Cough Hydrochlorothiazide (Hydrochlorothiazide 12.5 Mg Tablet) 12.5 mg PO DAILY [facility] Last Admin: 01/12/25 09:14 Dose: 12.5 mg Documented By: DEVORA Hydroxyzine HCl (Hydroxyzine Hcl 25 Mg Tablet) 25 mg PO BID PRN PRN Reason: Anxiety Doxycycline Hyclate 100 mg/ (Sodium Chloride) 250 mls @ 166.67 mls/hr IV Q12H [facility] Last Infusion: 01/12/25 23:29 Dose: Infused Documented By: ALTAGRACIA Losartan Potassium (Losartan Potassium 50 Mg Tablet) 50 mg PO DAILY [facility] Last Admin: 01/12/25 09:15 Dose: 50 mg Documented By: DEVORA Magnesium Hydroxide (Milk Of Magnesia 30 Ml Oral.Susp) 30 ml PO DAILY PRN PRN Reason: Constipation Melatonin (Melatonin 3 Mg Tablet) 6 mg PO BEDTIME PRN PRN Reason: Insomnia Methadone HCl (Methadone Hcl 20 Mg/2 Ml Oral.Conc) 80 mg PO DAILY [facility] Last Admin: 01/12/25 09:12 Dose: 80 mg Documented By: DEVORA Co-signed By: WENDIE Nicotine (Nicotine 14 Mg Patch.Td24) 14 mg TRANSDERMA DAILY [facility] Last Admin: 01/12/25 09:10 Dose: 14 mg Documented By: DEVORA Omeprazole (Omeprazole 20 Mg Capsule.) 20 mg PO DAILY@0630 [facility] Last Admin: 01/13/25 06:20 Dose: 20 mg Documented By: ALTAGRACIA Ondansetron HCl (Ondansetron Hcl 4 Mg/2 Ml Vial) 4 mg IVPUSH Q8H PRN PRN Reason: Nausea and Vomiting Polyethylene Glycol (Polyethylene Glycol 3350 17 Gm Powd.Pack) 17 gm PO DAILY PRN PRN Reason: Constipation Prednisone (Prednisone 20 Mg Tablet) 40 mg PO DAILY [facility] Senna (Sennosides 8.6 Mg Tablet) 17.2 mg PO BEDTIME [facility] Last Admin: 01/12/25 20:29 Dose: 17.2 mg Documented By: ALTAGRACIA Sertraline HCl (Sertraline Hcl 50 Mg Tablet) 150 mg PO DAILY [facility] Last Admin: 01/12/25 09:14 Dose: 150 mg Documented By: DEVORA Sodium Chloride (0.9 % Sodium Chloride Flush 3 Ml Syringe) 3 ml IVFLUSH QSHIFT [facility] Last Admin: 01/12/25 20:30 Dose: 3 ml Documented By: ALTAGRACIA Triamcinolone Acetonide (Triamcinolone Acet 0.5 % Cream 15 Gm Tube) 1 appl TOPICAL DAILY [facility] Last Admin: 01/12/25 12:19 Dose: Not Given Documented By: DEVORA Non-Admin Reason: dressing is in place Labs 01/12/25 06:41 01/11/25 04:10 Labs: Laboratory Results - last 24 hr 01/11/25 01/12/25 04:10 06:41 ESR 129 H Erythropoietin 10.7 C-Reactive Protein 4.55 H Microbiology Microbiology Results: Microbiology 01/10/25 18:41 Blood Culture - Preliminary Blood - Venous No growth after 48 hours. 01/10/25 17:59 Blood Culture - Preliminary Blood - Venous No growth after 48 hours. Assessment and Plan (1) COPD exacerbation: Status: Acute Assessment and Plan: 59-year-old male with past medical history hypertension, COPD on 2 L of oxygen during the day and 3 L at night, hyperlipidemia, CKD, tobacco dependence now smoking 3-4 cigarettes per day, chronic bilateral foot wounds being managed by the [facility] and wound care clinic, presents to the ED BIBA for profound dyspnea worsening over the last month. Patient has not been able to attend wound care clinic and other doctors appointments due to his issues with breathing. 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 Patient being admitted for COPD exacerbation with possible underlying pneumonia/atelectasis. Also looking into bilateral chronic wounds. COPD exacerbation with possible underlying pneumonia continue Duo nebs ,trelegy,antibiotics , oxygen Telemetry with continuous pulse ox Supportive care with guaifenesin pulm eval noted -continue above. Atelectasis Incentive spirometer ordered Anemia, Chronic h/h stable around 7.9-8/25 range Stool for occult ordered Iron panel and B12 seems fine Erythropoeiting level pending pendingand Retic ct bodelrine d/w nephrology -likely anemia ch dis . Elevated BNP 596 Echo pending , last echo was February of 2024 Strict I's and o's Low-sodium diet Bilateral chronic foot wounds Interim wound care orders placed X-rays of both feet -? right foot ch osteo blood cultures neg@24hrs added esr,crp wound care consult :Turn and Reposition every 2 hours and as needed for patient comfort. Use pillows or wedges to support off loading positions. 2. Off Load all bony prominences with use of pillows and heel boots if needed. Apply Preventative foams where needed. 3. Monitor for incontinence and moisture control, use barrier creams when needed for prevention and treatment. 4. Provide adequate and supplemental nutrition. 5. Order or Continue low air loss mattress. 6. When applicable maintain blood glucose levels per Providers order. Left medial ankle, left plantar, right medial/posterior ankle: cleanse with saline, pat dry, apply triad paste hay wound, apply durafiber ag to wound bed, cover with ABD pad, wrap with rolled gauze/kerlix, change every other day and PRN ID consult Chronic kidney disease GFR and creatinine clearance are at baseline Monitor Intake and Output Q8H Avoid hypotension Avoid nephrotoxic medications UA negative Hypertension Continue amlodipine and losartan with HCTZ once med rec is completed Avoid hypotension Hyperlipidemia Cardiac diet Patient not currently on statin Tobacco dependence Patient counseled on the benefits of smoking cessation Patient now smoking 3-4 cigarettes a day which is a reduction Nicotine patch offered. Substance use disorder Patient currently on methadone. Morbid obesity: Encouraged to lose weight and cutdown calories. PT evaluation: Recommended rehab DVT prophylaxis: mech devices ongoing need : copd excerebation ,foot ulcers and ? oseto -need steriods ,nebs ,also repiratory ststus is not optimal yet,echo and id eval and workup for foot osteo. Quality Stroke Does the patient have a stroke diagnosis?: No Reason for No Anti-thrombotic by Day Two: N/A - Med Ordered VTE Prior VTE?: No VTE Risk Level:: Medical - moderate - high VTE Device Contraindication: N/A - Device Ordered VTE Drug Contraindication: N/A - Med Ordered
[2025-01-13] MEDS: Nicotine 14 MG PATCH.TD24 TRANSDERMA (09:05)
[2025-01-13] MEDS: Triamcinolone Acet 0.5 % Cream 15 GM TUBE 1 APPL TOPICAL (09:05)
[2025-01-13] MEDS: methADONE HCl 20 MG/2 ML ORAL.CONC 80 MG PO (09:07)
[2025-01-13] MEDS: Ferrous Sulfate 324 MG TABLET.DR PO (09:07)
[2025-01-13] MEDS: 0.9 % Sodium Chloride Flush 3 ML SYRINGE IVFLUSH ×3 (09:08→20:02)
--- NOTE | 2025-01-13 11:00 | MHC.CM.PN ---
PT EVALUATED PATIENT AND RECOMMEND INPATIENT PULMONARY REHAB. THIS CM MET WITH PATIENT TO DISCUSS PTS REC'S, HE IS IN AGREEMENT WITH GOING TO PULMONARY REHAB. LIST OF 3 INPATIENT PULMONARY REHABS IN THE AREA PRINTED FROM [facility] GIVEN TO PATIENT, HIS FIRST CHOICE IS [facility].
--- NOTE | 2025-01-13 16:55 | P.CNID_ITS ---
History of Present Illness Data of Consult Service Date: 01/13/25 Requesting physician: Alex Cardenas Primary Care Provider: Cecilia Schmidt MD [facility] Reason for consult: shortness of breath He presents with shortness of breath and weakness two days. He has basilar infiltrates He is on nasal cannula. Review of Systems 2 Review of Systems: Yes all other systems are reviewed and are negative PMFSH Past Medical History Medical History Multiple pulmonary nodules HLD (hyperlipidemia) Substance use disorder Wound of right foot Wound of left foot Acute osteomyelitis of right calcaneus PVD (peripheral vascular disease) Hypotension Smoker History of substance use disorder Depression HTN (hypertension) Family History Family history: reviewed and not pertinent Surgical History Surgical History H/O elbow surgery (~2000) History of ankle surgery (~2003) H/O neck surgery (~1998) Social History Social History Household Members: None Housing: Apartment Do you presently have visiting nurse or other home services: Yes Alcohol intake: current Alcohol intake frequency: a few times a week Alcohol type: beer and hard liquor Patient Tobacco Use Status: Current everyday Tobacco user Tobacco use type: Cigarette Cigarette Packs Per Day: 10 Cigarettes Per Day: 4 Years Smoked: 45 Second Hand Smoke Exposure: No service: No Current occupational status: disabled Travel History Ebola Risk: Travel/Contact With Anyone From Affected Area/s: No Has Patient Experienced Ebola Symptoms: No Meds Allergies Allergy/AdvReac Type Severity Reaction Status Date / Time codeine (CODEINE) Allergy Unknown NAUSEA Verified 01/10/25 14:03 Active Medications: Current Medications Acetaminophen (Acetaminophen 325 Mg Tablet) 650 mg PO Q6H PRN PRN Reason: Pain, Mild 1-3,fever,headache Last Admin: 01/12/25 04:45 Dose: 650 mg Albuterol/Ipratropium (Albuterol/Iprat 2.5/0.5mg 3 Ml Ampul.Neb) 3 ml INHALE Q4H PRN PRN Reason: Shortness of Breath/Wheezing Last Admin: 01/12/25 05:25 Dose: 3 ml Amlodipine Besylate (Amlodipine Besylate 5 Mg Tablet) 5 mg PO DAILY [facility]; Protocol Last Admin: 01/13/25 09:06 Dose: 5 mg Calcium Carbonate (Calcium Carbonate 750 Mg Tab.Chew) 750 mg PO Q4H PRN PRN Reason: Heartburn Last Admin: 01/13/25 12:50 Dose: 750 mg Ceftriaxone Sodium (Ceftriaxone Sodium 1 Gm Vial) 1 gm IVPUSH Q24H [facility] Last Admin: 01/12/25 20:28 Dose: 1 gm Enoxaparin Sodium (Enoxaparin Sodium 40 Mg/0.4 Ml Syringe) 40 mg SUBCUT Q24H [facility] On Hold: 01/11/25 03:01 Last Admin: 01/10/25 22:58 Dose: 40 mg Ferrous Sulfate (Ferrous Sulfate 324 Mg Tablet.Dr) 324 mg PO DAILY [facility] Last Admin: 01/13/25 09:07 Dose: 324 mg Fluticasone/Umeclidinium/Vilanterol (Fluticasone/Umeclidinium/Vilanterol 200/62.5/25 Blst.W.Dev) 1 puff INHALE RDAILY [facility] Last Admin: 01/13/25 09:05 Dose: 1 puff Furosemide (Furosemide 20 Mg Tablet) 20 mg PO DAILY [facility]; Protocol Last Admin: 01/13/25 09:06 Dose: 20 mg Guaifenesin (Guaifenesin 200 Mg/10 Ml 10 Ml Liquid) 10 ml PO Q4H PRN PRN Reason: Cough Hydrochlorothiazide (Hydrochlorothiazide 12.5 Mg Tablet) 12.5 mg PO DAILY [facility] Last Admin: 01/13/25 09:07 Dose: 12.5 mg Hydroxyzine HCl (Hydroxyzine Hcl 25 Mg Tablet) 25 mg PO BID PRN PRN Reason: Anxiety Doxycycline Hyclate 100 mg/ (Sodium Chloride) 250 mls @ 166.67 mls/hr IV Q12H [facility] Last Infusion: 01/13/25 11:42 Dose: Infused Losartan Potassium (Losartan Potassium 50 Mg Tablet) 50 mg PO DAILY [facility] Last Admin: 01/13/25 09:07 Dose: 50 mg Magnesium Hydroxide (Milk Of Magnesia 30 Ml Oral.Susp) 30 ml PO DAILY PRN PRN Reason: Constipation Melatonin (Melatonin 3 Mg Tablet) 6 mg PO BEDTIME PRN PRN Reason: Insomnia Methadone HCl (Methadone Hcl 20 Mg/2 Ml Oral.Conc) 80 mg PO DAILY [facility] Last Admin: 01/13/25 09:07 Dose: 80 mg Nicotine (Nicotine 14 Mg Patch.Td24) 14 mg TRANSDERMA DAILY [facility] Last Admin: 01/13/25 09:05 Dose: 14 mg Omeprazole (Omeprazole 20 Mg Capsule.Dr) 20 mg PO DAILY@0630 [facility] Last Admin: 01/13/25 06:20 Dose: 20 mg Ondansetron HCl (Ondansetron Hcl 4 Mg/2 Ml Vial) 4 mg IVPUSH Q8H PRN PRN Reason: Nausea and Vomiting Polyethylene Glycol (Polyethylene Glycol 3350 17 Gm Powd.Pack) 17 gm PO DAILY PRN PRN Reason: Constipation Prednisone (Prednisone 20 Mg Tablet) 40 mg PO DAILY [facility] Last Admin: 01/13/25 09:06 Dose: 40 mg Senna (Sennosides 8.6 Mg Tablet) 17.2 mg PO BEDTIME [facility] Last Admin: 01/12/25 20:29 Dose: 17.2 mg Sertraline HCl (Sertraline Hcl 50 Mg Tablet) 150 mg PO DAILY [facility] Last Admin: 01/13/25 09:05 Dose: 150 mg Sodium Chloride (0.9 % Sodium Chloride Flush 3 Ml Syringe) 3 ml IVFLUSH QSHIFT [facility] Last Admin: 01/13/25 16:40 Dose: 3 ml Triamcinolone Acetonide (Triamcinolone Acet 0.5 % Cream 15 Gm Tube) 1 appl TOPICAL DAILY [facility] Last Admin: 01/13/25 09:05 Dose: 1 appl Home Medications ?Medication ?Instructions ?Recorded ?Confirmed ?Last Taken ?Type albuterol sulfate 90 mcg/actuation 2 puff inhalation Q ID PRN asthma 11/11/22 01/10/25 03/21/24 History aerosol inhaler (Ventolin HFA) amlodipine 5 mg tablet 5 mg PO DAILY 11/11/2201/1001/10/25 History hydroxyzine HCl 25 mg tablet 25 mg PO BID PRN Anxiety 11/11/22 01/10/25 11/27/24 History methadone 5 mg/5 mL oral solution 80 mg PO DAILY 11/1101/11/25 01/10/25 08:00 History sertraline 100 mg tablet 150 mg PO DAILY 11/11/2201/10/25 History losartan 50 mg-hydrochlorothiazide 1 tab PO DAILY 02/2801/10/25 01/10/25 History 12.5 mg tablet nicotine 21 mg/24 hr daily 1 patch topical DAILY 03/2101/10/25 01/10/25 History transdermal patch betamethasone dipropionate 0.05 % 1 appl topical DAILY 11/28/24 01/10/25 01/10/25 History topical cream furosemide 20 mg tablet 20 mg PO DAILY 11/28/2412/2801/10/25 History ferrous sulfate 325 mg (65 mg 325 mg PO DAILY 01/10/25 01/10/25 01/10/25 History iron) tablet Physical Exam 2 Vital Signs: Vital Signs: Last Vital Signs Temp 98.3 F 01/13/25 15:40 Pulse 62 01/13/25 15:40 Resp 18 01/13/25 15:40 BP 111/52 L 01/13/25 15:40 Pulse Ox 92 01/13/25 15:40 O2 Del Method Nasal Cannula 01/13/25 15:40 O2 Flow Rate 2 01/13/25 15:40 Oxygen Flow Rate 3 01/10/25 13:45 BMI result Body Mass Index 40.9 Const: General: cooperative HEENT: Head: Yes normal to inspection Face and sinus: Yes normal facial exam Mouth: Normal oral and palatal mucosa present Teeth and gingiva: d entition normal Eyes: General: appearance normal, both eyes and all related structures P upils: Equal, round and reactive pupils present Resp: Other: rhonchi bases Cardio: Rate: regular rate Rhythm: regular rhythm GI: Palpation (GI): Soft to palpation and nontender : General: Yes no CVA tenderness Back/Spine/Pelvis: Back: no CVA tenderness Skin: General skin exam: no rashes or lesions noted Neuro: General: moves all extremities Cranial nerves: Yes Equal, round and reactive pupils present Extrem: General: Yes normal to inspection Psych: Appearance: grossly normal Results Labs 01/12/25 06:41 01/11/25 04:10 Microbiology Microbiology Results: Microbiology 01/10/25 18:41 Blood - Venous Blood Culture - Preliminary No growth after 48 hours. 01/10/25 17:59 Blood - Venous Blood Culture - Preliminary No growth after 48 hours. Assessment and Plan (1) Chronic hypoxic respiratory failure: Status: Acute Plan Probably some pneumonia Possible atypical or typical CTX and Doxycycline and po cephalosporin outpatient for seven days. Check HIV and Hepatitis C with substance use. No acute foot findings. Check Legionella antigen urine and MRSA nares if not done.
[2025-01-14] VITALS: BP 109/55; PULSE 67; RESP 20; TEMP 37.1; O2SAT 96
[2025-01-14 02:52] LABS: OBS Int Ctl Valid YES; OBS1 POSITIVE (NEGATIVE)
[2025-01-14 03:38] LABS: CDiff Gene PCR NEGATIVE (Negative)
[2025-01-14 03:57] VITALS: BP 126/55; PULSE 73; RESP 18; TEMP 36.8; O2SAT 95
[2025-01-14 04:15] LABS: MANUAL DIFF FLAG NO
[2025-01-14 04:16] LABS: Hematocrit 27.6 % (42.0-52.0); Hemoglobin 8.8 g/dl (14.0-18.0); Imm Gran Abs Auto 0.10 X10*3/uL (0.00-0.03); Imm Gran Pct Auto 1.0 % (0.0-0.4); Lymphocytes Absolute Auto 1.3 X10*3/uL (1.2-4.9); Mean Corpuscular HGB Conc 31.9 g/dl (31.0-36.0); Mean Corpuscular Hemoglobin 26.2 pg (27.0-33.0); Mean Corpuscular Volume 82.1 fL (80.0-98.0); NRBC Abs Auto 0.000 X10*3/uL (0.0-0.012); NRBC Pct Auto 0.0 /100WBC (0.0-0.2); Platelet Count 248 X10*3/uL (160-400); Red Blood Count 3.36 X10*6/uL (4.60-5.80); White Blood Count 9.8 X10*3/uL (4.8-10.8)
[2025-01-14 04:29] LABS: Alanine Aminotransferase 20 U/L (0-40); Albumin Level 3.1 g/dL (3.5-5.0); Alkaline Phosphatase 88 U/L (39-117); Anion Gap 15 (12-20); Aspartate Amino Transferase 36 U/L (5-37); Blood Urea Nitrogen 64 mg/dL (9-16); Calcium 8.2 mg/dL (8.4-10.2); Carbon Dioxide 23 mmol/L (22-29); Chloride 102 mmol/L (96-108); Creatinine Clr Calc Pharmacy 53.4; Estimated Glomerular Filt Rate 35; Magnesium 2.3 mg/dL (1.6-2.6); Potassium 4.3 mmol/L (3.3-5.1); Sodium 136 mmol/L (135-145); Total Protein 9.8 g/dL (6.5-8.0)
[2025-01-14 04:34] LABS: INTERNATIONAL NORM RATIO 1.1 (0.9-1.1); Prothrombin Time 12.8 SEC (10.9-12.4)
[2025-01-14 07:45] VITALS: BP 128/61; PULSE 67; RESP 18; TEMP 36.3; O2SAT 91
--- NOTE | 2025-01-14 08:35 | HO.PM.IMPN ---
Subjective Subjective Date of Service: 01/15/25 Interval History: copd ,leg ulcers Review of Systems has few episodes of diarrhae sob seems improving no new c/o Review of Systems: Yes all other systems are reviewed and are negative Physical Exam Exam: Exam: Appearance: Alert.? Oriented X3.? Short of breath with exertion cvs: rrr, [id number] . res: air entry diminished, bilateral wheezing abd: no rebound or guarding ,nt, bs present. ext pulses present , no cyanosis. neuro: axo3 , nonfocal. Vital Signs: Vital Signs: Last Vital Signs Temp 97.4 F 01/14/25 07:45 Pulse 67 01/14/25 07:45 Resp 18 01/14/25 07:45 BP 128/61 01/14/25 07:45 Pulse Ox 91 L 01/14/25 07:45 O2 Del Method Nasal Cannula 01/14/25 07:45 O2 Flow Rate 2 01/14/25 07:45 Oxygen Flow Rate 3 01/10/25 13:45 BMI result Body Mass Index 40.9 Objective Data Active Medications Acetaminophen (Acetaminophen 325 Mg Tablet) 650 mg PO Q6H PRN PRN Reason: Pain, Mild 1-3,fever,headache Last Admin: 01/12/25 04:45 Dose: 650 mg Documented By: SHANELLE Albuterol/Ipratropium (Albuterol/Iprat 2.5/0.5mg 3 Ml Ampul.Neb) 3 ml INHALE Q4H PRN PRN Reason: Shortness of Breath/Wheezing Last Admin: 01/12/25 05:25 Dose: 3 ml Documented By: SHANELLE Amlodipine Besylate (Amlodipine Besylate 5 Mg Tablet) 5 mg PO DAILY [facility]; Protocol Last Admin: 01/13/25 09:06 Dose: 5 mg Documented By: MAGUE Calcium Carbonate (Calcium Carbonate 750 Mg Tab.Chew) 750 mg PO Q4H PRN PRN Reason: Heartburn Last Admin: 01/13/25 12:50 Dose: 750 mg Documented By: MAGUE Ceftriaxone Sodium (Ceftriaxone Sodium 1 Gm Vial) 1 gm IVPUSH Q24H [facility] Last Admin: 01/13/25 20:01 Dose: 1 gm Documented By: ANTOIC Enoxaparin Sodium (Enoxaparin Sodium 40 Mg/0.4 Ml Syringe) 40 mg SUBCUT Q24H [facility] On Hold: 01/11/25 03:01 Last Admin: 01/10/25 22:58 Dose: 40 mg Documented By: JORDEN Ferrous Sulfate (Ferrous Sulfate 324 Mg Tablet.Dr) 324 mg PO DAILY [facility] Last Admin: 01/13/25 09:07 Dose: 324 mg Documented By: MAGUE Fluticasone/Umeclidinium/Vilanterol (Fluticasone/Umeclidinium/Vilanterol 200/62.5/25 Blst.W.Dev) 1 puff INHALE RDAILY [facility] Last Admin: 01/13/25 09:05 Dose: 1 puff Documented By: MAGUE Furosemide (Furosemide 20 Mg Tablet) 20 mg PO DAILY [facility]; Protocol Last Admin: 01/13/25 09:06 Dose: 20 mg Documented By: MAGUE Guaifenesin (Guaifenesin 200 Mg/10 Ml 10 Ml Liquid) 10 ml PO Q4H PRN PRN Reason: Cough Hydroxyzine HCl (Hydroxyzine Hcl 25 Mg Tablet) 25 mg PO BID PRN PRN Reason: Anxiety Doxycycline Hyclate 100 mg/ (Sodium Chloride) 250 mls @ 166.67 mls/hr IV Q12H [facility] Last Infusion: 01/13/25 21:51 Dose: Infused Documented By: ANTOIC Albumin Human (Kedbumin 25 %) 50 mls @ 100 mls/hr IV ONCE ONE Stop: 01/14/25 09:01 Magnesium Hydroxide (Milk Of Magnesia 30 Ml Oral.Susp) 30 ml PO DAILY PRN PRN Reason: Constipation Melatonin (Melatonin 3 Mg Tablet) 6 mg PO BEDTIME PRN PRN Reason: Insomnia Methadone HCl (Methadone Hcl 20 Mg/2 Ml Oral.Conc) 80 mg PO DAILY [facility] Last Admin: 01/13/25 09:07 Dose: 80 mg Documented By: MAGUE Co-signed By: DEENA Nicotine (Nicotine 14 Mg Patch.Td24) 14 mg TRANSDERMA DAILY [facility] Last Admin: 01/13/25 09:05 Dose: 14 mg Documented By: MAGUE Ondansetron HCl (Ondansetron Hcl 4 Mg/2 Ml Vial) 4 mg IVPUSH Q8H PRN PRN Reason: Nausea and Vomiting Pantoprazole Sodium (Pantoprazole Sodium 40 Mg/10 Ml Vial) 40 mg IVPUSH BID@4422,8620 [facility] Last Admin: 01/14/25 04:13 Dose: 40 mg Documented By: LILIYA Polyethylene Glycol (Polyethylene Glycol 3350 17 Gm Powd.Pack) 17 gm PO DAILY PRN PRN Reason: Constipation Prednisone (Prednisone 20 Mg Tablet) 40 mg PO DAILY [facility] Last Admin: 01/13/25 09:06 Dose: 40 mg Documented By: MAGUE Senna (Sennosides 8.6 Mg Tablet) 17.2 mg PO BEDTIME [facility] Last Admin: 01/13/25 20:08 Dose: Not Given Documented By: ANTOIC Non-Admin Reason: Patient Refused Sertraline HCl (Sertraline Hcl 50 Mg Tablet) 150 mg PO DAILY [facility] Last Admin: 01/13/25 09:05 Dose: 150 mg Documented By: MAGUE Sodium Chloride (0.9 % Sodium Chloride Flush 3 Ml Syringe) 3 ml IVFLUSH QSHIFT [facility] Last Admin: 01/14/25 07:44 Dose: Not Given Documented By: KHARIFATorin Non-Admin Reason: Previously Administered Triamcinolone Acetonide (Triamcinolone Acet 0.5 % Cream 15 Gm Tube) 1 appl TOPICAL DAILY [facility] Last Admin: 01/13/25 09:05 Dose: 1 appl Documented By: MAGUE Labs 01/14/25 04:12 01/14/25 04:12 Labs: Laboratory Results - last 24 hr 01/14/25 01/14/25 02:22 04:12 MCV 82.1 MCH 26.2 L MCHC 31.9 RDW 17.8 H Plt Count 248 MPV 8.2 L Immature Gran % (Auto) 1.0 H Neut % (Auto) 71.9 Lymph % (Auto) 13.5 L Bracken % (Auto) 13.4 H Eos % (Auto) 0.1 Baso % (Auto) 0.1 Lymph # (Auto) 1.3 Bracken # (Auto) 1.3 H Eos # (Auto) 0.0 Baso # (Auto) 0.0 Abs Immat Gran (auto) 0.10 H Absolute Neuts (auto) 7.0 Absolute Nucleated RBC 0.000 Nucleated RBC % (auto) 0.0 PT 12.8 H INR 1.1 Anion Gap 15 Estim Creat Clear Calc 53.4 Estimated GFR 35 Random Glucose 82 Calcium 8.2 L Magnesium 2.3 Total Bilirubin 0.1 AST 36 ALT 20 Alkaline Phosphatase 88 Total Protein 9.8 H Albumin 3.1 L Stool Occult Blood POSITIVE C. difficile Tox B Gene NEGATIVE Assessment and Plan (1) COPD exacerbation: Status: Acute Assessment and Plan: 59-year-old male with past medical history hypertension, COPD on 2 L of oxygen during the day and 3 L at night, hyperlipidemia, CKD, tobacco dependence now smoking 3-4 cigarettes per day, chronic bilateral foot wounds being managed by the [facility]NA and wound care clinic, presents to the ED BIBA for profound dyspnea worsening over the last month. Patient has not been able to attend wound care clinic and other doctors appointments due to his issues with breathing. 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 Patient being admitted for COPD exacerbation with possible underlying pneumonia/atelectasis. Also looking into bilateral chronic wounds. Diarrhae: added cdiff ,gip panel continue to moniter, will add antibiotics once studies coems back COPD exacerbation with possible underlying pneumonia continue Duo nebs ,trelegy,antibiotics , oxygen Telemetry with continuous pulse ox Supportive care with guaifenesin pulm eval noted -continue above. Atelectasis Incentive spirometer ordered Anemia, Chronic h/h stable around 8.8/27.6 range Stool for occult ordered Iron panel and B12 seems fine Erythropoeiting level pending pendingand Retic ct bodelrine d/w nephrology -likely anemia ch dis . Elevated BNP 596 Echo pending , last echo was February of 2024 Strict I's and o's Low-sodium diet Bilateral chronic foot wounds Interim wound care orders placed X-rays of both feet -? right foot ch osteo blood cultures neg@24hrs added esr,crp wound care consult :Turn and Reposition every 2 hours and as needed for patient comfort. Use pillows or wedges to support off loading positions. 2. Off Load all bony prominences with use of pillows and heel boots if needed. Apply Preventative foams where needed. 3. Monitor for incontinence and moisture control, use barrier creams when needed for prevention and treatment. 4. Provide adequate and supplemental nutrition. 5. Order or Continue low air loss mattress. 6. When applicable maintain blood glucose levels per Providers order. Left medial ankle, left plantar, right medial/posterior ankle: cleanse with saline, pat dry, apply triad paste hay wound, apply durafiber ag to wound bed, cover with ABD pad, wrap with rolled gauze/kerlix, change every other day and PRN ID consult Chronic kidney disease GFR and creatinine clearance are at baseline Monitor Intake and Output Q8H Avoid hypotension Avoid nephrotoxic medications UA negative Hypertension Continue amlodipine and losartan with HCTZ once med rec is completed Avoid hypotension Hyperlipidemia Cardiac diet Patient not currently on statin Tobacco dependence Patient counseled on the benefits of smoking cessation Patient now smoking 3-4 cigarettes a day which is a reduction Nicotine patch offered. Substance use disorder Patient currently on methadone. Morbid obesity: Encouraged to lose weight and cutdown calories. PT evaluation: [facility] need : copd excerebation ,foot ulcers and ? oseto -need steriods ,nebs ,also repiratory ststus is not optimal yet,echo and id eval and workup for foot osteo. Quality Stroke Does the patient have a stroke diagnosis?: No Reason for No Anti-thrombotic by Day Two: N/A - Med Ordered VTE Prior VTE?: No VTE Risk Level:: Medical - moderate - high VTE Device Contraindication: N/A - Device Ordered VTE Drug Contraindication: N/A - Med Ordered
--- NOTE | 2025-01-14 08:44 | P.CDIM_ITS ---
PROVIDER RESPONSE TEXT: To clarify, the appropriate diagnosis supported by the clinical indicators: Venous stasis ulcer: venous stasis QUERY TEXT: PHYSICIAN'S DOCUMENTATION REQUEST Date of Query: 01/13/2025 10:59 AM EDT Patient Name: BONITA BUTLER Admit Date: 01/11/2025 Dear Alex Cardenas MD, A review of the medical record indicates additional documentation may be needed. Please review below and update the documentation accordingly. Clinical Indicators: Per Wound note 01/11/25: lower extremity wounds left medial ankle, left plantar heel, right medial ankle, right posterior venous stasis ulcers wound care as recommended Based on the above, could you please provide further information regarding the ulcer/wound: Diabetic ulcer Please specify the location and laterality of the ulcer/wound Venous stasis ulcer Please specify the location and laterality of the ulcer/wound Arterial (ischemic) ulcer Please specify the location and laterality of the ulcer/wound Pressure (decubitus) ulcer Please include the stage of the ulcer and specify the location and laterality of the ulcer/wound Traumatic wound Please specify the location and laterality of the ulcer/wound Other (explain) Clinically unable to determine (explain) Thank you, Mary Lopez RN Use of terms such as suspected, likely, concern for, or probable (associated with a specific diagnosis that is being evaluated, monitored, or treated as if it exists) are acceptable and can be coded in the inpatient setting, when documented at the time of discharge. Please use your independent medical judgment in providing your response. THIS QUERY IS PART OF THE PERMANENT MEDICAL RECORD
[2025-01-14] MEDS: methADONE HCl 20 MG/2 ML ORAL.CONC 80 MG PO (09:27)
[2025-01-14] MEDS: Ferrous Sulfate 324 MG TABLET.DR PO (09:28)
[2025-01-14] MEDS: Nicotine 14 MG PATCH.TD24 TRANSDERMA (09:28)
[2025-01-14] MEDS: Albumin Human 25 % 50 ML 100 ML IV (09:37)
[2025-01-14] MEDS: Triamcinolone Acet 0.5 % Cream 15 GM TUBE 1 APPL TOPICAL (09:56)
[2025-01-14 10:41] LABS: HIV Num 1 0.05 S/CO (0.00-0.99)
[2025-01-14 11:05] LABS: HBS Num1 127.38 mIU/mL (0-7.99); HBc Num1 11.82 S/CO (0.00-0.79); HBsAGNum1 0.51 S/CO (0.00-0.99); Hepatitis A Antibody IgM 0.31 Index (0-0.79); ~HepC Num1 11.42 S/CO (0.00-0.79); ~Hepatitis A Antibody IgM Nonreactive (Nonreactive); ~Hepatitis B Surface Antibody REACTIVE (Nonreactive); ~Hepatitis C Antibody Reactive (Nonreactive)
[2025-01-14 11:06] LABS: Hepatitis B Surface Antigen Negative (Negative)
[2025-01-14 11:22] VITALS: BP 104/58; PULSE 70; RESP 18; TEMP 36.2; O2SAT 92
[2025-01-14 11:48] LABS: HBc Num2 11.20 S/CO; HBc Num3 11.88 S/CO
[2025-01-14 11:52] LABS: E. coli EAEC Not Detected (Not Detect.); E. coli EPEC Not Detected (Not Detect.); E. coli ETEC Not Detected (Not Detect.); E. coli STEC Not Detected (Not Detect.); Shigella sp./EIEC Not Detected (Not Detect.)
[2025-01-14 12:12] LABS: MRSA Nasal PCR NEGATIVE (Negative); SA Nasal PCR NEGATIVE (Negative)
[2025-01-14 15:29] VITALS: BP 111/55; PULSE 67; RESP 18; TEMP 36.9; O2SAT 92
[2025-01-14 20:00] VITALS: BP 147/73; PULSE 83; RESP 18; TEMP 36.7; O2SAT 95
[2025-01-14] MEDS: 0.9 % Sodium Chloride Flush 3 ML SYRINGE IVFLUSH (20:30)
[2025-01-15] VITALS (8 sets, daily range): BP systolic 110–134; BP diastolic 58–71; PULSE 67–79; RESP 16–18; TEMP 36.2–36.8; O2SAT 92–97
--- NOTE | 2025-01-15 08:02 | P.CNGI_ITS ---
History of Present Illness Data of Consult Service Date: 01/15/25 Primary Care Provider: Cecilia Schmidt MD HPI Reason for consult: anemia 59-year-old male with past medical history hypertension, COPD on 2 L of oxygen during the day and 3 L at night, hyperlipidemia, CKD, tobacco dependence now smoking 3-4 cigarettes per day, chronic bilateral foot wounds who I am seeing for anemia assessment Patient initially presented with worsening exertional SOB. cough and sputum. He denies chest pain. He has been treated for pneumonia. He has chronic stable anemia with baseline around 8-9 g/dl. He had nml ferritin, b12, folate and raised crp. Hep C is positive but he says this has been the case in the past and he does not have active disease, and never been treated. He denies rectal bleeding, melena, nose bleeds, hemoptysis, hematuria . denies nsiads or chronci need for steroid tablets He has never had EGD or colonoscopy and says he never wants these procedures Review of Systems 2 Review of Systems: Constitutional : No Weight loss, No Fever, No Chills ENT/Mouth : No sore throat, No Rhinorrhea Eyes: No Swelling, No Redness Cardiovascular : No Chest Pain, + SOB, No Edema Respiratory : No Cough, No Sputum, No Wheezing Gastrointestinal : see HPI Genitourinary : NO Dysuria, No Urinary Frequency, No Hematuria, No Urgency Musculoskeletal : + joint pain, No Myalgias, No Joint Swelling Skin : No Skin Lesions, No rash Neuro : No Weakness, No Numbness, No Dizziness, No Headache Psych : No Anxiety/Panic, No Depression Heme/Lymph: No Bruising, No Lymphadenopathy Endocrine : No Polyuria, No Polydipsia All other systems reviewed and are negative. [facility] Past Medical History Medical History Multiple pulmonary nodules HLD (hyperlipidemia) Substance use disorder Wound of right foot Wound of left foot Acute osteomyelitis of right calcaneus PVD (peripheral vascular disease) Hypotension Smoker History of substance use disorder Depression HTN (hypertension) Family History Pertinent family history: denies FH of colon cancer or other GI malignancies Surgical History Surgical History H/O elbow surgery (~2000) History of ankle surgery (~2003) H/O neck surgery (~1998) Social History Social History Household Members: None Housing: Apartment Do you presently have visiting nurse or other home services: Yes Alcohol intake: current Alcohol intake frequency: a few times a week Alcohol type: beer and hard liquor Patient Tobacco Use Status: Current everyday Tobacco user Tobacco use type: Cigarette Cigarette Packs Per Day: 10 Cigarettes Per Day: 4 Years Smoked: 45 Second Hand Smoke Exposure: No service: No Current occupational status: disabled Travel History Ebola Risk: Travel/Contact With Anyone From Affected Area/s: No Has Patient Experienced Ebola Symptoms: No Meds Allergies Allergy/AdvReac Type Severity Reaction Status Date / Time codeine (CODEINE) Allergy Unknown NAUSEA Verified 01/10/25 14:03 Active Medications: Current Medications Acetaminophen (Acetaminophen 325 Mg Tablet) 650 mg PO Q6H PRN PRN Reason: Pain, Mild 1-3,fever,headache Last Admin: 01/12/25 04:45 Dose: 650 mg Albuterol/Ipratropium (Albuterol/Iprat 2.5/0.5mg 3 Ml Ampul.Neb) 3 ml INHALE Q4H PRN PRN Reason: Shortness of Breath/Wheezing Last Admin: 01/12/25 05:25 Dose: 3 ml Amlodipine Besylate (Amlodipine Besylate 5 Mg Tablet) 5 mg PO DAILY [facility]; Protocol Last Admin: 01/14/25 09:27 Dose: 5 mg Calcium Carbonate (Calcium Carbonate 750 Mg Tab.Chew) 750 mg PO Q4H PRN PRN Reason: Heartburn Last Admin: 01/13/25 12:50 Dose: 750 mg Cefuroxime Axetil (Cefuroxime Axetil 500 Mg Tablet) 500 mg PO Q12H [facility] Last Admin: 01/15/25 00:05 Dose: 500 mg Doxycycline Monohydrate (Doxycycline Monohydrate 100 Mg Capsule) 100 mg PO BID [facility] Last Admin: 01/14/25 20:30 Dose: 100 mg Enoxaparin Sodium (Enoxaparin Sodium 40 Mg/0.4 Ml Syringe) 40 mg SUBCUT Q24H [facility] On Hold: 01/11/25 03:01 Last Admin: 01/10/25 22:58 Dose: 40 mg Ferrous Sulfate (Ferrous Sulfate 324 Mg Tablet.) 324 mg PO DAILY [facility] Last Admin: 01/14/25 09:28 Dose: 324 mg Fluticasone/Umeclidinium/Vilanterol (Fluticasone/Umeclidinium/Vilanterol 200/62.5/25 Blst.W.Dev) 1 puff INHALE RDAILY [facility] Last Admin: 01/13/25 09:05 Dose: 1 puff Furosemide (Furosemide 20 Mg Tablet) 20 mg PO DAILY [facility]; Protocol Last Admin: 01/14/25 09:28 Dose: 20 mg Guaifenesin (Guaifenesin 200 Mg/10 Ml 10 Ml Liquid) 10 ml PO Q4H PRN PRN Reason: Cough Hydroxyzine HCl (Hydroxyzine Hcl 25 Mg Tablet) 25 mg PO BID PRN PRN Reason: Anxiety Loperamide HCl (Loperamide Hcl 2 Mg Capsule) 2 mg PO Q6H PRN PRN Reason: Diarrhea Magnesium Hydroxide (Milk Of Magnesia 30 Ml Oral.Susp) 30 ml PO DAILY PRN PRN Reason: Constipation Melatonin (Melatonin 3 Mg Tablet) 6 mg PO BEDTIME PRN PRN Reason: Insomnia Methadone HCl (Methadone Hcl 20 Mg/2 Ml Oral.Conc) 80 mg PO DAILY [facility] Last Admin: 01/14/25 09:27 Dose: 80 mg Nicotine (Nicotine 14 Mg Patch.Td24) 14 mg TRANSDERMA DAILY [facility] Last Admin: 01/14/25 09:28 Dose: 14 mg Ondansetron HCl (Ondansetron Hcl 4 Mg/2 Ml Vial) 4 mg IVPUSH Q8H PRN PRN Reason: Nausea and Vomiting Pantoprazole Sodium (Pantoprazole Sodium 40 Mg/10 Ml Vial) 40 mg IVPUSH BID@0630,1630 [facility] Last Admin: 01/15/25 06:07 Dose: 40 mg Polyethylene Glycol (Polyethylene Glycol 3350 17 Gm Powd.Pack) 17 gm PO DAILY PRN PRN Reason: Constipation Prednisone (Prednisone 20 Mg Tablet) 40 mg PO DAILY [facility] Last Admin: 01/14/25 09:28 Dose: 40 mg Senna (Sennosides 8.6 Mg Tablet) 17.2 mg PO BEDTIME [facility] Last Admin: 01/14/25 22:29 Dose: Not Given Sertraline HCl (Sertraline Hcl 50 Mg Tablet) 150 mg PO DAILY [facility] Last Admin: 01/14/25 09:27 Dose: 150 mg Sodium Chloride (0.9 % Sodium Chloride Flush 3 Ml Syringe) 3 ml IVFLUSH QSHIFT [facility] Last Admin: 01/15/25 07:56 Dose: Not Given Triamcinolone Acetonide (Triamcinolone Acet 0.5 % Cream 15 Gm Tube) 1 appl TOPICAL DAILY [facility] Last Admin: 01/14/25 09:56 Dose: 1 appl Home Medications ?Medication ?Instructions ?Recorded ?Confirmed ?Last Taken ?Type albuterol sulfate 90 mcg/actuation 2 puff inhalation Q ID PRN asthma 11/11/22 01/10/25 03/21/24 History aerosol inhaler (Ventolin HFA) amlodipine 5 mg tablet 5 mg PO DAILY 11/11/2201/1001/10/25 History hydroxyzine HCl 25 mg tablet 25 mg PO BID PRN Anxiety 11/11/22 01/10/25 11/27/24 History methadone 5 mg/5 mL oral solution 80 mg PO DAILY 11/1101/11/25 01/10/25 08:00 History sertraline 100 mg tablet 150 mg PO DAILY 11/11/2201/10/25 History losartan 50 mg-hydrochlorothiazide 1 tab PO DAILY 02/2801/10/25 01/10/25 History 12.5 mg tablet nicotine 21 mg/24 hr daily 1 patch topical DAILY 03/2101/10/25 01/10/25 History transdermal patch betamethasone dipropionate 0.05 % 1 appl topical DAILY 11/28/24 01/10/25 01/10/25 History topical cream furosemide 20 mg tablet 20 mg PO DAILY 11/28/2412/2801/10/25 History ferrous sulfate 325 mg (65 mg 325 mg PO DAILY 01/10/25 01/10/25 01/10/25 History iron) tablet Physical Exam 2 Exam: Exam: EXAM: GENERAL: The patient is obese and settled with O 2 running VITAL SIGNS:see workflow HEENT: Nonicteric sclerae, PERRLA, EOMI. Oropharynx clear. Moist mucous membranes. Conjunctivae appear well perfused. No thyroid mass. CHEST: Chest wall is nontender. HEART: Regular rate and rhythm without murmurs. LUNGS: reduced a/e b/l ABDOMEN: Soft, positive bowel sounds, nontender, no organomegaly.no flank tenderness SKIN: legs not seen but some bruises on arms -- NEUROLOGIC: Cranial nerves II-XII intact without motor/sensory deficit. Psych: normal affect Vital Signs: Vital Signs: Last Vital Signs Temp 97.5 F 01/15/25 07:03 Pulse 67 01/15/25 07:03 Resp 18 01/15/25 07:03 BP 124/58 L 01/15/25 07:03 Pulse Ox 92 01/15/25 07:03 O2 Del Method Nasal Cannula 01/15/25 07:03 O2 Flow Rate 1.5 01/15/25 07:03 Oxygen Flow Rate 3 01/10/25 13:45 BMI result Body Mass Index 40.9 Results Labs 01/14/25 04:12 01/14/25 04:12 Microbiology Microbiology Results: Microbiology 01/10/25 18:41 Blood - Venous Blood Culture - Preliminary No growth after 48 hours. 01/10/25 17:59 Blood - Venous Blood Culture - Preliminary No growth after 48 hours. Assessment and Plan (1) Anemia of chronic disease: Status: Acute Plan 1/ Anemia of chronic dz with stable hematinics, no active bleeding and patient also refuses any potential EGD or colonoscopy PLAN: 1/ Cont to monitor and trend HGB< if overt bleeding can revisit with the patient, can consider low dose PPI to prevent stress gastritis or famotidine. Procedures Date of Service Date of Service: 01/15/25
[2025-01-15] MEDS: Fluticasone/Umeclidinium/Vilanterol 200/62.5/25 BLST.W.DEV 1 PUFF INHALE (08:20)
--- NOTE | 2025-01-15 08:52 | P.PNIM_ITS ---
Subjective Subjective Date of Service: 01/15/25 Interval History: Shortness of breaths improving Diarrhea improved No new complaints Review of Systems Review of Systems: Yes all other systems are reviewed and are negative Physical Exam 2 Exam: Exam: Appearance: Alert.? Oriented X3.? Short of breath with exertion cvs: rrr, [id number] . res: air entry diminished, bilateral wheezing abd: no rebound or guarding ,nt, bs present. ext pulses present , no cyanosis. neuro: axo3 , nonfocal. Vital Signs: Vital Signs: Last Vital Signs Temp 97.5 F 01/15/25 07:03 Pulse 68 01/15/25 08:20 Resp 18 01/15/25 08:20 BP 124/58 L 01/15/25 07:03 Pulse Ox 92 01/15/25 07:03 O2 Del Method Nasal Cannula 01/15/25 07:03 O2 Flow Rate 1.5 01/15/25 07:03 Oxygen Flow Rate 3 01/10/25 13:45 BMI result Body Mass Index 40.9 Objective Data Active Medications Acetaminophen (Acetaminophen 325 Mg Tablet) 650 mg PO Q6H PRN PRN Reason: Pain, Mild 1-3,fever,headache Last Admin: 01/12/25 04:45 Dose: 650 mg Documented By: SHANELLE Albuterol/Ipratropium (Albuterol/Iprat 2.5/0.5mg 3 Ml Ampul.Neb) 3 ml INHALE Q4H PRN PRN Reason: Shortness of Breath/Wheezing Last Admin: 01/12/25 05:25 Dose: 3 ml Documented By: SHANELLE Amlodipine Besylate (Amlodipine Besylate 5 Mg Tablet) 5 mg PO DAILY [facility]; Protocol Last Admin: 01/14/25 09:27 Dose: 5 mg Documented By: KHARIFATorin Calcium Carbonate (Calcium Carbonate 750 Mg Tab.Chew) 750 mg PO Q4H PRN PRN Reason: Heartburn Last Admin: 01/13/25 12:50 Dose: 750 mg Documented By: MAGUE Cefuroxime Axetil (Cefuroxime Axetil 500 Mg Tablet) 500 mg PO Q12H [facility] Last Admin: 01/15/25 00:05 Dose: 500 mg Documented By: BONITA Doxycycline Monohydrate (Doxycycline Monohydrate 100 Mg Capsule) 100 mg PO BID [facility] Last Admin: 01/14/25 20:30 Dose: 100 mg Documented By: BONITA Enoxaparin Sodium (Enoxaparin Sodium 40 Mg/0.4 Ml Syringe) 40 mg SUBCUT Q24H [facility] On Hold: 01/11/25 03:01 Last Admin: 01/10/25 22:58 Dose: 40 mg Documented By: JORDEN Ferrous Sulfate (Ferrous Sulfate 324 Mg Tablet.Dr) 324 mg PO DAILY [facility] Last Admin: 01/14/25 09:28 Dose: 324 mg Documented By: KERRI Fluticasone/Umeclidinium/Vilanterol (Fluticasone/Umeclidinium/Vilanterol 200/62.5/25 Blst.W.Dev) 1 puff INHALE RDAILY [facility] Last Admin: 01/15/25 08:20 Dose: 1 puff Documented By: AMADO Furosemide (Furosemide 20 Mg Tablet) 20 mg PO DAILY [facility]; Protocol Last Admin: 01/14/25 09:28 Dose: 20 mg Documented By: KERRI Guaifenesin (Guaifenesin 200 Mg/10 Ml 10 Ml Liquid) 10 ml PO Q4H PRN PRN Reason: Cough Hydroxyzine HCl (Hydroxyzine Hcl 25 Mg Tablet) 25 mg PO BID PRN PRN Reason: Anxiety Loperamide HCl (Loperamide Hcl 2 Mg Capsule) 2 mg PO Q6H PRN PRN Reason: Diarrhea Magnesium Hydroxide (Milk Of Magnesia 30 Ml Oral.Susp) 30 ml PO DAILY PRN PRN Reason: Constipation Melatonin (Melatonin 3 Mg Tablet) 6 mg PO BEDTIME PRN PRN Reason: Insomnia Methadone HCl (Methadone Hcl 20 Mg/2 Ml Oral.Conc) 80 mg PO DAILY [facility] Last Admin: 01/14/25 09:27 Dose: 80 mg Documented By: KERRI Co-signed By: ELDER Nicotine (Nicotine 14 Mg Patch.Td24) 14 mg TRANSDERMA DAILY [facility] Last Admin: 01/14/25 09:28 Dose: 14 mg Documented By: KERRI Ondansetron HCl (Ondansetron Hcl 4 Mg/2 Ml Vial) 4 mg IVPUSH Q8H PRN PRN Reason: Nausea and Vomiting Pantoprazole Sodium (Pantoprazole Sodium 40 Mg/10 Ml Vial) 40 mg IVPUSH BID@0630,1630 [facility] Last Admin: 01/15/25 06:07 Dose: 40 mg Documented By: BONITA Polyethylene Glycol (Polyethylene Glycol 3350 17 Gm Powd.Pack) 17 gm PO DAILY PRN PRN Reason: Constipation Prednisone (Prednisone 20 Mg Tablet) 40 mg PO DAILY [facility] Last Admin: 01/14/25 09:28 Dose: 40 mg Documented By: KERRI Senna (Sennosides 8.6 Mg Tablet) 17.2 mg PO BEDTIME [facility] Last Admin: 01/14/25 22:29 Dose: Not Given Documented By: BONITA Non-Admin Reason: Patient Refused Sertraline HCl (Sertraline Hcl 50 Mg Tablet) 150 mg PO DAILY [facility] Last Admin: 01/14/25 09:27 Dose: 150 mg Documented By: KERRI Sodium Chloride (0.9 % Sodium Chloride Flush 3 Ml Syringe) 3 ml IVFLUSH QSHIFT [facility] Last Admin: 01/15/25 07:56 Dose: Not Given Documented By: KERRI Non-Admin Reason: Previously Administered Triamcinolone Acetonide (Triamcinolone Acet 0.5 % Cream 15 Gm Tube) 1 appl TOPICAL DAILY [facility] Last Admin: 01/14/25 09:56 Dose: 1 appl Documented By: KERRI Labs 01/14/25 04:12 01/14/25 04:12 Labs: Laboratory Results - last 24 hr 01/13/25 01/14/25 01/14/25 17:54 02:22 09:00 Nasal Screen MRSA (PCR) NEGATIVE Nasal S. aureus Screen NEGATIVE Nasal MRSA/S.aureus Interp SEE NOTE Stl C. cayetanensis PCR Not Detected Stool Rotavirus A PCR Not Detected Stl Adenov F 40/41 PCR Not Detected Stool Astrovirus (PCR) Not Detected Stool Campylobacter PCR Not Detected Stool Cryptosporidium PCR Not Detected Stl Sh Tox Pr E STEC PCR Not Detected Stool E coli O157 PCR Not applicable Stl Enterotoxigenic E PCR Not Detected Stool EPEC (PCR) Not Detected Stool EAEC (PCR) Not Detected Stl E. histolytica PCR Not Detected Stool Giardia Lamblia PCR Not Detected Stl P. shigelloides PCR Not Detected Stool Salmonella PCR Not Detected Stool Sapovirus (PCR) Not Detected Stl Shigella/EIEC PCR Not Detected St Y.enterocolitica PCR Not Detected Stool Vibrio (PCR) Not Detected Stl Vibrio cholerae PCR Not Detected Stl Norovirus GI/GII PCR Not Detected Hepatitis A IgM Ab Hep Bs Antigen Hep Bs Antibody Hep B Core Total Ab Hepatitis C Ab (EIA) HIV 1&2 Ab/P24 Ag 4thGn Nonreactive 01/14/25 09:18 Nasal Screen MRSA (PCR) Nasal S. aureus Screen Nasal MRSA/S.aureus Interp Stl C. cayetanensis PCR Stool Rotavirus A PCR Stl Adenov F 40/41 PCR Stool Astrovirus (PCR) Stool Campylobacter PCR Stool Cryptosporidium PCR Stl Sh Tox Pr E STEC PCR Stool E coli O157 PCR Stl Enterotoxigenic E PCR Stool EPEC (PCR) Stool EAEC (PCR) Stl E. histolytica PCR Stool Giardia Lamblia PCR Stl P. shigelloides PCR Stool Salmonella PCR Stool Sapovirus (PCR) Stl Shigella/EIEC PCR St Y.enterocolitica PCR Stool Vibrio (PCR) Stl Vibrio cholerae PCR Stl Norovirus GI/GII PCR Hepatitis A IgM Ab Nonreactive Hep Bs Antigen Negative Hep Bs Antibody REACTIVE Hep B Core Total Ab Reactive Hepatitis C Ab (EIA) Reactive H HIV 1&2 Ab/P24 Ag 4thGn Assessment and Plan (1) COPD exacerbation: Status: Acute Assessment and Plan: 59-year-old male with past medical history hypertension, COPD on 2 L of oxygen during the day and 3 L at night, hyperlipidemia, CKD, tobacco dependence now smoking 3-4 cigarettes per day, chronic bilateral foot wounds being managed by the [facility]NA and wound care clinic, presents to the ED BIBA for profound dyspnea worsening over the last month. Patient has not been able to attend wound care clinic and other doctors appointments due to his issues with breathing. 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 Patient being admitted for COPD exacerbation with possible underlying pneumonia/atelectasis. Also looking into bilateral chronic wounds. Diarrhae: Resolved added cdiff ,gip panel-negative continue to moniter COPD exacerbation with possible underlying pneumonia continue Duo nebs ,trelegy,antibiotics , oxygen Telemetry with continuous pulse ox Supportive care with guaifenesin pulm eval noted -continue above. Atelectasis Incentive spirometer ordered Anemia, Chronic h/h stable around 8.8/27.6 range Stool for occult ordered Iron panel and B12 seems fine Erythropoeiting level pending pendingand Retic ct bodelrine d/w nephrology -likely anemia ch dis . Elevated BNP 596 Echo pending , last echo was February of 2024 Strict I's and o's Low-sodium diet Bilateral chronic foot wounds Interim wound care orders placed X-rays of both feet -? right foot ch osteo blood cultures neg@24hrs added esr,crp wound care consult :Turn and Reposition every 2 hours and as needed for patient comfort. Use pillows or wedges to support off loading positions. 2. Off Load all bony prominences with use of pillows and heel boots if needed. Apply Preventative foams where needed. 3. Monitor for incontinence and moisture control, use barrier creams when needed for prevention and treatment. 4. Provide adequate and supplemental nutrition. 5. Order or Continue low air loss mattress. 6. When applicable maintain blood glucose levels per Providers order. Left medial ankle, left plantar, right medial/posterior ankle: cleanse with saline, pat dry, apply triad paste hay wound, apply durafiber ag to wound bed, cover with ABD pad, wrap with rolled gauze/kerlix, change every other day and PRN ID consult Chronic kidney disease GFR and creatinine clearance are at baseline Monitor Intake and Output Q8H Avoid hypotension Avoid nephrotoxic medications UA negative Hypertension Continue amlodipine and losartan with HCTZ once med rec is completed Avoid hypotension Hyperlipidemia Cardiac diet Patient not currently on statin Tobacco dependence Patient counseled on the benefits of smoking cessation Patient now smoking 3-4 cigarettes a day which is a reduction Nicotine patch offered. Substance use disorder Patient currently on methadone. Morbid obesity: Encouraged to lose weight and cutdown calories. PT evaluation: Recommended rehab DVT prophylaxis: [facility] devices ongoing need : awaiting placement/pulm rehab Quality Stroke Does the patient have a stroke diagnosis?: No Reason for No Anti-thrombotic by Day Two: N/A - Med Ordered VTE Prior VTE?: No VTE Risk Level:: Medical - moderate - high VTE Device Contraindication: N/A - Device Ordered VTE Drug Contraindication: N/A - Med Ordered
[2025-01-15] MEDS: methADONE HCl 20 MG/2 ML ORAL.CONC 80 MG PO (09:43)
[2025-01-15] MEDS: Ferrous Sulfate 324 MG TABLET.DR PO (09:43)
[2025-01-15] MEDS: Nicotine 14 MG PATCH.TD24 TRANSDERMA (09:44)
[2025-01-15] MEDS: Triamcinolone Acet 0.5 % Cream 15 GM TUBE 1 APPL TOPICAL (09:47)
--- NOTE | 2025-01-15 16:36 | PC.NURSE ---
dressing change performed
[2025-01-15] MEDS: 0.9 % Sodium Chloride Flush 3 ML SYRINGE IVFLUSH (20:29)
[2025-01-16] VITALS (7 sets, daily range): BP systolic 104–197; BP diastolic 52–88; PULSE 69–108; RESP 16–20; TEMP 36–37.2; O2SAT 94–97
[2025-01-16 07:47] LABS: Glucose, Whole Blood 97 mg/dL (60-115)
[2025-01-16] MEDS: Fluticasone/Umeclidinium/Vilanterol 200/62.5/25 BLST.W.DEV 1 PUFF INHALE (08:02)
[2025-01-16] MEDS: Nicotine 14 MG PATCH.TD24 TRANSDERMA (09:21)
[2025-01-16] MEDS: 0.9 % Sodium Chloride Flush 3 ML SYRINGE IVFLUSH ×3 (09:21→21:38)
[2025-01-16] MEDS: Ferrous Sulfate 324 MG TABLET.DR PO (09:24)
[2025-01-16] MEDS: methADONE HCl 20 MG/2 ML ORAL.CONC 80 MG PO (09:25)
--- NOTE | 2025-01-16 12:09 | MHC.CM.PN ---
Addendum entered by Paula Liu RN 01/16/25 14:03: PT DAILY NOTE 01/16 COMPLETED AND FAXED TO [facility]AG[facility] CHAPPELL AT NUMBER BELOW, CM AWAITING CONFIRMATION OF BED OFFER. Original Note: EMR REVIEWED, PER HOSPITALIST PT CAN BE MEDICALLY CLEARED FOR STR HOWEVER PT W/NEED BED OFFER AND GUEST DOSING SET UP, CM WILL HAVE PT SIGN [facility] ONCE BED OFFER RECEIVED, [facility] CHAPPELL REQUESTING UPDATED PT NOTE, CM WILL FAX HARD COPY TO [phone] ONCE AVAILABLE AND CONT TO FOLLOW DC NEEDS.
--- NOTE | 2025-01-16 14:41 | HO.PM.IMPN ---
Subjective Subjective Date of Service: 01/16/25 Interval History: Shortness of breaths improving Review of Systems Review of Systems: Yes all other systems are reviewed and are negative Physical Exam Exam: Exam: Appearance: Alert.? Oriented X3.? cvs: rrr, [id number] . res: air entry diminished, bilateral wheezing abd: no rebound or guarding ,nt, bs present. ext pulses present , no cyanosis. neuro: axo3 , nonfocal. Vital Signs: Vital Signs: Last Vital Signs Temp 98.1 F 01/16/25 12:00 Pulse 81 01/16/25 12:00 Resp 18 01/16/25 12:00 BP 197/66 H 01/16/25 12:00 Pulse Ox 95 01/16/25 12:00 O2 Del Method Room Air 01/16/25 12:00 O2 Flow Rate 2 01/16/25 04:00 Oxygen Flow Rate 3 01/10/25 13:45 BMI result Body Mass Index 40.9 Objective Data Active Medications Acetaminophen (Acetaminophen 325 Mg Tablet) 650 mg PO Q6H PRN PRN Reason: Pain, Mild 1-3,fever,headache Last Admin: 01/12/25 04:45 Dose: 650 mg Documented By: SHANELLE Albuterol/Ipratropium (Albuterol/Iprat 2.5/0.5mg 3 Ml Ampul.Neb) 3 ml INHALE Q4H PRN PRN Reason: Shortness of Breath/Wheezing Last Admin: 01/12/25 05:25 Dose: 3 ml Documented By: SHANELLE Amlodipine Besylate (Amlodipine Besylate 5 Mg Tablet) 5 mg PO DAILY [facility]; Protocol Last Admin: 01/16/25 09:24 Dose: 5 mg Documented By: DEVORA Calcium Carbonate (Calcium Carbonate 750 Mg Tab.Chew) 750 mg PO Q4H PRN PRN Reason: Heartburn Last Admin: 01/13/25 12:50 Dose: 750 mg Documented By: MAGUE Cefuroxime Axetil (Cefuroxime Axetil 500 Mg Tablet) 500 mg PO Q12H [facility] Last Admin: 01/16/25 13:05 Dose: 500 mg Documented By: DEVORA Doxycycline Monohydrate (Doxycycline Monohydrate 100 Mg Capsule) 100 mg PO BID [facility] Last Admin: 01/16/25 09:24 Dose: 100 mg Documented By: DEVORA Enoxaparin Sodium (Enoxaparin Sodium 40 Mg/0.4 Ml Syringe) 40 mg SUBCUT Q24H [facility] On Hold: 01/11/25 03:01 Last Admin: 01/10/25 22:58 Dose: 40 mg Documented By: JORDEN Ferrous Sulfate (Ferrous Sulfate 324 Mg Tablet.) 324 mg PO DAILY [facility] Last Admin: 01/16/25 09:24 Dose: 324 mg Documented By: DEVORA Fluticasone/Umeclidinium/Vilanterol (Fluticasone/Umeclidinium/Vilanterol 200/62.5/ Blst.W.Dev) 1 puff INHALE RDAILY [facility] Last Admin: 01/16/25 08:02 Dose: 1 puff Documented By: HENRY Furosemide (Furosemide 20 Mg Tablet) 20 mg PO DAILY [facility]; Protocol Last Admin: 01/16/25 09:22 Dose: 20 mg Documented By: DEVORA Guaifenesin (Guaifenesin 200 Mg/10 Ml 10 Ml Liquid) 10 ml PO Q4H PRN PRN Reason: Cough Hydroxyzine HCl (Hydroxyzine Hcl 25 Mg Tablet) 25 mg PO BID PRN PRN Reason: Anxiety Loperamide HCl (Loperamide Hcl 2 Mg Capsule) 2 mg PO Q6H PRN PRN Reason: Diarrhea Last Admin: 01/15/25 20:33 Dose: 2 mg Documented By: BONITA Magnesium Hydroxide (Milk Of Magnesia 30 Ml Oral.Susp) 30 ml PO DAILY PRN PRN Reason: Constipation Melatonin (Melatonin 3 Mg Tablet) 6 mg PO BEDTIME PRN PRN Reason: Insomnia Methadone HCl (Methadone Hcl 20 Mg/2 Ml Oral.Conc) 80 mg PO DAILY [facility] Last Admin: 01/16/25 09:25 Dose: 80 mg Documented By: DEVORA Co-signed By: FERN Nicotine (Nicotine 14 Mg Patch.Td24) 14 mg TRANSDERMA DAILY [facility] Last Admin: 01/16/25 09:21 Dose: 14 mg Documented By: DEVORA Omeprazole (Omeprazole 20 Mg Capsule.) 20 mg PO DAILY@0630 [facility] Ondansetron HCl (Ondansetron Hcl 4 Mg/2 Ml Vial) 4 mg IVPUSH Q8H PRN PRN Reason: Nausea and Vomiting Polyethylene Glycol (Polyethylene Glycol 3350 17 Gm Powd.Pack) 17 gm PO DAILY PRN PRN Reason: Constipation Senna (Sennosides 8.6 Mg Tablet) 17.2 mg PO BEDTIME [facility] Last Admin: 01/15/25 22:34 Dose: Not Given Documented By: BONITA Non-Admin Reason: pt declined med Sertraline HCl (Sertraline Hcl 50 Mg Tablet) 150 mg PO DAILY [facility] Last Admin: 01/16/25 09:24 Dose: 150 mg Documented By: DEVORA Sodium Chloride (0.9 % Sodium Chloride Flush 3 Ml Syringe) 3 ml IVFLUSH QSHIFT [facility] Last Admin: 01/16/25 09:21 Dose: 3 ml Documented By: DEVORA Triamcinolone Acetonide (Triamcinolone Acet 0.5 % Cream 15 Gm Tube) 1 appl TOPICAL DAILY [facility] Last Admin: 01/16/25 10:50 Dose: Not Given Documented By: DEVORA Non-Admin Reason: used on wound care and its qod Labs 01/14/25 04:12 01/14/25 04:12 Labs: Laboratory Results - last 24 hr 01/16/25 07:43 POC Glucose 97 Microbiology Microbiology Results: Microbiology 01/10/25 18:41 Blood Culture - Final Blood - Venous No growth after 5 days. 01/10/25 17:59 Blood Culture - Final Blood - Venous No growth after 5 days. Assessment and Plan (1) COPD exacerbation: Status: Acute Assessment and Plan: 59-year-old male with past medical history hypertension, COPD on 2 L of oxygen during the day and 3 L at night, hyperlipidemia, CKD, tobacco dependence now smoking 3-4 cigarettes per day, chronic bilateral foot wounds being managed by the VNA and wound care clinic, presents to the ED BIBA for profound dyspnea worsening over the last month. Patient has not been able to attend wound care clinic and other doctors appointments due to his issues with breathing. 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 Patient being admitted for COPD exacerbation with possible underlying pneumonia/atelectasis. Also looking into bilateral chronic wounds. Diarrhae: Resolved added cdiff ,gip panel-negative continue to moniter COPD exacerbation with possible underlying pneumonia continue Duo nebs ,trelegy,antibiotics , oxygen Telemetry with continuous pulse ox Supportive care with guaifenesin pulm eval noted -continue above. Atelectasis Incentive spirometer ordered Anemia, Chronic h/h stable around 8.8/27.6 range Stool for occult ordered Iron panel and B12 seems fine Erythropoeiting level pending pendingand Retic ct bodelrine d/w nephrology -likely anemia ch dis . Elevated BNP 596 Echo pending , last echo was February of 2024 Strict I's and o's Low-sodium diet Bilateral chronic foot wounds Interim wound care orders placed X-rays of both feet -? right foot ch osteo blood cultures neg@24hrs added esr,crp wound care consult :Turn and Reposition every 2 hours and as needed for patient comfort. Use pillows or wedges to support off loading positions. 2. Off Load all bony prominences with use of pillows and heel boots if needed. Apply Preventative foams where needed. 3. Monitor for incontinence and moisture control, use barrier creams when needed for prevention and treatment. 4. Provide adequate and supplemental nutrition. 5. Order or Continue low air loss mattress. 6. When applicable maintain blood glucose levels per Providers order. Left medial ankle, left plantar, right medial/posterior ankle: cleanse with saline, pat dry, apply triad paste hay wound, apply durafiber ag to wound bed, cover with ABD pad, wrap with rolled gauze/kerlix, change every other day and PRN ID consult Chronic kidney disease GFR and creatinine clearance are at baseline Monitor Intake and Output Q8H Avoid hypotension Avoid nephrotoxic medications UA negative Hypertension Continue amlodipine and losartan with HCTZ once med rec is completed Avoid hypotension Hyperlipidemia Cardiac diet Patient not currently on statin Tobacco dependence Patient counseled on the benefits of smoking cessation Patient now smoking 3-4 cigarettes a day which is a reduction Nicotine patch offered. Substance use disorder Patient currently on methadone. Morbid obesity: Encouraged to lose weight and cutdown calories. PT evaluation: Recommended rehab DVT prophylaxis: [facility] devices ongoing need : awaiting placement/pulm rehab Quality Stroke Does the patient have a stroke diagnosis?: No Reason for No Anti-thrombotic by Day Two: N/A - Med Ordered VTE Prior VTE?: No VTE Risk Level:: Medical - moderate - high VTE Device Contraindication: N/A - Device Ordered VTE Drug Contraindication: N/A - Med Ordered
[2025-01-17 03:02] VITALS: BP 132/61; PULSE 65; RESP 18; TEMP 36; O2SAT 91
[2025-01-17 05:28] LABS: Hepatitis B Core Antibody IgM NON-REACTIVE (NON-REACTIVE)
[2025-01-17 07:14] VITALS: BP 130/60; PULSE 68; RESP 20; TEMP 36.6; O2SAT 94
[2025-01-17] MEDS: Ferrous Sulfate 324 MG TABLET.DR PO (07:30)
[2025-01-17] MEDS: methADONE HCl 20 MG/2 ML ORAL.CONC 80 MG PO (07:30)
[2025-01-17] MEDS: Nicotine 14 MG PATCH.TD24 TRANSDERMA (07:38)
[2025-01-17] MEDS: 0.9 % Sodium Chloride Flush 3 ML SYRINGE IVFLUSH (07:39)
[2025-01-17] MEDS: Triamcinolone Acet 0.5 % Cream 15 GM TUBE 1 APPL TOPICAL (07:39)
[2025-01-17] MEDS: Fluticasone/Umeclidinium/Vilanterol 200/62.5/25 BLST.W.DEV 1 PUFF INHALE (07:54)
[2025-01-17 07:57] VITALS: PULSE 69; RESP 16; O2SAT 98
--- NOTE | 2025-01-17 11:12 | P.CDIM_ITS ---
PROVIDER RESPONSE TEXT: To clarify, the appropriate diagnosis supported by the clinical indicators: Chronic respiratory failure: ch repiratory failure sec to copd. QUERY TEXT: PHYSICIAN'S DOCUMENTATION REQUEST Date of Query: 01/17/2025 06:55 AM EDT Patient Name: BONITA BUTLER Admit Date: 01/11/2025 Dear Alex Cardenas MD, A review of the medical record indicates additional documentation may be needed. Please review below and update the documentation accordingly. Clinical Indicators: patient is on home oxygen for history of COPD cough, SOB, wheeze, COPD exacerbation, possible Pneumonia Per ID and Pulmonary: Chronic Hypoxic respiratory failure respiratory rate 14-20 SATs 100-91 oxygen, continue Duo nebs trelegy, antibiotics Telemetry with continuous pulse ox Supportive care with guaifenesin Please clarify which of the following accurately represents the patient's respiratory status: Acute respiratory failure Please specify if Hypoxic, Hypercapnic, or Hypoxic and hypercapnic Acute on chronic respiratory failure Please specify if Hypoxic, Hypercapnic, or Hypoxic and hypercapnic Chronic respiratory failure Please specify if Hypoxic, Hypercapnic, or Hypoxic and hypercapnic COPD exacerbation COPD with acute lower respiratory infection COPD - stable chronic disease Acute respiratory distress Hypoxia Other (explain) Clinically unable to determine (explain) Thank you, Mary Lopez RN Use of terms such as suspected, likely, concern for, or probable (associated with a specific diagnosis that is being evaluated, monitored, or treated as if it exists) are acceptable and can be coded in the inpatient setting, when documented at the time of discharge. Please use your independent medical judgment in providing your response. THIS QUERY IS PART OF THE PERMANENT MEDICAL RECORD
[2025-01-17 11:32] VITALS: BP 165/80; PULSE 80; RESP 20; TEMP 36.5; O2SAT 91
--- NOTE | 2025-01-17 11:37 | MHC.CM.PN ---
PT MEDICALLY CLEARED FOR DC HOME W/RESUMP OF [facility] FOR SN AND NEW HOME PT, PER PT REQUEST CM CONTACTED PT'S AJ PATEL AT [facility] TO DETERMINE IF PT CAN USE METHADONE BOTTLES AT HOME AND GO TO CLINIC ON THURSDAY INSTEAD OF TOMORROW, CM RECEIVED CALL BACK FROM JOHNNY FRAIRE WHO GIVES PT PERMISSION AND WILL NOTE IN PT'S CHART, PT AWARE. PT REPORTS HE WILL ATTEMPT TO FIND A RIDE HOME, IF NOT CM WILL SET UP TRANSPORT.
--- NOTE | 2025-01-17 12:06 | P.DS_ITS ---
DS: Providers Provider Date of Service: 01/17/25 Date of admission: 01/10/25 21:30 Date of discharge: 01/17/25 Primary care physician: Cecilia Schmidt MD Consults: 01/10/25 22:39 Consult to Wound Care Routine Reason for consultation: B foot wounds 01/10/25 23:01 Consult to Pulmonology [place]ine [place] [facility] [place] [facility] Reason for consultation: advancing COPD no hx of pulomonogist care Has provider been notified: No 01/12/25 10:16 Consult to Nephrology Routine Consulting Provider[place] [facility] Reason for consultation: Ckd/aocd 01/14/25 03:57 Consult to Gastroenterology Routine Consulting Provider[place] [facility] [place] [facility] Reason for consultation: Anemia, occult blood test positive, diarrhea Has provider been notified: No Attending physician on discharge: Alex Cardenas Discharging clinician: Alex Cardenas DS: Diagnosis Discharge Diagnosis (1) COPD exacerbation: Status: Acute DS: Summary Hospital Course Hospital Course: HPI: 59-year-old male with past medical history hypertension, COPD on 2 L of oxygen during the day and 3 L at night, hyperlipidemia, CKD, tobacco dependence now smoking 3-4 cigarettes per day, chronic bilateral foot wounds being managed by the [facility]NA and wound care clinic, presents to the ED BIBA for profound dyspnea worsening over the last month. Patient has not been able to attend wound care clinic and other doctors appointments due to his issues with breathing. 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 Patient was admitted from November 28 through December 01 and declined pulmonary rehab but now is willing to go. Patient does have a productive cough with clear to yellow sputum. Patient's oxygen requirements per EMS was 3 L and patient was maintaining a sat of 96%. Patient currently denies any chest pain or shortness of breath at rest. Patient is feeling somewhat improved since arrival. Patient is not having any constipation or diarrhea. Patient denies any abdominal pain. Workup in the ED included chest x-ray which showed platelike atelectasis right mid lung and then CT of the chest was also completed which identified multiple pulmonary nodules and mild opacity of the lung base which could either represent atelectasis or infection. Patient was started on ceftriaxone and doxycycline e mpirically. Patient does not have a leukocytosis. Hemodynamics stable without any tachypnea or tachycardia. Lactic acid 0.9. Patient has chronic wounds on both feet that are currently being managed by the VNA. They are coming in every other day during the week to do dressing changes. Patient is homebound. Patient has not been able to attend the wound care clinic since last discharge because of his breathing issues. Wounds appear to be stable with 2 wounds on the left foot and 1 large wound on the back of the right foot. Patient states he is able to ambulate. Patient denies any fever, chills, night sweats. Drainage from the right wound is somewhat foul. Patient was seen by infectious disease last admission and patient's wounds were considered likely staph or strep and patient was started on IV vancomycin and then transitioned to Augmentin and doxy for 1 week. Patient states he did complete those antibiotics. Hospital course: Patient has chronic respiratory failure secondary to COPD -admitted for COPD exacerbation with possible underlying pneumonia: No leukocytosis, lactic acid normal, chest x-ray/chest CT done: Possible pneumonia/atelectasis, blood cultures sent-patient was started on nebs, steroids, antibiotics, cough medication: With the above management, patient seems to be improved significantly: Completed steroids, antibiotics Ceftin/doxycycline, continue incentive spirometry ,trelegy. Chest CT feels nodules(please see chest CT results below in imaging section for details): Patient is to follow-up out patiently with PCP,Multiple pulmonary n odules measuring up to 4.[address] chest follow-up in 6 month to 1 year as indicated. elevated bnp: Normal left ventricular size and systolic function. There is mildly increased left ventricular wall thickness. Abnormal diastolic function is noted. Spectral Doppler is indicative of an impaired relaxation filling pattern. Normal left ventricular filling pressures. Currently euvolemic, continue home Lasix. Patient was seen by ID considering possible new as well as Bilateral chronic foot wounds: Chest imaging reviewed as well as foot imaging also reviewed byID: foot imaging Changes-thought to be chronic. Recommended p.o. antibiotic for pneumonia. [id number]-F-[id number]-C (eia) positive, viral load pending: Patient is to follow up outpatient with PCP, further management and/treatment outpatient , consider ID follow up outpatient. ch normocytic anemia: H&H stable around 8.8 range, monitor CBC outpatient and further workup outpatient. Wound care recommended: Topical Wound Care Recommendations: Left medial ankle, left plantar, right medial/posterior ankle: cleanse with saline, pat dry, apply triad paste hay wound, apply durafiber ag to wound bed, cover with ABD pad, wrap with rolled gauze/kerlix, change every other day and PRN plan: Chronic anemia: Monitor CBC outpatient further workup outpatient complete ceftin/doxy for 3 more days -chest imaging 4 weeks time to see resolution of pneumonia. [id number]-V-[id number]-C (eia) positive, viral load pending: Patient is to follow up outpatient with PCP, further management and/treatment outpatient , consider ID follow up outpatient. Incentive spirometry, continue Trelegy . Wound care as above. Patient currently declined rehab, follow up with PCP and consider Pulmonary up patient. Patient will go home with VNA and PT. Above management discussed with the patient detail length he understand and in agreement with the above plan, time spent 50 minute. All questions answered. Time Attestation Total time managing care of this patient today: 50 mintues. Discharge Coordination Time (in mins): 50 min Quality: Safe Use of Opioids Does Pt have an Active Cancer Diagnosis on the Problem List?: No Quality: Stroke Does the patient have a stroke diagnosis?: No Physical Exam Exam: Exam: Appearance: Alert.? Oriented X3.? cvs: rrr, [id number] . res: air entry diminished, bilateral wheezing abd: no rebound or guarding ,nt, bs present. ext pulses present , no cyanosis, has ch foot wound b/l. neuro: axo3 , nonfocal. Vital Signs: Vital Signs: Last Vital Signs Temp 97.7 F 01/17/25 11:32 Pulse 80 01/17/25 11:32 Resp 20 01/17/25 11:32 BP 165/80 H 01/17/25 11:32 Pulse Ox 91 L 01/17/25 11:32 O2 Del Method Nasal Cannula 01/17/25 11:32 O2 Flow Rate 2 01/17/25 11:32 Oxygen Flow Rate 3 01/10/25 13:45 BMI result Body Mass Index 40.9 DS: Data Data Completed and Pending Completed studies during hospitalization [Text1]: Procedures Extraction of Right Foot Skin, External Approach (03/21/24) Insertion of Infusion Device into Superior Vena Cava, Percutaneous Approach (03/21/24) Ultrasonography of Superior Vena Cava, Guidance (03/21/24) Labs on day of discharge: Laboratory Results - last 24 hr 01/14/25 09:18 Hep B Core IgM Ab NON-REACTIVE Additional Comments Additional comments: foot xray:XR/XR foot LT min 3V: No plain film evidence of osteomyelitis. If this remains a clinical concern, three-phase bone scan or MRI could be performed. left foot: XR/XR foot LT min 3V: No plain film evidence of osteomyelitis. If this remains a clinical concern, three-phase bone scan or MRI could be performed. chest ct: Findings: The heart is normal size. The visualized thyroid and mediastinum are unremarkable. No pleural effusion. Severe centrilobular and paraseptal emphysema. Mild opacity of the bilateral lung base. Multiple pulmonary nodules: 3 mm in the left lower lobe series 3, image 83; 4.8 mm in the right upper lobe image 43; 3 mm para fissural nodule of the left upper lobe image 54; 2 mm nodule of the right upper lobe image 57. The visualized upper abdomen is unremarkable. No acute fractures. IMPRESSION: Mild opacity of the lung base could represent atelectatic change or infection. Multiple pulmonary nodules measuring up to 4.[address] chest follow-up in 1 year as indicated. echo: Conclusions: - Normal left ventricular size and systolic function. There is mildly increased left ventricular wall thickness. Abnormal diastolic function is noted. Spectral Doppler is indicative of an impaired relaxation filling pattern. Normal left ventricular filling pressures. - Mildly increased right ventricular cavity size. There is normal right ventricular systolic function. - The left atrium is moderately dilated. - Moderately elevated right atrial pressure. Findings Procedure Information Contrast agent, definity, is being given per protocol without apparent complications. Left Ventricle Normal left ventricular size and systolic function. There is mildly increased left ventricular wall thickness. Abnormal diastolic function is noted. Spectral Doppler is indicative of an impaired relaxation filling pattern. Normal left ventricular filling pressures. Right Ventricle Mildly increased right ventricular cavity size. There is normal right ventricular systolic function. Atria The left atrium is moderately dilated. The right atrium is mildly dilated. Aortic Valve There is a normal trileaflet aortic valve. There is mild calcification of the aortic valve. There is no aortic valve stenosis. There is no aortic valve regurgitation. Mitral Valve The mitral valve appears normal. There is no mitral valve regurgitation. There is no mitral valve stenosis. Pulmonic Valve The pulmonic valve is likely normal. Tricuspid Valve Normal tricuspid valve structure. There is no tricuspid valve regurgitation. Moderately elevated right atrial pressure. There is no evidence of pulmonary hypertension. Great Vessels All visible segments of the aorta are normal in size. The visualized portions of the pulmonary artery and branches are normal. Venous The inferior vena cava is dilated and collapses greater than 50% with inspiration. Pericardium/Pleural Prominent epicardial adipose tissue noted. There is no evidence of pericardial effusion. Prior Study Comparison Changes noted compared to prior study dated: 03/24/2024. No septal flattening is systole noted on this study (pressure overload has improved), septal bounce present. Discharge Plan Discharge Anticipated Discharge Date/Time: 01/17/25 11:34 Patient Disposition: Home Health Service Discharge Diagnosis: Chronic respiratory failure secondary to COPD, COPD exacerbation, possible pneumonia. Referrals: ROCAEL GARCIA [Other] - 1 Week Referral Note: PLEASE REMEMBER TO GO TO CLINIC ON TUESDAY 01/23. Claudy LAW [Outside] - 1 Week Referral Note: RESUMPTION OF HALFWAY AND NEW HOME PT, A NURSE WILL SEE YOU WITHIN 48HRS OF DISCHARGE. Cecilia Schmidt MD [Primary Care Provider, Internal Medicine] - 1 Week Referral Note: PLEASE FOLLOW UP W/PCP TO DETERMINE IF YOU SHOULD DO OUTPT PULMONARY REHAB. Discharge Medications: New guaifenesin 100 mg/5 mL Liquid 100 mg PO Q4H PRN (Reason: Cough) Qty: 118 0RF doxycycline monohydrate 100 mg Capsule 100 mg PO BID Qty: 6 0RF cefuroxime axetil 500 mg Tablet 500 mg PO Q12H Qty: 6 0RF Trelegy Ellipta 200-62.5-25 mcg Blister With Device 1 inh inhalation RDAILY Qty: 1 0RF Continued nicotine 21 mg/24 hr patch 24 hour 1 patch topical DAILY losartan-hydrochlorothiazide 50-12.5 mg tablet 1 tab PO DAILY ferrous sulfate 325 mg (65 mg iron) tablet 325 mg PO DAILY betamethasone dipropionate 0.05 % cream 1 appl topical DAILY Protocol: Apply to: Apply to: FOOT furosemide 20 mg tablet 20 mg PO DAILY amlodipine 5 mg tablet 5 mg PO DAILY sertraline 100 mg tablet 150 mg PO DAILY albuterol sulfate [Ventolin HFA] 90 mcg/actuation HFA aerosol inhaler 2 puff inhalation QID PRN (Reason: asthma) hydroxyzine HCl 25 mg tablet 25 mg PO BID PRN (Reason: Anxiety) methadone 5 mg/5 mL solution 80 mg PO DAILY Discharge Orders: Discharge Order (Routine); Ordered 01/17/25 Ordered By: Alex Cardenas Diet: Advance to usual diet Activity on Discharge: As tolerated Stand Alone Forms: Patient Portal Discharge page Print Language: Canadian Activity Restrictions/Additional Instructions: Topical Wound Care Recommendations: Left medial ankle, left plantar, right medial/posterior ankle: cleanse with saline, pat dry, apply triad paste hay wound, apply durafiber ag to wound bed, cover with ABD pad, wrap with rolled gauze/kerlix, change every other day and PRN Care Plan Goals: as below. Health Concerns: as above. Chronic anemia: Monitor CBC outpatient further workup outpatient complete ceftin/doxy for 3 more days -chest imaging 4 weeks time to see resolution of pneumonia. [id number]-Z-[id number]-C (eia) positive, viral load pending: Patient is to follow up outpatient with PCP, further management and/treatment outpatient , consider ID follow up outpatient. Incentive spirometry, continue Trelegy . Wound care as above. Patient currently declined rehab, follow up with PCP and consider Pulmonary up patient. Patient will go home with VNA and PT. Plan of Treatment: As above. Assessment: As above.
--- NOTE | 2025-01-17 12:16 | P.F2F_ITS ---
Service Date Service Date: 01/17/25 Encounter Date of encounter: 01/17/25 Encounter: copd excerebation Reasons for Services Signs and symptoms assessed: Shortness of breath or cough or any new symptoms Reason for detention: CV/CP assess and/or care, wound care, medication management, medication treatment and teach disease management Reason for physical therapy: home safety and mobility, therapeutic exercises, restore joint function, gait/transfer training, assess need for DME, ADL training, energy conservation and other MD Overseeing Care: Cecilia Schmidt Homebound: Leaving the home is medically contraindicated at this time without the asist of a device and/or another person due th the listed conditions above and below. Reason homebound: weakness related to hospital stay Homebound supporting statement: Patient is generalised weak post hospitlisation and need help with going to appointments and labs draws ,wound care as well as PT. Certification: Based on the above findings, I certify that this patient is confined to the home and needs intermittent detention care, physical therapy and/or speech therapy, or continues to need occupational therapy. The patient is under my care, and I have initiated the establishment of the plan of care. The patient will be followed by a physician who will periodically review the plan of care. Time Spent With Patient Time: Total time managing care of this patient today ____ minutes.
[2025-01-17 12:47] VITALS: O2SAT 89
[2025-01-18 02:33] LABS: HCV Log PCR <1.18 NOT DETECTED Log IU/mL (NOT DETECTED); HepC Viral Load <15 NOT DETECTED IU/mL (NOT DETECTED)
== END 2025-01-17 14:45 | disposition home health service (06) | DRG 140 ==
LOC: HO.ED 16:08 → HO.EDOVER 21:35 → HO.IMC 01-11 17:02
PROVIDERS: Nurse Practitioner Family; Physician Assistant; Admitting Provider Internal Medicine; Emergency Provider Emergency Medicine Emergency Medical Services; PCP Internal Medicine; Visit Provider Internal Medicine
DX: J44.0 Chronic obstructive pulmonary disease with (acute) lower respiratory infection (principal); J18.9 Pneumonia, unspecified organism; Z99.81 Dependence on supplemental oxygen; D63.1 Anemia in chronic kidney disease; E66.2 Morbid (severe) obesity with alveolar hypoventilation; I87.313 Chronic venous hypertension (idiopathic) with ulcer of bilateral lower extremity; J44.1 Chronic obstructive pulmonary disease with (acute) exacerbation; N18.30 Chronic kidney disease, stage 3 unspecified; I12.9 Hypertensive chronic kidney disease with stage 1 through stage 4 chronic kidney disease, or unspecified chronic kidney disease; F11.20 Opioid dependence, uncomplicated; L97.329 Non-pressure chronic ulcer of left ankle with unspecified severity; E78.5 Hyperlipidemia, unspecified; L97.319 Non-pressure chronic ulcer of right ankle with unspecified severity; L97.429 Non-pressure chronic ulcer of left heel and midfoot with unspecified severity; J98.11 Atelectasis; R19.7 Diarrhea, unspecified; B19.20 Unspecified viral hepatitis C without hepatic coma; Z68.41 Body mass index [BMI] 40.0-44.9, adult; F17.210 Nicotine dependence, cigarettes, uncomplicated; Z71.6 Tobacco abuse counseling; Z71.3 Dietary counseling and surveillance; Z20.822 Contact with and (suspected) exposure to COVID-19; Z79.51 Long term (current) use of inhaled steroids; Z79.899 Other long term (current) drug therapy
CPT/HCPCS: 36415; 71045; 71250; 73630; 80048; 80053; 81003; 82272; 82607; 82668; 82728; 82746; 82803; 82947; 83540; 83605; 83735; 83880; 84484; 85025; 85027; 85045; 85610; 85652; 86140; 86704; 86705; 86706; 86709; 86803; 86850; 86900; 86901; 87040; 87340; 87389; 87449; 87493; 87502; 87507; 87522; 87635; 87640; 87641; 93005; 93306; 94640; 97110; 97116; 97162; 99285; J0456; J0696; J1271; J1650; J1938; J2470; J2919; J3475; P9047; Q9957

== ENCOUNTER → 2025-01-10 13:45 | Outpatient (BNV) | payer OTHER, SELFPAY | PROVIDERS: Emergency Provider Emergency Medicine Emergency Medical Services; PCP Internal Medicine; Visit Provider Internal Medicine Cardiovascular Disease | DX: I45.10 Unspecified right bundle-branch block (principal) | CPT/HCPCS: 93010 ==

== ENCOUNTER → 2025-01-10 13:45 | Outpatient (BNV) | payer OTHER, SELFPAY | PROVIDERS: PCP Internal Medicine; Visit Provider Radiology Diagnostic Radiology | DX: S91.302A Unspecified open wound, left foot, initial encounter (principal); S91.301A Unspecified open wound, right foot, initial encounter | CPT/HCPCS: 73630 ==

== ENCOUNTER 2025-01-10 21:30 | Outpatient (BNV) | payer OTHER, SELFPAY | END 2025-01-11 07:00 | PROVIDERS: Admitting Provider Internal Medicine; Emergency Provider Emergency Medicine Emergency Medical Services; PCP Internal Medicine; Visit Provider Internal Medicine Cardiovascular Disease | DX: I51.7 Cardiomegaly (principal); I51.89 Other ill-defined heart diseases; I35.8 Other nonrheumatic aortic valve disorders | CPT/HCPCS: 93306 ==

== ENCOUNTER → 2025-01-10 21:30 | Outpatient (BNV) | payer OTHER, SELFPAY | PROVIDERS: Admitting Provider Internal Medicine; Emergency Provider Emergency Medicine Emergency Medical Services; PCP Internal Medicine; Visit Provider Internal Medicine Critical Care Medicine | DX: N18.9 Chronic kidney disease, unspecified (principal); D64.9 Anemia, unspecified | CPT/HCPCS: 99222 ==

== ENCOUNTER → 2025-01-10 21:30 | Outpatient (BNV) | payer OTHER, SELFPAY | PROVIDERS: Admitting Provider Internal Medicine; Emergency Provider Emergency Medicine Emergency Medical Services; PCP Internal Medicine; Visit Provider Internal Medicine | DX: J96.11 Chronic respiratory failure with hypoxia (principal) | CPT/HCPCS: 99222 ==

== ENCOUNTER → 2025-01-10 21:30 | Outpatient (BNV) | payer OTHER, SELFPAY | PROVIDERS: Admitting Provider Internal Medicine; Emergency Provider Emergency Medicine Emergency Medical Services; PCP Internal Medicine; Visit Provider Internal Medicine Gastroenterology | DX: D64.9 Anemia, unspecified (principal) | CPT/HCPCS: 99223 ==

== ENCOUNTER → 2025-01-10 21:30 | Outpatient (BNV) | payer OTHER, SELFPAY | PROVIDERS: Admitting Provider Internal Medicine; Emergency Provider Emergency Medicine Emergency Medical Services; PCP Internal Medicine; Visit Provider Nurse Practitioner Family | DX: J44.1 Chronic obstructive pulmonary disease with (acute) exacerbation (principal); S91.301A Unspecified open wound, right foot, initial encounter; S91.302A Unspecified open wound, left foot, initial encounter | CPT/HCPCS: 99223 ==

== ENCOUNTER → 2025-01-10 21:30 | Outpatient (BNV) | payer OTHER, SELFPAY | PROVIDERS: Admitting Provider Internal Medicine; Emergency Provider Emergency Medicine Emergency Medical Services; PCP Internal Medicine; Visit Provider Internal Medicine Pulmonary Disease | DX: J44.1 Chronic obstructive pulmonary disease with (acute) exacerbation (principal); J96.11 Chronic respiratory failure with hypoxia | CPT/HCPCS: 99222 ==

== ENCOUNTER 2025-02-24 16:19 | Outpatient (REF) | payer OTHER, SELFPAY ==
--- OUTSIDE RECORDS SUMMARY | 2025-02-24 16:23 | XMS_ITS | Clinical Summary ---
Author Organization [facility] Address [address] [place] [phone] Phone Care Team Providers Care Frit Coater Name Role Phone Cecilia Schmidt MD Primary [...] topic Medical Devices Not on file Insurance Capt[employer]nSocial O [employer] [facility] [facility] [employer] [facility] [address] [place], [place] [address] Care Teams Frit Coater Relationship Specialty Start Date End Date Cecilia Schmidt MD [address] [place] [address] [place] [id number] PCP - General 11/29/19 Additional Source Comments The information contained in this document represents components of the legal health record. It is not the complete legal health record.[facility]
== END 2025-02-24 16:20 | disposition home or self-care (01) ==
LOC: HO.LNP 16:19
PROVIDERS: Visit Provider Surgery Vascular Surgery
DX: L97.319 Non-pressure chronic ulcer of right ankle with unspecified severity (principal)
CPT/HCPCS: 87070; 87073; 87077; 87186; 87205

== ENCOUNTER 2025-03-13 11:18 | Inpatient (IN) | payer OTHER, SELFPAY ==
[2025-03-13] VITALS (15 sets, daily range): BP systolic 84–128; BP diastolic 44–76; PULSE 62–91; RESP 16–20; TEMP 36.5–37.2; O2SAT 92–97; BMI 40.2
--- NOTE | ~2025-03-13 | XR_ITS ---
EXAMINATION: XR ANKLE, RIGHT CLINICAL INFORMATION: pain; rule out osteomyelitis. COMPARISON: 08/12/2023. TECHNIQUE: AP, lateral, and mortise views of the right ankle. FINDINGS: No definite fracture, dislocation, or suspicious bone lesion. No focal region of periostitis, permeative bony change, or erosion to suggest radiographic changes of acute osteomyelitis. No mortise view present although grossly the mortise does appear intact on the AP view. The talar dome appears intact. Sclerosis of the posterior superior calcaneus with spurring present at the Achilles enthesis. There are subtle soft tissue calcifications of the distal tendon. There is mild subcutaneous soft tissue edema of the entire ankle. No soft tissue gas present. Suggestion of soft tissue ulcerations medially and posteriorly. XR/XR ankle RT 2V IMPRESSION: 1. Findings of the posterior superior calcaneus which could represent sequela of chronic, smoldering type osteomyelitis. No definite acute erosive change seen. 2. Diffuse subcutaneous soft tissue edema. No subcutaneous gas present. Electronically signed by: Jonathan Escalante MD 03/13/2025 12:29 PM EST
--- NOTE | ~2025-03-13 | XR_ITS ---
EXAMINATION: XR ANKLE, LEFT CLINICAL INFORMATION: pain COMPARISON: None available. TECHNIQUE: 2 views of the left ankle. FINDINGS: No definite fracture, dislocation, or suspicious bone lesion. No focal region of periostitis, permeative bony change, or erosion to suggest radiographic changes of osteomyelitis. No mortise view present although grossly the mortise does appear intact on the AP view. The talar dome appears intact. The subtalar joints and calcaneus appear intact. There is a tiny dorsal calcaneal spur. There is no ankle joint effusion. There is mild subcutaneous soft tissue edema of the entire ankle. No soft tissue gas present. XR/XR ankle LT 2V IMPRESSION: 1. No radiographic evidence of osteomyelitis. 2. Diffuse subcutaneous soft tissue edema. No subcutaneous gas present. Electronically signed by: Jonathan Escalante MD 03/13/2025 12:23 PM [facility]
--- NOTE | ~2025-03-13 | US_ITS ---
CLINICAL HISTORY: swelling; ulcer Venous duplex ultrasound bilateral lower extremity Comparison: None provided Findings: The visualized deep veins are fully compressible with normal Doppler color flow and spectral tracings. Bilateral calf veins are not seen due to subcutaneous edema. No popliteal cyst. Subcutaneous edema. IMPRESSION: Negative for bilateral lower extremity deep vein thrombosis in the visualized veins. Calf veins not seen due to edema. This document has been electronically signed by: Fahad Lutz MD on 03/14/2025 22:12:14
--- NOTE | ~2025-03-13 | MR_ITS ---
EXAM: TECHNIQUE: Multiplanar multisequence imaging performed through a lower extremity joint without contrast. INDICATION: Skin ulceration PRIOR: X-ray from one day ago and August 12, 2023 FINDINGS: Achilles tendon / plantar fascia: There is abnormality extending from the surface of the distal Achilles tendon, just cephalad to calcaneus. Signal abnormality infiltrates and invaginates into the Achilles tendon which appears splayed posteriorly. Signal abnormality extends to the posterior surface and posterior to the superior aspect of calcaneal tuberosity and measures 6.2 x 1.3 x 4.6 cm (CC by AP by transverse). On T1 imaging, the area is isointense skeletal muscle. On fluid sensitive sequences, it is hyperintense. With contrast, there is no enhancement of the masslike lesion. On x-ray, the area appears ossified protruding superiorly from the calcaneal tuberosity. However, there is hyperenhancement of the overlying skin or superficial soft tissues. There is likely bearing degrees of ulceration and thickening of the overlying skin along the dorsomedial surface extending inferiorly to the mid calcaneus and to the level of the junction of hindfoot and midfoot. There is also mild skin thickening, edema, and hyperenhancement extending laterally across the foot. Plantar fascial is intact. Lateral ankle ligaments: Syndesmotic ligaments are intact. Anterior talofibular ligament is nonvisualized. The calcaneofibular ligament is thin. Posterior talofibular ligament is intact. Deltoid ligament complex: Grossly intact Ankle tendons: Peroneal, medial, and the anterior ankle tendons are intact without abnormal signal or size changes. Talar Dome: Talar dome is intact without evidence of an osteochondral lesion or other abnormality. There is a small amount of synovial fluid in the talotibial joint without thickening or hyperenhancement of the synovium. Sinus tarsi: The physiologic architecture of sinus tarsi is preserved. Bone marrow: There is wedge-shaped deformity with thin sclerotic margins in the calcaneal tuberosity that has geographic boundaries and is likely postsurgical in nature measuring 2.7 x 1.7 x 2.7 cm (AP by cc by transverse). On x-ray, the lesion is mildly low density centrally and sclerotic peripherally, especially along the inferior margin. There is immature ossification of the superior margin of the calcaneal tuberosity that demonstrates no decreased signal on T1 imaging, mildly increased signal peripherally on fluid sensitive sequences with concordant enhancement. Articular cartilage: There are no articular cartilage defects. Soft Tissues: There is edema without hyperenhancement involving the superficial soft tissues anteriorly. There is moderate fatty streaking of musculature. MR/MR ankle RT wo/w con IMPRESSION: There is soft tissue abnormality splaying and invaginating into the distal Achilles tendon that demonstrates ossification on x-ray most consistent with heterotopic ossification within the Achilles tendon. There are subtle marrow signal changes in the cephalad margin of the calcaneal tuberosity that are not diagnostic of osteomyelitis. There are skin changes dorsomedially in the hindfoot that favor cellulitis. There is also evidence of more mild cellulitis extending laterally. Electronically signed by: Irwin Corrales MD 03/14/2025 12:48 PM [facility]
--- NOTE | 2025-03-13 11:41 | ED.GENADULT ---
HPI - General Adult General Chief complaint: General Medical Stated complaint: Infection R foot x1 year, COPD on 2L NC Time Seen by Provider: 03/13/25 11:26 Source: patient Mode of arrival: ambulatory Limitations: no limitations History of Present Illness ED Provider: Dr. Sierra HPI narrative: This is a 59-year-old male history of chronic respiratory failure on 2 L nasal cannula, CKD, peripheral vascular disease, COPD, tobacco use disorder, chronic lower extremity leg wound presented hospital today for a possible infected leg wound. Patient was sent in by visiting nurse. Does get visiting nurse for wound care 3 times a week. Patient has not changed his dressing since Thursday. No fever. Tenderness to palpation. Related Data Home Medications ?Medication ?Instructions ?Recorded ?Confirmed albuterol sulfate 90 mcg/actuation 2 puff inhalation QID PRN asthma 11/11/22 01/10/25 aerosol inhaler (Ventolin HFA) amlodipine 5 mg tablet 5 mg PO DAILY 11/11/22 01/10/25 hydroxyzine HCl 25 mg tablet 25 mg PO BID PRN Anxiety 11/11/22 01/10/25 methadone 5 mg/5 mL oral solution 80 mg PO DAILY 11/11/22 01/11/25 sertraline 100 mg tablet 150 mg PO DAILY 11/11/22 01/10/25 losartan 50 mg-hydrochlorothiazide 1 tab PO DAILY 03/21/24 01/10/25 12.5 mg tablet nicotine 21 mg/24 hr daily 1 patch topical DAILY 03/21/24 01/10/25 transdermal patch betamethasone dipropionate 0.05 % 1 appl topical DAILY 11/28/24 01/10/25 topical cream furosemide 20 mg tablet 20 mg PO DAILY 11/28/24 01/10/25 ferrous sulfate 325 mg (65 mg 325 mg PO DAILY 01/10/25 01/10/25 iron) tablet Previous Rx's ?Medication ?Instructions ?Recorded cefuroxime axetil 500 mg tablet 500 mg PO Q12H #6 tabs 01/17/25 doxycycline monohydrate 100 mg 100 mg PO BID #6 caps 01/17/25 capsule fluticasone fur. 200 mcg-umeclid 1 inh inhalation RDAILY #1 ea 01/17/25 62.5 mcg-vilant 25 mcg inhalat.powder (Trelegy Ellipta) guaifenesin 100 mg/5 mL oral liquid 100 mg (5 mL) PO Q4H PRN Cough 01/17/25 #118 mL Allergies Allergy/AdvReac Type Severity Reaction Status Date / Time codeine (CODEINE) Allergy Unknown NAUSEA Verified 03/13/25 11:31 Review of Systems Review of Systems: Pertinent review of systems as mentioned in HPI. All other system otherwise negative. [facility] Past Medical History [facility] Narrative: Medical history as mentioned in HPI Medical History Multiple pulmonary nodules HLD (hyperlipidemia) Substance use disorder Wound of right foot Wound of left foot Acute osteomyelitis of right calcaneus PVD (peripheral vascular disease) Hypotension Smoker History of substance use disorder Depression HTN (hypertension) Surgical History H/O elbow surgery (~2000) History of ankle surgery (~2003) H/O neck surgery (~1998) Social History Social History Household Members: None Housing: Apartment Do you presently have visiting nurse or other home services: Yes Alcohol intake: current Alcohol intake frequency: holidays/special occasions only Alcohol type: beer and hard liquor Patient Tobacco Use Status: Current everyday Tobacco user Tobacco use type: Cigarette Cigarette Packs Per Day: 10 Cigarettes Per Day: 4 Years Smoked: 45 Smoked in Last 30 Days: Yes Second Hand Smoke Exposure: No Use of substances other than those prescribed or required for medical reasons: No Advance Directives: No Advance Directives Information Provided: No service: No Current occupational status: disabled Physical Exam ED Exam Exam: General: Pleasant, no distress, interacting appropriately Head: Normacephalic, atraumatic ENT: oral mucosa moist, neck supple, no tracheal deviation Cardiovascular: regular rate, regular rhythm, no murmurs, rubbing, gallops Respiratory: CTAB, no wheeze, rales, rhonchi Extremities: Patient has leg ulcers around the bilateral ankles area. Patient does have green colored discharge identified on exam. Appears to be cellulitic in nature and red. Neurological: Awake and alert, no facial droop noted Skin: Warm and dry Psychiatric: Appropriate mood and thoughts Vital Signs: Vital Signs - 24 hr 03/13/25 11:29 03/13/25 13:30 03/13/25 14:27 Temperature 98.1 F 99.0 F Pulse Rate 91 77 79 Respiratory Rate 18 16 18 Blood Pressure 102/55 L 95/55 L 104/47 L Pulse Oximetry 94 94 Oxygen Delivery Method Nasal Cannula Nasal Cannula Oxygen Flow Rate 2 03/13/25 15:20 03/13/25 15:51 03/13/25 15:52 Temperature 98.4 F Pulse Rate 80 85 Respiratory Rate 20 20 Blood Pressure 92/52 L 110/53 L Pulse Oximetry 92 93 97 Oxygen Delivery Method Nasal Cannula Nasal Cannula Nasal Cannula Oxygen Flow Rate 2 2 2 03/13/25 16:05 03/13/25 16:32 03/13/25 16:51 Temperature Pulse Rate 71 73 73 Respiratory Rate 20 20 18 Blood Pressure 100/47 L 84/44 L 120/51 L Pulse Oximetry 95 Oxygen Delivery Method Nasal Cannula Oxygen Flow Rate 2 03/13/25 17:09 03/13/25 17:43 03/13/25 17:54 Temperature Pulse Rate 62 76 82 Respiratory Rate 20 20 18 Blood Pressure 101/52 L 97/49 L 120/53 L Pulse Oximetry 95 Oxygen Delivery Method Nasal Cannula Oxygen Flow Rate 2 03/13/25 18:13 03/13/25 19:07 Temperature 98.1 F Pulse Rate 74 79 Respiratory Rate 18 18 Blood Pressure 125/60 124/65 Pulse Oximetry 94 Oxygen Delivery Method Nasal Cannula Oxygen Flow Rate 2 BMI result Body Mass Index 40.2 Course Reevaluation(s) Reevaluation #1: 16:38, Dr. Diaz: I received this patient at change of shift from my colleague. The patient is a 59-year-old male who presents with redness and swelling of both of his feet. he has chronic problems with wounds on his feet and he has visiting nurses coming 3 times a week to help him with his chronic wounds. He called an ambulance today because he felt that he had worsening appearance of the feet since last night. He feels his change has been less than 24 hours in duration. He has not had a fever. He does not feel ill. He had labs that showed a normal white count of 9.3 with a slight left shift of 79.5 neutrophils. Lactate is normal at 1.7. On exam the patient has some erythema to the skin of both feet. His ankles has been wrapped. X-rays of the ankles show no gas. Clinically the patient does not have findings to suggest anything like necrotizing fasciitis. The patient complains of feeling mildly light headed but not very ill otherwise. Blood pressures has been soft. I have ordered additional IV fluids. Time: 16:45 Reevaluation #2: Maraius: The patient received a total of 4 L of crystalloid. His blood pressures seemed to have stabilized. I think he is sufficiently stable for admission to the medical floor. I have contacted the hospitalist and will plan on admission to the medical service for ongoing antibiotics and additional care. Time: 19:36 Medications Administered Discontinued Medications Generic Name Dose Route Start Last Admin Trade Name Freq PRN Reason Stop Dose Admin Hydrocodone Bitart/Acetaminophen 1 tab 03/13/25 15:32 03/13/25 15:49 Hydrocodone Bit/Acetam 5/325 Tablet PO 03/13/25 15:33 1 tab ONCE ONE Administration Hydrocortisone Sodium Succinate 100 mg 03/13/25 15:47 03/13/25 16:04 Hydrocortisone Sod Succ/Pf 100 Mg Vial IVPUSH 03/13/25 15:48 100 mg ONCE ONE Administration Piperacillin Sod/Tazobactam 100 mls @ 200 mls/hr 03/13/25 11:57 03/13/25 13:20 Sod 4.5 gm/ Sodium Chloride IV 03/13/25 12:26 Infused ONCE ONE Infusion Vancomycin HCl 2,000 mg in 500 mls @ 250 mls/hr 03/13/25 11:57 03/13/25 16:29 Vancomycin/Ns IV 03/13/25 13:56 Infused ONCE ONE Infusion Lactated Ringer's 1,000 mls @ 999 mls/hr 03/13/25 14:15 03/13/25 15:50 Lr IV 03/13/25 15:15 Infused .Q1H1M VANESSA Infusion Lactated Ringer's 1,000 mls @ 999 mls/hr 03/13/25 16:00 03/13/25 16:51 Lr IV 03/13/25 17:00 Infused .Q1H1M VANESSA Infusion Lactated Ringer's 1,000 mls @ 999 mls/hr 03/13/25 16:45 03/13/25 18:19 Lr IV 03/13/25 17:45 Infused .Q1H1M VANESSA Infusion Lactated Ringer's 1,000 mls @ 999 mls/hr 03/13/25 16:45 03/13/25 18:39 Lr IV 03/13/25 17:45 Not Given .Q1H1M [facility] Medical Decision Making Medical Decision Making [facility] Narrative: This is a 59-year-old male history of chronic respiratory failure COPD presented hospital today for bilateral lower extremities wound. On evaluation of the wound. This appears to be green light discharge. Consistent with a possible Pseudomonas infection. He does have some redness and bilateral lower extremity. We will plan to cover patient empirically with IV vancomycin and IV Zosyn. Blood culture CBC CMP lactic acid will be obtained as well. Patient's blood pressure is soft in the 90s systolic. IV fluid be given to the patient. We will plan to monitor the patient closely. X-ray were obtained no sign of gaseous change however questionable calcaneal osteomyelitis on the right No leukocytosis no elevated lactic acid. Additional L IV fluid will be given to the patient at this time. Patient was started on empiric vanc and Zosyn. Continue to monitor the patient's blood pressure closely. Patient will be signed out to oncoming provider pending blood pressure evaluation after fluids. IV hydrocortisone was given for a stress dose steroid. Differential Diagnosis Differential Diagnoses: The differential diagnosis associated with the presentation includes osteomyelitis, cellulitis, necrotizing fasciitis, Lab Data [facility] Lab Attestation statement: I reviewed the patient's lab results. 03/13/25 12:17 03/13/25 12:17 Labs: Lab Results 03/13/25 Range/Units 12:17 WBC 9.3 (4.8-10.8) X10*3/uL RBC 3.11 L (4.60-5.80) X10*6/uL Hgb 8.1 L (14.0-18.0) g/dl Hct 26.8 L (42.0-52.0) % MCV 86.2 (80.0-98.0) fL MCH 26.0 L (27.0-33.0) pg MCHC 30.2 L (31.0-36.0) g/dl RDW 18.3 H (11.0-16.0) % Plt Count 163 D (160-400) X10*3/uL MPV 8.1 L (9.4-12.4) fL Immature Gran % (Auto) 0.8 H (0.0-0.4) % Neut % (Auto) 79.5 H (45-73) % Lymph % (Auto) 6.5 L (20-40) % [place] % (Auto) 11.3 H (2-11) % Eos % (Auto) 1.7 (0-4) % Baso % (Auto) 0.2 (0-2) % Lymph # (Auto) 0.6 L (1.2-4.9) X10*3/uL [place] # (Auto) 1.1 (0.1-1.2) X10*3/uL Eos # (Auto) 0.2 (0.0-0.4) X10*3/uL Baso # (Auto) 0.0 (0.0-0.2) X10*3/uL Abs Immat Gran (auto) 0.07 H (0.00-0.03) X10*3/uL Absolute Neuts (auto) 7.4 (2.0-8.3) x10*3/uL Absolute Nucleated RBC 0.000 (0.0-0.012) X10*3/uL Nucleated RBC % (auto) 0.0 (0.0-0.2) /100WBC Sodium 139 (135-145) mmol/L Potassium 3.8 (3.3-5.1) mmol/L Chloride 107 (96-108) mmol/L Carbon Dioxide 27 (22-29) mmol/L Anion Gap 9 L (12-20) BUN 36 H (9-16) mg/dL Creatinine 1.79 H (0.5-1.4) mg/dL Estim Creat Clear Calc 57.9 Estimated GFR 39 Random Glucose 147 H (60-115) mg/dL Lactic Acid 1.7 (0.5-2.0) mmol/L Calcium 8.6 (8.4-10.2) mg/dL Total Bilirubin 0.2 (0.0-1.0) mg/dL AST 20 (5-37) U/L ALT 13 (0-40) U/L Alkaline Phosphatase 99 (39-117) U/L C-Reactive Protein 20.13 H (< or = 0.50) mg/dL Total Protein 8.2 H (6.5-8.0) g/dL Albumin 3.2 L (3.5-5.0) g/dL Critical Care Time Critical Care Time Critical Care Time: Yes Total Critical Care Time: 46 Attestation: Time is exclusive of separately billable procedures. Time includes: direct patient care, patient reassessment, coordination of patient care, interpretation of data (laboratory data, pulse oximetry, arterial blood gases and chest xrays), review of patient's medical records, medical consultation and documentation of patient care. Procedures excluded from critical care time: central intravenous line placement and electrocardiography. Discharge Plan Discharge Patient Disposition: Admitted As Inpatient Print Language: Barbadian
[2025-03-13 12:26] LABS: MANUAL DIFF FLAG NO
[2025-03-13 12:30] LABS: Hematocrit 26.8 % (42.0-52.0); Hemoglobin 8.1 g/dl (14.0-18.0); Imm Gran Abs Auto 0.07 X10*3/uL (0.00-0.03); Imm Gran Pct Auto 0.8 % (0.0-0.4); Lymphocytes Absolute Auto 0.6 X10*3/uL (1.2-4.9); Mean Corpuscular HGB Conc 30.2 g/dl (31.0-36.0); Mean Corpuscular Hemoglobin 26.0 pg (27.0-33.0); Mean Corpuscular Volume 86.2 fL (80.0-98.0); NRBC Abs Auto 0.000 X10*3/uL (0.0-0.012); NRBC Pct Auto 0.0 /100WBC (0.0-0.2); Platelet Count 163 X10*3/uL (160-400); Red Blood Count 3.11 X10*6/uL (4.60-5.80); White Blood Count 9.3 X10*3/uL (4.8-10.8)
[2025-03-13 12:44] LABS: Alanine Aminotransferase 13 U/L (0-40); Albumin Level 3.2 g/dL (3.5-5.0); Alkaline Phosphatase 99 U/L (39-117); Anion Gap 9 (12-20); Aspartate Amino Transferase 20 U/L (5-37); Blood Urea Nitrogen 36 mg/dL (9-16); Calcium 8.6 mg/dL (8.4-10.2); Carbon Dioxide 27 mmol/L (22-29); Chloride 107 mmol/L (96-108); Creatinine Clr Calc Pharmacy 57.9; Estimated Glomerular Filt Rate 39; Potassium 3.8 mmol/L (3.3-5.1); Sodium 139 mmol/L (135-145); Total Protein 8.2 g/dL (6.5-8.0)
--- NOTE | 2025-03-13 12:48 | PC.NURSE ---
delay in abx, d/t difficult IV stick
[2025-03-13] MEDS: vancomycin/NS 2,000 MG/500 ML PLAST..BAG 250 MG IV (13:20)
--- NOTE | 2025-03-13 14:06 | PC.NURSE ---
Dr Sierra notified of low BP Pt brought into room 15 for cardiac monitoring
[2025-03-13] MEDS: Lactated Ringers 1,000 ML 999 ML IV ×3 (14:27→16:50)
--- NOTE | 2025-03-13 15:44 | PC.NURSE ---
B/L foot wounds cleaned and dressed with non adherent and gauze. BP remains soft, Dr Sierra notified. C/O increasing b/l foot pain, Waggoner to be given.
[2025-03-13] MEDS: HYDROcodone Bit/Acetam 5/325 TABLET 1 TAB PO (15:49)
[2025-03-13] MEDS: Hydrocortisone Sod Succ/PF 100 MG VIAL IVPUSH (16:04)
--- NOTE | 2025-03-13 19:14 | P.HPHOSP_ITS ---
History of Present Illness Date of Service: 03/13/25 Chief Complaint: ankle wounds 59-year-old male with a past medical history of HTN, HLD, peripheral vascular disease, CKD, COPD, pulmonary nodules, anemia, history of osteomyelitis; presented to the hospital with a chief complaint of increased pain redness and swelling around his ankle wounds. Patient reports that he has chronic ankle wounds. Past couple days noted increased swelling and erythema around the ankle wounds with greenish discharge. VNS service suggested him to go to the ER for further evaluation. Denies any falls or injury. Denies any chest pain or palpitations. Denies any GI symptoms. Review of all other systems is negative except mentioned above ER course: Per ER team: Patient noted to have bilateral ankle wounds with the greenish discharge; noted surrounding erythema; x-ray showed no evidence of gas was noted to have findings concerning for chronic osteomyelitis. [facility] Medical History Multiple pulmonary nodules HLD (hyperlipidemia) Substance use disorder Wound of right foot Wound of left foot Acute osteomyelitis of right calcaneus PVD (peripheral vascular disease) Hypotension Smoker History of substance use disorder Depression HTN (hypertension) Surgical History H/O elbow surgery (~2000) History of ankle surgery (~2003) H/O neck surgery (~1998) Social History Household Members: None Housing: Apartment Do you presently have visiting nurse or other home services: Yes Alcohol intake: current Alcohol intake frequency: holidays/special occasions only Alcohol type: beer and hard liquor Patient Tobacco Use Status: Current everyday Tobacco user Tobacco use type: Cigarette Cigarette Packs Per Day: 10 Cigarettes Per Day: 4 Years Smoked: 45 Smoked in Last 30 Days: Yes Second Hand Smoke Exposure: No Use of substances other than those prescribed or required for medical reasons: No Advance Directives: No Advance Directives Information Provided: No Nutrition Risks: No Nutritional Risk service: No Current occupational status: disabled Meds Allergies Allergy/AdvReac Type Severity Reaction Status Date / Time codeine (CODEINE) Allergy Unknown NAUSEA Verified 03/13/25 11:31 Home Medications ?Medication ?Instructions ?Recorded ?Confirmed ?Last Taken ?Type albuterol sulfate 90 mcg/actuation 2 puff inhalation Q ID PRN asthma 11/11/22 03/13/25 03/13/25 09:00 History aerosol inhaler (Ventolin HFA) amlodipine 5 mg tablet 5 mg PO DAILY 11/11/2203/1303/13/25 09:00 History hydroxyzine HCl 25 mg tablet 25 mg PO BID PRN Anxiety 11/11/22 03/13/25 03/13/25 09:00 History methadone 5 mg/5 mL oral solution 80 mg PO DAILY 11/1101/11/25 01/10/25 08:00 History sertraline 100 mg tablet 150 mg PO DAILY 11/11/2203/13/25 09:00 History losartan 50 mg-hydrochlorothiazide 1 tab PO DAILY 02/2803/13/25 03/13/25 09:00 History 12.5 mg tablet nicotine 21 mg/24 hr daily 1 patch topical DAILY 03/2103/13/25 03/13/25 09:00 History transdermal patch betamethasone dipropionate 0.05 % 1 appl topical DAILY 11/28/24 03/13/25 03/13/25 09:00 History topical cream furosemide 20 mg tablet 20 mg PO DAILY 11/28/2402/2703/13/25 09:00 History ferrous sulfate 325 mg (65 mg 325 mg PO DAILY 01/10/25 03/13/25 03/13/25 09:00 History iron) tablet Physical Exam 2 Vital Signs and Narrative: Vital Signs: Last Vital Signs Temp 98.1 F 03/13/25 19:07 Pulse 79 03/13/25 19:07 Resp 18 03/13/25 19:07 BP 124/65 03/13/25 19:07 Pulse Ox 94 03/13/25 19:07 O2 Del Method Nasal Cannula 03/13/25 19:07 O2 Flow Rate 2 03/13/25 19:07 Oxygen Flow Rate 2 03/13/25 11:29 BMI result Body Mass Index 40.2 Results Labs 03/13/25 12:17 03/13/25 12:17 Labs: Laboratory Results - last 24 hr 03/13/25 12:17 MCV 86.2 MCH 26.0 L MCHC 30.2 L RDW 18.3 H Plt Count 163 D MPV 8.1 L Immature Gran % (Auto) 0.8 H Neut % (Auto) 79.5 H Lymph % (Auto) 6.5 L [place] % (Auto) 11.3 H Eos % (Auto) 1.7 Baso % (Auto) 0.2 Lymph # (Auto) 0.6 L [place] # (Auto) 1.1 Eos # (Auto) 0.2 Baso # (Auto) 0.0 Abs Immat Gran (auto) 0.07 H Absolute Neuts (auto) 7.4 Absolute Nucleated RBC 0.000 Nucleated RBC % (auto) 0.0 Anion Gap 9 L Estim Creat Clear Calc 57.9 Estimated GFR 39 Random Glucose 147 H Lactic Acid 1.7 Calcium 8.6 Total Bilirubin 0.2 AST 20 ALT 13 Alkaline Phosphatase 99 C-Reactive Protein 20.13 H Total Protein 8.2 H Albumin 3.2 L Imaging Radiologist's Impressions: Impressions Ankle X-Ray 03/13/25 12:02 IMPRESSION: 1. No radiographic evidence of osteomyelitis. 2. Diffuse subcutaneous soft tissue edema. No subcutaneous gas present. Electronically signed by: Jonathan Escalante MD 03/13/2025 12:23 PM [facility] Ankle X-Ray 03/13/25 12:03 IMPRESSION: 1. Findings of the posterior superior calcaneus which could represent sequela of chronic, smoldering type osteomyelitis. No definite acute erosive change seen. 2. Diffuse subcutaneous soft tissue edema. No subcutaneous gas present. Electronically signed by: Jonathan Escalante MD 03/13/2025 12:29 PM [facility] Assessment and Plan (1) Osteomyelitis: Qualifiers: Osteomyelitis location: unspecified site Osteomyelitis type: u nspecified type Qualified Code(s): M86.9 - Osteomyelitis, unspecified Status: Acute Plan 59-year-old male with a past medical history of HTN, HLD, peripheral vascular disease, CKD, COPD, pulmonary nodules, anemia, history of osteomyelitis; presented to the hospital with a chief complaint of increased pain redness and swelling around his ankle wounds. Noted to have bilateral ankle wounds with surrounding cellulitis and findings concerning for chronic osteomyelitis. Bilateral ankle wounds: Cellulitis: Chronic osteomyelitis: Continue IV vancomycin and Zosyn ID consult Vascular surgery follow-up in a.m. MRI of the foot Fall precautions PT/OT when ready for discharge USG Hypertension: Patient blood pressure was on the soft side on presentation. Hold home antihypertensives. Given IV fluids. COPD: Stable. Kathryn [email or web address] CKD: Creatinine is baseline Opiate dependence: Patient on methadone. Will defer to the day team to confirm and resume methadone in a.m.. DVT prophylaxis: [facility] Code status: Full code Quality Stroke Does the patient have a stroke diagnosis?: No VTE Prior VTE?: No VTE Risk Level:: Medical - moderate - high VTE Device Contraindication: Treatment Not Indicated VTE Drug Contraindication: N/A - Med Ordered
--- NOTE | 2025-03-13 20:18 | PC.NURSE ---
20 g IV left forearm
[2025-03-13] MEDS: Lactated Ringers 1,000 ML 100 ML IVCONT (20:19)
--- NOTE | 2025-03-13 21:07 | PHA.MEDREC ---
Pharmacy Consult ? Medication Reconciliation Pharmacy has completed the medication reconciliation. Spoke with patient at bedside to confirm meds.
--- NOTE | 2025-03-13 21:26 | PC.NURSE ---
Pt ambulated to bathroom with walker, pt with steady gait.
--- NOTE | 2025-03-13 22:47 | HO.NURTONUR ---
Addendum entered by Maricruz Sykes RN 03/14/25 07:42: Pt currently has Zosyn running- overnight pt was difficult stick for labs, US guided line placed in R upper bicep for additional IV access. Bilateral wounds cleaned/dressed by previous RN- dressings dry/intact. Original Note: Pt is a 59 y.o. male coming in with concern for infected leg wounds. Pt has chronic wounds on BLE, states that a visiting nurse comes and changes the dressings 3x a week. PMH chronic respiratory failure on 2 L nasal cannula, CKD, peripheral vascular disease, COPD, tobacco use disorder, chronic lower extremity leg wound. Left ankle xray shows 1. No radiographic evidence of osteomyelitis. 2. Diffuse subcutaneous soft tissue edema. No subcutaneous gas present. Right ankle xray shows 1. Findings of the posterior superior calcaneus which could represent sequela of chronic, smoldering type osteomyelitis. No definite acute erosive change seen. 2. Diffuse subcutaneous soft tissue edema. No subcutaneous gas present. Labs grossly unremarkable. Pt received IV fluids and abx in the ED. VSS, a&ox4. 20 g IV left forearm. LR running 100 mL/hr. Pt ambulates with a walker.
--- NOTE | 2025-03-13 22:50 | PC.NURSE ---
Wounds present on BLE, dressings in place. BLE red and swollen, tender to touch. Malodorous scent present in pt room.
[2025-03-14] VITALS (9 sets, daily range): BP systolic 100–129; BP diastolic 46–77; PULSE 62–77; RESP 12–20; TEMP 36.4–37; O2SAT 94–100; BMI 41.2
--- NOTE | 2025-03-14 00:43 | MHC.EDTECH ---
Nurse aware of b/p 104/56
--- NOTE | 2025-03-14 02:16 | PC.NURSE ---
Pt ambulated to bathroom with walker.
[2025-03-14 04:42] LABS: MANUAL DIFF FLAG NO
[2025-03-14 04:43] LABS: Hematocrit 28.0 % (42.0-52.0); Hemoglobin 8.8 g/dl (14.0-18.0); Imm Gran Abs Auto 0.07 X10*3/uL (0.00-0.03); Imm Gran Pct Auto 0.8 % (0.0-0.4); Lymphocytes Absolute Auto 0.8 X10*3/uL (1.2-4.9); Mean Corpuscular HGB Conc 31.4 g/dl (31.0-36.0); Mean Corpuscular Hemoglobin 26.6 pg (27.0-33.0); Mean Corpuscular Volume 84.6 fL (80.0-98.0); NRBC Abs Auto 0.000 X10*3/uL (0.0-0.012); NRBC Pct Auto 0.0 /100WBC (0.0-0.2); Platelet Count 171 X10*3/uL (160-400); Red Blood Count 3.31 X10*6/uL (4.60-5.80); White Blood Count 9.2 X10*3/uL (4.8-10.8)
[2025-03-14] MEDS: Lactated Ringers 1,000 ML 100 ML IVCONT ×2 (04:53→16:29)
[2025-03-14 05:00] LABS: Alanine Aminotransferase 16 U/L (0-40); Albumin Level 3.2 g/dL (3.5-5.0); Alkaline Phosphatase 90 U/L (39-117); Anion Gap 10 (12-20); Aspartate Amino Transferase 31 U/L (5-37); Blood Urea Nitrogen 30 mg/dL (9-16); Calcium 8.7 mg/dL (8.4-10.2); Carbon Dioxide 26 mmol/L (22-29); Chloride 106 mmol/L (96-108); Creatinine Clr Calc Pharmacy 64.4; Estimated Glomerular Filt Rate 44; Potassium 4.1 mmol/L (3.3-5.1); Sodium 138 mmol/L (135-145); Total Protein 8.4 g/dL (6.5-8.0)
--- NOTE | 2025-03-14 05:03 | PC.NURSE ---
Phlebotomy unable to obtain labs despite attempting to use a butterfly needle and a finger poke. RN Educator at bedside to place an ultrasound guided IV. 20 g in the right basilic vein. Morning labs collected and sent.
--- NOTE | 2025-03-14 05:04 | PC.NURSE ---
Bandages removed from bilateral feet. Purulent drainage present from both wounds, right wound larger than left. Nonstick pads and Kerlex wrap reapplied to BLE. LOU wrap over BLE. Pt tolerated dressing change well.
--- NOTE | 2025-03-14 07:00 | PHA.PROG ---
Admission Date/Time: March 13, 2025 19:12 Indication: Skin Weight in k.006 kg Adjusted body weight in Kg: [place] body weight in Kg: Obesity Dosing Indication % IBW: Serum Creatinine - Last 168 Hours 03/13/25 03/14/25 12:17 04:37 Creatinine 1.79 H 1.61 H Estimated CrCl and GFR - Last 168 Hours 03/13/25 03/14/25 12: 04:37 Estim Creat Clear Calc 57.9 64.4 Estimated GFR 39 44 Vancomycin Loading Dose: 2000 mg Current Vancomycin Dosing Regimen: 1500 mg Q24H Vancomycin Monitoring using AUC goal of 400 - 600 range with trough as surrogate marker: Predicted AUC 514 and trough 15.2 Date and Time for next Vancomycin Level to be drawn: 03/15 @1100 Pharmacist Comments on Vancomycin Plan: Vancomycin dosing will take advantage of [employer] as a clinical decision support tool that uses Bayesian modeling to calculate individual patient's pharmacokinetic parameters and forecast the patient's drug concentration time course with the target goal AUC 24 range of 400 - 600 mg/L/hr.
--- NOTE | 2025-03-14 08:32 | PC.NURSE ---
MRI form completed and faxed. Form placed in patients chart.
[2025-03-14] MEDS: Nicotine 21 MG PATCH.TD24 TRANSDERMA (08:43)
[2025-03-14] MEDS: Ferrous Sulfate 324 MG TABLET.DR PO (08:44)
--- NOTE | 2025-03-14 08:48 | PC.NURSE ---
BP this AM noted to be soft 100s/50s- MD made aware. Pt medicated per MAR with morning medications- BP meds held this AM d/t soft BPs and risk for lowering BP. Pt asymptomatic- denies dizziness/lightheadedness. Vitals updated in worklist, call jack within reach, all needs met at this time.
--- NOTE | 2025-03-14 11:08 | MHC.CM.PN ---
Pt. is active with [facility], he goes to [facility] for Methadone, and gets Home O2 from [facility]. For DME, he has a cane and a walker. PCP: confirmed: Dr. Schmidt. Pt. may need assistance with transport home at DC, DCP:home, resume [facility]. CM to follow for DC needs.
--- NOTE | 2025-03-14 14:47 | HO.WOUND ---
Wound Consult: Initial 59 yr old male admitted to [facility] on 03/14/25 See progress notes and H&P for detailed history. Wound consult placed for lower extremity wounds. Patient agreeable to assessment and photo documentation. Patient known by wound care team from previous admissions. patient also follows outpatient with [facility] wound [facility]. Patient also has visiting nurses for dressing changes every other day. most recently has been using hydrofera blue. Upon assessment today, wounds are overall improved. Recommend durafiber ag for increased drainage absorption. Patient reports using lymphedema pumps at home intermittenty. Left Medial Ankle Prior to Cleansing Left Medial Ankle post cleansing Left Plantar heel Right Medial Ankle Prior to cleansing Right Medial Ankle Post cleansing Etiology: venous stasis ulcers Wound Bed: mixed/marbled red/pink/yellow Drainage / Odor: moderate serous/yellow no odor Edges: ? irregular, macerated Hay wound: ? No Induration, Fluctuance or Warmth noted Pain: tenderness reported at times Goals of Treatment: ? drainage absorption with durafiber ag. Recommendations: 1. Turn and Reposition every 2 hours and as needed for patient comfort. Use pillows or wedges to support off loading positions. 2. Off Load all bony prominences with use of pillows and heel boots if needed. Apply Preventative foams where needed. 3. Monitor for incontinence and moisture control, use barrier creams when needed for prevention and treatment. 4. Provide adequate and supplemental nutrition. 5. Order or Continue low air loss mattress. 6. When applicable maintain blood glucose levels per Providers order. Left medial ankle, left plantar, right medial ankle: cleanse with saline, pat dry, apply triad paste hay wound, apply durafiber ag to wound bed, cover with ABD pad, wrap with rolled gauze/kerlix, Change Daily while inpatient and every other day at time of d/c. Recommend compression therapy and out pt wound clinic follow up. Re-consult wound care Nurse for wound deterioration or wound changes.
--- NOTE | 2025-03-14 16:03 | PM.CNGS ---
History of Present Illness Consult details Consult date: 03/14/25 Reason for consult: wound care Narrative: 59-year-old gentleman with a history of hypertension hyperlipidemia in osteomyelitis presents to the hospital with increasing pain redness and swelling around his lower extremities. He had noticed drainage from the lower extremities. [facility] sent him to the ER further evaluation. Upon workup noted to have some drainage from the lower extremities. Was subsequently admitted for further workup and care. Review of Systems Constitutional: Constitutional: Reports as per HPI ENT: Reports system reviewed and no additional complaints, except as documented Cardiovascular: Cardiovascular: Denies chest pain, Denies chest pain at rest and Denies chest pain with activity Respiratory: Respiratory: Denies chest congestion and Denies cough Gastrointestinal: Gastrointestinal: Reports no additional gastrointestinal complaints Musculoskeletal: Musculoskeletal: Denies abnormal gait Integumentary/Breasts: Skin/Breast: Reports pruritus and Denies wounds Neurologic: Reports system reviewed and no additional complaints, except as documented and Denies abnormal gait Psychiatric: Psychiatric: Denies no additional psychiatric complaints PMFSH Past Medical History Medical History Multiple pulmonary nodules HLD (hyperlipidemia) Substance use disorder Wound of right foot Wound of left foot Acute osteomyelitis of right calcaneus PVD (peripheral vascular disease) Hypotension Smoker History of substance use disorder Depression HTN (hypertension) Surgical History Surgical History H/O elbow surgery (~2000) History of ankle surgery (~2003) H/O neck surgery (~1998) Social History Social History Household Members: None Housing: Apartment Do you presently have visiting nurse or other home services: Yes Alcohol intake: current Alcohol intake frequency: holidays/special occasions only Alcohol type: beer and hard liquor Patient Tobacco Use Status: Current everyday Tobacco user Tobacco use type: Cigarette Cigarette Packs Per Day: 10 Cigarettes Per Day: 4 Years Smoked: 45 Smoked in Last 30 Days: Yes Patient Interested in Nicotine Replacement: Yes Second Hand Smoke Exposure: No Use of substances other than those prescribed or required for medical reasons: No Have you been hit, kicked, punched, or otherwise hurt by someone within the past year? If so, by whom?: No Do you feel safe in your current relationship?: No Current Relationship Is there a partner from a previous relationship who is making you feel unsafe now?: No Are you made to feel afraid or neglected: No Advance Directives: No Advance Directives Information Provided: No Do you have a plan to hurt others: No Plan Recently lost weight without trying: No Nutrition Risks: No Nutritional Risk service: No Current occupational status: disabled Meds Allergies Allergy/AdvReac Type Severity Reaction Status Date / Time codeine (CODEINE) Allergy Unknown NAUSEA Verified 03/13/25 11:31 Active Medications: Current Medications Acetaminophen (Acetaminophen 325 Mg Tablet) 650 mg PO Q6H PRN PRN Reason: Pain, Mild 1-3,fever,headache Albuterol Sulfate (Albuterol Sulfate 90 Mcg 8 Gm Inhaler) 2 puff INHALE QID PRN PRN Reason: asthma Albuterol/Ipratropium (Albuterol/Iprat 2.5/0.5mg 3 Ml Ampul.Neb) 3 ml INHALE RQ4H WHILE AWAKE PRN PRN Reason: Shortness of Breath Amlodipine Besylate (Amlodipine Besylate 5 Mg Tablet) 5 mg PO DAILY [facility]; Protocol Last Admin: 03/14/25 08:59 Dose: Not Given Betamethasone Dipropion Augmented (Betamethasone Dip Aug 0.05% Cr 15 Gm Tube) 1 appl TOPICAL DAILY [facility] Last Admin: 03/14/25 13:48 Dose: Not Given Calcium Carbonate (Calcium Carbonate 750 Mg Tab.Chew) 750 mg PO Q4H PRN PRN Reason: Heartburn Ferrous Sulfate (Ferrous Sulfate 324 Mg Tablet.) 324 mg PO DAILY [facility] Last Admin: 03/14/25 08:44 Dose: 324 mg Fluticasone/Umeclidinium/Vilanterol (Fluticasone/Umeclidinium/Vilanterol 200/62.5/25 Blst.W.Dev) 1 puff INHALE RDAILY [facility] Furosemide (Furosemide 20 Mg Tablet) 20 mg PO DAILY [facility]ES[facility]; Protocol Last Admin: 03/14/25 08:45 Dose: 20 mg Heparin Sodium (Porcine) (Heparin Sodium,Porcine 5,000 Unit/Ml Vial) 5,000 unit SUBCUT Q8H [facility] Last Admin: 03/14/25 13:51 Dose: 5,000 unit Hydrochlorothiazide (Hydrochlorothiazide 12.5 Mg Tablet) 12.5 mg PO DAILY [facility] Last Admin: 03/14/25 08:59 Dose: Not Given Hydroxyzine HCl (Hydroxyzine Hcl 25 Mg Tablet) 25 mg PO BID PRN PRN Reason: Anxiety Lactated Ringer's (Lr) 1,000 mls @ 100 mls/hr IVCONT .Q10H [facility] Last Admin: 03/14/25 04:53 Dose: 100 mls/hr Piperacillin Sod/Tazobactam (Sod 3.375 gm/ Sodium Chloride) 50 mls @ 100 mls/hr IV Q6H [facility] Last Infusion: 03/14/25 14:56 Dose: Infused Vancomycin HCl 1,500 mg/ (Sodium Chloride) 500 mls @ 333.333 mls/hr IV Q24H [facility] Last Admin: 03/14/25 14:38 Dose: 333.33 mls/hr Losartan Potassium (Losartan Potassium 50 Mg Tablet) 50 mg PO DAILY [facility] Last Admin: 03/14/25 08:59 Dose: Not Given Magnesium Hydroxide (Milk Of Magnesia 30 Ml Oral.Susp) 30 ml PO DAILY PRN PRN Reason: Constipation Melatonin (Melatonin 3 Mg Tablet) 6 mg PO BEDTIME PRN PRN Reason: Insomnia Nicotine (Nicotine 21 Mg Patch.Td24) 21 mg TRANSDERMA DAILY [facility] Last Admin: 03/14/25 08:43 Dose: 21 mg Pharmacy Consult (Consult Rx Vancomycin Dosing) 1 each MISCELLANE DAILY PRN PRN Reason: Consult order Sertraline HCl (Sertraline Hcl 50 Mg Tablet) 150 mg PO DAILY [facility] Last Admin: 03/14/25 08:44 Dose: 150 mg Sodium Chloride (0.9 % Sodium Chloride Flush 3 Ml Syringe) 3 ml IVFLUSH QSHIFT [facility] Last Admin: 03/14/25 06:47 Dose: Not Given Home Medications ?Medication ?Instructions ?Recorded ?Confirmed ?Last Taken ?Type albuterol sulfate 90 mcg/actuation 2 puff inhalation QID PRN asthma 11/11/22 03/13/25 03/13/25 09:00 History aerosol inhaler (Ventolin HFA) amlodipine 5 mg tablet 5 mg PO DAILY 11/11/22 03/13/25 03/13/25 09:00 History hydroxyzine HCl 25 mg tablet 25 mg PO BID PRN Anxiety 11/11/22 03/13/25 03/13/25 09:00 History methadone 5 mg/5 mL oral solution 80 mg PO DAILY 11/11/22 01/11/25 01/10/25 08:00 History sertraline 100 mg tablet 150 mg PO DAILY 11/11/22 03/13/25 03/13/25 09:00 History losartan 50 mg-hydrochlorothiazide 1 tab PO DAILY 03/21/24 03/13/25 03/13/25 09:00 History 12.5 mg tablet nicotine 21 mg/24 hr daily 1 patch topical DAILY 03/21/24 03/13/25 03/13/25 09:00 History transdermal patch betamethasone dipropionate 0.05 % 1 appl topical DAILY 11/28/24 03/13/25 03/13/25 09:00 History topical cream furosemide 20 mg tablet 20 mg PO DAILY 11/28/24 03/13/25 03/13/25 09:00 History ferrous sulfate 325 mg (65 mg 325 mg PO DAILY 01/10/25 03/13/25 03/13/25 09:00 History iron) tablet Physical Exam Vital Signs: Vital Signs: Last Vital Signs Temp 98.6 F 03/14/25 15:16 Pulse 63 03/14/25 15:16 Resp 18 03/14/25 15:16 BP 100/72 03/14/25 15:16 Pulse Ox 94 03/14/25 15:16 O2 Del Method Nasal Cannula 03/14/25 15:16 O2 Flow Rate 2 03/14/25 15:16 Oxygen Flow Rate 2 03/13/25 11:29 BMI result Body Mass Index 41.2 Const: General: cooperative, healthy appearing and comfortable Orientation/consciousness: oriented to person, oriented to place and oriented to time Neck: Carotids: no bruits Chest: Chest palpation & inspection: normal inspection of the chest and normal palpation of entire chest wall Resp: Effort & Inspection: normal respiratory effort and able to speak in complete sentences Cardio: Rate: regular rate Heart sounds: S1 normal heart sound present and S2 normal heart sound present Peripheral pulses: Peripheral pulses 2+ throughout GI: Inspection: Yes normal to inspection Skin: Other: +2 edema, right greater than left CEAP Classification C 6 active ulceration Ep - Etiology Primary As - superficial veins P - reflux General skin exam: dry skin Neuro: General: oriented to person, oriented to place and oriented to time Extrem: Right lower extremity: full ROM, normal capillary refill and edema Left lower extremity: full ROM, normal capillary refill and edema Psych: Mental Status: mental status grossly normal Results Labs 03/14/25 04:37 03/14/25 04:37 Labs: Abnormal lab results 03/13/25 03/14/25 Range/Units 12:17 04:37 RBC 3.31 L (4.60-5.80) X10*6/uL Hgb 8.8 L (14.0-18.0) g/dl Hct 28.0 L (42.0-52.0) % MCH 26.6 L (27.0-33.0) pg RDW 17.9 H (11.0-16.0) % MPV 8.5 L (9.4-12.4) fL Immature Gran % (Auto) 0.8 H (0.0-0.4) % Neut % (Auto) 78.8 H (45-73) % Lymph % (Auto) 8.3 L (20-40) % [facility] % (Auto) 11.1 H (2-11) % Lymph # (Auto) 0.8 L (1.2-4.9) X10*3/uL Abs Immat Gran (auto) 0.07 H (0.00-0.03) X10*3/uL ESR 68 H (1-20) MM/HR Anion Gap 10 L (12-20) BUN 30 H (9-16) mg/dL Creatinine 1.61 H (0.5-1.4) mg/dL C-Reactive Protein 20.13 H (< or = 0.50) mg/dL Total Protein 8.4 H (6.5-8.0) g/dL Albumin 3.2 L (3.5-5.0) g/dL Short CBC 03/14/25 Range/Units 04:37 WBC 9.2 (4.8-10.8) X10*3/uL Hgb 8.8 L (14.0-18.0) g/dl Hct 28.0 L (42.0-52.0) % Plt Count 171 (160-400) X10*3/uL BMP 03/14/25 04:37 Sodium 138 Potassium 4.1 Chloride 106 Carbon Dioxide 26 BUN 30 H Creatinine 1.61 H Calcium 8.7 Liver Function 03/14/25 Range/Units 04:37 Total Bilirubin 0.2 (0.0-1.0) mg/dL AST 31 (5-37) U/L ALT 16 (0-40) U/L Alkaline Phosphatase 90 (39-117) U/L Albumin 3.2 L (3.5-5.0) g/dL All other labs normal. Imaging Additional studies: MRI negative for osteo Assessment and Plan (1) Wound of right foot: Status: Acute (2) Wound of left foot: Status: Acute Plan In short patient has significant nonhealing swollen lower extremities. At the current time would continue with conservative measures including compression elevation and exercise. Along with antibiotics for local infection control and superficial cellulitis. Patient has already been placed on IV vanco and Zosyn. He was also given IV fluids. We did discuss local wound care and currently he is with [facility] wraps. We will monitor his progress with you. Thank you for allowing us to assist in his care. If there are any questions or concerns please do not hesitate to contact us. Procedures Date of Service Date of Service: 03/14/25
--- NOTE | 2025-03-14 16:17 | P.PNIM_ITS ---
Subjective Subjective Date of Service: 03/14/25 Interval History: b/l ankle wounds/ulcers ?ch Review of Systems has ankle pains no fevers Review of Systems: Yes all other systems are reviewed and are negative Physical Exam 2 Exam: Exam: Appearance: Alert.? Oriented X3.? cvs: rrr, [id number] res: clear to auscultation ,no rhonchii or wheezing abd: no rebound or guarding ,nt, bs present. ext -ankle b/l wounds /ulcers neuro: axo3 , nonfocal. Vital Signs: Vital Signs: Last Vital Signs Temp 98.6 F 03/14/25 15:16 Pulse 63 03/14/25 15:16 Resp 18 03/14/25 15:16 BP 100/72 03/14/25 15:16 Pulse Ox 94 03/14/25 15:16 O2 Del Method Nasal Cannula 03/14/25 15:16 O2 Flow Rate 2 03/14/25 15:16 Oxygen Flow Rate 2 03/13/25 11:29 BMI result Body Mass Index 41.2 Objective Data Active Medications Acetaminophen (Acetaminophen 325 Mg Tablet) 650 mg PO Q6H PRN PRN Reason: Pain, Mild 1-3,fever,headache Albuterol Sulfate (Albuterol Sulfate 90 Mcg 8 Gm Inhaler) 2 puff INHALE QID PRN PRN Reason: asthma Albuterol/Ipratropium (Albuterol/Iprat 2.5/0.5mg 3 Ml Ampul.Neb) 3 ml INHALE RQ4H WHILE AWAKE PRN PRN Reason: Shortness of Breath Amlodipine Besylate (Amlodipine Besylate 5 Mg Tablet) 5 mg PO DAILY [facility]; Protocol Last Admin: 03/14/25 08:59 Dose: Not Given Documented By: TENZIN Non-Admin Reason: See Note Betamethasone Dipropion Augmented (Betamethasone Dip Aug 0.05% Cr 15 Gm Tube) 1 appl TOPICAL DAILY [facility] Last Admin: 03/14/25 13:48 Dose: Not Given Documented By: ELDER Non-Admin Reason: Med Not Available Calcium Carbonate (Calcium Carbonate 750 Mg Tab.Chew) 750 mg PO Q4H PRN PRN Reason: Heartburn Ferrous Sulfate (Ferrous Sulfate 324 Mg Tablet.) 324 mg PO DAILY [facility] Last Admin: 03/14/25 08:44 Dose: 324 mg Documented By: TENZIN Fluticasone/Umeclidinium/Vilanterol (Fluticasone/Umeclidinium/Vilanterol 200/62.5/25 Blst.W.Dev) 1 puff INHALE RDAILY [facility] Furosemide (Furosemide 20 Mg Tablet) 20 mg PO DAILY [facility]; Protocol Last Admin: 03/14/25 08:45 Dose: 20 mg Documented By: TENZIN Heparin Sodium (Porcine) (Heparin Sodium,Porcine 5,000 Unit/Ml Vial) 5,000 unit SUBCUT Q8H [facility] Last Admin: 03/14/25 13:51 Dose: 5,000 unit Documented By: ELDER Hydrochlorothiazide (Hydrochlorothiazide 12.5 Mg Tablet) 12.5 mg PO DAILY [facility] Last Admin: 03/14/25 08:59 Dose: Not Given Documented By: TENZIN Non-Admin Reason: See Note Hydroxyzine HCl (Hydroxyzine Hcl 25 Mg Tablet) 25 mg PO BID PRN PRN Reason: Anxiety Lactated Ringer's (Lr) 1,000 mls @ 100 mls/hr IVCONT .Q10H [facility] Last Admin: 03/14/25 04:53 Dose: 100 mls/hr Documented By: SUZANNA Piperacillin Sod/Tazobactam (Sod 3.375 gm/ Sodium Chloride) 50 mls @ 100 mls/hr IV Q6H [facility] Last Infusion: 03/14/25 14:56 Dose: Infused Documented By: ELDER Vancomycin HCl 1,500 mg/ (Sodium Chloride) 500 mls @ 333.333 mls/hr IV Q24H [facility] Last Admin: 03/14/25 14:38 Dose: 333.33 mls/hr Documented By: ELDER Losartan Potassium (Losartan Potassium 50 Mg Tablet) 50 mg PO DAILY [facility] Last Admin: 03/14/25 08:59 Dose: Not Given Documented By: TENZIN Non-Admin Reason: See Note Magnesium Hydroxide (Milk Of Magnesia 30 Ml Oral.Susp) 30 ml PO DAILY PRN PRN Reason: Constipation Melatonin (Melatonin 3 Mg Tablet) 6 mg PO BEDTIME PRN PRN Reason: Insomnia Nicotine (Nicotine 21 Mg Patch.Td24) 21 mg TRANSDERMA DAILY [facility] Last Admin: 03/14/25 08:43 Dose: 21 mg Documented By: TENZIN Pharmacy Consult (Consult Rx Vancomycin Dosing) 1 each MISCELLANE DAILY PRN PRN Reason: Consult order Sertraline HCl (Sertraline Hcl 50 Mg Tablet) 150 mg PO DAILY [facility] Last Admin: 03/14/25 08:44 Dose: 150 mg Documented By: TENZIN Sodium Chloride (0.9 % Sodium Chloride Flush 3 Ml Syringe) 3 ml IVFLUSH QSHIFT [facility] Last Admin: 03/14/25 06:47 Dose: Not Given Documented By: SUZANNA Non-Admin Reason: IV Running Labs 03/14/25 04:37 03/14/25 04:37 Labs: Laboratory Results - last 24 hr 03/13/25 03/14/25 12:17 04:37 MCV 84.6 MCH 26.6 L MCHC 31.4 RDW 17.9 H Plt Count 171 MPV 8.5 L Immature Gran % (Auto) 0.8 H Neut % (Auto) 78.8 H Lymph % (Auto) 8.3 L Kingfisher % (Auto) 11.1 H Eos % (Auto) 0.8 Baso % (Auto) 0.2 Lymph # (Auto) 0.8 L King[place]isher # (Auto) 1.0 Eos # (Auto) 0.1 Baso # (Auto) 0.0 Abs Immat Gran (auto) 0.07 H Absolute Neuts (auto) 7.2 Absolute Nucleated RBC 0.000 Nucleated RBC % (auto) 0.0 ESR 68 H Anion Gap 10 L Estim Creat Clear Calc 64.4 Estimated GFR 44 Random Glucose 92 Calcium 8.7 Total Bilirubin 0.2 AST 31 ALT 16 Alkaline Phosphatase 90 C-Reactive Protein 20.13 H Total Protein 8.4 H Albumin 3.2 L Microbiology Microbiology Results: Microbiology 03/13/25 12:41 Blood Culture - Preliminary Blood - Venous No growth after 24 hours. 03/13/25 12:17 Blood Culture - Preliminary Blood - Venous No growth after 24 hours. Assessment and Plan (1) Wound of right foot: Status: Acute (2) Wound of left foot: Status: Acute Plan 59-year-old male with a past medical history of HTN, HLD, peripheral vascular disease, CKD, COPD, pulmonary nodules, anemia, history of osteomyelitis; presented to the hospital with a chief complaint of increased pain redness and swelling around his ankle wounds. Noted to have bilateral ankle wounds with surrounding cellulitis and findings concerning for chronic osteomyelitis. Bilateral ankle wounds: Cellulitis: Chronic osteomyelitis: MRI of the foot Continue IV vancomycin and Zosyn ,iv pain meds ID consult ,Vascular surgery follow-up in a.m. Fall precautions PT/OT when ready for discharge USG Hypertension: Patient blood pressure was on the soft side on presentation. Hold home antihypertensives. Given IV fluids. COPD: Stable. Kathryn p.r.n. CKD: Creatinine is baseline Opiate dependence: Patient on methadone.needs dose confirmed DVT prophylaxis: s/c heparin Code status: Full code. ongoing need for stay-bilateral ankle wounds and cellulitis-need workup for osteomyelitis IV antibiotics , specialist follow up. Quality Stroke Does the patient have a stroke diagnosis?: No VTE Prior VTE?: No VTE Risk Level:: Medical - moderate - high VTE Device Contraindication: Treatment Not Indicated VTE Drug Contraindication: N/A - Med Ordered
[2025-03-14] MEDS: 0.9 % Sodium Chloride Flush 3 ML SYRINGE IVFLUSH (19:46)
--- NOTE | 2025-03-14 23:56 | P.CNID_ITS ---
History of Present Illness Data of Consult Service Date: 03/14/25 Requesting physician: Alex Cardenas Primary Care Provider: Cecilia Schmidt MD HPI Reason for consult: bilateral foot erythema He presents with redness,swelling bilateral feet over last two weeks and told to come to hospital. He has no fever or chills. He had evidence OM right heel in past and received IV Ertapenem for six weeks. He has superficial cultures 01/2025 with no polys and multiple gram negatives,colonized. Review of Systems 2 Review of Systems: Yes all other systems are reviewed and are negative PMFSH Past Medical History Medical History Multiple pulmonary nodules HLD (hyperlipidemia) Substance use disorder Wound of right foot Wound of left foot Acute osteomyelitis of right calcaneus PVD (peripheral vascular disease) Hypotension Smoker History of substance use disorder Depression HTN (hypertension) Family History Family history: reviewed and not pertinent Surgical History Surgical History H/O elbow surgery (~2000) History of ankle surgery (~2003) H/O neck surgery (~1998) Social History Social History Household Members: None Housing: Apartment Do you presently have visiting nurse or other home services: Yes Alcohol intake: current Alcohol intake frequency: holidays/special occasions only Alcohol type: beer and hard liquor Patient Tobacco Use Status: Current everyday Tobacco user Tobacco use type: Cigarette Cigarette Packs Per Day: 10 Cigarettes Per Day: 4 Years Smoked: 45 Smoked in Last 30 Days: Yes Patient Interested in Nicotine Replacement: Yes Second Hand Smoke Exposure: No Use of substances other than those prescribed or required for medical reasons: No Currently Displaying Signs/Symptoms of Drug Intoxication Withdrawal: No Have you been hit, kicked, punched, or otherwise hurt by someone within the past year? If so, by whom?: No Do you feel safe in your current relationship?: No Current Relationship Is there a partner from a previous relationship who is making you feel unsafe now?: No Are you made to feel afraid or neglected: No Advance Directives: No Advance Directives Information Provided: No Do you have a plan to hurt others: No Plan Recently lost weight without trying: No Nutrition Risks: No Nutritional Risk service: No Current occupational status: disabled Meds Allergies Allergy/AdvReac Type Severity Reaction Status Date / Time codeine (CODEINE) Allergy Unknown NAUSEA Verified 03/13/25 11:31 Active Medications: Current Medications Acetaminophen (Acetaminophen 325 Mg Tablet) 650 mg PO Q6H PRN PRN Reason: Pain, Mild 1-3,fever,headache Albuterol Sulfate (Albuterol Sulfate 90 Mcg 8 Gm Inhaler) 2 puff INHALE QID PRN PRN Reason: asthma Albuterol/Ipratropium (Albuterol/Iprat 2.5/0.5mg 3 Ml Ampul.Neb) 3 ml INHALE RQ4H WHILE AWAKE PRN PRN Reason: Shortness of Breath Amlodipine Besylate (Amlodipine Besylate 5 Mg Tablet) 5 mg PO DAILY [facility]; Protocol Last Admin: 03/14/25 08:59 Dose: Not Given Betamethasone Dipropion Augmented (Betamethasone Dip Aug 0.05% Cr 15 Gm Tube) 1 appl TOPICAL DAILY [facility] Last Admin: 03/14/25 13:48 Dose: Not Given Calcium Carbonate (Calcium Carbonate 750 Mg Tab.Chew) 750 mg PO Q4H PRN PRN Reason: Heartburn Ferrous Sulfate (Ferrous Sulfate 324 Mg Tablet.Dr) 324 mg PO DAILY [facility] Last Admin: 03/14/25 08:44 Dose: 324 mg Fluticasone/Umeclidinium/Vilanterol (Fluticasone/Umeclidinium/Vilanterol 200/62.5/25 Blst.W.Dev) 1 puff INHALE RDAILY [facility] Furosemide (Furosemide 20 Mg Tablet) 20 mg PO DAILY [facility]; Protocol Last Admin: 03/14/25 08:45 Dose: 20 mg Heparin Sodium (Porcine) (Heparin Sodium,Porcine 5,000 Unit/Ml Vial) 5,000 unit SUBCUT Q8H [facility] Last Admin: 03/14/25 19:45 Dose: 5,000 unit Hydrochlorothiazide (Hydrochlorothiazide 12.5 Mg Tablet) 12.5 mg PO DAILY [facility] Last Admin: 03/14/25 08:59 Dose: Not Given Hydromorphone HCl (Hydromorphone Hcl 1 Mg/Ml Syringe) 0.5 mg IVPUSH Q4H PRN; Protocol PRN Reason: Pain, Severe (Pain Scale 7-10) Last Admin: 03/14/25 23:43 Dose: 0.5 mg Hydroxyzine HCl (Hydroxyzine Hcl 25 Mg Tablet) 25 mg PO BID PRN PRN Reason: Anxiety Lactated Ringer's (Lr) 1,000 mls @ 100 mls/hr IVCONT .Q10H [facility] Last Admin: 03/14/25 16:29 Dose: 100 mls/hr Piperacillin Sod/Tazobactam (Sod 3.375 gm/ Sodium Chloride) 50 mls @ 100 mls/hr IV Q6H [facility] Last Infusion: 03/14/25 20:24 Dose: Infused Vancomycin HCl 1,500 mg/ (Sodium Chloride) 500 mls @ 333.333 mls/hr IV Q24H [facility] Last Infusion: 03/14/25 16:31 Dose: Infused Losartan Potassium (Losartan Potassium 50 Mg Tablet) 50 mg PO DAILY [facility] Last Admin: 03/14/25 08:59 Dose: Not Given Magnesium Hydroxide (Milk Of Magnesia 30 Ml Oral.Susp) 30 ml PO DAILY PRN PRN Reason: Constipation Melatonin (Melatonin 3 Mg Tablet) 6 mg PO BEDTIME PRN PRN Reason: Insomnia Methadone HCl (Methadone Hcl 20 Mg/2 Ml Oral.Conc) 80 mg PO DAILY [facility] Nicotine (Nicotine 21 Mg Patch.Td24) 21 mg TRANSDERMA DAILY [facility] Last Admin: 03/14/25 08:43 Dose: 21 mg Pharmacy Consult (Consult Rx Vancomycin Dosing) 1 each MISCELLANE DAILY PRN PRN Reason: Consult order Sertraline HCl (Sertraline Hcl 50 Mg Tablet) 150 mg PO DAILY [facility] Last Admin: 03/14/25 08:44 Dose: 150 mg Sodium Chloride (0.9 % Sodium Chloride Flush 3 Ml Syringe) 3 ml IVFLUSH QSHIFT [facility] Last Admin: 03/14/25 19:46 Dose: 3 ml Home Medications ?Medication ?Instructions ?Recorded ?Confirmed ?Last Taken ?Type albuterol sulfate 90 mcg/actuation 2 puff inhalation Q ID PRN asthma 11/11/22 03/13/25 03/13/25 09:00 History aerosol inhaler (Ventolin HFA) amlodipine 5 mg tablet 5 mg PO DAILY 11/11/2203/1303/13/25 09:00 History hydroxyzine HCl 25 mg tablet 25 mg PO BID PRN Anxiety 11/11/22 03/13/25 03/13/25 09:00 History methadone 5 mg/5 mL oral solution 80 mg PO DAILY 11/1103/14/25 03/13/25 History sertraline 100 mg tablet 150 mg PO DAILY 11/11/2203/13/25 09:00 History losartan 50 mg-hydrochlorothiazide 1 tab PO DAILY 02/2803/13/25 03/13/25 09:00 History 12.5 mg tablet nicotine 21 mg/24 hr daily 1 patch topical DAILY 03/2103/13/25 03/13/25 09:00 History transdermal patch betamethasone dipropionate 0.05 % 1 appl topical DAILY 11/28/24 03/13/25 03/13/25 09:00 History topical cream furosemide 20 mg tablet 20 mg PO DAILY 11/28/2402/2703/13/25 09:00 History ferrous sulfate 325 mg (65 mg 325 mg PO DAILY 01/10/25 03/13/25 03/13/25 09:00 History iron) tablet Physical Exam 2 Vital Signs: Vital Signs: Last Vital Signs Temp 97.6 F 03/14/25 23:21 Pulse 70 03/14/25 23:21 Resp 20 03/14/25 23:21 BP 126/68 03/14/25 23:21 Pulse Ox 94 03/14/25 23:21 O2 Del Method Nasal Cannula 03/14/25 23:21 O2 Flow Rate 2 03/14/25 23:21 Oxygen Flow Rate 2 03/13/25 11:29 BMI result Body Mass Index 41.2 Const: General: cooperative HEENT: Head: Yes normal to inspection Face and sinus: Yes normal facial exam Mouth: Normal oral and palatal mucosa present Teeth and gingiva: d entition normal Eyes: General: appearance normal, both eyes and all related structures P upils: Equal, round and reactive pupils present Resp: Effort & Inspection: normal respiratory effort Cardio: Rate: regular rate Rhythm: regular rhythm GI: Palpation (GI): Soft to palpation and nontender : General: Yes no CVA tenderness Back/Spine/Pelvis: Back: no CVA tenderness Skin: General skin exam: no rashes or lesions noted Neuro: General: moves all extremities Cranial nerves: Yes Equal, round and reactive pupils present Extrem: Other: bilateral reddened swollen feet and legs to below knee pulses plus one Psych: Appearance: grossly normal Results Labs 03/14/25 04:37 03/14/25 04:37 Labs: Short CBC 03/14/25 Range/Units 04:37 WBC 9.2 (4.8-10.8) X10*3/uL Hgb 8.8 L (14.0-18.0) g/dl Hct 28.0 L (42.0-52.0) % Plt Count 171 (160-400) X10*3/uL BMP 03/14/25 04:37 Sodium 138 Potassium 4.1 Chloride 106 Carbon Dioxide 26 BUN 30 H Creatinine 1.61 H Calcium 8.7 Liver Function 03/14/25 Range/Units 04:37 Total Bilirubin 0.2 (0.0-1.0) mg/dL AST 31 (5-37) U/L ALT 16 (0-40) U/L Alkaline Phosphatase 90 (39-117) U/L Albumin 3.2 L (3.5-5.0) g/dL Microbiology Microbiology Results: Microbiology 03/13/25 12:41 Blood - Venous Blood Culture - Preliminary No growth after 24 hours. 03/13/25 12:17 Blood - Venous Blood Culture - Preliminary No growth after 24 hours. Assessment and Plan (1) PVD (peripheral vascular disease): Status: Acute (2) Cellulitis: Status: Acute He has bilateral inflammation lower extremities Possible gram negative and gram positive Plan Continue Vancomycin and Zosyn at this time Await blood cultures When improved po Doxycycline and Augmentin likely for 14 days if not bacteremic with local wound care.
[2025-03-15] MEDS: Lactated Ringers 1,000 ML 100 ML IVCONT (01:05)
[2025-03-15 03:39] VITALS: BP 121/57; PULSE 70; RESP 18; TEMP 36.8; O2SAT 97
[2025-03-15 07:16] LABS: Creatinine Clr Calc Pharmacy 66.5; Estimated Glomerular Filt Rate 45
[2025-03-15 07:19] VITALS: BP 137/62; PULSE 74; RESP 20; TEMP 36.6; O2SAT 97
[2025-03-15] MEDS: Ferrous Sulfate 324 MG TABLET.DR PO (08:33)
[2025-03-15] MEDS: methADONE HCl 20 MG/2 ML ORAL.CONC 80 MG PO (08:34)
[2025-03-15] MEDS: Nicotine 21 MG PATCH.TD24 TRANSDERMA (08:34)
[2025-03-15] MEDS: Albuterol Sulfate 90 MCG 8 GM INHALER 2 PUFF INHALE (08:48)
--- NOTE | 2025-03-15 11:08 | P.DS_ITS ---
DS: Providers Provider Date of admission: 03/13/25 19:12 Date of discharge: 03/15/25 Primary care physician: Cecilia Schmidt MD Consults: 03/13/25 19:11 Consult to Infectious Diseases Routine Consulting Provider: [facility] Reason for consultation: leg wounds; osteomyelitis Consult to Vascular Surgery Routine Consulting Provider: [facility] V[facility] Reason for consultation: ankle wounbds; osteomyelitis 03/14/25 09:52 Consult to Wound Care Routine Consulting Provider: [facility] W[facility] Care Management Reason for consultation: bilateral cellulitis to lower extremities DS: Diagnosis Discharge Diagnosis (1) PVD (peripheral vascular disease): Status: Acute (2) Cellulitis: Status: Acute DS: Summary Hospital Course Hospital Course: from initial hpi: 59-year-old male with a past medical history of HTN, HLD, peripheral vascular disease, CKD, COPD, pulmonary nodules, anemia, history of osteomyelitis; presented to the hospital with a chief complaint of increased pain redness and swelling around his ankle wounds. Patient reports that he has chronic ankle wounds. Past couple days noted increased swelling and erythema around the ankle wounds with greenish discharge. VNS service suggested him to go to the ER for further evaluation. Denies any falls or injury. Denies any chest pain or palpitations. Denies any GI symptoms. Review of all other systems is negative except mentioned above ER course: Per ER team: Patient noted to have bilateral ankle wounds with the greenish discharge; noted surrounding erythema; x-ray showed no evidence of gas was noted to have findings concerning for chronic osteomyelitis. hospital course: Patient was admitted for bilateral ankle wounds with superimposed acute bacterial cellulitis. Was started on vancomycin and Zosyn, seen by vascular recommended antibiotics and local care, was seen by wound care recommended local care. Erythema and symptoms improved, Was seen by infectious disease who recommended 14 days Augmentin doxy on discharge. For morbid obesity weight loss recommended. For hypertension was continued on losartan, amlodipine, for mood disorder continued on sertraline for opiate dependence continued on methadone. For COPD continued on DuoNebs as needed. Patient is medically stable and will be discharged home. Time Attestation Discharge Coordination Time (in mins): 33 Quality: Safe Use of Opioids Does Pt have an Active Cancer Diagnosis on the Problem List?: No Quality: Stroke Does the patient have a stroke diagnosis?: No Physical Exam Vital Signs: Vital Signs: Last Vital Signs Temp 97.9 F 03/15/25 07:19 Pulse 74 03/15/25 07:19 Resp 20 03/15/25 07:19 BP 137/62 03/15/25 07:19 Pulse Ox 97 03/15/25 07:19 O2 Del Method Nasal Cannula 03/15/25 07:19 O2 Flow Rate 2 03/15/25 07:19 Oxygen Flow Rate 2 03/13/25 11:29 BMI result Body Mass Index 41.2 Const: General: cooperative HEENT: Head: Yes normal to inspection Face and sinus: Yes normal facial exam Mouth: Normal oral and palatal mucosa present Teeth and gingiva: dentition normal Eyes: General: appearance normal, both eyes and all related structures Pupils: Equal, round and reactive pupils present Resp: Effort & Inspection: normal respiratory effort Cardio: Rate: regular rate Rhythm: regular rhythm GI: Palpation (GI): Soft to palpation and nontender : General: Yes no CVA tenderness Back/Spine/Pelvis: Back: no CVA tenderness Skin: General skin exam: no rashes or lesions noted Neuro: General: moves all extremities Cranial nerves: Yes Equal, round and reactive pupils present Extrem: Other: bilateral reddened swollen feet and legs to below knee pulses plus one Psych: Appearance: grossly normal DS: Data Data Completed and Pending Completed studies during hospitalization [Text1]: Procedures Extraction of Right Foot Skin, External Approach (03/21/24) Insertion of Infusion Device into Superior Vena Cava, Percutaneous Approach (03/21/24) Ultrasonography of Superior Vena Cava, Guidance (03/21/24) Labs on day of discharge: Laboratory Results - last 24 hr 03/15/25 06:44 Creatinine 1.58 H Estim Creat Clear Calc 66.5 Estimated GFR 45 Preliminary micro results at discharge 03/13/25 12:41 Blood Culture - Preliminary Blood - Venous No growth after 24 hours. 03/13/25 12:17 Blood Culture - Preliminary Blood - Venous No growth after 24 hours. Discharge Plan Discharge Anticipated Discharge Date/Time: 03/15/25 10:55 Patient Disposition: Home Health Service Discharge Diagnosis: cellulitis Referrals: [facility] [Outside] - 1 Week Cecilia Schmidt MD [Primary Care Provider, Internal Medicine] - 1 Week Discharge Medications: New amoxicillin-pot clavulanate 875-125 mg tablet 1 tab PO Q12H Qty: 28 0RF doxycycline hyclate 100 mg tablet 100 mg PO BID Qty: 28 0RF Continued nicotine 21 mg/24 hr patch 24 hour 1 patch topical DAILY losartan-hydrochlorothiazide 50-12.5 mg tablet 1 tab PO DAILY ferrous sulfate 325 mg (65 mg iron) tablet 325 mg PO DAILY Trelegy Ellipta 200-62.5-25 mcg Blister With Device 1 inh inhalation RDAILY Qty: 1 0RF betamethasone dipropionate 0.05 % cream 1 appl topical DAILY Protocol: Apply to: Apply to: FOOT furosemide 20 mg tablet 20 mg PO DAILY amlodipine 5 mg tablet 5 mg PO DAILY sertraline 100 mg tablet 150 mg PO DAILY albuterol sulfate [Ventolin HFA] 90 mcg/actuation HFA aerosol inhaler 2 puff inhalation QID PRN (Reason: asthma) hydroxyzine HCl 25 mg tablet 25 mg PO BID PRN (Reason: Anxiety) methadone 5 mg/5 mL solution 80 mg PO DAILY Discharge Orders: Discharge Order (Routine); Ordered 03/15/25 Ordered By: Blayne Edward Diet: Advance to usual diet Activity on Discharge: As tolerated Stand Alone Forms: Patient Portal Discharge page Print Language: Pashto Activity Restrictions/Additional Instructions: Topical Wound Care Recommendations: Left medial ankle, left plantar, right medial ankle: cleanse with saline, pat dry, apply triad paste hay wound, apply durafiber ag to wound bed, cover with ABD pad, wrap with rolled gauze/kerlix, Change every other day at time of d/c. Recommend compression therapy and out pt wound clinic follow up. Care Plan Goals: recovery Health Concerns: cellultiis Plan of Treatment: 14 days augmentin and doxycyline, follow up with wound care Assessment: see above
--- NOTE | 2025-03-15 11:29 | HE.PHANOTE ---
RE: [facility] trough returned @ 21.6. Indication is skin. Will hold dose and resume 03/16 @ 0800 with 1000 mg Q24H to ensure safety. Predicted AUC 487 and trough 14.5. Will continue to monitor renal function. Next trough due 03/18 @0600.
[2025-03-15 11:39] VITALS: BP 132/62; PULSE 85; RESP 20; TEMP 37.2; O2SAT 96
--- NOTE | 2025-03-15 12:01 | MHC.CM.PN ---
Pt. has been medically cleared to [place], he will go home this afternoon via BLS and resume home care services from [facility].
--- NOTE | 2025-03-15 13:10 | HO.VASCPN ---
Subjective Subjective Date of Service: 03/15/25 Patient reports: no new complaints and feels better Interval history: Patient seen and examined. No significant events overnight. Appears to be doing somewhat better. Sitting up comfortably today. Now for discharge. He has home services set up as well. Physical Exam Vital Signs: Vital Signs: Last Vital Signs Temp 98.9 F 03/15/25 11:39 Pulse 85 03/15/25 11:39 Resp 20 03/15/25 11:39 BP 132/62 03/15/25 11:39 Pulse Ox 96 03/15/25 11:39 O2 Del Method Nasal Cannula 03/15/25 11:39 O2 Flow Rate 2 03/15/25 11:39 Oxygen Flow Rate 2 03/13/25 11:29 BMI result Body Mass Index 41.2 Const: General: cooperative, healthy appearing and comfortable Orientation/consciousness: oriented to person, oriented to place and oriented to time HEENT: Head: Yes normal to inspection Neck: Neck: Yes normal visual inspection Carotids: no bruits Chest: Chest palpation & inspection: normal inspection of the chest Resp: Effort & Inspection: normal respiratory effort and able to speak in complete sentences Auscultation: clear to auscultation bilaterally, no crackles, no rales, no rhonchi and no wheezes Cardio: Rate: regular rate Rhythm: regular rhythm Heart sounds: S1 normal heart sound present and S2 normal heart sound present Bruits: no carotid bruits Peripheral pulses: Peripheral pulses 2+ throughout GI: Inspection: Yes normal to inspection Skin: Wounds: no wounds Hair: normal Neuro: General: oriented to person, oriented to place and oriented to time Cranial nerves: Yes CN's II-XII intact bilaterally and Yes Normal hearing present Cognition (Neuro): normal cognition Motor exam (neuro): 5/5 motor strength present throughout Extrem: Other: venous exam: +2 edema General: No clubbing, No cyanosis and No edema Psych: Appearance: grossly normal Mental Status: mental status grossly normal Speech and movement: Normal speech and movement present Progress Note: A&P Assessment and plan (1) PVD (peripheral vascular disease): Status: Acute Assessment and Plan: In short patient has significant swelling nonhealing ulcers. We did discuss local wound care along with compression elevation and exercise. I did provide him information regarding lymphedema. Strangely enough he did advised that he did have a lymphedema pump at home which he had not been using for some time. I did encourage him to start using this once again. Can follow up with us as an outpatient to ensure that he has a appropriate pump fitting to better address the swelling of his lower extremities. Thank you for allowing us to assist in his care. If there are any questions or concerns please do not hesitate to contact us. Time Spent With Patient Time: Total time managing care of this patient today ____ minutes. Procedures Date of Service Date of Service: 03/15/25 Quality Stroke Does the patient have a stroke diagnosis?: No VTE Prior VTE?: No VTE Risk Level:: Medical - moderate - high VTE Device Contraindication: Treatment Not Indicated VTE Drug Contraindication: N/A - Med Ordered
== END 2025-03-15 16:33 | disposition home health service (06) | DRG 383 ==
LOC: HO.ED 19:35 → HO.EDOVER 19:46 → HO.IMC 03-14 07:36
PROVIDERS: Internal Medicine; Student in an Organized Health Care Education/Training Program; Admitting Provider Hospitalist; Emergency Provider Emergency Medicine; PCP Internal Medicine; Visit Provider Internal Medicine
DX: L03.116 Cellulitis of left lower limb (principal); L97.319 Non-pressure chronic ulcer of right ankle with unspecified severity; L03.115 Cellulitis of right lower limb; F17.210 Nicotine dependence, cigarettes, uncomplicated; M86.672 Other chronic osteomyelitis, left ankle and foot; F11.20 Opioid dependence, uncomplicated; Z71.6 Tobacco abuse counseling; I12.9 Hypertensive chronic kidney disease with stage 1 through stage 4 chronic kidney disease, or unspecified chronic kidney disease; N18.9 Chronic kidney disease, unspecified; I89.0 Lymphedema, not elsewhere classified; J44.9 Chronic obstructive pulmonary disease, unspecified; I73.9 Peripheral vascular disease, unspecified; L97.329 Non-pressure chronic ulcer of left ankle with unspecified severity; Z91.199 Patient's noncompliance with other medical treatment and regimen due to unspecified reason; Z79.899 Other long term (current) drug therapy
CPT/HCPCS: 36415; 73600; 73723; 80053; 80202; 82565; 83605; 85025; 85652; 86140; 87040; 93970; 99285; A9585; J1171; J1644; J1650; J1720; J2543; J3373; J3374; J7120

== ENCOUNTER → 2025-03-13 11:55 | Outpatient (BNV) | payer OTHER, SELFPAY | PROVIDERS: Emergency Provider Student in an Organized Health Care Education/Training Program; PCP Internal Medicine; Visit Provider Radiology Diagnostic Radiology | DX: R60.0 Localized edema (principal) | CPT/HCPCS: 73600 ==

== ENCOUNTER 2025-03-13 19:12 | Outpatient (BNV) | payer OTHER, SELFPAY | END 2025-03-14 11:40 | PROVIDERS: Admitting Provider Hospitalist; Emergency Provider Emergency Medicine; PCP Internal Medicine; Visit Provider Radiology Diagnostic Radiology | DX: L03.115 Cellulitis of right lower limb (principal) | CPT/HCPCS: 73723 ==

== ENCOUNTER → 2025-03-13 19:12 | Outpatient (BNV) | payer OTHER, SELFPAY | PROVIDERS: Admitting Provider Hospitalist; Emergency Provider Emergency Medicine; PCP Internal Medicine; Visit Provider Internal Medicine | DX: M86.071 Acute hematogenous osteomyelitis, right ankle and foot (principal); M86.072 Acute hematogenous osteomyelitis, left ankle and foot; L03.115 Cellulitis of right lower limb; L03.116 Cellulitis of left lower limb | CPT/HCPCS: 99222; 99232; 99239 ==

== ENCOUNTER → 2025-03-13 19:12 | Outpatient (BNV) | payer OTHER, SELFPAY | PROVIDERS: Admitting Provider Hospitalist; Emergency Provider Emergency Medicine; PCP Internal Medicine; Visit Provider Surgery Vascular Surgery | DX: I73.9 Peripheral vascular disease, unspecified (principal) | CPT/HCPCS: 99232 ==

== ENCOUNTER → 2025-03-13 19:12 | Outpatient (BNV) | payer OTHER, SELFPAY | PROVIDERS: Admitting Provider Hospitalist; Emergency Provider Emergency Medicine; PCP Internal Medicine; Visit Provider Internal Medicine | DX: I73.9 Peripheral vascular disease, unspecified (principal); L03.90 Cellulitis, unspecified | CPT/HCPCS: 99222 ==